=== PATIENT | male | born 1950 | race Caucasian/White ===

== ENCOUNTER 2017-05-20 01:57 | Inpatient (IN) | payer MEDICARE, MEDICAID, SELFPAY ==
[2017-05-20] VITALS (21 sets, daily range): BP systolic 108–140; BP diastolic 38–78; PULSE 72–105; RESP 12–18; TEMP 36.6–37.1; O2SAT 86–98; BMI 38.0; BMI 36.9
--- NOTE | 2017-05-20 02:13 | CT_ITS ---
STUDY: CT ABDOMEN AND PELVIS WITHOUT CONTRAST REASON FOR EXAM: Male, 67 years old. Abdominal pain and nausea RADIATION DOSAGE (If Supplied By Facility): CTDIvol = ( 21.80 ) mGy, DLP = ( 1214.86 ) mGycm TECHNIQUE: Transaxial images were obtained from the dome of the diaphragm to the symphysis pubis without oral contrast, and without intravenous contrast. Sagittal and coronal images were reconstructed. Individualized dose optimization techniques were used for this CT. COMPARISON: None. FINDINGS: Left lower lobe alveolar disease. The visualized portions of the heart are within normal limits. Indeterminate lobulated low density lesion in the hepatic dome measuring 3.9 cm. Cholelithiasis. Normal spleen. Normal pancreas. Normal bilateral adrenal glands. Normal right kidney. Normal left kidney. Normal visualized stomach. Multiple mildly dilated fluid-filled small bowel loops are present on the left measure up to 3.6 cm in diameter. No distinct transition point is seen. Findings could be related to ileus or enteritis. There are multiple colonic diverticula consistent with diverticulosis. The appendix is visualized and appears normal. There is diffuse atherosclerotic calcification of the abdominal aorta, without a demonstrated aneurysm. Normal inferior vena cava. Normal retroperitoneum. Normal urinary bladder. There are prostatic calcifications. Normal abdominal wall. There are diffuse degenerative changes of the visualized lumbar spine. CT/Abdomen/Pelvis without Cont IMPRESSION: CT findings suggest small bowel ileus or enteritis. Left lower lobe pneumonia. Indeterminate lesion in the hepatic dome. Consider follow-up dedicated liver CT or MRI. Electronically Signed: Shun Faye MD at 3:22 EDT Tel , Service support ,
--- NOTE | 2017-05-20 02:13 | RAD_ITS ---
STUDY: X-RAY CHEST REASON FOR EXAM: Male, 67 years old. Pain TECHNIQUE: Single frontal view of the chest. COMPARISON: None. FINDINGS: Right basilar atelectasis. There is no demonstrated pleural abnormality. Prominent cardiac silhouette. Normal mediastinum and leticia. Normal visualized pulmonary arteries. Normal visualized aortic arch and descending thoracic aorta. There are diffuse degenerative changes of the visualized thoracic spine. Normal visualized ribs, clavicles, and shoulders. There is no demonstrated abnormality of the visualized soft tissue structures of the upper abdomen. RAD/Chest 1 View (Portable) IMPRESSION: Right basilar atelectasis. Electronically Signed: Shun Faye MD at 3:14 EDT Tel , Service support ,
[2017-05-20] MEDS: Ondansetron 4 MG/2 ML Vial IV (02:25)
[2017-05-20] MEDS: 0.9% Normal Saline 1,000 ML 125 ML IV ×2 (02:25→12:56)
--- NOTE | 2017-05-20 02:29 | ED.VISSUMM ---
- ER Visit Summary Date of Service: 05/20/17 Chief Complaint: [] Abdominal pain, vomiting History of Present Illness: The patient is a 67 M [] history of MRDD, seizures, schizophrenia from a shelter presenting with complaints of abdominal pain and distention. Staff at the shelter for nausea and vomiting. Staff also reports the patient lives for food and has not eaten for approximately 3 days. History is limited by his history of MRDD. Physical Examination: [] Afebrile, vital signs stable. 67-year-old male in no acute distress. Cardiovascular exam is regular rate and rhythm. Lungs are clear to auscultation. Abdomen is obese, soft, distended. No guarding or rebound tenderness. Test Results: [] CT abdomen/pelvis: Reveals ileus. Labs: CBC normal, BMP reveals a elevated BUN at 54 and a creatinine of 2.49, respectively. LFTs normal. KUB: NG tube in appropriate placement. Emergency Department Course and Treatment: [] Patient evaluated for abdominal pain and distention. Patient given intravenous fluids, nausea medication upon arrival. CT reveals ileus. NG tube was placed after patient received 3 mg intravenously of Versed for procedural sedation. Patient's guardian gave verbal consent over the phone. NG tube was placed which resulted in immediate evacuation of over [address] also reveals left lower lobe infiltrate and because the patient lives in a shelter/penitentiary facility he will be treated as a healthcare associated pneumonia. He received intravenous vancomycin and intravenous Zosyn. He received additional normal saline bolus after BMP identified his renal insufficiency and dehydration. Patient was given 50 mcg of fentanyl for analgesia. Case discussed with on-call surgeon and on-call hospitalist. Patient will be admitted to the medical floor with consult to general surgery for management of the ileus. Treatment Plan: [] Admit to medical floor. NG tube, fluids, n.p.o. Disposition: [] Admit, stable Impression: [] Ileus Left lower lobe infiltrate, being treated as healthcare associated pneumonia Renal insufficiency Dehydration Procedural sedation by ED physician for NG tube placement This note was generated with [employer] dictation software. It may contain incorrect words, spelling, and punctuation that were not noted in review of the chart prior to signing ED Disposition - Plan for ED Patient: Chief Complaint: Abd Pain Referrals: Flo Del Cid Chi, MD [Primary Care Provider] -
[2017-05-20 02:36] LABS: Absolute Lymphocyte Count 1.44 X10^3/ul (0.83-4.51); Absolute Neutrophil Count 4.9 X10^3/uL (2.0-7.7); Basophil# 0.02 X10^3/uL; Basophil% 0.2 % (0-1); Eosinophil# 0.01 X10^3/uL; Eosinophils% 0.1 % (0-5); Hematocrit 44.5 % (40-54); Hemoglobin 14.9 g/dl (13.0-16.5); Lymphocyte # 1.44 X10^3/ul (4.0); Lymphocyte % 17.6 % (19-41); Mean Corp Hgb Conc 33.5 g/gl (32-36); Mean Corpuscular Volume 98.7 fL (80-94); Mean Platelet Vol. 11.9 fl (6.2-12.0); Monocyte# 1.79 X10^3/uL; Monocyte% 21.9 % (0-10); Platelet Count 125 K/mm3 (150-450); RBC Distribution Width CV 13.5 % (11.6-14.6); RBC Distribution Width SD 48.7 fl (35.1-43.9); Red Blood Count 4.51 M/mm3 (4.6-6.2); White Blood Count 8.2 K/mm3 (4.4-11.0)
[2017-05-20 02:38] LABS: Differential Indicated SCAN CRITERIA MET; POSITIVE COUNT NO; POSITIVE DIFFERENTIAL YES; POSITIVE MORPHOLOGY NO
[2017-05-20 02:59] LABS: Lactic Acid 1.1 mmol/L (0.4-2.0)
[2017-05-20 03:04] LABS: Differential Comment SCANNED
[2017-05-20 03:06] LABS: Reactive Lymphocyte 2+
[2017-05-20 03:13] LABS: ALB/GLOB Ratio 0.6 RATIO (0.9-2.4); AST(SGOT) 46 U/L (15-37); Alanine Aminotransfer ALT/SGPT 33 U/L (16-61); Albumin, Serum 2.8 g/dL (3.2-5.0); Alkaline Phosphatase 37 U/L (45-117); Anion Gap 10 (5-15); BUN 54 mg/dL (7-18); BUN/Creat Ratio 21.7 RATIO (10-20); Calcium,Total 8.2 mg/dL (8.5-10.1); Chloride 102 mmol/L (98-107); Creatinine, Serum 2.49 mg/dL (0.70-1.30); EST Glomerular Filtration Rate 28 mL/min (>60); Est Glom Filt Rate - Afr Amer 34 mL/min (>60); Estimated Creatinine Clearance 30.13 ml/min; Globulin 4.5 g/dL (2.2-4.2); Glucose 115 mg/dL (74-106); Lipase 71 U/L (73-393); Potassium 4.7 mmol/L (3.5-5.1); Protein, Total 7.3 g/dL (6.4-8.2); Sodium Level 138 mmol/L (136-145)
--- NOTE | 2017-05-20 03:36 | RAD_ITS ---
STUDY: X-RAY - ABDOMEN/PELVIS REASON FOR EXAM: Male, 67 years old. NG tube placement TECHNIQUE: Single AP view of the abdomen / pelvis. COMPARISON: None. FINDINGS: Enteric tube tip in the body of the stomach. There is an unremarkable bowel gas pattern. There is no demonstrated free abdominal air. The visualized liver, spleen and kidneys are grossly normal in size and morphology. Normal soft tissue structures. There are diffuse degenerative changes of the visualized lumbar spine. RAD/Abdomen Single View (Portable) IMPRESSION: Enteric tube tip in the body of the stomach. Electronically Signed: Shun Faye MD at 5:40 EDT Tel , Service support ,
[2017-05-20] MEDS: Midazolam 2 MG/2 ML Syringe 3 MG IV (05:07)
[2017-05-20] MEDS: 0.9% Normal Saline 1,000 ML 999 ML IV (06:09)
--- NOTE | 2017-05-20 06:21 | HP.PCM_ITS ---
Problem List (1) Ileus Status: Acute (2) HCAP (healthcare-associated pneumonia) Status: Acute (3) ARF (acute renal failure) Status: Acute History of Present Illness Date of Admission: 05/20/17 Chief Complaint: Ileus The patient is a 67 year old male w/ h/o mental retardation and developmental disabilities, seizure, and schizophrenia admitted for ileus. Pt was unable to provide history secondary to sedation and MRDD. History is taken from staff and report. [facility] for [facility] and distention. He had decreased appetite and has not been eating or drinking much water for the last 3 days. He lives for food. He has n/v. Nothing made it better or worse. He was brought to the ED for further evaluation. Past Medical History Allergies No Known Allergies Allergy (Verified 05/20/17 01:58) Home Medications: Ambulatory Orders Medication Instructions Recorded Calcium Polycarbophil [Fiber 625 mg PO DAILY 05/20/17 Laxative] Chlorhexidine Gluconate [Peridex] 15 ml MM BID 05/20/17 Divalproex (ER) [Depakote ER] 500 mg PO TID 05/20/17 Emollient Combination No.92 1 applic TP BID 05/20/17 [Lubriderm Daily Moisture] Ferrous Sulfate [Iron] 325 mg PO BID 05/20/17 Fluticasone Propionate [Flovent 50 mcg IH DAILY 05/20/17 Diskus] Gabapentin [Neurontin] 600 mg PO TIDCM 05/20/17 Haloperidol [Haldol] 5 mg PO DAILY 05/20/17 Loratadine 10 mg PO DAILY 05/20/17 Meloxicam [Mobic] 7.5 mg PO DAILY 05/20/17 Omeprazole 40 mg PO DAILY 05/20/17 Oxcarbazepine [Trileptal] 2 tab PO QHS 05/20/17 Oxcarbazepine [Trileptal] 300 mg PO DAILY 05/20/17 Pravastatin [Pravachol] 40 mg PO QHS 05/20/17 Psyllium [Metamucil] 1 packet PO DAILY 05/20/17 Risperidone [Risperdal] 4 mg PO QHS 05/20/17 Tamsulosin HCl [Flomax] 0.4 mg PO DAILY 05/20/17 Thioridazine HCl 2 tab PO BID 05/20/17 Vitamin B Complex 1 each PO BID 05/20/17 Lives: Roommate Smoking Status: Unknown if ever smoked Alcohol: None Drugs: None Review of Systems Unable to obtain accurate/complete ROS d/t: Unable to obtain secondary to sedation and MRDD VTE Information - Inpt Only VTE Present on Admission: No VTE Mechan Device Prophylaxis: SCD's VTE Pharm Prophylaxis ordered?: Yes Patient Problems: Active and Suspected Problems Ileus (Acute) HCAP (healthcare-associated pneumonia) (Acute) ARF (acute renal failure) (Acute) - Physical Exam General: - - Sedated and NAD HEENT: Atraumatic, PERRLA, EOMI, Normocephalic Neck: Supple, No JVD, Negative Carotid Bruits Lungs: Clear to auscultation, Normal air movement Cardiovascular: Regular rate, No murmurs Abdomen: Soft, Non Tender, Hypoactive Bowel Sounds, Distended Extremities: No edema, Capillary Refill Less than 3 Seconds Skin: No rashes, No breakdown Musculoskeletal: No Tenderness to Palpation of Joints or Extremities Neurological: Cranial nerves II-XII grossly intact Psych/Mental Status: Normal Affect, Appropriate Vital Signs Temp Pulse Resp BP Pulse Ox 98.3 F 86 18 122/65 H 90 05/20/17 01:58 05/20/17 05:32 05/20/17 05:32 05/20/17 05:32 05/20/17 05:05 Oxygen Flow Rate (L/min) [3] 4 Oxygen Flow Rate (L/min) [2] 15 Oxygen Flow Rate (L/min) [1 ( 3 Initial Baseline)] Oxygen Flow Rate (L/min) 3 Oxygen Delivery Method [3] Room Air Oxygen Delivery Method [2] Non-Rebreather Oxygen Delivery Method [1 ( Nasal Cannula Initial Baseline)] Oxygen Delivery Method Nasal Cannula Weight: 120.1 kg Body Mass Index (BMI) 38.0 Intake and Output for Last 24 Hours 05/18/17 05/19/17 05/20/17 23:59 23:59 23:59 Output Total 1000 / 1000 Balance -1000 / -1000 Laboratory Tests Past 24 Hrs 05/20/17 05/20/17 05/20/17 02:26 02:26 02:26 WBC 8.2 RBC 4.51 L Hgb 14.9 Hct 44.5 MCV 98.7 H MCH 33.0 H MCHC 33.5 RDW 13.5 RDW Differential 48.7 H Plt Count 125 L MPV 11.9 Immature Gran % (Auto) 0.200 Neut % (Auto) 60.0 Lymph % (Auto) 17.6 L [place] % (Auto) 21.9 H Eos % (Auto) 0.1 Baso % (Auto) 0.2 Absolute Neuts (auto) 4.9 Absolute Lymphs (auto) 1.44 Total Counted Not Reportable Differential Comment SCANNED Reactive Lymphocytes 2+ Sodium 138 Potassium 4.7 Chloride 102 Carbon Dioxide 26.0 Anion Gap 10 BUN 54 H Creatinine 2.49 H Estim Creat Clear Calc 30.13 Est GFR (MDRD) Af Amer 34 L Est GFR (MDRD) Non-Af 28 L BUN/Creatinine Ratio 21.7 H Glucose 115 H Lactic Acid 1.1 Calcium 8.2 L Total Bilirubin 0.50 AST 46 H ALT 33 Alkaline Phosphatase 37 L Total Protein 7.3 Albumin 2.8 L Globulin 4.5 H Albumin/Globulin Ratio 0.6 L Lipase 71 L Assessment/Plan Active and Suspected Problems Ileus (Acute) HCAP (healthcare-associated pneumonia) (Acute) ARF (acute renal failure) (Acute) 67 year old male w/ h/o mental retardation and developmental disabilities, seizure, and schizophrenia admitted for ileus. 1) Ileus: CT disclosed ileus. NPO. IVF hydration. NGT to suction. General surgery consulted. 2) HCAP: CT disclosed left lower lobe pneumonia. Cultures pending. C/w zosyn and vancomycin. 3) ARF: Most likely azotemia. Baseline Cr 1.1 Cr 2.49 Will hydrate and if no improvement, will consider further workup. UA pending. 4) Chronic issues: Mental retardation and developmental disabilities, seizure, and schizophrenia: Supportive care. Home meds on hold secondary to ileus and NGT to suction. Resume meds when ileus improves. 5) Prophylaxis: SCD / heparin.
--- NOTE | 2017-05-20 08:49 | PCM.CONS.GEN ---
Reason for Consult Date of Consultation: 05/20/17 Reason for Consultation: Ileus History of Present Illness: The patient is a 67 year old M history of MRDD from a nursing home presents due to nausea and vomiting and decreased appetite ?3 days. History obtained per chart as patient is unable to give a adequate history however he does state that he feels better now after having an NG placed. NG initial output was 1500 in the ER. KUB after NG placement and drainage was read as normal bowel pattern. CT abdomen pelvis also showed left lower lobe pneumonia. And labs also showed acute renal failure. Past Medical History Allergies No Known Allergies Allergy (Verified 05/20/17 01:58) Home Medications: Ambulatory Orders Medication Instructions Recorded Calcium Polycarbophil [Fiber 625 mg PO DAILY 05/20/17 Laxative] Chlorhexidine Gluconate [Peridex] 15 ml MM BID 05/20/17 Divalproex (ER) [Depakote ER] 500 mg PO TID 05/20/17 Ferrous Sulfate [Iron] 325 mg PO BID 05/20/17 Fluticasone Propionate [Flovent 50 mcg IH DAILY 05/20/17 Diskus] Gabapentin [Neurontin] 600 mg PO TIDCM 05/20/17 Gly/Dimeth/Ure/Pet,Wh/Cet Alc 1 applic TP BID 05/20/17 [Lubriderm Skin Nourishing Lot] Haloperidol [Haldol] 5 mg PO DAILY 05/20/17 Loratadine 10 mg PO DAILY 05/20/17 Meloxicam [Mobic] 7.5 mg PO DAILY 05/20/17 Omeprazole 40 mg PO DAILY 05/20/17 Oxcarbazepine [Trileptal] 2 tab PO QHS 05/20/17 Oxcarbazepine [Trileptal] 300 mg PO DAILY 05/20/17 Pravastatin [Pravachol] 40 mg PO QHS 05/20/17 Psyllium [Metamucil] 1 packet PO DAILY 05/20/17 Risperidone [Risperdal] 4 mg PO QHS 05/20/17 Tamsulosin HCl [Flomax] 0.4 mg PO DAILY 05/20/17 Thioridazine HCl 2 tab PO BID 05/20/17 Vitamin B Complex 1 each PO BID 05/20/17 Surgical History: - - Unable to obtain no scars/incisions on the abdomen Psychiatric History: Schizophrenia Lives: Roommate - In a nursing home Smoking Status: Unknown if ever smoked Alcohol: None Drugs: None - *Family History Maternal History Items: Unknown Review of Systems Unable to obtain accurate/complete ROS d/t: Due to patient's history of MRDD Patient Problems: Active and Suspected Problems Ileus (Acute) HCAP (healthcare-associated pneumonia) (Acute) ARF (acute renal failure) (Acute) - Physical Exam General: Cooperative, No apparent distress HEENT: Normocephalic, - - NG in left nares Lungs: Normal air movement Abdomen: Soft, Non Tender, Non-Distended, - - No scars/incision was appreciated on abdomen, no guarding no rebound Extremities: No clubbing, No cyanosis, No edema Psych/Mental Status: Appropriate Vital Signs Temp Pulse Resp BP Pulse Ox 98.2 F 76 18 125/57 H 98 05/20/17 07:13 05/20/17 07:13 05/20/17 07:13 05/20/17 07:13 05/20/17 07:13 Oxygen Flow Rate (L/min) 3 Oxygen Delivery Method Room Air Weight: 257 lb 4.471 oz Intake and Output for Last 24 Hours 05/18/17 05/19/17 05/20/17 23:59 23:59 23:59 Output Total 550 / 1550 Balance -550 / -1550 Assessment/Plan Active and Suspected Problems Ileus (Acute) HCAP (healthcare-associated pneumonia) (Acute) ARF (acute renal failure) (Acute) 67-year-old male with history of MRDD from a nursing home with possible ileus, nausea and vomiting, acute renal failure, left lower lobe pneumonia 1. Possible ileus. History obtained per records as patient is unable to give history. Nausea and vomiting and decreased appetite ?[address] was consistent with an ileus or possible enteritis. NG was placed in the ER and got 1500 out initially patient got another 2-300 out in the room. Repeat KUB after initial drainage read as normal bowel pattern. Will check small bowel follow-through with Gastrografin, okay for portable x-rays as long as we able to see the bowel. Continue NG/n.p.o. until small bowel follow-through complete. 2. Acute renal failure patient is on IV fluids per primary. 3. Antibiotics for pneumonia per primary. Claire Anthony M.D. Pager: [phone] [facility] [address], [address] [place] [address] Office: [phone] Code Visit Inpatient E&M: 29501 Init Hosp L1
--- NOTE | 2017-05-20 08:59 | CON.PCM_ITS ---
Reason for Consult Date of Consultation: 05/20/17 Reason for Consultation: Ileus History of Present Illness: The patient is a 67 year old M history of MRDD from a residential presents due to nausea and vomiting and decreased appetite ?3 days. History obtained per chart as patient is unable to give a adequate history however he does state that he feels better now after having an NG placed. NG initial output was 1500 in the ER. KUB after NG placement and drainage was read as normal bowel pattern. CT abdomen pelvis also showed left lower lobe pneumonia. And labs also showed acute renal failure. Past Medical History Allergies No Known Allergies Allergy (Verified 05/20/17 01:58) Home Medications: Ambulatory Orders Medication Instructions Recorded Calcium Polycarbophil [Fiber 625 mg PO DAILY 05/20/17 Laxative] Chlorhexidine Gluconate [Peridex] 15 ml MM BID 05/20/17 Divalproex (ER) [Depakote ER] 500 mg PO TID 05/20/17 Ferrous Sulfate [Iron] 325 mg PO BID 05/20/17 Fluticasone Propionate [Flovent 50 mcg IH DAILY 05/20/17 Diskus] Gabapentin [Neurontin] 600 mg PO TIDCM 05/20/17 Gly/Dimeth/Ure/Pet,Wh/Cet Alc 1 applic TP BID 05/20/17 [Lubriderm Skin Nourishing Lot] Haloperidol [Haldol] 5 mg PO DAILY 05/20/17 Loratadine 10 mg PO DAILY 05/20/17 Meloxicam [Mobic] 7.5 mg PO DAILY 05/20/17 Omeprazole 40 mg PO DAILY 05/20/17 Oxcarbazepine [Trileptal] 2 tab PO QHS 05/20/17 Oxcarbazepine [Trileptal] 300 mg PO DAILY 05/20/17 Pravastatin [Pravachol] 40 mg PO QHS 05/20/17 Psyllium [Metamucil] 1 packet PO DAILY 05/20/17 Risperidone [Risperdal] 4 mg PO QHS 05/20/17 Tamsulosin HCl [Flomax] 0.4 mg PO DAILY 05/20/17 Thioridazine HCl 2 tab PO BID 05/20/17 Vitamin B Complex 1 each PO BID 05/20/17 Surgical History: - - Unable to obtain no scars/incisions on the abdomen Psychiatric History: Schizophrenia Lives: Roommate - In a residential Smoking Status: Unknown if ever smoked Alcohol: None Drugs: None - *Family History Maternal History Items: Unknown Review of Systems Unable to obtain accurate/complete ROS d/t: Due to patient's history of MRDD Patient Problems: Active and Suspected Problems Ileus (Acute) HCAP (healthcare-associated pneumonia) (Acute) ARF (acute renal failure) (Acute) - Physical Exam General: Cooperative, No apparent distress HEENT: Normocephalic, - - NG in left nares Lungs: Normal air movement Abdomen: Soft, Non Tender, Non-Distended, - - No scars/incision was appreciated on abdomen, no guarding no rebound Extremities: No clubbing, No cyanosis, No edema Psych/Mental Status: Appropriate Vital Signs Temp Pulse Resp BP Pulse Ox 98.2 F 76 18 125/57 H 98 05/20/17 07:13 05/20/17 07:13 05/20/17 07:13 05/20/17 07:13 05/20/17 07:13 Oxygen Flow Rate (L/min) 3 Oxygen Delivery Method Room Air Weight: 257 lb 4.471 oz Intake and Output for Last 24 Hours 05/18/17 05/19/17 05/20/17 23:59 23:59 23:59 Output Total 550 / 1550 Balance -550 / -1550 Assessment/Plan Active and Suspected Problems Ileus (Acute) HCAP (healthcare-associated pneumonia) (Acute) ARF (acute renal failure) (Acute) 67-year-old male with history of MRDD from a residential with possible ileus, nausea and vomiting, acute renal failure, left lower lobe pneumonia 1. Possible ileus. History obtained per records as patient is unable to give history. Nausea and vomiting and decreased appetite ?[address] was consistent with an ileus or possible enteritis. NG was placed in the ER and got 1500 out initially patient got another 2-300 out in the room. Repeat KUB after initial drainage read as normal bowel pattern. Will check small bowel follow-through with Gastrografin, okay for portable x-rays as long as we able to see the bowel. Continue NG/n.p.o. until small bowel follow-through complete. 2. Acute renal failure patient is on IV fluids per primary. 3. Antibiotics for pneumonia per primary. Claire Anthony M.D. Pager: [phone] [facility] [address], [address] [place] [address] Office: [phone] Code Visit Inpatient E&M: 79906 Init Hosp L1
--- NOTE | 2017-05-20 10:04 | US_ITS ---
STUDY: RENAL ULTRASOUND - COMPLETE REASON FOR EXAM: Male, 67 years old. Acute renal failure. TECHNIQUE: Ultrasound evaluation of the kidneys was performed with real-time and static honeycutt-scale imaging. COMPARISON: CT scan of the same day which showed no acute renal abnormalities.. FINDINGS: Exam limited by patient's size and patient condition. RIGHT KIDNEY: Normal location of the right kidney, which is normal in size. The right kidney measures 12.5 x 6.0 x 5.4 cm. Possible mild increased echogenicity of the renal cortex. The renal cortex measures 1.5 cm. There is no right renal mass or cyst. There are no right renal calculi. There is no right hydronephrosis. DISTAL RIGHT URETER: There is non-visualization of the distal right ureter. There is no demonstrated right ureterovesical junction calculus. There is a visualized right ureteral jet. LEFT KIDNEY: Normal location of the left kidney, which is normal in size. The left kidney measures 12.1 x 6.7 x 6.6 cm. Possible mild increased echogenicity of the renal cortex. The renal cortex measures 1.4 cm. There is no left renal mass or cyst. There are no left renal calculi. There is no left hydronephrosis. DISTAL LEFT URETER: There is non-visualization of the distal left ureter. There is no demonstrated left ureterovesical junction calculus. There is a visualized left ureteral jet. BLADDER: The distended urinary bladder has a volume of 371 ml. There is a normal wall thickness of the distended urinary bladder. There is no demonstrated mass within the urinary bladder. There are no demonstrated bladder calculi. US/Kidney and Bladder IMPRESSION: No acute abnormalities. No hydronephrosis. Cannot exclude mild diffuse increased echogenicity of the renal cortex which can be seen in medical renal disease. Electronically Signed: Graham Narvaez MD at 15:56 EDT , Service support ,
--- NOTE | 2017-05-20 10:21 | NURSING ---
Primary RN awaRe this nurse called/ let a message for Dr. Del Cid's nurse requesting medial records including past medical history
--- NOTE | 2017-05-20 10:30 | RAD_ITS ---
CLINICAL HISTORY: Male, 67 years old. Nausea and vomiting. PROCEDURE: Small bowel series. TECHNIQUE: (All elements of maximal sterile barrier technique followed, including US elements as applicable) Multiple sequential small bowel follow-through images are obtained. There is prominent gastric contrast content with multiple areas of small bowel dilatation noted. There is faint outline of contrast within the colon with sequential imaging showing no evidence of gastric contents extending through the small bowel on examination. RAD/Small Bowel Series Only IMPRESSION: Prominent gastric focus of contrast without significant contrast movement throughout the enteric system most consistent with underlying small bowel obstruction versus adynamic ileus. Electronically Signed: Shaun Keys DO at 22:56 EDT , Service support ,
--- NOTE | 2017-05-20 12:23 | NURSING ---
jail called at this time- requested information regarding flu vaccine and admission information.
[2017-05-20] MEDS: Budesonide Respules 0.5 MG/2 ML AMPUL.NEB. INHALATION ×2 (13:25→23:15)
[2017-05-20] MEDS: Piperacil/Tazobactam 3.375 GM/50 ML ML IV ×2 (14:09→21:46)
--- NOTE | 2017-05-20 14:32 | CASEMGMT ---
Social Work Note SUSI met with patient to discuss discharge planning. SUSI introduced self and role at [facility]. Pt is from [facility]. Pt's plan is to return to [facility]. SUSI placed call to [facility]. PerKarol at [facility], SUSI will need to fax clinicals to [facility] as [facility] doesn't have a fax. SUSI faxed clinicals to [facility]. Plan: Return to [facility] Octavia SAWYER, JOURNALISM INTERN.
--- NOTE | 2017-05-20 14:47 | PCM.PN.HOSP ---
Patient Problems: Active and Suspected Problems Ileus (Acute) HCAP (healthcare-associated pneumonia) (Acute) ARF (acute renal failure) (Acute) Subjective: Patient was seen and examined. Status post NG tube placement. Says that he feels much improved. Admitted overnight with abdominal distention and findings from CT abdomen pelvis suggestive of small bowel ileus. Denies any fever or chills. Vitals/I&O's: Vital Signs Temp Pulse Resp BP Pulse Ox 98.2 F 72 18 109/66 93 05/20/17 13:01 05/20/17 13:44 05/20/17 13:44 05/20/17 13:01 05/20/17 13:01 Oxygen Flow Rate (L/min) 2 Oxygen Delivery Method Nasal Cannula Weight: 116.7 kg Intake and Output for Last 24 Hours 05/18/17 05/19/17 05/20/17 23:59 23:59 23:59 Intake Total 745 / 745 Output Total 550 / 1550 Balance 195 / -805 General: Alert, Oriented x3, Cooperative, No apparent distress, - - NG tube insitu HEENT: Atraumatic, PERRLA, EOMI, Normocephalic Oral: Moist Mucosa Neck: Supple Lungs: Clear to auscultation, Normal air movement Cardiovascular: Regular rate, Regular Rhythm, Normal S1, Normal S2, No murmurs Abdomen: Bowel Sounds Present, Soft, Non Tender, Distended Extremities: No edema Skin: No rashes Musculoskeletal: No Tenderness to Palpation of Joints or Extremities Lymphatic: No Cervical, Supraclavicular, or Inguinal Adenopathy Neurological: Cranial nerves II-XII grossly intact, Neuro grossly intact Psych/Mental Status: Normal Affect, Appropriate Current Medications Budesonide (Pulmicort Aerosol) 0.5 mg INHALATION Q12H.RT [facility] Last Admin: 05/20/17 13:25 Dose: 0.5 mg Heparin Sodium (Porcine) (Heparin Na) 5,000 unit SC Q8 [facility] Sodium Chloride () 1,000 mls @ 125 mls/hr IV .Q8H [facility] Last Admin: 05/20/17 12:56 Dose: 125 mls/hr Piperacillin Sod/Tazobactam Sod (Zosyn) 3.375 gm in 50 mls @ 12.5 mls/hr IV Q8 [facility] Last Admin: 05/20/17 14:09 Dose: 12.5 mls/hr Valproic Acid 500 mg/ Dextrose 55 mls @ 50 mls/hr IV Q8H [facility] Last Admin: 05/20/17 12:55 Dose: 50 mls/hr Morphine Sulfate () 1 - 2 mg IV Q4H PRN PRN PRN Reason: Moderate Pain (pain scale 4-5) Sodium Chloride () 5 - 30 ml IV UD PRN PRN Reason: SALINE FLUSH Medical Necessity - Tobacco Use Smoking Status: Unknown if ever smoked Assessment/Plan Active and Suspected Problems Ileus (Acute) HCAP (healthcare-associated pneumonia) (Acute) ARF (acute renal failure) (Acute) 67-year-old male with MRDD, seizure disorder, schizophrenia admitted with abdominal distention and CT of the abdomen and pelvis shows small bowel ileus. 1. Abdominal distention secondary small bowel ileus, managed conservatively, general surgery consulted, kept n.p.o., abdominal follow-up/series ordered, on IV fluids, further management and recommendations by general surgery. 2. HCAP, vitals are stable, blood cultures are pending, on zosyn IV, will transition to Levaquin IV/Po from tomorrow. 3. KEHINDE, likely pre-renal, Cr 2.49, continue on IV fluids, repeat BMP in am. 4. Seizure disorder, on depakote 5. MRDD/Schizophrenia 6. DVT prophylaxis with Heparin Code Visit Inpatient E&M: [id number] Subs Hosp L2
[2017-05-20 18:40] LABS: Bedside Glucose 98 mg/dL (70-110)
--- NOTE | 2017-05-20 18:46 | NURSING ---
Pt off unit at this time for small bowel series- for xray.
--- NOTE | 2017-05-20 18:47 | NURSING ---
Dr. Anthony called to unit and states that patient's NG tube should remain clamped and does not need any flushes. She states that if patient becomes nauseated that we may reconnect to LIWS. She states that patient will need to be ambulating 3-4 times each day to stimulate bowels.
--- NOTE | 2017-05-20 19:34 | NURSING ---
NG tube d/c'ed- pt tolerated well. Following removal pt. assisted with washing face and getting a drink of ice water, per his request. Restraints removed at this time and IV wrapped to prevent removal. Attempted to get patient out of bed, adamant that he was not getting up at this time. Provided encouragement to get up so he can get his bowels to work so he can eat. Pt states he will walk later.
[2017-05-20 19:49] LABS: Bacteria 0 SEEN /hpf (None Seen); Mucous, Urine 0 SEEN /hpf (<or=2+); White Blood Cells 0 SEEN /hpf (0-5)
[2017-05-20 19:57] LABS: Color, Urine Yellow (Yellow); Glucose, Dipstick Normal (Normal); Ketone-Dipstick 5 mg/dl (Negative); Leukocyte Esterase-Dipstick Negative /ul (Negative); Nitrite-Dipstick Negative (Negative); Occult Blood-Urine 10 /ul (Negative); Protein-Dipstick 15 mg/dl (Negative); Urine Clarity Sl. Cloudy (Clear); Urine Urobilinogen Normal (Normal)
[2017-05-20 20:12] LABS: Urine Bilirubin Dipstick 1 mg/dL (Negative)
[2017-05-20 20:17] LABS: Red Blood Cells-Urine 0-5 SEEN /hpf (0-5); Squamous Epithelial Cells - UA 0-5 SEEN /hpf (0-5)
[2017-05-20 20:18] LABS: Amorphous Sediment 1+ URATE; Hyaline Cast 0-5 SEEN /lpf (0-5)
--- NOTE | 2017-05-20 21:45 | NURSING ---
Pt's sister, Ginna, is in Rehab. Called to ask about pt and spoke with feeder driver.
[2017-05-21] MEDS: 0.9% Normal Saline 1,000 ML 125 ML IV ×2 (00:40→09:45)
[2017-05-21 01:26] LABS: Bedside Glucose 94 mg/dL (70-110)
[2017-05-21 02:43] VITALS: BP 131/59; PULSE 88; RESP 20; TEMP 37.4; O2SAT 93
[2017-05-21] MEDS: Piperacil/Tazobactam 3.375 GM/50 ML ML IV (06:14)
[2017-05-21 06:30] LABS: Bedside Glucose 101 mg/dL (70-110)
--- NOTE | 2017-05-21 08:19 | PCM.PN.SRG ---
Patient Problems: Active and Suspected Problems Ileus (Acute) HCAP (healthcare-associated pneumonia) (Acute) ARF (acute renal failure) (Acute) Subjective: Patient did have contrast throughout the colon and in the rectum last night. NG was removed started on small amounts of clears, positive liquid bowel movements and flatus. However on the small bowel follow-through patient retained the a good amount of contrast in his stomach. Patient denies nausea/abdominal pain - Physical Exam General: Cooperative, No apparent distress Abdomen: Soft, Non Tender, Distended - Mild, - - No guarding or rebound Vital Signs Temp Pulse Resp BP Pulse Ox 99.3 F H 88 20 H 131/59 H 93 05/21/17 02:43 05/21/17 02:43 05/21/17 02:43 05/21/17 02:43 05/21/17 02:43 Oxygen Flow Rate (L/min) 3 Oxygen Delivery Method Nasal Cannula Weight: 257 lb 4.471 oz Intake and Output for Last 24 Hours 05/19/17 05/20/17 05/21/17 23:59 23:59 23:59 Intake Total 1261 / 1261 2362 / 2362 Output Total 1300 / 2300 1100 / 1100 Balance -39 / -1039 1262 / 1262 Microbiology Past 72 Hours 05/20/17 16:10 Streptococcus pneumoniae Antigen (M - Final Urine Catheter - Catheter 05/20/17 16:10 Legionella Antigen - Final Urine Catheter - Catheter 05/20/17 13:15 Influenza Types A,B Direct FA (DENNY) - Final Mucosa - Nose Laboratory Tests Past 24 Hrs 05/20/17 05/20/17 14:05 16:50 Urine Color Yellow Cancelled Urine Clarity Sl. Cloudy Cancelled Urine pH 5.0 Cancelled Ur Specific [place] 1.020 Cancelled U Specif Grav (Refrac) Cancelled Urine Protein 15 H Cancelled Urine Glucose (UA) Normal Cancelled Urine Ketones 5 H Cancelled Urine Occult Blood 10 H Cancelled Urine Nitrite Negative Cancelled Urine Bilirubin 1 H Cancelled Urine Urobilinogen Normal Cancelled Ur Leukocyte Esterase Negative Cancelled Urine RBC 0-5 SEEN Urine WBC 0 SEEN Ur Squamous Epith Cells 0-5 SEEN Amorphous Sediment 1+ URATE Urine Bacteria 0 SEEN Hyaline Casts 0-5 SEEN Urine Mucus 0 SEEN POC Glucose 05/21/17 05/21/17 05/20/17 06:26 00:56 18:35 POC Glucose 101 94 98 Medical Necessity - Tobacco Use Smoking Status: Unknown if ever smoked Assessment/Plan Active and Suspected Problems Ileus (Acute) HCAP (healthcare-associated pneumonia) (Acute) ARF (acute renal failure) (Acute) 67-year-old male with history of MRDD from a [facility] with possible ileus, nausea and vomiting, acute renal failure, left lower lobe pneumonia 1. Patient did have positive bowel function however on the small bowel follow-through he did retain a good amount of contrast in his stomach. Will recheck KUB this morning to see if that did move through. Patient is currently on clears. If the contrast did move out of his stomach will advance diet. 2. Acute renal failure patient is on IV fluids per primary. 3. Antibiotics for pneumonia per primary. ADDENDUM: KUB did still show pooling of contrast in stomach, but there is also contrast throughout the small and large bowel, will go slow with the diet, encourage ambulation with assist 3-4 times daily. Claire Anthony M.D. Pager: [phone] [facility] [address] [place] [address], [address] [place] [id number] Office: [phone] Code Visit Inpatient E&M: [id number] [facility] Hosp L1
--- NOTE | 2017-05-21 08:22 | PN.SURG_ITS ---
Patient Problems: Active and Suspected Problems Ileus (Acute) HCAP (healthcare-associated pneumonia) (Acute) ARF (acute renal failure) (Acute) Subjective: Patient did have contrast throughout the colon and in the rectum last night. NG was removed started on small amounts of clears, positive liquid bowel movements and flatus. However on the small bowel follow-through patient retained the a good amount of contrast in his stomach. Patient denies nausea/ abdominal pain - Physical Exam General: Cooperative, No apparent distress Abdomen: Soft, Non Tender, Distended - Mild, - - No guarding or rebound Vital Signs Temp Pulse Resp BP Pulse Ox 99.3 F H 88 20 H 131/59 H 93 05/21/17 02:43 05/21/17 02:43 05/21/17 02:43 05/21/17 02:43 05/21/17 02:43 Oxygen Flow Rate (L/min) 3 Oxygen Delivery Method Nasal Cannula Weight: 257 lb 4.471 oz Intake and Output for Last 24 Hours 05/19/17 05/20/17 05/21/17 23:59 23:59 23:59 Intake Total 1261 / 1261 2362 / 2362 Output Total 1300 / 2300 1100 / 1100 Balance -39 / -1039 1262 / 1262 Microbiology Past 72 Hours 05/20/17 16:10 Streptococcus pneumoniae Antigen (M - Final Urine Catheter - Catheter 05/20/17 16:10 Legionella Antigen - Final Urine Catheter - Catheter 05/20/17 13:15 Influenza Types A,B Direct FA (DENNY) - Final Mucosa - Nose Laboratory Tests Past 24 Hrs 05/20/17 05/20/17 14:05 16:50 Urine Color Yellow Cancelled Urine Clarity Sl. Cloudy Cancelled Urine pH 5.0 Cancelled Ur Specific [place] 1.020 Cancelled U Specif Grav (Refrac) Cancelled Urine Protein 15 H Cancelled Urine Glucose (UA) Normal Cancelled Urine Ketones 5 H Cancelled Urine Occult Blood 10 H Cancelled Urine Nitrite Negative Cancelled Urine Bilirubin 1 H Cancelled Urine Urobilinogen Normal Cancelled Ur Leukocyte Esterase Negative Cancelled Urine RBC 0-5 SEEN Urine WBC 0 SEEN Ur Squamous Epith Cells 0-5 SEEN Amorphous Sediment 1+ URATE Urine Bacteria 0 SEEN Hyaline Casts 0-5 SEEN Urine Mucus 0 SEEN POC Glucose 05/21/17 05/21/17 05/20/17 06:26 00:56 18:35 POC Glucose 101 94 98 Medical Necessity - Tobacco Use Smoking Status: Unknown if ever smoked Assessment/Plan Active and Suspected Problems Ileus (Acute) HCAP (healthcare-associated pneumonia) (Acute) ARF (acute renal failure) (Acute) 67-year-old male with history of MRDD from a [facility] with possible ileus, nausea and vomiting, acute renal failure, left lower lobe pneumonia 1. Patient did have positive bowel function however on the small bowel follow- through he did retain a good amount of contrast in his stomach. Will recheck KUB this morning to see if that did move through. Patient is currently on clears. If the contrast did move out of his stomach will advance diet. 2. Acute renal failure patient is on IV fluids per primary. 3. Antibiotics for pneumonia per primary. ADDENDUM: KUB did still show pooling of contrast in stomach, but there is also contrast throughout the small and large bowel, will go slow with the diet, encourage ambulation with assist 3-4 times daily. Claire Anthony M.D. Pager: [phone] [facility] [address] [place] [address], [address] [place] [id number] Office: [phone] Code Visit Inpatient E&M: [id number] [facility] [place] Hosp L1
[2017-05-21] MEDS: 0.9% NaCl Peripheral Flush Adult/Peds IV (09:05)
--- NOTE | 2017-05-21 09:15 | RAD_ITS ---
STUDY: X-RAY - ABDOMEN/PELVIS REASON FOR EXAM: Male, 67 years old. Follow-up small bowel series. TECHNIQUE: Single AP view of the abdomen / pelvis. COMPARISON: 04/19/2017. FINDINGS: Contrast is seen throughout the large bowel which is not distended. Therefore there is no evidence for obstruction. No dilated loops of bowel. The visualized liver, spleen and kidneys are grossly normal in size and morphology. Normal soft tissue structures. Normal visualized osseous structures. RAD/Abdomen Single View IMPRESSION: Contrast is seen throughout the large bowel which is not distended. Therefore there is no evidence for obstruction. Electronically Signed: Graham Narvaez MD at 9:56 EDT , Service support ,
[2017-05-21 09:35] VITALS: BP 130/73; PULSE 85; RESP 16; TEMP 36.7; O2SAT 94
[2017-05-21 09:51] VITALS: O2SAT 93
[2017-05-21 10:41] LABS: Anion Gap 7 (5-15); BUN 39 mg/dL (7-18); BUN/Creat Ratio 29.3 RATIO (10-20); Calcium,Total 8.1 mg/dL (8.5-10.1); Chloride 106 mmol/L (98-107); Creatinine, Serum 1.33 mg/dL (0.70-1.30); EST Glomerular Filtration Rate 57 mL/min (>60); Est Glom Filt Rate - Afr Amer 69 mL/min (>60); Estimated Creatinine Clearance 56.41 ml/min; Glucose 91 mg/dL (74-106); Magnesium 1.9 mg/dL (1.6-2.6); Potassium 3.9 mmol/L (3.5-5.1); Sodium Level 141 mmol/L (136-145)
[2017-05-21 12:00] LABS: Bedside Glucose 104 mg/dL (70-110)
[2017-05-21] MEDS: levoFLOXacin IV 750 MG/150 ML BAG 100 MG IV (13:35)
[2017-05-21] MEDS: Gabapentin 600 MG Tablet PO ×2 (13:36→16:16)
--- NOTE | 2017-05-21 15:01 | PCM.PN.HOSP ---
Patient Problems: Active and Suspected Problems Ileus (Acute) HCAP (healthcare-associated pneumonia) (Acute) ARF (acute renal failure) (Acute) Subjective: Patient was seen and examined. He has had more than 2 bowel movements. On clear liquid diet with gradual advancement of diet. Denies fever, chills, chest pain, SOB. Still on 3L of oxygen. Objective: PHYSICAL EXAM: General: Alert, Oriented x3, Cooperative, No apparent distress, on 3L oxygen HEENT: Atraumatic, PERRLA, EOMI, Normocephalic Oral: Moist Mucosa Neck: Supple Lungs: Clear to auscultation, Normal air movement Cardiovascular: Regular rate, Regular Rhythm, Normal S1, Normal S2, No murmurs Abdomen: Bowel Sounds Present, Soft, Non Tender, Distended Extremities: No edema Skin: No rashes Musculoskeletal: No Tenderness to Palpation of Joints or Extremities Lymphatic: No Cervical, Supraclavicular, or Inguinal Adenopathy Neurological: Cranial nerves II-XII grossly intact, Neuro grossly intact Psych/Mental Status: Normal Affect, Appropriate Vitals/I&O's: Vital Signs Temp Pulse Resp BP Pulse Ox 98.1 F 85 16 130/73 H 93 05/21/17 09:35 05/21/17 09:35 05/21/17 09:35 05/21/17 09:35 05/21/17 09:51 Oxygen Flow Rate (L/min) 3 Oxygen Delivery Method Nasal Cannula Weight: 116.7 kg Intake and Output for Last 24 Hours 05/19/17 05/20/17 05/21/17 23:59 23:59 23:59 Intake Total 1261 / 1261 3495 / 3495 Output Total 1300 / 2300 1100 / 1100 Balance -39 / -1039 2395 / 2395 Microbiology Past 72 Hours 05/20/17 16:10 Urine Catheter - Catheter Streptococcus pneumoniae Antigen (M - Final 05/20/17 16:10 Urine Catheter - Catheter Legionella Antigen - Final 05/20/17 13:15 Mucosa - Nose Influenza Types A,B Direct FA (DENNY) - Final Laboratory Results 05/20/17 14:05: Urine Color Yellow, Urine Clarity Sl. Cloudy, Urine pH 5.0, Ur Specific [place] 1.020, Urine Protein 15 H, Urine Glucose (UA) Normal, Urine Ketones 5 H, Urine Occult Blood 10 H, Urine Nitrite Negative, Urine Bilirubin 1 H, Urine Urobilinogen Normal, Ur Leukocyte Esterase Negative, Urine RBC 0-5 SEEN, Urine WBC 0 SEEN, Ur Squamous Epith Cells 0-5 SEEN, Amorphous Sediment 1+ URATE, Urine Bacteria 0 SEEN, Hyaline Casts 0-5 SEEN, Urine Mucus 0 SEEN 05/20/17 16:50: Urine Color Cancelled, Urine Clarity Cancelled, Urine pH Cancelled, Ur Specific [place] Cancelled, U Specif Grav (Refrac) Cancelled, Urine Protein Cancelled, Urine Glucose (UA) Cancelled, Urine Ketones Cancelled, Urine Occult Blood Cancelled, Urine Nitrite Cancelled, Urine Bilirubin Cancelled, Urine Urobilinogen Cancelled, Ur Leukocyte Esterase Cancelled 05/20/17 18:35: POC Glucose 98 05/21/17 00:56: POC Glucose 94 05/21/17 06:26: POC Glucose 101 05/21/17 10:12: Sodium 141, Potassium 3.9, Chloride 106, Carbon Dioxide 28.0, Anion Gap 7, BUN 39 H, Creatinine 1.33 H, Estim Creat Clear Calc 56.41, Est GFR (MDRD) Af Amer 69, Est GFR (MDRD) Non-Af 57 L, BUN/Creatinine Ratio 29.3 H, Glucose 91, Calcium 8.1 L, Magnesium 1.9 05/21/17 11:47: POC Glucose 104 Current Medications Budesonide (Pulmicort Aerosol) 0.5 mg INHALATION Q12H.RT [facility] Last Admin: 05/21/17 13:10 Dose: Not Given Calcium Polycarbophil (Fibercon) 625 mg PO DAILY [facility] Divalproex Sodium (Depakote) 500 mg PO TID [facility] Ferrous S[facility]) [facility] Gabapentin (Neurontin) 600 mg PO TIDCM [facility] Last Admin: 05/21/17 13:36 Dose: 600 mg Haloperidol ([facility]aldol) [facility] Heparin Sodium (Porcine) (Heparin Na) 5,000 unit SC Q8 [facility] Last Admin: 05/21/17 13:37 Dose: 5,000 units Levofloxacin (Levaquin Iv) 750 mg in 150 mls @ 100 mls/hr IV Q48 [facility] Last Admin: 05/21/17 13:35 Dose: 100 mls/hr Sodium Chloride () 1,000 mls @ 75 mls/hr IV .[id number] [facility] Last Admin: 05/21/17 12:33 Dose: Not Given Morphine Sulfate () 1 - 2 mg IV Q4H PRN PRN PRN Reason: Moderate Pain (pain scale 4-5) Multivitamins (Allbee W/C Caplet, Thera B Comp/C) 1 capsule PO BIDCM [facility] Oxcarbazepine (Trileptal) 600 mg PO QHS [facility] Oxcarbazepine (Trileptal) 300 mg PO DAILY [facility] Pantoprazole Sodium (Protonix) 40 mg PO DAILY [facility] Pravastatin Sodium (Pravachol) 40 mg PO QHS [facility] Psyllium Hydrophilic Mucilloid (Metamucil) 1 packet PO DAILY [facility] Risperidone (Risperdal) 4 mg PO HS [facility] Sodium Chloride () 5 - 30 ml IV UD PRN PRN Reason: SALINE FLUSH Last Admin: 05/21/17 09:05 Dose: 10 ml Tamsulosin HCl (Flomax) 0.4 mg PO DAILY [facility] Thioridazine HCl (Thioridazine Hcl) 200 mg PO BID [facility] Medical Necessity - Tobacco Use Smoking Status: Unknown if ever smoked Assessment/Plan Active and Suspected Problems Ileus (Acute) HCAP (healthcare-associated pneumonia) (Acute) ARF (acute renal failure) (Acute) 67-year-old male with MRDD, seizure disorder, schizophrenia admitted with abdominal distention and CT of the abdomen and pelvis shows small bowel ileus. 1. Abdominal distention secondary small bowel ileus, managed conservatively, resolved, patient has passed 2 bowel movements, general surgery following, on clear liquid diet with gradual advancement in diet. 2. HCAP, left lower lobe pneumonia, seen on abdominal CT, vitals are stable, urine for streptococcal and legionella negative, blood cultures are pending, will continue on IV levaquin today and transition to po tomorrow if his ileus continues to improve. 3. KEHINDE, likely pre-renal, Cr 2.49, continue on IV fluids, repeat BMP in am. 4. Seizure disorder, on depakote 5. MRDD/Schizophrenia, will resume his home meds 6. DVT prophylaxis with Heparin Code Visit Inpatient E&M: [id number] Subs Hosp L2
--- NOTE | 2017-05-21 15:11 | PN_ITS ---
Patient Problems: Active and Suspected Problems Ileus (Acute) HCAP (healthcare-associated pneumonia) (Acute) ARF (acute renal failure) (Acute) Subjective: Patient was seen and examined. He has had more than 2 bowel movements. On clear liquid diet with gradual advancement of diet. Denies fever, chills, chest pain, SOB. Still on 3L of oxygen. Objective: PHYSICAL EXAM: General: Alert, Oriented x3, Cooperative, No apparent distress, on 3L oxygen HEENT: Atraumatic, PERRLA, EOMI, Normocephalic Oral: Moist Mucosa Neck: Supple Lungs: Clear to auscultation, Normal air movement Cardiovascular: Regular rate, Regular Rhythm, Normal S1, Normal S2, No murmurs Abdomen: Bowel Sounds Present, Soft, Non Tender, Distended Extremities: No edema Skin: No rashes Musculoskeletal: No Tenderness to Palpation of Joints or Extremities Lymphatic: No Cervical, Supraclavicular, or Inguinal Adenopathy Neurological: Cranial nerves II-XII grossly intact, Neuro grossly intact Psych/Mental Status: Normal Affect, Appropriate Vitals/I&O's: Vital Signs Temp Pulse Resp BP Pulse Ox 98.1 F 85 16 130/73 H 93 05/21/17 09:35 05/21/17 09:35 05/21/17 09:35 05/21/17 09:35 05/21/17 09:51 Oxygen Flow Rate (L/min) 3 Oxygen Delivery Method Nasal Cannula Weight: 116.7 kg Intake and Output for Last 24 Hours 05/19/17 05/20/17 05/21/17 23:59 23:59 23:59 Intake Total 1261 / 1261 3495 / 3495 Output Total 1300 / 2300 1100 / 1100 Balance -39 / -1039 2395 / 2395 Microbiology Past 72 Hours 05/20/17 16:10 Urine Catheter - Catheter Streptococcus pneumoniae Antigen ( M - Final 05/20/17 16:10 Urine Catheter - Catheter Legionella Antigen - Final 05/20/17 13:15 Mucosa - Nose Influenza Types A,B Direct FA ([facility]) - Final Laboratory Results 05/20/17 14:05: Urine Color Yellow, Urine Clarity Sl. Cloudy, Urine pH 5.0, Ur Specific [place] 1.020, Urine Protein 15 H, Urine Glucose (UA) Normal, Urine Ketones 5 H, Urine Occult Blood 10 H, Urine Nitrite Negative, Urine Bilirubin 1 H, Urine Urobilinogen Normal, Ur Leukocyte Esterase Negative, Urine RBC 0-5 SEEN , Urine WBC 0 SEEN, Ur Squamous Epith Cells 0-5 SEEN, Amorphous Sediment 1+ URATE, Urine Bacteria 0 SEEN, Hyaline Casts 0-5 SEEN, Urine Mucus 0 SEEN 05/20/17 16:50: Urine Color Cancelled, Urine Clarity Cancelled, Urine pH Cancelled, Ur Specific [place] Cancelled, U Specif Grav (Refrac) Cancelled, Urine Protein Cancelled, Urine Glucose (UA) Cancelled, Urine Ketones Cancelled, Urine Occult Blood Cancelled, Urine Nitrite Cancelled, Urine Bilirubin Cancelled , Urine Urobilinogen Cancelled, Ur Leukocyte Esterase Cancelled 05/20/17 18:35: POC Glucose 98 05/21/17 00:56: POC Glucose 94 05/21/17 06:26: POC Glucose 101 05/21/17 10:12: Sodium 141, Potassium 3.9, Chloride 106, Carbon Dioxide 28.0, Anion Gap 7, BUN 39 H, Creatinine 1.33 H, Estim Creat Clear Calc 56.41, Est GFR (MDRD) Af Amer 69, Est GFR (MDRD) Non-Af 57 L, BUN/Creatinine Ratio 29.3 H, Glucose 91, Calcium 8.1 L, Magnesium 1.9 05/21/17 11:47: POC Glucose 104 Current Medications Budesonide (Pulmicort Aerosol) 0.5 mg INHALATION Q12H.RT [facility] Last Admin: 05/21/17 13:10 Dose: Not Given Calcium Polycarbophil (Fibercon) 625 mg PO DAILY [facility] Divalproex Sodium (Depakote) 500 mg PO TID [facility]ous Sulf[facility] Gabapentin (Neurontin) 600 mg PO TIDCM [facility] Last Admin: 05/21/17 13:36 Dose: 600 mg [facility]operidol [facility]ol) [facility] Heparin Sodium (Porcine) (Heparin Na) 5,000 unit SC Q8 [facility] Last Admin: 05/21/17 13:37 Dose: 5,000 units Levofloxacin (Levaquin Iv) 750 mg in 150 mls @ 100 mls/hr IV Q48 [facility] Last Admin: 05/21/17 13:35 Dose: 100 mls/hr Sodium Chloride () 1,000 mls @ 75 mls/hr IV .[id number] [facility] Last Admin: 05/21/17 12:33 Dose: Not Given Morphine Sulfate () 1 - 2 mg IV Q4H PRN PRN PRN Reason: Moderate Pain (pain scale 4-5) Multivitamins (Allbee W/C Caplet, Thera B Comp/C) 1 capsule PO BIDCM [facility] Oxcarbazepine (Trileptal) 600 mg PO QHS [facility] Oxcarbazepine (Trileptal) 300 mg PO DAILY [facility] Pantoprazole Sodium (Protonix) 40 mg PO DAILY [facility] Pravastatin Sodium (Pravachol) 40 mg PO QHS [facility] Psyllium Hydrophilic Mucilloid (Metamucil) 1 packet PO DAILY [facility] Risperidone (Risperdal) 4 mg PO HS [facility] Sodium Chloride () 5 - 30 ml IV UD PRN PRN Reason: SALINE FLUSH Last Admin: 05/21/17 09:05 Dose: 10 ml Tamsulosin HCl (Flomax) 0.4 mg PO DAILY [facility] Thioridazine HCl (Thioridazine Hcl) 200 mg PO BID [facility] Medical Necessity - Tobacco Use Smoking Status: Unknown if ever smoked Assessment/Plan Active and Suspected Problems Ileus (Acute) HCAP (healthcare-associated pneumonia) (Acute) ARF (acute renal failure) (Acute) 67-year-old male with MRDD, seizure disorder, schizophrenia admitted with abdominal distention and CT of the abdomen and pelvis shows small bowel ileus. 1. Abdominal distention secondary small bowel ileus, managed conservatively, resolved, patient has passed 2 bowel movements, general surgery following, on clear liquid diet with gradual advancement in diet. 2. HCAP, left lower lobe pneumonia, seen on abdominal CT, vitals are stable, urine for streptococcal and legionella negative, blood cultures are pending, will continue on IV levaquin today and transition to po tomorrow if his ileus continues to improve. 3. KEHINDE, likely pre-renal, Cr 2.49, continue on IV fluids, repeat BMP in am. 4. Seizure disorder, on depakote 5. MRDD/Schizophrenia, will resume his home meds 6. DVT prophylaxis with Heparin Code Visit Inpatient E&M: [id number] Subs Hosp L2
[2017-05-21 15:35] VITALS: BP 125/61; PULSE 73; RESP 18; TEMP 37; O2SAT 94
[2017-05-21] MEDS: Ferrous Sulfate 325 MG Tablet PO (16:15)
[2017-05-21] MEDS: Vitamin B Comp W-C Capsule 1 CAP PO (16:16)
[2017-05-21] MEDS: Bisacodyl 5 MG Tablet 10 MG PO (16:22)
[2017-05-21] MEDS: Divalproex Sodium 250 MG Tablet 500 MG PO ×2 (16:23→22:06)
[2017-05-21 19:52] VITALS: PULSE 72; RESP 18
[2017-05-21] MEDS: Budesonide Respules 0.5 MG/2 ML AMPUL.NEB. INHALATION (19:52)
[2017-05-21 20:46] VITALS: BP 129/59; PULSE 70; RESP 18; TEMP 37.4; O2SAT 95
[2017-05-21] MEDS: OXcarbazepine 300 MG Tablet 600 MG PO (22:07)
[2017-05-21] MEDS: RisperiDONE 2 MG Tablet 4 MG PO (22:07)
[2017-05-21] MEDS: Pravastatin 40 MG Tablet PO (22:07)
[2017-05-22] VITALS (7 sets, daily range): BP systolic 114–136; BP diastolic 53–75; PULSE 60–71; RESP 16–18; TEMP 36.6–37.4; O2SAT 85–97
[2017-05-22] MEDS: 0.9% Normal Saline 1,000 ML 75 ML IV (00:49)
[2017-05-22 01:06] LABS: Bedside Glucose 94 mg/dL (70-110)
[2017-05-22] MEDS: Divalproex Sodium 250 MG Tablet 500 MG PO ×3 (05:43→22:34)
--- NOTE | 2017-05-22 07:34 | PCM.PN.SRG ---
Patient Problems: Active and Suspected Problems Ileus (Acute) HCAP (healthcare-associated pneumonia) (Acute) ARF (acute renal failure) (Acute) Subjective: Pt tolerating fulls, +BM/flatus - Physical Exam General: Cooperative, No apparent distress Abdomen: Soft, Non Tender, Distended - mild, - - no guarding/rebound Vital Signs Temp Pulse Resp BP Pulse Ox 99.3 F H 70 18 124/53 H 94 05/22/17 02:29 05/22/17 02:29 05/22/17 02:29 05/22/17 02:29 05/22/17 02:29 Oxygen Flow Rate (L/min) 3 Oxygen Delivery Method Nasal Cannula Weight: 257 lb 4.471 oz Intake and Output for Last 24 Hours 05/20/17 05/21/17 05/22/17 23:59 23:59 23:59 Intake Total 1261 / 1261 3983 / 3983 1081 / 1081 Output Total 1300 / 2300 1500 / 1500 825 / 825 Balance -39 / -1039 2483 / 2483 256 / 256 Microbiology Past 72 Hours 05/20/17 16:10 Streptococcus pneumoniae Antigen (M - Final Urine Catheter - Catheter 05/20/17 16:10 Legionella Antigen - Final Urine Catheter - Catheter 05/20/17 13:15 Influenza Types A,B Direct FA (DENNY) - Final Mucosa - Nose Laboratory Tests Past 24 Hrs 05/21/17 10:12 Sodium 141 Potassium 3.9 Chloride 106 Carbon Dioxide 28.0 Anion Gap 7 BUN 39 H Creatinine 1.33 H Estim Creat Clear Calc 56.41 Est GFR (MDRD) Af Amer 69 Est GFR (MDRD) Non-Af 57 L BUN/Creatinine Ratio 29.3 H Glucose 91 Calcium 8.1 L Magnesium 1.9 POC Glucose 05/22/17 05/21/17 00:45 11:47 POC Glucose 94 104 Medical Necessity - Tobacco Use Smoking Status: Unknown if ever smoked Assessment/Plan Active and Suspected Problems Ileus (Acute) HCAP (healthcare-associated pneumonia) (Acute) ARF (acute renal failure) (Acute) 67-year-old male with history of MRDD from a custodial with possible ileus-resolved, nausea and vomiting, acute renal failure, left lower lobe pneumonia 1. Pt continues to have BM/flatus and tolerating fulls, will advance to soft and if tolerates ok to d/c per surgery standpoint. 2. Acute renal failure-improved. 3. Antibiotics for pneumonia per primary. Claire Anthony M.D. Pager: [phone] [facility] [address] [place] [address], [address] [place] [id number] Office: [phone] Code Visit Inpatient E&M: 44461 Subs Hosp L1
--- NOTE | 2017-05-22 07:37 | PN.SURG_ITS ---
Patient Problems: Active and Suspected Problems Ileus (Acute) HCAP (healthcare-associated pneumonia) (Acute) ARF (acute renal failure) (Acute) Subjective: Pt tolerating fulls, +BM/flatus - Physical Exam General: Cooperative, No apparent distress Abdomen: Soft, Non Tender, Distended - mild, - - no guarding/rebound Vital Signs Temp Pulse Resp BP Pulse Ox 99.3 F H 70 18 124/53 H 94 05/22/17 02:29 05/22/17 02:29 05/22/17 02:29 05/22/17 02:29 05/22/17 02:29 Oxygen Flow Rate (L/min) 3 Oxygen Delivery Method Nasal Cannula Weight: 257 lb 4.471 oz Intake and Output for Last 24 Hours 05/20/17 05/21/17 05/22/17 23:59 23:59 23:59 Intake Total 1261 / 1261 3983 / 3983 1081 / 1081 Output Total 1300 / 2300 1500 / 1500 825 / 825 Balance -39 / -1039 2483 / 2483 256 / 256 Microbiology Past 72 Hours 05/20/17 16:10 Streptococcus pneumoniae Antigen (M - Final Urine Catheter - Catheter 05/20/17 16:10 Legionella Antigen - Final Urine Catheter - Catheter 05/20/17 13:15 Influenza Types A,B Direct FA (DENNY) - Final Mucosa - Nose Laboratory Tests Past 24 Hrs 05/21/17 10:12 Sodium 141 Potassium 3.9 Chloride 106 Carbon Dioxide 28.0 Anion Gap 7 BUN 39 H Creatinine 1.33 H Estim Creat Clear Calc 56.41 Est GFR (MDRD) Af Amer 69 Est GFR (MDRD) Non-Af 57 L BUN/Creatinine Ratio 29.3 H Glucose 91 Calcium 8.1 L Magnesium 1.9 POC Glucose 05/22/17 05/21/17 00:45 11:47 POC Glucose 94 104 Medical Necessity - Tobacco Use Smoking Status: Unknown if ever smoked Assessment/Plan Active and Suspected Problems Ileus (Acute) HCAP (healthcare-associated pneumonia) (Acute) ARF (acute renal failure) (Acute) 67-year-old male with history of MRDD from a residential with possible ileus- resolved, nausea and vomiting, acute renal failure, left lower lobe pneumonia 1. Pt continues to have BM/flatus and tolerating fulls, will advance to soft and if tolerates ok to d/c per surgery standpoint. 2. Acute renal failure-improved. 3. Antibiotics for pneumonia per primary. Claire Anthony M.D. Pager: [phone] [facility] [address] [place] [address], [address] [place] [id number] Office: [phone] Code Visit Inpatient E&M: 74353 Subs Hosp L1
[2017-05-22] MEDS: Tamsulosin HCl 0.4 MG Capsule PO (09:28)
[2017-05-22] MEDS: Psyllium 1 PACKET PO (09:28)
[2017-05-22] MEDS: Gabapentin 600 MG Tablet PO ×3 (09:28→17:23)
[2017-05-22] MEDS: Ferrous Sulfate 325 MG Tablet PO ×2 (09:28→17:23)
[2017-05-22] MEDS: Pantoprazole Sodium 40 MG Tablet PO (09:28)
[2017-05-22] MEDS: Haloperidol 5 MG Tablet PO (09:29)
[2017-05-22] MEDS: OXcarbazepine 300 MG Tablet PO (09:29)
[2017-05-22] MEDS: Vitamin B Comp W-C Capsule 1 CAP PO ×2 (09:29→17:23)
--- NOTE | 2017-05-22 11:10 | PCM.DC ---
- Discharge Diagnoses Current Active Problems: Current Active and Chronic Problems Ileus (Acute) HCAP (healthcare-associated pneumonia) (Acute) ARF (acute renal failure) (Acute) Reason(s) for Visit for Discharge Instructions: Abdominal distension You will use the following diet at home:: Regular Your food should be the consistency of: Regular Your liquids should be the consistency of: Regular/Thin Discharge Activity: Return to Normal Activity Allergies/Adverse Reactions: Allergies No Known Allergies Allergy (Verified 05/20/17 01:58) Medications to take at Discharge Calcium Polycarbophil [Fiber Laxative] 625 mg PO DAILY 05/20/17 Chlorhexidine Gluconate [Peridex] 15 ml MM BID 05/20/17 Divalproex (ER) [Depakote ER] 500 mg PO TID 05/20/17 Ferrous Sulfate [Iron] 325 mg PO BID 05/20/17 Fluticasone Propionate [Flovent Diskus] 50 mcg IH DAILY 05/20/17 Gabapentin [Neurontin] 600 mg PO TIDCM 05/20/17 Gly/Dimeth/Ure/Pet,Wh/Cet Alc [Lubriderm Skin Nourishing Lot] 1 applic TP BID 05/20/17 Haloperidol [Haldol] 5 mg PO DAILY 05/20/17 Omeprazole 40 mg PO DAILY 05/20/17 Oxcarbazepine [Trileptal] 2 tab PO QHS 05/20/17 Oxcarbazepine [Trileptal] 300 mg PO DAILY 05/20/17 Pravastatin [Pravachol] 40 mg PO QHS 05/20/17 Psyllium [Metamucil] 1 packet PO DAILY 05/20/17 Risperidone [Risperdal] 4 mg PO QHS 05/20/17 Tamsulosin HCl [Flomax] 0.4 mg PO DAILY 05/20/17 Thioridazine HCl 2 tab PO BID 05/20/17 Vitamin B Complex 1 each PO BID 05/20/17 Amox/Clavulanate Tablet [Augmentin Tablet] 875 mg PO Q12H #14 tab 05/22/17 Budesonide Aerosol [Pulmicort Respules] 0.5 mg INHALATION BID #60 ampul.neb. 05/22/17 The following prescriptions were given: Amox/Clavulanate Tablet [Augmentin Tablet] 875 mg PO Q12H #14 tab Budesonide Aerosol [Pulmicort Respules] 0.5 mg INHALATION BID #60 ampul.neb. Orders to be completed after discharge: Basic Metabolic Profile (BMP) Time Frame: 1 Week, Location: Laboratory Primary Care Physician: Flo Del Cid Chi, MD [Primary Care Provider] - Please follow up with your Primary Care Physician in: within 2 weeks Please Follow Up With: Zahraa Carcamo DO When: in 1-2 weeks Proposed Discharge Date: 05/22/17
--- NOTE | 2017-05-22 11:19 | DCINST_ITS ---
- Discharge Diagnoses Current Active Problems: Current Active and Chronic Problems Ileus (Acute) HCAP (healthcare-associated pneumonia) (Acute) ARF (acute renal failure) (Acute) Reason(s) for Visit for Discharge Instructions: Abdominal distension You will use the following diet at home:: Regular Your food should be the consistency of: Regular Your liquids should be the consistency of: Regular/Thin Discharge Activity: Return to Normal Activity Allergies/Adverse Reactions: Allergies No Known Allergies Allergy (Verified 05/20/17 01:58) Medications to take at Discharge Calcium Polycarbophil [Fiber Laxative] 625 mg PO DAILY 05/20/17 Chlorhexidine Gluconate [Peridex] 15 ml MM BID 05/20/17 Divalproex (ER) [Depakote ER] 500 mg PO TID 05/20/17 Ferrous Sulfate [Iron] 325 mg PO BID 05/20/17 Fluticasone Propionate [Flovent Diskus] 50 mcg IH DAILY 05/20/17 Gabapentin [Neurontin] 600 mg PO TIDCM 05/20/17 Gly/Dimeth/Ure/Pet,Wh/Cet Alc [Lubriderm Skin Nourishing Lot] 1 applic TP BID Haloperidol [Haldol] 5 mg PO DAILY 05/20/17 Omeprazole 40 mg PO DAILY 05/20/17 Oxcarbazepine [Trileptal] 2 tab PO QHS 05/20/17 Oxcarbazepine [Trileptal] 300 mg PO DAILY 05/20/17 Pravastatin [Pravachol] 40 mg PO QHS 05/20/17 Psyllium [Metamucil] 1 packet PO DAILY 05/20/17 Risperidone [Risperdal] 4 mg PO QHS 05/20/17 Tamsulosin HCl [Flomax] 0.4 mg PO DAILY 05/20/17 Thioridazine HCl 2 tab PO BID 05/20/17 Vitamin B Complex 1 each PO BID 05/20/17 Amox/Clavulanate Tablet [Augmentin Tablet] 875 mg PO Q12H #14 tab 05/22/17 Budesonide Aerosol [Pulmicort Respules] 0.5 mg INHALATION BID #60 ampul.neb. 06/05 The following prescriptions were given: Amox/Clavulanate Tablet [Augmentin Tablet] 875 mg PO Q12H #14 tab Budesonide Aerosol [Pulmicort Respules] 0.5 mg INHALATION BID #60 ampul.neb. Orders to be completed after discharge: Basic Metabolic Profile (BMP) Time Frame: 1 Week, Location: Laboratory Primary Care Physician: Flo Del Cid Chi, MD [Primary Care Provider] - Please follow up with your Primary Care Physician in: within 2 weeks Please Follow Up With: Zahraa Carcamo DO When: in 1-2 weeks Proposed Discharge Date: 05/22/17
--- NOTE | 2017-05-22 11:19 | PCM.DC.SUM ---
Discharge Date and Diagnosis - Problem List Patient Problems: Active and Suspected Problems Ileus (Acute) HCAP (healthcare-associated pneumonia) (Acute) ARF (acute renal failure) (Acute) Date of Admission: 05/20/17 Date of Discharge: 05/23/17 - Primary Discharge Diagnosis Active and Suspected Problems Ileus (Acute) HCAP (healthcare-associated pneumonia) (Acute) ARF (acute renal failure) (Acute) - Secondary Discharge Diagnosis Seizure disorder MRDD Schizophrenia Hospital Course and Treatment Imaging Results: Clinical Impression(s) from Imaging Studies Abdomen/Pelvis CT 05/20/17 02:13 IMPRESSION: CT findings suggest small bowel ileus or enteritis. Left lower lobe pneumonia. Indeterminate lesion in the hepatic dome. Consider follow-up dedicated liver CT or MRI. Electronically Signed: Shun Faye MD at 3:22 EDT Tel , Service support , Chest X-Ray 05/20/17 02:13 IMPRESSION: Right basilar atelectasis. Electronically Signed: Shun Faye MD at 3:14 EDT Tel , Service support , KUB X-Ray 05/20/17 03:36 IMPRESSION: Enteric tube tip in the body of the stomach. Electronically Signed: Shun Faye MD at 5:40 EDT Tel , Service support , Renal Ultrasound 05/20/17 10:04 IMPRESSION: No acute abnormalities. No hydronephrosis. Cannot exclude mild diffuse increased echogenicity of the renal cortex which can be seen in medical renal disease. Electronically Signed: Graham Narvaez MD at 15:56 EDT , Service support , Small Bowel X-Ray 05/20/17 10:30 IMPRESSION: Prominent gastric focus of contrast without significant contrast movement throughout the enteric system most consistent with underlying small bowel obstruction versus adynamic ileus. Electronically Signed: Shaun Keys DO at 22:56 EDT , Service support , KUB X-Ray 05/21/17 09:15 IMPRESSION: Contrast is seen throughout the large bowel which is not distended. Therefore there is no evidence for obstruction. Electronically Signed: Graham Narvaez MD at 9:56 EDT , Service support , General surgery Operations: None Procedures: None Summary of Care Provided: 67-year-old male with MRDD, seizure disorder, schizophrenia admitted with abdominal distention and CT of the abdomen and pelvis shows small bowel ileus. 1. Abdominal distension secondary small bowel ileus, managed conservatively, ileus resolved, tolerated advancement in his diet, general surgery was following, will follow-up in the outpatient. 2. HCAP, left lower lobe pneumonia with hypoxia, retirement was not going to accept him on intermittent oxygen, will be going halfway facility urine for streptococcal and legionella negative, blood cultures negative, discharged on po augmentin. 3. KEHINDE, pre-renal, resolved with IV fluids, BMP to be repeated in 3 days. 4. Seizure disorder, on depakote 5. MRDD/Schizophrenia, on home regimen Discharge Diet: No Restrictions Discharge Activity: Return to Normal Activity Home Medications: Medications to take at Discharge Calcium Polycarbophil [Fiber Laxative] 625 mg PO DAILY 05/20/17 Chlorhexidine Gluconate [Peridex] 15 ml MM BID 05/20/17 Divalproex (ER) [Depakote ER] 500 mg PO TID 05/20/17 Ferrous Sulfate [Iron] 325 mg PO BID 05/20/17 Fluticasone Propionate [Flovent Diskus] 50 mcg IH DAILY 05/20/17 Gabapentin [Neurontin] 600 mg PO TIDCM 05/20/17 Gly/Dimeth/Ure/Pet,Wh/Cet Alc [Lubriderm Skin Nourishing Lot] 1 applic TP BID 05/20/17 Haloperidol [Haldol] 5 mg PO DAILY 05/20/17 Omeprazole 40 mg PO DAILY 05/20/17 Oxcarbazepine [Trileptal] 2 tab PO QHS 05/20/17 Oxcarbazepine [Trileptal] 300 mg PO DAILY 05/20/17 Pravastatin [Pravachol] 40 mg PO QHS 05/20/17 Psyllium [Metamucil] 1 packet PO DAILY 05/20/17 Risperidone [Risperdal] 4 mg PO QHS 05/20/17 Tamsulosin HCl [Flomax] 0.4 mg PO DAILY 05/20/17 Thioridazine HCl 2 tab PO BID 05/20/17 Vitamin B Complex 1 each PO BID 05/20/17 Budesonide Aerosol [Pulmicort Respules] 0.5 mg INHALATION BID #60 ampul.neb. 05/22/17 Amox/Clavulanate Tablet [Augmentin Tablet] 875 mg PO BIDCM #10 tablet 05/23/17 Following Prescrptions Were Given to Patient: Amox/Clavulanate Tablet [Augmentin Tablet] 875 mg PO Q12H #14 tab Budesonide Aerosol [Pulmicort Respules] 0.5 mg INHALATION BID #60 ampul.neb. Primary Care Physician: Flo Del Cid Chi, MD [Primary Care Provider] - Please follow up with your Primary Care Physician in: within 2 weeks Please Follow Up With: Zahraa Carcamo DO When: in 1-2 weeks Disposition: Home Minutes spent on discharge:: 25 Patient Condition:: Stable Medical Necessity - Tobacco Use Smoking Status: Unknown if ever smoked Meaningful Use Info Meaningful Use Diagnoses (Choose all that apply): None applicable Code Visit Inpatient E&M: 09911 Disch Hosp
[2017-05-22] MEDS: Acetaminophen 325 MG Tablet 650 MG PO ×2 (11:40→22:34)
--- NOTE | 2017-05-22 11:57 | NURSING ---
random pox 85% on ra. o2 @ 2L applied, pox 91% at rest
[2017-05-22 11:59] LABS: Anion Gap 4 (5-15); BUN 18 mg/dL (7-18); BUN/Creat Ratio 19.1 RATIO (10-20); Calcium,Total 8.5 mg/dL (8.5-10.1); Chloride 105 mmol/L (98-107); Creatinine, Serum 0.94 mg/dL (0.70-1.30); EST Glomerular Filtration Rate 85 mL/min (>60); Est Glom Filt Rate - Afr Amer 103 mL/min (>60); Estimated Creatinine Clearance 79.82 ml/min; Glucose 103 mg/dL (74-106); Sodium Level 140 mmol/L (136-145)
--- NOTE | 2017-05-22 13:16 | CASEMGMT ---
Social Work Note SUSI spoke with Elizabeth at [facility] who is the drilling supervisor of assisted living at [place]. SUSI explained to Elizabeth that pt is ready for discharge but is being discharged with oxygen. Per Elizabeth, the alf is unable to take pt with the oxygen. Elizabeth states that she will take pt unless he is on oxygen. SUSI updated Dr. Watts of this. SUSI called Elizabeth back and asked Elizabeth for guardian's information so this worker can call and ask about SNF placement for Oxygen. Elizabeth informed this worker to call the alf to ask for guardian information. Elizabeth states that she will be calling the pt's comp field case manager and alf to update on pt and to also inform alf that this worker will be calling to get information on guardian. Family Law Legal Assistant will continue to follow. Plan: Possible SNF placement Octavia Sarkar NATURAL GAS PLANT SUPERVISOR, EARLY MORNING BABYSITTER
--- NOTE | 2017-05-22 15:28 | CASEMGMT ---
Social Work Note SUSI called [facility] [place] [facility] and was provided pt's guardian's name and number. Per [place] pt's guardian is Bishnu Ventura and his cell number is [phone]. [employer] Engraver called and a message was left for pt's guardian. A update was provided. SUSI asked Bishnu to call this worker back to options regarding SNF placement for pt. Plan: Possible SNF placement as pt is currently on oxygen and [facility] is unable to take pt back if he is on oxygen. Octavia Sarkar TERRITORY SALES REPRESENTATIVE, TANNING WHEEL FILLER.
--- NOTE | 2017-05-22 16:02 | PCM.PN.HOSP ---
Patient Problems: Active and Suspected Problems Ileus (Acute) HCAP (healthcare-associated pneumonia) (Acute) ARF (acute renal failure) (Acute) Subjective: Patient was seen and examined. He is currently on room air, and told that he is 94%. Patient complains of pain in the sole of the feet. Most of the home medications have been resumed. Admits to not being able to ambulate much because of the pain. Agree to take Tylenol for pain. Denies any fever or chills or nausea or vomiting. Has had 2 bowel movements this morning which have been regular. Objective: PHYSICAL EXAM: General: Alert, Oriented x3, Cooperative, No apparent distress, on 3L oxygen HEENT: Atraumatic, PERRLA, EOMI, Normocephalic Oral: Moist Mucosa Neck: Supple Lungs: Clear to auscultation, Normal air movement Cardiovascular: Regular rate, Regular Rhythm, Normal S1, Normal S2, No murmurs Abdomen: Bowel Sounds Present, Soft, Non Tender, Distended Extremities: No edema Skin: No rashes Musculoskeletal: No Tenderness to Palpation of Joints or Extremities Lymphatic: No Cervical, Supraclavicular, or Inguinal Adenopathy Neurological: Cranial nerves II-XII grossly intact, Neuro grossly intact Psych/Mental Status: Normal Affect, Appropriate Vitals/I&O's: Vital Signs Temp Pulse Resp BP Pulse Ox 97.8 F 60 16 114/67 94 05/22/17 15:15 05/22/17 15:15 05/22/17 15:15 05/22/17 15:15 05/22/17 15:15 Oxygen Flow Rate (L/min) 2 Oxygen Delivery Method Nasal Cannula Weight: 116.7 kg Intake and Output for Last 24 Hours 05/20/17 05/21/17 05/22/17 23:59 23:59 23:59 Intake Total 1261 / 1261 3983 / 3983 1573 / 1573 Output Total 1300 / 2300 1500 / 1500 825 / 825 Balance -39 / -1039 2483 / 2483 748 / 748 Microbiology Past 72 Hours 05/20/17 16:10 Urine Catheter - Catheter Streptococcus pneumoniae Antigen (M - Final 05/20/17 16:10 Urine Catheter - Catheter Legionella Antigen - Final 05/20/17 13:15 Mucosa - Nose Influenza Types A,B Direct FA (DENNY) - Final Laboratory Results 05/22/17 00:45: POC Glucose 94 05/22/17 11:24: Sodium 140, Potassium 4.0, Chloride 105, Carbon Dioxide 31.0, Anion Gap 4 L, BUN 18, Creatinine 0.94, Estim Creat Clear Calc 79.82, Est GFR (MDRD) Af Amer 103, Est GFR (MDRD) Non-Af 85, BUN/Creatinine Ratio 19.1, Glucose 103, Calcium 8.5 Current Medications Acetaminophen (Tylenol) 650 mg PO Q6H PRN PRN PRN Reason: PAIN Budesonide (Pulmicort Aerosol) 0.5 mg INHALATION Q12H.RT [facility] Last Admin: 05/22/17 07:40 Dose: Not Given Calcium Polycarbophil (Fibercon) 625 mg PO DAILY [facility] Last Admin: 05/22/17 09:29 Dose: 625 mg Divalproex Sodium (Depakote) 500 mg PO TID [facility] Last Admin: 05/22/17 15:27 Dose: 500 mg Ferrous Sulfate ([facility]errous Sulfate) [facility] Last Admin: 05/22/17 09:28 Dose: 325 mg Gabapentin (Neurontin) 600 mg PO TIDCM [facility] Last Admin: 05/22/17 11:41 Dose: 600 mg Haloperidol (Haldol) 5 mg [facility] Last Admin: 05/22/17 09:29 Dose: 5 mg Heparin Sodium (Porcine) (Heparin Na) 5,000 unit SC Q8 [facility] Last Admin: 05/22/17 15:27 Dose: 5,000 units Morphine Sulfate () 1 - 2 mg IV Q4H PRN PRN PRN Reason: Moderate Pain (pain scale 4-5) Multivitamins (Allbee W/C Caplet, Thera B Comp/C) 1 capsule PO [facility] Last Admin: 05/22/17 09:29 Dose: 1 capsule Oxcarbazepine (Trileptal) 600 mg PO QHS [facility] Last Admin: 05/21/17 22:07 Dose: 600 mg Oxcarbazepine (Trileptal) 300 mg PO DAILY [facility] Last Admin: 05/22/17 09:29 Dose: 300 mg Pantoprazole Sodium (Protonix) 40 mg PO DAILY [facility] Last Admin: 05/22/17 09:28 Dose: 40 mg Pravastatin Sodium (Pravachol) 40 mg PO QHS [facility] Last Admin: 05/21/17 22:07 Dose: 40 mg Psyllium Hydrophilic Mucilloid (Metamucil) 1 packet PO DAILY [facility] Last Admin: 05/22/17 09:28 Dose: 1 packet Risperidone (Risperdal) 4 mg PO HS [facility] Last Admin: 05/21/17 22:07 Dose: 4 mg Sodium Chloride () 5 - 30 ml IV UD PRN PRN Reason: SALINE FLUSH Last Admin: 05/21/17 09:05 Dose: 10 ml Tamsulosin HCl (Flomax) 0.4 mg PO DAILY [facility] Last Admin: 05/22/17 09:28 Dose: 0.4 mg Thioridazine HCl (Thioridazine Hcl) 200 mg PO BID [facility] Last Admin: 05/22/17 09:28 Dose: 200 mg Medical Necessity - Tobacco Use Smoking Status: Unknown if ever smoked Assessment/Plan Active and Suspected Problems Ileus (Acute) HCAP (healthcare-associated pneumonia) (Acute) ARF (acute renal failure) (Acute) 67-year-old male with MRDD, seizure disorder, schizophrenia admitted with abdominal distention and CT of the abdomen and pelvis shows small bowel ileus. 1. Abdominal distention secondary small bowel ileus, managed conservatively, resolved, patient is tolerating advancement in his diet. 2. HCAP, left lower lobe pneumonia, seen on abdominal CT, vitals are stable, urine for streptococcal and legionella negative, blood cultures are negative, patient will be continued on p.o. Augmentin. 3. Hypoxia related to current HCAP, patient qualified for home oxygen but intermediate will not take patient on oxygen, social media campaign manager and care management is working on possible [facility] therapy with the oxygen 3. KEHINDE, likely pre-renal, improving, labs in am 4. Seizure disorder, on depakote 5. MRDD/Schizophrenia, on home regimen 6. DVT prophylaxis with Heparin Code Visit Inpatient E&M: 89821 Subs Hosp L2
--- NOTE | 2017-05-22 16:07 | PN_ITS ---
Patient Problems: Active and Suspected Problems Ileus (Acute) HCAP (healthcare-associated pneumonia) (Acute) ARF (acute renal failure) (Acute) Subjective: Patient was seen and examined. He is currently on room air, and told that he is 94%. Patient complains of pain in the sole of the feet. Most of the home medications have been resumed. Admits to not being able to ambulate much because of the pain. Agree to take Tylenol for pain. Denies any fever or chills or nausea or vomiting. Has had 2 bowel movements this morning which have been regular. Objective: PHYSICAL EXAM: General: Alert, Oriented x3, Cooperative, No apparent distress, on 3L oxygen HEENT: Atraumatic, PERRLA, EOMI, Normocephalic Oral: Moist Mucosa Neck: Supple Lungs: Clear to auscultation, Normal air movement Cardiovascular: Regular rate, Regular Rhythm, Normal S1, Normal S2, No murmurs Abdomen: Bowel Sounds Present, Soft, Non Tender, Distended Extremities: No edema Skin: No rashes Musculoskeletal: No Tenderness to Palpation of Joints or Extremities Lymphatic: No Cervical, Supraclavicular, or Inguinal Adenopathy Neurological: Cranial nerves II-XII grossly intact, Neuro grossly intact Psych/Mental Status: Normal Affect, Appropriate Vitals/I&O's: Vital Signs Temp Pulse Resp BP Pulse Ox 97.8 F 60 16 114/67 94 05/22/17 15:15 05/22/17 15:15 05/22/17 15:15 05/22/17 15:15 05/22/17 15:15 Oxygen Flow Rate (L/min) 2 Oxygen Delivery Method Nasal Cannula Weight: 116.7 kg Intake and Output for Last 24 Hours 05/20/17 05/21/17 05/22/17 23:59 23:59 23:59 Intake Total 1261 / 1261 3983 / 3983 1573 / 1573 Output Total 1300 / 2300 1500 / 1500 825 / 825 Balance -39 / -1039 2483 / 2483 748 / 748 Microbiology Past 72 Hours 05/20/17 16:10 Urine Catheter - Catheter Streptococcus pneumoniae Antigen ( M - Final 05/20/17 16:10 Urine Catheter - Catheter Legionella Antigen - Final 05/20/17 13:15 Mucosa - Nose Influenza Types A,B Direct FA (DENNY) - Final Laboratory Results 05/22/17 00:45: POC Glucose 94 05/22/17 11:24: Sodium 140, Potassium 4.0, Chloride 105, Carbon Dioxide 31.0, Anion Gap 4 L, BUN 18, Creatinine 0.94, Estim Creat Clear Calc 79.82, Est GFR ( MDRD) Af Amer 103, Est GFR (MDRD) Non-Af 85, BUN/Creatinine Ratio 19.1, Glucose 103, Calcium 8.5 Current Medications Acetaminophen (Tylenol) 650 mg PO Q6H PRN PRN PRN Reason: PAIN Budesonide (Pulmicort Aerosol) 0.5 mg INHALATION Q12H.RT [facility] Last Admin: 05/22/17 07:40 Dose: Not Given Calcium Polycarbophil (Fibercon) 625 mg PO DAILY [facility] Last Admin: 05/22/17 09:29 Dose: 625 mg Divalproex Sodium (Depakote) 500 mg PO TID [facility] Last Admin: 05/22/17 15:27 Dose: 500 mg Ferrous Sulf[facility]) [facility] Admin: 05/22/17 09:28 Dose: 325 mg Gabapentin (Neurontin) 600 mg PO TIDCM [facility] Last Admin: 05/22/17 11:41 Dose: 600 mg Haloperidol (H[facility]ol) [facility] Last Admin: 05/22/17 09:29 Dose: 5 mg Heparin Sodium (Porcine) (Heparin Na) 5,000 unit SC Q8 [facility] Last Admin: 05/22/17 15:27 Dose: 5,000 units Morphine Sulfate () 1 - 2 mg IV Q4H PRN PRN PRN Reason: Moderate Pain (pain scale 4-5) Multivitamins (Allbee W/C Caplet, Thera B Comp/C) [facility] Last Admin: 05/22/17 09:29 Dose: 1 capsule Oxcarbazepine (Trileptal) 600 mg PO QHS [facility] Last Admin: 05/21/17 22:07 Dose: 600 mg Oxcarbazepine (Trileptal) 300 mg PO DAILY [facility] Last Admin: 05/22/17 09:29 Dose: 300 mg Pantoprazole Sodium (Protonix) 40 mg PO DAILY [facility] Last Admin: 05/22/17 09:28 Dose: 40 mg Pravastatin Sodium (Pravachol) 40 mg PO QHS [facility] Last Admin: 05/21/17 22:07 Dose: 40 mg Psyllium Hydrophilic Mucilloid (Metamucil) 1 packet PO DAILY [facility] Last Admin: 05/22/17 09:28 Dose: 1 packet Risperidone (Risperdal) 4 mg PO HS [facility] Last Admin: 05/21/17 22:07 Dose: 4 mg Sodium Chloride () 5 - 30 ml IV UD PRN PRN Reason: SALINE FLUSH Last Admin: 05/21/17 09:05 Dose: 10 ml Tamsulosin HCl (Flomax) 0.4 mg PO DAILY [facility] Last Admin: 05/22/17 09:28 Dose: 0.4 mg Thioridazine HCl (Thioridazine Hcl) 200 mg PO BID [facility] Last Admin: 05/22/17 09:28 Dose: 200 mg Medical Necessity - Tobacco Use Smoking Status: Unknown if ever smoked Assessment/Plan Active and Suspected Problems Ileus (Acute) HCAP (healthcare-associated pneumonia) (Acute) ARF (acute renal failure) (Acute) 67-year-old male with MRDD, seizure disorder, schizophrenia admitted with abdominal distention and CT of the abdomen and pelvis shows small bowel ileus. 1. Abdominal distention secondary small bowel ileus, managed conservatively, resolved, patient is tolerating advancement in his diet. 2. HCAP, left lower lobe pneumonia, seen on abdominal CT, vitals are stable, urine for streptococcal and legionella negative, blood cultures are negative, patient will be continued on p.o. Augmentin. 3. Hypoxia related to current HCAP, patient qualified for home oxygen but assisted will not take patient on oxygen, social research assistant and care management is working on possible care home therapy with the oxygen 3. KEHINDE, likely pre-renal, improving, labs in am 4. Seizure disorder, on depakote 5. MRDD/Schizophrenia, on home regimen 6. DVT prophylaxis with Heparin Code Visit Inpatient E&M: 67277 Subs Hosp L2
--- NOTE | 2017-05-22 16:44 | CASEMGMT ---
Social Work Note SW received call from pt's guardian Bishnu. SW provide update to Bishnu. Per, Bishnu he would like to try [facility] first and then gave this SW permission to call around to facilities in [place] to find someone to accept pt if [facility] is unable to. SW faxed referral to [facility] and called and left a message for Katia regarding referral. SW provided brief background information on pt to Katia. Plan: W pending acceptance from [facility] Octavia Sarkar TAR AND AMMONIA PUMP OPERATOR, SOFTWARE ENGINEER SALES
[2017-05-22] MEDS: Amox/Clavulanate 875 MG Tablet PO (17:23)
[2017-05-22] MEDS: OXcarbazepine 300 MG Tablet 600 MG PO (22:33)
[2017-05-22] MEDS: RisperiDONE 2 MG Tablet 4 MG PO (22:34)
[2017-05-22] MEDS: Pravastatin 40 MG Tablet PO (22:34)
[2017-05-23] VITALS (7 sets, daily range): BP systolic 123–140; BP diastolic 60–76; PULSE 67–79; RESP 16–18; TEMP 36.6–37.1; O2SAT 91–93
[2017-05-23] MEDS: Divalproex Sodium 250 MG Tablet 500 MG PO ×3 (06:58→22:17)
[2017-05-23] MEDS: Amox/Clavulanate 875 MG Tablet PO ×2 (09:38→17:50)
[2017-05-23] MEDS: Vitamin B Comp W-C Capsule 1 CAP PO ×2 (09:38→17:50)
[2017-05-23] MEDS: Ferrous Sulfate 325 MG Tablet PO ×2 (09:38→17:50)
[2017-05-23] MEDS: Haloperidol 5 MG Tablet PO (09:39)
[2017-05-23] MEDS: Gabapentin 600 MG Tablet PO ×3 (09:39→17:50)
[2017-05-23] MEDS: Pantoprazole Sodium 40 MG Tablet PO (09:40)
[2017-05-23] MEDS: Psyllium 1 PACKET PO (09:40)
[2017-05-23] MEDS: Tamsulosin HCl 0.4 MG Capsule PO (09:40)
[2017-05-23] MEDS: OXcarbazepine 300 MG Tablet PO (09:44)
[2017-05-23] MEDS: Acetaminophen 325 MG Tablet 650 MG PO ×2 (09:45→22:20)
--- NOTE | 2017-05-23 16:08 | PCM.TXEXTCAR ---
- Diet 05/22/17 10:20 Diet: Cardiac Diet Food consistency:: Soft Liquid Consistency:: Regular/Thin Is pt able to select menu?: No Diet Comments: take it easy- no gulping - Routine Orders/Code Status O2 Frequency: PRN Keep PO Greater than or Equal to (%): 94 Routine Lab Work: CBC - within 1 week, BMP - within 1 week - Therapies Weight Bearing: Weight bearing as tolerated Extremity Affected:: Bilateral Lower Physical Therapy: Eval and Treat Occupational Therapy: Eval and Treat - Allergies/Procedures Done in Hospital Allergies/Adverse Reactions: Allergies No Known Allergies Allergy (Verified 05/20/17 01:58) Procedures: None - Type of Care/Length of Stay Estimated LOS: Convalescent Care Less Than 30 days Type of Care Needed: Skilled Rehab Potential: Good Prognosis: Good - Additional Orders/Day of Discharge Day of Discharge: 05/23/17 - Dietary and Speech Recommendations Dietitian Recommendations/Changes: Suggest diet change to Cardiac, Soft - Follow Up Care Primary Care Physician: Flo Del Cid Chi, MD [Primary Care Provider] - Please follow up with your Primary Care Physician in: within 2 weeks Please Follow Up With: Claire Anthony MD When: within 2 weeks
--- NOTE | 2017-05-23 17:21 | CASEMGMT ---
Social Work Note SW received transfer to extended care, discharge summary, signed medication list, and scripts for pt. SUSI faxed discharge paperwork to [facility]. extension worker set up transportation through [facility] via cot for 7:00pm. SUSI updated office secretary, AUDELIA Kaplan, Pt's guardian Elizabeth Goetz at [facility] (quality assurance supervisor of [facility] living) and Katia at [facility] of transportation time. SUSI completed HENS. SUSI faxed completed HENS to Katia. Original discharge paperwork in SNF packet and copies on chart. Plan: [facility] for rehabilitation. Octavia Sarkar CASH ON DELIVERY CLERK, TAPER PRINTED CIRCUIT LAYOUT
--- NOTE | 2017-05-23 18:42 | NURSING ---
Attempted to call report to [facility], state that per their director emergency pt is not able to come tonight, cannot come until possibly tomorrow.
[2017-05-23] MEDS: Budesonide Respules 0.5 MG/2 ML AMPUL.NEB. INHALATION (19:07)
[2017-05-23] MEDS: RisperiDONE 2 MG Tablet 4 MG PO (22:17)
[2017-05-23] MEDS: OXcarbazepine 300 MG Tablet 600 MG PO (22:18)
[2017-05-23] MEDS: Pravastatin 40 MG Tablet PO (22:18)
[2017-05-24 02:00] VITALS: BP 126/72; PULSE 68; RESP 16; TEMP 36.6; O2SAT 93
[2017-05-24] MEDS: Divalproex Sodium 250 MG Tablet 500 MG PO ×2 (06:04→14:17)
[2017-05-24 07:07] VITALS: O2SAT 92
[2017-05-24 08:00] VITALS: BP 141/69; PULSE 82; RESP 18; TEMP 36.9; O2SAT 92
[2017-05-24] MEDS: Gabapentin 600 MG Tablet PO ×2 (08:24→14:17)
[2017-05-24] MEDS: Ferrous Sulfate 325 MG Tablet PO (08:24)
[2017-05-24] MEDS: Haloperidol 5 MG Tablet PO (08:24)
[2017-05-24] MEDS: Vitamin B Comp W-C Capsule 1 CAP PO (08:24)
[2017-05-24] MEDS: Amox/Clavulanate 875 MG Tablet PO (08:24)
[2017-05-24] MEDS: Tamsulosin HCl 0.4 MG Capsule PO (08:25)
[2017-05-24] MEDS: Psyllium 1 PACKET PO (08:25)
[2017-05-24] MEDS: Pantoprazole Sodium 40 MG Tablet PO (08:25)
[2017-05-24] MEDS: OXcarbazepine 300 MG Tablet PO (08:26)
--- NOTE | 2017-05-24 08:29 | PN_ITS ---
Patient Problems: Active and Suspected Problems Ileus (Acute) HCAP (healthcare-associated pneumonia) (Acute) ARF (acute renal failure) (Acute) Subjective: Patient was seen and examined. No new complains. Discharge was stalled yesterday because NH was reportedly not ready because of his diagnosis of MRDD which they had to look into before accepting him Objective: PHYSICAL EXAM: General: Alert, Oriented x3, Cooperative, No apparent distress, on 3L oxygen HEENT: Atraumatic, PERRLA, EOMI, Normocephalic Oral: Moist Mucosa Neck: Supple Lungs: Clear to auscultation, Normal air movement Cardiovascular: Regular rate, Regular Rhythm, Normal S1, Normal S2, No murmurs Abdomen: Bowel Sounds Present, Soft, Non Tender, Distended Extremities: No edema Skin: No rashes Musculoskeletal: No Tenderness to Palpation of Joints or Extremities Lymphatic: No Cervical, Supraclavicular, or Inguinal Adenopathy Neurological: Cranial nerves II-XII grossly intact, Neuro grossly intact Psych/Mental Status: Normal Affect, Appropriate Vitals/I&O's: Vital Signs Temp Pulse Resp BP Pulse Ox 97.8 F 68 16 126/72 H 93 05/24/17 02:00 05/24/17 02:00 05/24/17 02:00 05/24/17 02:00 05/24/17 02:00 Oxygen Flow Rate (L/min) 1 Oxygen Delivery Method Nasal Cannula Weight: 116.7 kg Intake and Output for Last 24 Hours 05/22/17 05/23/17 05/24/17 23:59 23:59 23:59 Intake Total 1573 / 1573 916 / 916 600 / 600 Output Total 825 / 825 200 / 200 200 / 200 Balance 748 / 748 716 / 716 400 / 400 Current Medications Acetaminophen (Tylenol) 650 mg PO Q6H PRN PRN PRN Reason: PAIN Last Admin: 05/23/17 22:20 Dose: 650 mg Amoxicillin/Clavulanate Potassium (Augmentin Tablet) 875 mg PO BIDCM [facility] Last Admin: 05/24/17 08:24 Dose: 875 mg Budesonide (Pulmicort Aerosol) 0.5 mg INHALATION Q12H.RT [facility] Last Admin: 05/23/17 19:07 Dose: 0.5 mg Calcium Polycarbophil (Fibercon) 625 mg PO DAILY [facility] Last Admin: 05/24/17 08:25 Dose: 625 mg Divalproex Sodium (Depakote) 500 mg PO TID [facility] Last Admin: 05/24/17 06:04 Dose: 500 mg [facility]ous Sulfate ([facility]ulf[facility]) [facility] Last Admin: 05/24/17 08:24 Dose: 325 mg Gabapentin (Neurontin) 600 mg PO TIDCM [facility] Last Admin: 05/24/17 08:24 Dose: 600 mg Haloperidol (H[facility]ol) [facility] Last Admin: 05/24/17 08:24 Dose: 5 mg Heparin Sodium (Porcine) (Heparin Na) 5,000 unit SC Q8 [facility] Last Admin: 05/24/17 06:04 Dose: 5,000 units Morphine Sulfate () 1 - 2 mg IV Q4H PRN PRN PRN Reason: Moderate Pain (pain scale 4-5) Multivitamins (Allbee W/C Caplet, Thera B Comp/C) [facility] Last Admin: 05/24/17 08:24 Dose: 1 capsule Oxcarbazepine (Trileptal) 600 mg PO QHS [facility] Last Admin: 05/23/17 22:18 Dose: 600 mg Oxcarbazepine (Trileptal) 300 mg PO DAILY [facility] Last Admin: 05/24/17 08:26 Dose: 300 mg Pantoprazole Sodium (Protonix) 40 mg PO DAILY [facility] Last Admin: 05/24/17 08:25 Dose: 40 mg Pravastatin Sodium (Pravachol) 40 mg PO QHS [facility] Last Admin: 05/23/17 22:18 Dose: 40 mg Psyllium Hydrophilic Mucilloid (Metamucil) 1 packet PO DAILY [facility] Last Admin: 05/24/17 08:25 Dose: 1 packet Risperidone (Risperdal) [address] [facility] Last Admin: 05/23/17 22:17 Dose: 4 mg Sodium Chloride () 5 - 30 ml IV UD PRN PRN Reason: SALINE FLUSH Last Admin: 05/21/17 09:05 Dose: 10 ml Tamsulosin HCl (Flomax) 0.4 mg PO DAILY [facility] Last Admin: 05/24/17 08:25 Dose: 0.4 mg Thioridazine HCl (Thioridazine Hcl) 200 mg PO BID [facility] Last Admin: 05/24/17 08:26 Dose: 200 mg Medical Necessity - Tobacco Use Smoking Status: Unknown if ever smoked Assessment/Plan Active and Suspected Problems Ileus (Acute) HCAP (healthcare-associated pneumonia) (Acute) ARF (acute renal failure) (Acute) 67-year-old male with MRDD, seizure disorder, schizophrenia admitted with abdominal distention and CT of the abdomen and pelvis shows small bowel ileus. 1. Abdominal distention secondary small bowel ileus, managed conservatively, resolved, patient is tolerating advancement in his diet. 2. HCAP, left lower lobe pneumonia, seen on abdominal CT, vitals are stable, urine for streptococcal and legionella negative, blood cultures are negative, patient on p.o. Augmentin. 3. Hypoxia related to current HCAP, off oxygen now, on prn oxygen for SPo2>94% , encourage use of incentive spirometer. 3. KEHINDE, likely pre-renal, resolved 4. Seizure disorder, on depakote 5. MRDD/Schizophrenia, on home regimen 6. DVT prophylaxis with Heparin Code Visit Inpatient E&M: 38751 Subs Hosp L2
[2017-05-24 08:45] VITALS: PULSE 82; RESP 18; O2SAT 92
--- NOTE | 2017-05-24 09:50 | CASEMGMT ---
Social Work Note SW placed call to pt's guardian Bishnu stating that pt was unable to go to [facility] last night and we are waiting to hear from [facility] if they can accept pt today. SUSI informed Bishnu that if [facility] can't accept pt, that this worker will begin looking for other placements. Per, previous coversations with Bishnu he gave this worker permission that if [facility] can't accept pt than this worker can call facilties around [place] to see if one will accept pt. Bishnu asked this worker if once pt goes to a care home if he will have to go to the care home and sign paperwork and this SW states that she is unsure but will ask the nursing facility when this worker gets acceptance from facility and will call Bishnu back. Bishnu states understanding of this. SUSI will continue to follow to assist with discharge planning. Plan: [facility] pending HENS approval Octavia Sarkar INVESTOR RELATIONS MANAGER, BULLDOZER/LOADER/COMPACTOR/SCRAPER
[2017-05-24 11:00] VITALS: BP 139/66; PULSE 82; RESP 18; TEMP 36.8; O2SAT 91
--- NOTE | 2017-05-24 12:37 | CASEMGMT ---
Addendum entered by Octavia Sarkar 05/24/17 14:25: SW left a message for [facility] who is the water maintenance supervisor of [facility] and left her a message updating her of this. Original Note: Social Work Note SUSI received call from Katia at [facility] stating that they are able to accept pt. SUSI asked Katia if pt's guardian would need to come to the nursing facility to sign paperwork and Katia states that pt's guardian will have to sign paperwork at the nursing facility. SUSI informed Katia that pt's guardian is Bishnu Caldwell. SUSI faxed discharge paperwork yesterday as pt was scheduled to leave last night. SUSI set up transportation through [facility] for 2:30pm. SUSI informed Charge Nurse Chela, AUDELIA Best, pt's guardian Bishnu and Katia at [facility] of discharge time. SUSI placed call to Bishnu to inform him of transportation time and that Bishnu will need to go to the retirement to sign required paperwork. Bishnu states that he gets off work at 2:45 and he will go to the retirement. SUSI encouraged Bishnu to bring copies of his guardianship paperwork to [facility] in case they need it. Bishnu states that he will bring guardianship paperwork to [facility]. SUSI faxed discharge paperwork last night and HENS has been completed. Original discharge paperwork in SNF file and copies on chart. Plan: [facility] for rehabilitation Octavia Sarkar
--- NOTE | 2017-05-24 14:37 | NURSING ---
REPORT CALLED TO OKSANA AT [facility]
--- NOTE | 2017-05-24 16:08 | CASEMGMT ---
Social Work Note SW received call from Katia at [facility] asking if pt's guardian will be coming to alf to sign paperwork. SUSI called Katia back and left a message stating that this worker spoke with the guardian earlier and the guardian stated that he will be coming to the alf to sign paperwork and to bring guardian paperwork. SUSI provided Katia with guardian's name and contact information. Plan: ZAK Sarkar PROCESS ASSISTANT, EVENT SALES MANAGER
== END 2017-05-24 15:09 | disposition skilled nursing facility (03) | DRG 388 ==
LOC: ED 05:34 → MS3 06:11
PROVIDERS: Surgery; Admitting Provider Internal Medicine; Emergency Provider Emergency Medicine; Family Provider Family Medicine Geriatric Medicine; PCP Family Medicine Geriatric Medicine; Visit Provider Internal Medicine
DX: K56.7 Ileus, unspecified (principal); J18.9 Pneumonia, unspecified organism; N17.9 Acute kidney failure, unspecified; F30.9 Manic episode, unspecified; Y95 Nosocomial condition; F79 Unspecified intellectual disabilities; G40.909 Epilepsy, unspecified, not intractable, without status epilepticus; Z79.899 Other long term (current) drug therapy
CPT/HCPCS: 36415; 71045; 74018; 74176; 74250; 76770; 80048; 80053; 81001; 82962; 83605; 83690; 83735; 85025; 87040; 87449; 87804; 94640; 97162; 97530; 99152; 99285; J7030; A4216; J2405

== ENCOUNTER → 2017-06-26 14:47 | Outpatient (CLI) | payer MEDICARE, MEDICAID, SELFPAY ==
[2017-06-26 17:00] LABS: Absolute Neutrophil Count 1.9 X10^3/uL (2.0-7.7); Basophil# 0.01 X10^3/uL; Basophil% 0.3 % (0-1); Eosinophil# 0.12 X10^3/uL; Eosinophils% 3.1 % (0-5); Hematocrit 36.1 % (40-54); Hemoglobin 11.3 g/dl (13.0-16.5); Lymphocyte % 33.6 % (19-41); Mean Corp Hgb Conc 31.3 g/gl (32-36); Mean Corpuscular Hgb 31.8 pg (27.0-32.0); Mean Corpuscular Volume 101.7 fL (80-94); Monocyte# 0.53 X10^3/uL; Monocyte% 13.7 % (0-10); Neutrophil # 1.91 X10^3/uL (2.7-7.7); Neutrophil % 49.3 % (47-70); Platelet Count 141 K/mm3 (150-450); RBC Distribution Width SD 52.2 fl (35.1-43.9); Red Blood Count 3.55 M/mm3 (4.6-6.2); White Blood Count 3.9 K/mm3 (4.4-11.0)
[2017-06-26 17:02] LABS: POSITIVE COUNT NO; POSITIVE DIFFERENTIAL NO; POSITIVE MORPHOLOGY NO
[2017-06-26 17:14] LABS: Anion Gap 4 (5-15); BUN 20 mg/dL (7-18); Chloride 106 mmol/L (98-107); Creatinine, Serum 1.05 mg/dL (0.70-1.30); EST Glomerular Filtration Rate 75 mL/min (>60); Est Glom Filt Rate - Afr Amer 91 mL/min (>60); Glucose 96 mg/dL (74-106); Potassium 4.2 mmol/L (3.5-5.1); Sodium Level 142 mmol/L (136-145)
== END ==
PROVIDERS: Family Provider Family Medicine Geriatric Medicine; PCP Family Medicine; Visit Provider Family Medicine Geriatric Medicine
DX: D64.9 Anemia, unspecified (principal); N17.0 Acute kidney failure with tubular necrosis
CPT/HCPCS: 36415; 80048; 85025

== ENCOUNTER → 2017-07-04 12:23 | Outpatient (CLI) | payer MEDICARE, BC, MEDICAID, SELFPAY ==
--- NOTE | 2017-07-04 12:29 | RAD_ITS ---
STUDY: X-RAY CHEST REASON FOR EXAM: Male, 67 years old. COPD. TECHNIQUE: PA and lateral views of the chest. COMPARISON: Comparison is made with prior examination dated May 20, 2017. FINDINGS: Elevation of the right hemidiaphragm. Stable mild increased markings at the right lung base suggests some right basilar atelectasis. There is no demonstrated pleural abnormality. There is moderate cardiac enlargement. Normal mediastinum and leticia. Normal visualized pulmonary arteries. There is atherosclerotic tortuosity of the aortic arch and descending thoracic aorta. There are diffuse degenerative changes of the visualized thoracic spine. Normal visualized ribs, clavicles, and shoulders. There is no demonstrated abnormality of the visualized soft tissue structures of the upper abdomen. RAD/Chest PA and Lateral IMPRESSION: Stable elevation of the right hemidiaphragm with the right basilar atelectasis. Electronically Signed: Gerber Nascimento MD at 13:05 EDT Tel [phone], Service support ,
== END ==
PROVIDERS: Family Provider Family Medicine Geriatric Medicine; PCP Family Medicine Geriatric Medicine; Visit Provider Family Medicine Geriatric Medicine
DX: J44.9 Chronic obstructive pulmonary disease, unspecified (principal)
CPT/HCPCS: 71046

== ENCOUNTER → 2017-07-30 07:24 | Outpatient (CLI) | payer MEDICARE, MEDICAID, BC, SELFPAY ==
--- NOTE | 2017-07-30 08:09 | ECHOD_ITS ---
Reason For Study: SOB Procedure This was a 2D Doppler, Color Flow transthoracic echocardiogram. Pt unable to turn to left side. Scanned supine. Would not allow an IV to be started to use Definity. The study was technically difficult. Exam performed in department. Left Ventricle Based upon the 2D echocardiographic images obtained there appears to be grossly normal left ventricular size, wall motion, and systolic function. The estimated ejection fraction is 55 %. Unable to assess diastolic dysfunction. Right Ventricle Based upon the 2D echocardiographic images obtained there appears to be grossly normal right ventricular size and systolic function. Atria Normal left atrium. The right atrium is not well visualized. No doppler evidence for ASD. Mitral Valve There is no mitral annular calcification. Normal mitral valve. Tricuspid Valve Normal tricuspid valve. Trivial tricuspid valve insufficiency. Aortic Valve Trisinus/trileaflet aortic valve. Normal aortic valve. Pulmonic Valve The pulmonic valve is not well visualized. Great Vessels Normal sized aortic root. Pericardium/Pleural No pericardial effusion. MMode/2D Measurements & Calculations LVIDd: 3.3 cm IVSd: 1.3 cm Ao root diam: 3.2 cm LVIDs: 2.2 cm LVPWd: 0.91 cm LA dimension: 2.9 cm FS: 33.6 % Doppler Measurements & Calculations MV E max nirmal: 60.3 cm/sec Lat Peak E' Nirmal: 7.0 cm/sec Med Peak E' Nirmal: 5.8 cm/sec MV A max nirmal: 81.9 cm/sec E/E' lat: 8.6 E/E' med: 10.5 MV E/A: 0.74 Ao V2 max: 152.0 cm/sec LV V1 max: 114.0 cm/sec PA V2 max: 108.6 cm/sec Ao max P.2 mmHg LV V1 max P.2 mmHg Interpretation Summary The study was technically difficult. Based upon the 2D echocardiographic images obtained there appears to be grossly normal left ventricular size, wall motion, and systolic function. The estimated ejection fraction is 55 %. Trivial tricuspid valve insufficiency. Unable to assess diastolic dysfunction. Ordering Physician: Flo Del Cid Referring Physician: Flo Del Cid Chi Performed By: Abbie Aleman RDCS
== END ==
PROVIDERS: Family Provider Family Medicine Geriatric Medicine; PCP Family Medicine Geriatric Medicine; Visit Provider Family Medicine Geriatric Medicine
DX: J44.9 Chronic obstructive pulmonary disease, unspecified (principal)
CPT/HCPCS: 93306

== ENCOUNTER → 2017-10-24 14:29 | Outpatient (CLI) | payer MEDICARE, MEDICAID, BC, SELFPAY | PROVIDERS: Family Provider Family Medicine Geriatric Medicine; PCP Family Medicine Geriatric Medicine; Visit Provider Family Medicine Geriatric Medicine | DX: R07.81 Pleurodynia (principal); M25.561 Pain in right knee | CPT/HCPCS: 71101; 73564 ==

== ENCOUNTER → 2017-12-05 08:22 | Outpatient (CLI) | payer MEDICARE, MEDICAID, SELFPAY ==
[2017-12-05 10:12] LABS: Absolute Lymphocyte Count 1.92 X10^3/ul (0.83-4.51); Basophil# 0.01 X10^3/uL; Basophil% 0.2 % (0-1); Eosinophils% 2.2 % (0-5); Hematocrit 42.5 % (40-54); Lymphocyte # 1.92 X10^3/ul (4.0); Lymphocyte % 41.8 % (19-41); Mean Corp Hgb Conc 32.9 g/gl (32-36); Mean Corpuscular Hgb 32.9 pg (27.0-32.0); Monocyte% 13.1 % (0-10); Neutrophil # 1.95 X10^3/uL (2.7-7.7); Neutrophil % 42.5 % (47-70); Platelet Count 135 K/mm3 (150-450); RBC Distribution Width CV 13.1 % (11.6-14.6); RBC Distribution Width SD 47.3 fl (35.1-43.9); Red Blood Count 4.25 M/mm3 (4.6-6.2); White Blood Count 4.6 K/mm3 (4.4-11.0)
[2017-12-05 10:15] LABS: POSITIVE COUNT NO; POSITIVE DIFFERENTIAL NO; POSITIVE MORPHOLOGY NO
[2017-12-05 10:22] LABS: ALB/GLOB Ratio 0.8 RATIO (0.9-2.4); AST(SGOT) 18 U/L (15-37); Alanine Aminotransfer ALT/SGPT 21 U/L (16-61); Albumin, Serum 3.3 g/dL (3.2-5.0); Alkaline Phosphatase 44 U/L (45-117); Anion Gap 8 (5-15); BUN 18 mg/dL (7-18); BUN/Creat Ratio 14.9 RATIO (10-20); Calcium,Total 9.2 mg/dL (8.5-10.1); Chloride 104 mmol/L (98-107); Creatinine, Serum 1.21 mg/dL (0.70-1.30); EST Glomerular Filtration Rate 64 mL/min (>60); Est Glom Filt Rate - Afr Amer 77 mL/min (>60); Globulin 3.9 g/dL (2.2-4.2); Glucose 94 mg/dL (74-106); Potassium 4.6 mmol/L (3.5-5.1); Prolactin 39.8 ng/mL; Protein, Total 7.2 g/dL (6.4-8.2); Sodium Level 140 mmol/L (136-145)
[2017-12-05 10:23] LABS: Valproic Acid (Depakene) Level 68 ug/mL (50-100)
== END ==
PROVIDERS: Family Provider Family Medicine Geriatric Medicine; PCP Family Medicine Geriatric Medicine; Referring Provider Registered Nurse; Visit Provider Registered Nurse
DX: F25.9 Schizoaffective disorder, unspecified (principal)
CPT/HCPCS: 36415; 80053; 80164; 84146; 85025

== ENCOUNTER → 2018-02-19 10:28 | Outpatient (CLI) | payer MEDICARE, MEDICAID, SELFPAY ==
[2018-02-19 12:51] LABS: Absolute Lymphocyte Count 2.19 X10^3/ul (0.83-4.51); Absolute Neutrophil Count 1.8 X10^3/uL (2.0-7.7); Basophil# 0.02 X10^3/uL; Basophil% 0.4 % (0-1); Eosinophil# 0.11 X10^3/uL; Eosinophils% 2.3 % (0-5); Hematocrit 42.4 % (40-54); Hemoglobin 14.1 g/dl (13.0-16.5); Lymphocyte # 2.19 X10^3/ul (4.0); Lymphocyte % 46.5 % (19-41); Mean Corp Hgb Conc 33.3 g/gl (32-36); Mean Corpuscular Hgb 33.2 pg (27.0-32.0); Mean Corpuscular Volume 99.8 fL (80-94); Mean Platelet Vol. 12.1 fl (6.2-12.0); Monocyte# 0.57 X10^3/uL; Monocyte% 12.1 % (0-10); Neutrophil # 1.81 X10^3/uL (2.7-7.7); Neutrophil % 38.5 % (47-70); POSITIVE COUNT NO; POSITIVE DIFFERENTIAL NO; POSITIVE MORPHOLOGY NO; Platelet Count 135 K/mm3 (150-450); RBC Distribution Width CV 12.7 % (11.6-14.6); RBC Distribution Width SD 45.8 fl (35.1-43.9); Red Blood Count 4.25 M/mm3 (4.6-6.2); White Blood Count 4.7 K/mm3 (4.4-11.0)
[2018-02-19 13:14] LABS: Vitamin D,25 Hydroxy 10.4 ng/mL (29.95-100.01)
[2018-02-19 13:15] LABS: ALB/GLOB Ratio 0.9 RATIO (0.9-2.4); AST(SGOT) 18 U/L (15-37); Alanine Aminotransfer ALT/SGPT 24 U/L (16-61); Albumin, Serum 3.3 g/dL (3.2-5.0); Alkaline Phosphatase 40 U/L (45-117); Anion Gap 9 (5-15); BUN 20 mg/dL (7-18); BUN/Creat Ratio 17.2 RATIO (10-20); Calcium,Total 9.2 mg/dL (8.5-10.1); Chloride 106 mmol/L (98-107); Creatinine, Serum 1.16 mg/dL (0.70-1.30); EST Glomerular Filtration Rate 67 mL/min (>60); Est Glom Filt Rate - Afr Amer 81 mL/min (>60); Globulin 3.6 g/dL (2.2-4.2); Glucose 89 mg/dL (74-106); PSA,Total - Annual Screen 0.55 ng/mL (0.00-4.00); Potassium 4.6 mmol/L (3.5-5.1); Protein, Total 6.9 g/dL (6.4-8.2); Sodium Level 141 mmol/L (136-145); Thyroid Stim Hormone (TSH) 0.91 uIU/mL (0.358-3.74)
== END ==
PROVIDERS: Family Provider Family Medicine Geriatric Medicine; PCP Family Medicine Geriatric Medicine; Visit Provider Family Medicine Geriatric Medicine
DX: E55.9 Vitamin D deficiency, unspecified (principal); R53.83 Other fatigue; Z12.5 Encounter for screening for malignant neoplasm of prostate
CPT/HCPCS: 36415; 80053; 82306; 84153; 84443; 85025; G0103

== ENCOUNTER → 2018-05-06 12:18 | Outpatient (CLI) | payer MEDICARE, MEDICAID, SELFPAY | PROVIDERS: Family Provider Family Medicine Geriatric Medicine; PCP Family Medicine Geriatric Medicine; Referring Provider Family Medicine Geriatric Medicine; Visit Provider Family Medicine Geriatric Medicine | DX: R68.83 Chills (without fever) (principal) | CPT/HCPCS: 87633 ==

== ENCOUNTER → 2018-09-25 08:40 | Outpatient (CLI) | payer MEDICARE, MEDICAID, SELFPAY ==
[2018-09-25 10:04] LABS: Absolute Lymphocyte Count 1.83 X10^3/uL (0.83-4.51); Basophil# 0.02 X10^3/uL; Basophil% 0.4 % (0-1); Eosinophil# 0.08 X10^3/uL; Eosinophils% 1.8 % (0-5); Hematocrit 42.8 % (40-54); Hemoglobin 14.1 g/dL (13.0-16.5); Lymphocyte # 1.83 X10^3/ul (4.0); Lymphocyte % 40.1 % (19-41); Mean Corp Hgb Conc 32.9 g/dL (32-36); Mean Corpuscular Hgb 33.1 pg (27.0-32.0); Mean Corpuscular Volume 100.5 fL (80-94); Mean Platelet Vol. 11.2 fl (6.2-12.0); Monocyte# 0.61 X10^3/uL; Monocyte% 13.4 % (0-10); NRBC Flagged by Analyzer 0 % (0-5); Neutrophil # 2.02 X10^3/uL (2.7-7.7); Neutrophil % 44.3 % (47-70); Platelet Count 147 K/mm3 (150-450); RBC Distribution Width CV 12.4 % (11.6-14.6); RBC Distribution Width SD 46.2 fl (35.1-43.9); Red Blood Count 4.26 M/mm3 (4.6-6.2); White Blood Count 4.6 K/mm3 (4.4-11.0)
[2018-09-25 10:20] LABS: ALB/GLOB Ratio 0.9 RATIO (0.9-2.4); AST(SGOT) 15 U/L (15-37); Alanine Aminotransfer ALT/SGPT 21 U/L (16-61); Albumin, Serum 3.2 g/dL (3.2-5.0); Alkaline Phosphatase 44 U/L (45-117); Anion Gap 8 (5-15); BUN 18 mg/dL (7-18); BUN/Creat Ratio 17.3 RATIO (10-20); Calcium,Total 9.3 mg/dL (8.5-10.1); Chloride 105 mmol/L (98-107); Creatinine, Serum 1.04 mg/dL (0.70-1.30); EST Glomerular Filtration Rate 76 mL/min (>60); Est Glom Filt Rate - Afr Amer 91 mL/min (>60); Globulin 3.7 g/dL (2.2-4.2); Glucose 115 mg/dL (74-106); Potassium 4.2 mmol/L (3.5-5.1); Protein, Total 6.9 g/dL (6.4-8.2); Sodium Level 143 mmol/L (136-145)
[2018-09-25 10:27] LABS: Valproic Acid (Depakene) Level 62 ug/mL (50-100)
== END ==
PROVIDERS: Family Provider Family Medicine Geriatric Medicine; PCP Family Medicine Geriatric Medicine; Referring Provider Registered Nurse; Visit Provider Registered Nurse
DX: F25.9 Schizoaffective disorder, unspecified (principal); Z79.899 Other long term (current) drug therapy
CPT/HCPCS: 36415; 80053; 80164; 85025

== ENCOUNTER → 2018-10-01 14:53 | Outpatient (CLI) | payer MEDICARE, MEDICAID, SELFPAY | PROVIDERS: Family Provider Family Medicine Geriatric Medicine; PCP Family Medicine Geriatric Medicine; Visit Provider Family Medicine Geriatric Medicine | DX: N39.0 Urinary tract infection, site not specified (principal) | CPT/HCPCS: 87086; 87088 ==

== ENCOUNTER → 2018-10-28 14:40 | Outpatient (CLI) | payer MEDICARE, BC, MEDICAID, SELFPAY ==
--- NOTE | 2018-10-28 14:43 | CT_ITS ---
STUDY: CT ABDOMEN AND PELVIS WITHOUT CONTRAST REASON FOR EXAM: Male, 68 years old. Hematuria. RADIATION DOSAGE (If Supplied By Facility): CTDIvol = ( 14.80 ) mGy, DLP = ( 948.90 ) mGycm TECHNIQUE: Transaxial images were obtained from the dome of the diaphragm to the symphysis pubis without oral contrast, and without intravenous contrast. Sagittal and coronal images were reconstructed. Exam is slightly limited by respiratory motion artifacts. Individualized dose optimization techniques were used for this CT. COMPARISON: 05/20/2017. FINDINGS: The visualized lung bases are unremarkable. The visualized portions of the heart are within normal limits. There is a 4 cm lobulated cyst in the high right lobe of the liver which has not increased in size from previous study. Normal gallbladder and extrahepatic biliary system. Normal spleen. Normal pancreas. Normal bilateral adrenal glands. Normal right kidney. Normal left kidney. Normal visualized stomach. Normal small intestine. There are multiple colonic diverticula consistent with diverticulosis. The appendix is visualized on axial images 115-120 and it appears normal.. There is atherosclerotic calcification of the abdominal aorta, without a demonstrated aneurysm. Normal inferior vena cava. Normal retroperitoneum. Grossly normal urinary bladder. Assessment is limited by poor distention.. Normal abdominal wall. There are diffuse degenerative changes of the visualized lumbar spine. CT/Abdomen/Pelvis without Cont IMPRESSION: Somewhat limited exam due to respiratory motion as well as lack of IV contrast. Colonic diverticulosis, without evidence for acute diverticulitis. Atherosclerosis. No evidence for acute pathology. Etiology for hematuria is not evident in this study. No demonstrated urinary calculi or hydronephrosis. Electronically Signed: Sid Valdes MD at 4:34 EDT , Service support ,
== END ==
PROVIDERS: Family Provider Family Medicine Geriatric Medicine; PCP Family Medicine Geriatric Medicine; Referring Provider Urology; Visit Provider Urology
DX: R31.9 Hematuria, unspecified (principal)
CPT/HCPCS: 74176

== ENCOUNTER → 2018-11-07 08:46 | Outpatient (CLI) | payer MEDICARE, MEDICAID, SELFPAY ==
[2018-11-07 10:42] LABS: Absolute Lymphocyte Count 1.75 X10^3/uL (0.83-4.51); Absolute Neutrophil Count 1.6 X10^3/uL (2.0-7.7); Basophil# 0.02 X10^3/uL; Basophil% 0.5 % (0-1); Eosinophil# 0.09 X10^3/uL; Eosinophils% 2.3 % (0-5); Hematocrit 42.3 % (40-54); Hemoglobin 13.4 g/dL (13.0-16.5); Lymphocyte # 1.75 X10^3/ul (4.0); Lymphocyte % 43.8 % (19-41); Mean Corp Hgb Conc 31.7 g/dL (32-36); Mean Corpuscular Hgb 32.1 pg (27.0-32.0); Mean Corpuscular Volume 101.2 fL (80-94); Mean Platelet Vol. 11.3 fl (6.2-12.0); Monocyte# 0.55 X10^3/uL; Monocyte% 13.8 % (0-10); NRBC Flagged by Analyzer 0 % (0-5); Neutrophil # 1.57 X10^3/uL (2.7-7.7); Neutrophil % 39.1 % (47-70); Platelet Count 139 K/mm3 (150-450); RBC Distribution Width CV 12.5 % (11.6-14.6); RBC Distribution Width SD 46.5 fl (35.1-43.9); Red Blood Count 4.18 M/mm3 (4.6-6.2)
[2018-11-07 10:45] LABS: Valproic Acid (Depakene) Level 86 ug/mL (50-100)
[2018-11-07 10:54] LABS: ALB/GLOB Ratio 0.8 RATIO (0.9-2.4); AST(SGOT) 16 U/L (15-37); Alanine Aminotransfer ALT/SGPT 18 U/L (16-61); Albumin, Serum 3.2 g/dL (3.2-5.0); Alkaline Phosphatase 42 U/L (45-117); Anion Gap 4 (5-15); BUN 20 mg/dL (7-18); BUN/Creat Ratio 19.4 RATIO (10-20); Calcium,Total 9.1 mg/dL (8.5-10.1); Chloride 106 mmol/L (98-107); Creatinine, Serum 1.03 mg/dL (0.70-1.30); EST Glomerular Filtration Rate 76 mL/min (>60); Est Glom Filt Rate - Afr Amer 92 mL/min (>60); Globulin 3.9 g/dL (2.2-4.2); Glucose 93 mg/dL (74-106); Potassium 4.3 mmol/L (3.5-5.1); Protein, Total 7.1 g/dL (6.4-8.2); Sodium Level 139 mmol/L (136-145)
== END ==
PROVIDERS: Family Provider Family Medicine Geriatric Medicine; PCP Family Medicine Geriatric Medicine; Referring Provider Registered Nurse; Visit Provider Registered Nurse
DX: F25.9 Schizoaffective disorder, unspecified (principal); Z79.899 Other long term (current) drug therapy
CPT/HCPCS: 36415; 80053; 80164; 85025

== ENCOUNTER 2018-11-24 10:25 | Emergency (ER) | payer MEDICARE, BC, MEDICAID, SELFPAY ==
[2018-11-24 10:26] VITALS: BP 109/61; PULSE 138; RESP 19; TEMP 36.4; O2SAT 96; BMI 38.0
--- NOTE | 2018-11-24 10:38 | CT_ITS ---
STUDY: CT BRAIN WITHOUT CONTRAST REASON FOR EXAM: Male, 68 years old. Altered mental status, RADIATION DOSAGE (If Supplied By Facility): CTDIvol = ( 44.99 ) mGy, DLP = ( 796.11 ) mGycm TECHNIQUE: Transaxial CT imaging of the brain was performed without administration of intravenous contrast material. Individualized dose optimization techniques were used for this CT. COMPARISON: No relevant priors. FINDINGS: Normal soft tissue structures. There is hyperostosis frontalis internus. Normal size ventricles and extra-axial spaces for the patient's age. Normal white matter tracts of the cerebral hemispheres. Normal basal ganglia and thalami. Normal brainstem. Normal cerebellum. There is no intracranial hemorrhage. There are no findings of an acute ischemic infarction. Normal visualized paranasal sinuses. CT/Brain/Head without Contrast IMPRESSION: Normal unenhanced CT scan of the brain. Electronically Signed: Tesfaye Garner MD at 11:46 EDT Tel , Service support ,
--- NOTE | 2018-11-24 10:39 | EKG12_ITS ---
Test Reason : [facility] Blood Pressure : / mmHG Vent. Rate : 133 BPM Atrial Rate : 133 BPM P-R Int : 138 ms QRS Dur : 140 ms QT Int : 338 ms P-R-T Axes : 116 013 -28 degrees QTc Int : 503 ms Atrial Flutter Right bundle branch block Cannot rule out Inferior infarct , age undetermined Abnormal ECG Confirmed by FELISHA FATIMA, MENDY ([id number]), map editor POOJA DENNIS ([id number]) on 11/26/2018 1:49:02 PM Referred By: Confirmed By:MENDY BAEZA MD
--- NOTE | 2018-11-24 10:53 | CM.ED ---
[facility] already involved [facility]. [facility] to [facility]. Medical team aware of plan. Freddie SAWYER, SAMIR
[2018-11-24 11:13] LABS: Absolute Lymphocyte Count 1.79 X10^3/uL (0.83-4.51); Absolute Neutrophil Count 1.8 X10^3/uL (2.0-7.7); Basophil# 0.02 X10^3/uL; Basophil% 0.5 % (0-1); Eosinophil# 0.08 X10^3/uL; Eosinophils% 1.9 % (0-5); Hematocrit 43.4 % (40-54); Hemoglobin 13.9 g/dL (13.0-16.5); Lymphocyte # 1.79 X10^3/ul (4.0); Lymphocyte % 42.1 % (19-41); Mean Corpuscular Volume 103.1 fL (80-94); Mean Platelet Vol. 11.1 fl (6.2-12.0); Monocyte# 0.56 X10^3/uL; Monocyte% 13.2 % (0-10); NRBC Flagged by Analyzer 0 % (0-5); Neutrophil # 1.79 X10^3/uL (2.7-7.7); Neutrophil % 42.1 % (47-70); Platelet Count 123 K/mm3 (150-450); RBC Distribution Width CV 12.9 % (11.6-14.6); RBC Distribution Width SD 49.1 fl (35.1-43.9); Red Blood Count 4.21 M/mm3 (4.6-6.2); White Blood Count 4.3 K/mm3 (4.4-11.0)
--- NOTE | 2018-11-24 11:24 | RAD_ITS ---
STUDY: X-RAY CHEST REASON FOR EXAM: Male, 68 years old. Altered mental status TECHNIQUE: PA and lateral views of the chest. COMPARISON: 07/04/2017 FINDINGS: The lungs are clear and expanded. Elevated right hemidiaphragm which is unchanged. There is moderate cardiac enlargement. Normal mediastinum and leticia. Normal visualized pulmonary arteries. Normal visualized aortic arch and descending thoracic aorta. Normal visualized thoracic spine. Normal visualized ribs, clavicles, and shoulders. There is no demonstrated abnormality of the visualized soft tissue structures of the upper abdomen. RAD/Chest PA and Lateral IMPRESSION: No active disease. Electronically Signed: Tesfaye Garner MD at 11:51 EDT Tel , Service support ,
[2018-11-24 11:34] LABS: Alcohol, Blood (Medical)-Serum < 3.0 mg/dL
[2018-11-24 11:37] LABS: AST(SGOT) 19 U/L (15-37); Alanine Aminotransfer ALT/SGPT 21 U/L (16-61); Albumin, Serum 3.2 g/dL (3.2-5.0); Alkaline Phosphatase 39 U/L (45-117); Anion Gap 7 (5-15); BUN 20 mg/dL (7-18); BUN/Creat Ratio 17.1 RATIO (10-20); Bilirubin, Direct 0.06 mg/dL (0.00-0.30); Chloride 106 mmol/L (98-107); Creatinine, Serum 1.17 mg/dL (0.70-1.30); EST Glomerular Filtration Rate 66 mL/min (>60); Est Glom Filt Rate - Afr Amer 80 mL/min (>60); Estimated Creatinine Clearance 61.27 ml/min; Globulin 3.7 g/dL (2.2-4.2); Glucose 104 mg/dL (74-106); Potassium 4.2 mmol/L (3.5-5.1); Protein, Total 6.9 g/dL (6.4-8.2); Sodium Level 143 mmol/L (136-145); Thyroid Stim Hormone (TSH) 0.96 uIU/mL (0.358-3.74)
[2018-11-24 11:40] LABS: Valproic Acid (Depakene) Level 113 ug/mL (50-100)
[2018-11-24 11:45] LABS: Mucous, Urine 0 SEEN /hpf (<or=2+); Squamous Epithelial Cells - UA 0 SEEN /hpf (0-5); White Blood Cells 0 SEEN /hpf (0-5)
[2018-11-24 11:58] LABS: Color, Urine Yellow (Yellow); Glucose, Dipstick Normal (Normal); Ketone-Dipstick Negative (Negative); Leukocyte Esterase-Dipstick Negative /ul (Negative); Nitrite-Dipstick Negative (Negative); Occult Blood-Urine 50 /ul (Negative); Protein-Dipstick 30 mg/dl (Negative); Specific Gravity, Urine 1.015 (1.002-1.030); Urine Bilirubin Dipstick Negative (Negative); Urine Clarity Sl. Cloudy (Clear); Urine Urobilinogen Normal (Normal)
[2018-11-24 12:07] LABS: Bacteria RARE /hpf (None Seen); Red Blood Cells-Urine 0-5 SEEN /hpf (0-5)
[2018-11-24 12:12] LABS: Amphetamine Urine VISTA NEGATIVE (<1000 ng/mL); Barbiturate Urine VISTA NEGATIVE (< 200 ng/mL); Benzodiazepine Urine VISTA NEGATIVE (< 200 ng/mL); Cocaine Urine VISTA NEGATIVE (< 300 ng/mL); Ecstacy Urine VISTA NEGATIVE (< 500 ng/mL); Methadone Urine VISTA NEGATIVE (< 300 ng/mL); PCP Urine VISTA NEGATIVE (< 25 ng/mL); THC Urine VISTA NEGATIVE (< 50 ng/mL); Vista UDS pH Range 6
[2018-11-24 12:35] VITALS: BP 136/71; PULSE 65; RESP 14; O2SAT 96
--- NOTE | 2018-11-24 13:45 | ED.VISSUMM ---
- ER Visit Summary Date of Service: 11/24/18 Chief Complaint: Abnormal behavior History of Present Illness: The patient is a 68 M presents the emergency department for threatening behavior against a [facility] residents. Patient currently resides at a [facility]. He was last hospitalized in 2012. He follows with the [facility]. Is been reporting over the past month has been coming increasingly hostile towards other residents. Has been intermittent in nature. There is been no suicidal ideation. Patient reported over the weekend to be more aggressive than in the past month. Hitting tables and threatening people with bodily harm. Patient was brought to the emergency department by [facility] staff. Patient is asking to be hospitalized. Physical Examination: Afebrile vital signs are stable Gen: Well-nourished well-developed Head: Normocephalic atraumatic Eyes: Perrl EOMI ENT: TMs clear no rhinorrhea moist mucous membranes Neck: Supple no lymphadenopathy no JVD nontender CVS: Regular rate rhythm no murmurs normal S1-S2 Respiratory: No distress clear to auscultation bilaterally chest nontender Abdomen: Soft nontender nondistended normal bowel sounds no masses Back: Nontender Extremity: Nontender no edema Skin: Normal color no rash Neuro: alert orientated ?3 CN II-XII intact normal strength sensation Psych: Patient is cooperative with staff. He states that he has been telling other residents he is going to harm them. He is unable to tell me why. He denies suicidal thoughts. He tells me that he is not having any command hallucinations. Test Results: EKG showed a sinus rhythm at a rate of 133 CBC chemistries White count 4.3. Tox screen was negative. Depakote level 113. TSH 0.96. Troponin is negative. Urinalysis negative. Chest x-ray and CT brain were also negative for acute. Emergency Department Course and Treatment: Patient's heart rate was fast when he first got here however he was very excited in anticipation of being hospitalized. Once he got calm down his heart rates have been in the 60s in the 70s. Given the above work-up the patient is cleared for crisis and psychiatric evaluation. Crisis is here to help us assist in placement. He has been accepted by Dr. Jin at [facility]. Impression: 1. Acute decompensated schizoaffective disorder This note was generated with Truseraation software. It may contain incorrect words, spelling, and punctuation that were not noted in review of the chart prior to signing ED Disposition - Plan for ED Patient: Referrals: Flo Del Cid Chi, MD [Primary Care Provider] -
[2018-11-24 14:00] VITALS: BP 131/89; PULSE 101; RESP 16; O2SAT 94
[2018-11-24 16:22] VITALS: BP 131/89; PULSE 101; RESP 16; O2SAT 94
== END 2018-11-24 16:25 ==
LOC: ED 10:46
PROVIDERS: Emergency Provider Emergency Medicine; Family Provider Family Medicine Geriatric Medicine; PCP Family Medicine Geriatric Medicine
DX: F25.9 Schizoaffective disorder, unspecified (principal); E66.9 Obesity, unspecified; Z79.899 Other long term (current) drug therapy
CPT/HCPCS: 70450; 71046; 80048; 80076; 80164; 80307; 80320; 81001; 84443; 84484; 85025; 93005; 99283; G0480

== ENCOUNTER 2019-01-10 12:14 | Inpatient (IN) | payer MEDICARE, MEDICAID, SELFPAY ==
[2019-01-10] VITALS (12 sets, daily range): BP systolic 84–111; BP diastolic 51–78; PULSE 60–90; RESP 14–26; TEMP 36.1–36.8; O2SAT 95–100; BMI 35.9; BMI 36.0; BMI 36.1
--- NOTE | 2019-01-10 12:44 | EKG12_ITS ---
Test Reason : WEAKNESS Blood Pressure : / mmHG Vent. Rate : 067 BPM Atrial Rate : 242 BPM P-R Int : 000 ms QRS Dur : 144 ms QT Int : 450 ms P-R-T Axes : 013 000 006 degrees QTc Int : 475 ms Atrial flutter with variable A-V block Right bundle branch block Inferior infarct (cited on or before 24-NOV-2018) Abnormal ECG Confirmed by ED FATIMA, FLEX ([id number]), online editor POOJA DENNIS ([id number]) on 01/13/2019 10:01:43 AM Referred By: Triny Antonio Confirmed By:FLEX WARD MD
--- NOTE | 2019-01-10 12:44 | RAD_ITS ---
STUDY: X-RAY CHEST REASON FOR EXAM: Male, 69 years old. Weakness TECHNIQUE: AP COMPARISON: 11/24/2018 FINDINGS: Lungs are less expanded since the prior study with elevation of the right hemidiaphragm. Relative bronchovascular continuation is likely artifactual due to portable technique and hypoinflation. Persistent right pleural thickening but no sign of pleural effusion. There is mild cardiac enlargement. Normal mediastinum and leticia. Normal visualized pulmonary arteries. Normal visualized aortic arch and descending thoracic aorta. Normal visualized thoracic spine. Normal visualized ribs, clavicles, and shoulders. There is no demonstrated abnormality of the visualized soft tissue structures of the upper abdomen. RAD/Chest 1 View (Portable) IMPRESSION: Hypoinflation. No airspace consolidation or pleural effusion. Stable cardiomegaly. Electronically Signed: Rashawn Akbar MD ([place]) at 13:17 EST , Service support ,
[2019-01-10] MEDS: 0.9% Normal Saline 1,000 ML 999 ML IV ×2 (13:10→14:13)
[2019-01-10 13:14] LABS: Absolute Lymphocyte Count 2.01 X10^3/uL (0.83-4.51); Absolute Neutrophil Count 2.7 X10^3/uL (2.0-7.7); Basophil# 0.02 X10^3/uL; Basophil% 0.4 % (0-1); Eosinophil# 0.15 X10^3/uL; Eosinophils% 2.9 % (0-5); Hematocrit 34.7 % (40-54); Hemoglobin 10.9 g/dL (13.0-16.5); Lymphocyte # 2.01 X10^3/ul (4.0); Lymphocyte % 38.2 % (19-41); Mean Corp Hgb Conc 31.4 g/dL (32-36); Mean Corpuscular Hgb 31.8 pg (27.0-32.0); Mean Corpuscular Volume 101.2 fL (80-94); Monocyte# 0.37 X10^3/uL; NRBC Flagged by Analyzer 0 % (0-5); Neutrophil # 2.68 X10^3/uL (2.7-7.7); Neutrophil % 50.9 % (47-70); Platelet Count 186 K/mm3 (150-450); RBC Distribution Width SD 51.6 fl (35.1-43.9); Red Blood Count 3.43 M/mm3 (4.6-6.2); White Blood Count 5.3 K/mm3 (4.4-11.0)
[2019-01-10 13:24] LABS: International Normalized Ratio 1.4; Partial Thromboplast Time 32.6 Seconds (24.1-36.2)
[2019-01-10 13:25] LABS: Bacteria 0 SEEN /hpf (None Seen); Mucous, Urine 0 SEEN /hpf (<or=2+); Red Blood Cells-Urine 0 SEEN /hpf (0-5); Squamous Epithelial Cells - UA 0 SEEN /hpf (0-5)
[2019-01-10 13:31] LABS: ALB/GLOB Ratio 0.7 RATIO (0.9-2.4); AST(SGOT) 16 U/L (15-37); Alanine Aminotransfer ALT/SGPT 19 U/L (16-61); Albumin, Serum 2.9 g/dL (3.2-5.0); Alkaline Phosphatase 65 U/L (45-117); Anion Gap 8 (5-15); BUN 17 mg/dL (7-18); BUN/Creat Ratio 15.6 RATIO (10-20); Calcium,Total 8.9 mg/dL (8.5-10.1); Chloride 107 mmol/L (98-107); Creatinine, Serum 1.09 mg/dL (0.70-1.30); EST Glomerular Filtration Rate 72 mL/min (>60); Est Glom Filt Rate - Afr Amer 87 mL/min (>60); Estimated Creatinine Clearance 66.97 ml/min; Globulin 3.9 g/dL (2.2-4.2); Glucose 138 mg/dL (74-106); Potassium 4.1 mmol/L (3.5-5.1); Protein, Total 6.8 g/dL (6.4-8.2); Sodium Level 140 mmol/L (136-145)
[2019-01-10 13:37] LABS: Lactic Acid 1.7 mmol/L (0.4-2.0)
[2019-01-10 13:39] LABS: Color, Urine Yellow (Yellow); Glucose, Dipstick Normal (Normal); Ketone-Dipstick Negative (Negative); Leukocyte Esterase-Dipstick 25 /ul (Negative); Nitrite-Dipstick Negative (Negative); Occult Blood-Urine 10 /ul (Negative); Protein-Dipstick 15 mg/dl (Negative); Specific Gravity, Urine 1.015 (1.002-1.030); Urine Bilirubin Dipstick Negative (Negative); Urine Clarity Clear (Clear); Urine Urobilinogen Normal (Normal)
[2019-01-10 13:40] LABS: White Blood Cells 0-5 SEEN /hpf (0-5)
--- NOTE | 2019-01-10 14:53 | ED.DCSUM_ITS ---
- ER Visit Summary Date of Service: 01/10/19 Chief Complaint: Weak, short of breath History of Present Illness: The patient is a 69 M who presents from a senior living for weakness and short of breath. The patient has a history of MRDD, and has no complaints. Per the senior living and his family, the patient was recently admitted for psychiatric medication adjustment. He was also recently diagnosed with atrial fibrillation and started on Eliquis, diltiazem, and metoprolol. He was at [facility] for rehab and then returned to his senior living. He has plans to follow-up with Dr. Stock on January 20. Per nursing, family also remarked that he has laparoscopic surgery in the past at [place] for a blockage in his colon and they removed fatty tissue. Physical Examination: Blood pressure 93/58 and heart rate 85. Otherwise vitals unremarkable. Afebrile. Patient is alert and oriented to person. Skin is slightly pale but otherwise unremarkable. Heart is a regular. Lungs clear. Abdomen soft and nontender. Patient moves all extremities. Cranial nerves grossly intact. Test Results: EKG shows atrial flutter with a ventricular rate of 67. Variable block. Hemoglobin stable at 10.9. CMP unremarkable. Urinalysis unremarkable. Troponin and lactate normal. Cultures pending. Chest x-ray shows cardiomegaly and stable hyperinflation. Emergency Department Course and Treatment: Patient was started on a color television console monitor. EKG as above. He is in A. fib with rate control. His pressures have ranged from the 80s to the 110s systolic. His heart rate ranges from the 50s to 80s. Work-up was all fairly unremarkable. Patient has no objective signs of anything wrong. He is tolerating p.o. I am concerned given that he has underlying MRDD and a senior living. I believe his medications may benefit from adjustment. His heart rate was low for EMS, and his blood pressures have been low for us. I feel that the patient will need further monitoring and med adjustment. I spoke with the hospitalist who will admit for observation. Treatment Plan: As above Disposition: Observation PCU Impression: 1. Debility 2. Bradycardia This note was generated with ZigaViteation software. It may contain incorrect words, spelling, and punctuation that were not noted in review of the chart prior to signing ED Disposition - Plan for ED Patient: Referrals: Flo Del Cid Chi, MD [Primary Care Provider] -
--- NOTE | 2019-01-10 14:56 | HP.PCM_ITS ---
Problem List (1) Bradycardia Status: Acute (2) Seizure disorder Status: Chronic (3) Schizophrenia Status: Chronic Qualifiers: Schizophrenia type: unspecified Qualified Code(s): F20.9 - Schizophrenia, unspecified History of Present Illness Date of Admission: 01/10/19 Chief Complaint: Bradycardia, dyspnea, debility - 1 day The patient is a 69 year old M past medical history of MRDD, seizure disorder, schizophrenia who was admitted from his residential with complaints of dyspnea and reported history of bradycardia. History was taken from emergency room doctor as well as from review of documentation. Patient was reportedly short of breath. The EMS was called. His color was said to be ashen. He was recently discharged from the custodial. He had worked up a flight of stairs and reportedly went down to 1 knee and was short of breath. He was noted to have bradycardia. Vitals as noted by the squad was heart rate of 49, blood pressure 130/60, SPO2 is 96% on room air. Vitals in the ED showed temperature of 97.8F, heart rate 85, blood pressure was 93/58, respiratory rate was 14, SPO2 was 95% on room air. WBC count of 5.3, hemoglobin 10.9, 186, INR 1.4, CMP was unremarkable. Lactic acid was 1.7. Blood and urine cultures were pending. His admitting chest x-ray showed no acute cardiopulmonary process. Patient was upset when he got to the floor and did not want any telemetry. He was persevering on removing them. Past Medical History Past Medical History (Chronic Problems): Chronic Problems Seizure disorder (Chronic) Schizophrenia (Chronic) Allergies No Known Allergies Allergy (Verified 01/10/19 12:19) Home Medications: Ambulatory Orders Medication Instructions Recorded Famotidine [Pepcid] 40 mg PO DAILY 11/24/18 Fluticasone 0.05% [Flonase Nasal 1 spray INHALATION DAILY 11/24/18 [place]] Loratadine [Claritin] 10 mg PO DAILY 11/24/18 Oxcarbazepine 300 mg PO DAILY 11/24/18 Oxcarbazepine 600 mg PO QHS 11/24/18 Oxybutynin Chloride [Oxybutynin 10 mg PO DAILY 11/24/18 Chloride ER] Psyllium Husk/Aspartame [Metamucil 3.4 gm PO DAILY 11/24/18 Fiber Singles Packet] Tamsulosin HCl [Flomax] 0.4 mg PO QHS 11/24/18 Apixaban [Eliquis] 5 mg PO BID 01/10/19 Chlorhexidine Gluconate 1 15 PO DAILY 01/10/19 Cyanocobalamin (Vitamin B-12) 1,000 mcg PO BID 01/10/19 [Vitamin B-12] Diltiazem HCl [Diltiazem ER] 360 mg PO DAILY 01/10/19 Ergocalciferol (Vitamin D2) 50,000 unit PO DAILY 01/10/19 [Vitamin D2] Fluoxetine HCl 20 mg PO DAILY 01/10/19 Metoprolol Tartrate [Lopressor 50 mg PO BID 01/10/19 (Beta Lesley)] Omeprazole [Prilosec] 20 mg PO DAILY 01/10/19 Pravastatin [Pravachol] 40 mg PO QHS 01/10/19 Quetiapine Fumarate [Seroquel] 50 mg PO DAILY 01/10/19 Surgical History: - - Unable to obtain no scars/incisions on the abdomen Psychiatric History: Schizophrenia Lives: - - skilled nursing Smoking Status: Never smoker Tobacco Use: Non-smoker Alcohol: None Drugs: None - *Family History Maternal History Items: Unknown Review of Systems Constitutional: Reports: Weakness, Fatigue. Denies: Anorexia, Chills, Fever, Night Sweats, Malaise, Weight Change Eyes: Denies: Blurred vision, Cataracts, Conjunctivae Inflammation HEENT: Denies: Difficulty Hearing, Difficulty Swallowing, Head Aches, Sinus Congestion, Sinus Drainage Cardiovascular: Denies: Chest Pain, Claudication, Light Headedness, Orthopnea, Palpitations Respiratory: Reports: Shortness of Breath, Shortness of breath upon exertion. Denies: Cough, Shortness of breath at rest, Sputum production, Wheezing Gastrointestinal: Denies: Abdominal Pain, Constipation, Hematemesis, Hematochezia, Nausea, Vomiting Genitourinary: Denies: Dysuria, Frequency, Incontinence Musculoskeletal: Denies: Joint Pain, Joint stiffness, Joint swelling, Joint Tenderness Skin: Denies: Rash, Wounds Neurological: Denies: Numbness, Tingling, Focal weakness Psychiatric: Denies: Anxiety, Depression, Homicidal Ideations, Suicidal Ideations Hematologic/ Lymphatic: Denies: Easy Bruising, Easy Bleeding VTE Information - Inpt Only VTE Present on Admission: No VTE Pharm Prophylaxis ordered?: Yes Patient Problems: Active and Suspected Problems Bradycardia (Acute) - Physical Exam Vitals/I&O's: Vital Signs Temp Pulse Resp BP Pulse Ox 98 F 72 21 H 96/78 96 01/10/19 13:42 01/10/19 14:35 01/10/19 14:13 01/10/19 14:35 01/10/19 14:13 Oxygen Delivery Method Room Air Weight: 113.6 kg Body Mass Index (BMI) 35.9 Intake and Output for Last 24 Hours 01/08/19 01/09/19 01/10/19 23:59 23:59 23:59 Intake Total 1000 / 1000 Balance 1000 / 1000 General: Alert, Oriented x3, Cooperative, No apparent distress, - - obese HEENT: Atraumatic, PERRLA, EOMI, Normocephalic Oral: Moist Mucosa Neck: Supple Lungs: Clear to auscultation, Normal air movement Cardiovascular: Regular rate, Regular Rhythm, Normal S1, Normal S2, No murmurs Abdomen: Bowel Sounds Present, Soft, Non Tender, Non-Distended, No Hepato- splenomegaly Extremities: No edema Skin: No rashes, No breakdown Musculoskeletal: No Tenderness to Palpation of Joints or Extremities Lymphatic: No Cervical, Supraclavicular, or Inguinal Adenopathy Neurological: Cranial nerves II-XII grossly intact, Neuro grossly intact Psych/Mental Status: Normal Affect, Appropriate Laboratory Results 01/10/19 12:35: WBC 5.3, RBC 3.43 L, Hgb 10.9 L, Hct 34.7 L, MCV 101.2 H, MCH 31.8, MCHC 31.4 L, RDW Std Deviation 51.6 H, RDW Coeff of Jenny 14.0, Plt Count 186, MPV 12.0, Immature Gran % (Auto) 0.600, Neut % (Auto) 50.9, Lymph % (Auto) 38.2, [place] % (Auto) 7.0, Eos % (Auto) 2.9, Baso % (Auto) 0.4, Absolute Neuts (auto) 2.7, Absolute Lymphs (auto) 2.01, Nucleated RBC % 0 01/10/19 12:35: PT 17.0 H, INR 1.4, APTT 32.6 01/10/19 12:35: Sodium 140, Potassium 4.1, Chloride 107, Carbon Dioxide 25.0, Anion Gap 8, BUN 17, Creatinine 1.09, Estim Creat Clear Calc 66.97, Est GFR (MDRD) Af Amer 87, Est GFR (MDRD) Non-Af 72, BUN/Creatinine Ratio 15.6, Glucose 138 H, Calcium 8.9, Total Bilirubin 0.30, AST 16, ALT 19, Alkaline Phosphatase 65, Troponin I < 0.015, Total Protein 6.8, Albumin 2.9 L, Globulin 3.9, Albumin/Globulin Ratio 0.7 L 01/10/19 12:35: Lactic Acid 1.7 01/10/19 13:20: Urine Color Yellow, Urine Clarity Clear, Urine pH 6.0, Ur Specific [place] 1.015, Urine Protein 15 H, Urine Glucose (UA) Normal, Urine Ketones Negative, Urine Occult Blood 10 H, Urine Nitrite Negative, Urine Bilirubin Negative, Urine Urobilinogen Normal, Ur Leukocyte Esterase 25 H, Urine RBC 0 SEEN, Urine WBC 0-5 SEEN, Ur Squamous Epith Cells 0 SEEN, Urine Bacteria 0 SEEN, Urine Mucus 0 SEEN Assessment/Plan All Active Problems Ileus (Acute) HCAP (healthcare-associated pneumonia) (Acute) ARF (acute renal failure) (Acute) Bradycardia (Acute) 1. Dyspnea on exertion, unclear etiology, admitting chest x-ray is unremarkable. Patient is not on oxygen. Will check a BNPep, continue to monitor Continue with breathing treatments PRN 2. Relative hypotension, blood pressure was low in the ED, patient is on multiple blood pressure medications Will continue on metoprolol and decrease Cardizem to 180 mg daily with holding parameters Gentle IV fluids x1 L 3. Anemia, microcytic microchromic, Hb is 10.9, down from 11.9 Will check iron stores 4. Seizure disorder, on Trileptal 5. Paroxysmal atrial fibrillation, EKG shows atrial flutter, rate controlled, on Cardizem and metoprolol as well as apixaban Continue same 6. Hyperlipidemia, on statin 7. Schizophrenia/MRDD, on Seroquel 8. DVT PPx- on apixaban Code Visit Inpatient E&M: 61804 Subs Hosp L2
[2019-01-10] MEDS: 0.9% Normal Saline 1,000 ML 100 ML IV (16:43)
[2019-01-10] MEDS: APIXABAN 5 MG TABLET PO (21:55)
[2019-01-10] MEDS: Tamsulosin HCl 0.4 MG Capsule PO (21:55)
[2019-01-10] MEDS: Pravastatin 40 MG Tablet PO (21:55)
[2019-01-10] MEDS: OXcarbazepine 600 MG Tablet PO (21:55)
[2019-01-10 23:06] LABS: Iron 77 ug/dL (65-175); Iron Binding Capacity,Total 203 ug/dL (250-450); PERCENT IRON SATURATION 37.9 % (15.0-55.0)
[2019-01-10 23:19] LABS: BNP,B-Type NATRIURETIC PEPTIDE 192.4 pg/mL (0-100)
[2019-01-11 04:37] VITALS: BP 125/65; PULSE 108; RESP 20; TEMP 37; O2SAT 98
[2019-01-11 04:38] VITALS: PULSE 108
[2019-01-11 06:30] LABS: Absolute Lymphocyte Count 1.82 X10^3/uL (0.83-4.51); Absolute Neutrophil Count 3.2 X10^3/uL (2.0-7.7); Basophil# 0.02 X10^3/uL; Basophil% 0.3 % (0-1); Eosinophils% 1.7 % (0-5); Hematocrit 32.6 % (40-54); Hemoglobin 10.3 g/dL (13.0-16.5); Lymphocyte # 1.82 X10^3/ul (4.0); Lymphocyte % 31.8 % (19-41); Mean Corp Hgb Conc 31.6 g/dL (32-36); Mean Corpuscular Hgb 31.9 pg (27.0-32.0); Mean Corpuscular Volume 100.9 fL (80-94); Mean Platelet Vol. 12.1 fl (6.2-12.0); Monocyte% 10.5 % (0-10); NRBC Flagged by Analyzer 0 % (0-5); Neutrophil # 3.17 X10^3/uL (2.7-7.7); Neutrophil % 55.4 % (47-70); Platelet Count 171 K/mm3 (150-450); RBC Distribution Width CV 14.2 % (11.6-14.6); RBC Distribution Width SD 51.8 fl (35.1-43.9); Red Blood Count 3.23 M/mm3 (4.6-6.2); White Blood Count 5.7 K/mm3 (4.4-11.0)
[2019-01-11 06:58] LABS: ALB/GLOB Ratio 0.8 RATIO (0.9-2.4); AST(SGOT) 13 U/L (15-37); Alanine Aminotransfer ALT/SGPT 17 U/L (16-61); Albumin, Serum 2.7 g/dL (3.2-5.0); Alkaline Phosphatase 61 U/L (45-117); Anion Gap 7 (5-15); BUN 16 mg/dL (7-18); BUN/Creat Ratio 18.5 RATIO (10-20); Calcium,Total 8.7 mg/dL (8.5-10.1); Chloride 111 mmol/L (98-107); Creatinine, Serum 0.86 mg/dL (0.70-1.30); EST Glomerular Filtration Rate 94 mL/min (>60); Est Glom Filt Rate - Afr Amer 113 mL/min (>60); Estimated Creatinine Clearance 84.88 ml/min; Globulin 3.6 g/dL (2.2-4.2); Glucose 114 mg/dL (74-106); Potassium 3.7 mmol/L (3.5-5.1); Protein, Total 6.3 g/dL (6.4-8.2); Sodium Level 142 mmol/L (136-145)
[2019-01-11] MEDS: Pantoprazole Sodium 20 MG Tablet PO (08:39)
[2019-01-11] MEDS: Loratadine 10 MG Tablet PO (08:39)
[2019-01-11] MEDS: Famotidine 20 MG Tablet 40 MG PO (08:39)
[2019-01-11] MEDS: APIXABAN 5 MG TABLET PO ×2 (08:39→22:29)
[2019-01-11] MEDS: Psyllium 1 PACKET PO (08:39)
[2019-01-11] MEDS: dilTIAZem CD 180 MG Capsule PO (08:39)
[2019-01-11] MEDS: OXcarbazepine 300 MG Tablet PO (08:40)
[2019-01-11] MEDS: QUEtiapine 25 MG Tablet 50 MG PO (08:40)
[2019-01-11] MEDS: FLUoxetine 20 MG Capsule PO (08:40)
[2019-01-11 08:45] VITALS: BP 143/70; PULSE 116; RESP 18; TEMP 36.6; O2SAT 96
[2019-01-11] MEDS: Ondansetron 4 MG/2 ML Vial IV (08:46)
[2019-01-11 08:56] VITALS: TEMP 36.8
--- NOTE | 2019-01-11 11:33 | PCM.PN.HOSP ---
Patient Problems: Active and Suspected Problems Bradycardia (Acute) Subjective: Follow-up on dyspnea: Patient was seen and examined. Complains of feeling unwell, had nausea in the morning. He said to not have slept overnight. He was snacking throughout the night. Vitals are stable. Not on oxygen. Objective: Physical exam: General: Alert, Oriented x3, Cooperative, No apparent distress, - - obese HEENT: Atraumatic, PERRLA, EOMI, Normocephalic Oral: Moist Mucosa Neck: Supple Lungs: Clear to auscultation, Normal air movement Cardiovascular: Regular rate, Regular Rhythm, Normal S1, Normal S2, No murmurs Abdomen: Bowel Sounds Present, Soft, Non Tender, Non-Distended, No Hepato-splenomegaly Extremities: No edema Skin: No rashes, No breakdown Musculoskeletal: No Tenderness to Palpation of Joints or Extremities Lymphatic: No Cervical, Supraclavicular, or Inguinal Adenopathy Neurological: Cranial nerves II-XII grossly intact, Neuro grossly intact Psych/Mental Status: Normal Affect, Appropriate Vitals/I&O's: Vital Signs Temp Pulse Resp BP Pulse Ox 98.2 F 116 H 18 143/70 H 96 01/11/19 08:56 01/11/19 08:45 01/11/19 08:45 01/11/19 08:45 01/11/19 08:45 Oxygen Delivery Method Room Air Weight: 114.6 kg Body Mass Index (BMI) 36.1 Intake and Output for Last 24 Hours 01/09/19 01/10/19 01/11/19 23:59 23:59 23:59 Intake Total 3885 / 3370 1949 Balance 2719 / 0 1949 Laboratory Results 01/10/19 12:35: WBC 5.3, RBC 3.43 L, Hgb 10.9 L, Hct 34.7 L, MCV 101.2 H, MCH 31.8, MCHC 31.4 L, RDW Std Deviation 51.6 H, RDW Coeff of Jenny 14.0, Plt Count 186, MPV 12.0, Immature Gran % (Auto) 0.600, Neut % (Auto) 50.9, Lymph % (Auto) 38.2, [place] % (Auto) 7.0, Eos % (Auto) 2.9, Baso % (Auto) 0.4, Absolute Neuts (auto) 2.7, Absolute Lymphs (auto) 2.01, Nucleated RBC % 0 01/10/19 12:35: PT 17.0 H, INR 1.4, APTT 32.6 01/10/19 12:35: Sodium 140, Potassium 4.1, Chloride 107, Carbon Dioxide 25.0, Anion Gap 8, BUN 17, Creatinine 1.09, Estim Creat Clear Calc 66.97, Est GFR (MDRD) Af Amer 87, Est GFR (MDRD) Non-Af 72, BUN/Creatinine Ratio 15.6, Glucose 138 H, Calcium 8.9, Total Bilirubin 0.30, AST 16, ALT 19, Alkaline Phosphatase 65, Troponin I < 0.015, Total Protein 6.8, Albumin 2.9 L, Globulin 3.9, Albumin/Globulin Ratio 0.7 L 01/10/19 12:35: Lactic Acid 1.7 01/10/19 13:09: B-Natriuretic Peptide 192.4 H 01/10/19 13:09: Iron 77, TIBC 203 L, Iron Saturation 37.9 01/10/19 13:20: Urine Color Yellow, Urine Clarity Clear, Urine pH 6.0, Ur Specific [place] 1.015, Urine Protein 15 H, Urine Glucose (UA) Normal, Urine Ketones Negative, Urine Occult Blood 10 H, Urine Nitrite Negative, Urine Bilirubin Negative, Urine Urobilinogen Normal, Ur Leukocyte Esterase 25 H, Urine RBC 0 SEEN, Urine WBC 0-5 SEEN, Ur Squamous Epith Cells 0 SEEN, Urine Bacteria 0 SEEN, Urine Mucus 0 SEEN 01/11/19 05:39: WBC 5.7, RBC 3.23 L, Hgb 10.3 L, Hct 32.6 L, MCV 100.9 H, MCH 31.9, MCHC 31.6 L, RDW Std Deviation 51.8 H, RDW Coeff of Jenny 14.2, Plt Count 171, MPV 12.1 H, Immature Gran % (Auto) 0.300, Neut % (Auto) 55.4, Lymph % (Auto) 31.8, [place] % (Auto) 10.5 H, Eos % (Auto) 1.7, Baso % (Auto) 0.3, Absolute Neuts (auto) 3.2, Absolute Lymphs (auto) 1.82, Nucleated RBC % 0 01/11/19 05:39: Sodium 142, Potassium 3.7, Chloride 111 H, Carbon Dioxide 24.0, Anion Gap 7, BUN 16, Creatinine 0.86, Estim Creat Clear Calc 84.88, Est GFR (MDRD) Af Amer 113, Est GFR (MDRD) Non-Af 94, BUN/Creatinine Ratio 18.5, Glucose 114 H, Calcium 8.7, Total Bilirubin 0.20, AST 13 L, ALT 17, Alkaline Phosphatase 61, Total Protein 6.3 L, Albumin 2.7 L, Globulin 3.6, Albumin/Globulin Ratio 0.8 L Current Medications Acetaminophen (Tylenol) 650 mg PO Q6H PRN PRN PRN Reason: Pain Score 1-3/Temp > 100.7 F Al Hydroxide/Mg Hydroxide (Mylanta Ii) 30 ml PO Q6H PRN PRN PRN Reason: Gastric Burning Albuterol Sulfate (Ventolin Aerosols) 2.5 mg INHALATION Q2H PRN PRN PRN Reason: SOB/Wheezing Apixaban (Eliquis) 5 mg PO BID [facility] Last Admin: 01/11/19 08:39 Dose: 5 mg Documented by: Diltiazem HCl (Cardizem Cd) 180 mg PO DAILY [facility] Last Admin: 01/11/19 08:39 Dose: 180 mg Documented by: Famotidine (Pepcid) 40 mg PO DAILY [facility] Last Admin: 01/11/19 08:39 Dose: 40 mg Documented by: Fluoxetine HCl (Prozac) 20 mg PO DAILY [facility] Last Admin: 01/11/19 08:40 Dose: 20 mg Documented by: Loratadine (Claritin) 10 mg PO DAILY [facility] Last Admin: 01/11/19 08:39 Dose: 10 mg Documented by: Nitroglycerin (Nitrostat) 0.4 mg SUBLINGUAL Q5M PRN PRN Reason: CARDIAC/CHEST PAIN Ondansetron HCl (Zofran) 4 mg IV Q8H PRN PRN PRN Reason: NAUSEA/VOMITING Last Admin: 01/11/19 08:46 Dose: 4 mg Documented by: Oxcarbazepine (Trileptal) 300 mg PO DAILY [facility] Last Admin: 01/11/19 08:40 Dose: 300 mg Documented by: Oxcarbazepine (Trileptal) 600 mg PO QHS [facility] Last Admin: 01/10/19 21:55 Dose: 600 mg Documented by: Pantoprazole Sodium (Protonix) 20 mg PO DAILY [facility] Last Admin: 01/11/19 08:39 Dose: 20 mg Documented by: Pravastatin Sodium (Pravachol) 40 mg PO QHS [facility] Last Admin: 01/10/19 21:55 Dose: 40 mg Documented by: Psyllium Hydrophilic Mucilloid (Metamucil) 1 packet PO DAILYCM [facility] Last Admin: 01/11/19 08:39 Dose: 1 packet Documented by: Quetiapine Fumarate (Seroquel) 50 mg PO DAILY [facility] Last Admin: 01/11/19 08:40 Dose: 50 mg Documented by: Sodium Chloride () 10 - 40 ml IV UD PRN PRN Reason: SALINE FLUSH Tamsulosin HCl (Flomax) 0.4 mg PO QHS [facility] Last Admin: 01/10/19 21:55 Dose: 0.4 mg Documented by: STROKE Vital Signs/Narrative: Vital Signs Temp Pulse Resp BP Pulse Ox 01/11/19 08:56 98.2 F 01/11/19 08:45 97.9 F 116 H 18 143/70 H 96 Medical Necessity - Tobacco Use Smoking Status: Never smoker Tobacco Use: Non-smoker Assessment/Plan All Active Problems Ileus (Acute) HCAP (healthcare-associated pneumonia) (Acute) ARF (acute renal failure) (Acute) Bradycardia (Acute) 1. Dyspnea on exertion, remains off oxygen, Admitting chest x-ray is unremarkable. Bnpep 192.4. Continue with breathing treatments PRN 2. Relative hypotension, improved, on metoprolol and cardizem 3. Anemia, microcytic microchromic, iron profile is not consistent with iron deficiciency Hb is 10.3. 4. Seizure disorder, on Trileptal 5. Paroxysmal atrial fibrillation, EKG shows atrial flutter, rate controlled, on Cardizem and metoprolol as well as apixaban Continue same 6. Hyperlipidemia, on statin 7. Schizophrenia/MRDD, on Seroquel 8. DVT PPx- on apixaban Code Visit Inpatient E&M: 07989 Subs Hosp L2
[2019-01-11 14:45] VITALS: BP 132/80; PULSE 104; RESP 18; TEMP 36.6; O2SAT 94
[2019-01-11 20:45] VITALS: BP 144/74; PULSE 65; RESP 18; TEMP 36.6; O2SAT 95
[2019-01-11] MEDS: Pravastatin 40 MG Tablet PO (22:29)
[2019-01-11] MEDS: Tamsulosin HCl 0.4 MG Capsule PO (22:29)
[2019-01-11] MEDS: OXcarbazepine 600 MG Tablet PO (22:29)
[2019-01-12] VITALS (17 sets, daily range): BP systolic 111–183; BP diastolic 61–93; PULSE 58–149; RESP 14–20; TEMP 36.6–37; O2SAT 91–97
--- NOTE | 2019-01-12 07:14 | CON.PCM_ITS ---
Reason for Consult Date of Consultation: 01/12/19 Reason for Consultation: Evaluation of cardiac rhythm History of Present Illness: The patient is a 69 year old M with a past medical history of atrial fibrillation flutter on anticoagulation as well as on beta-lesley and calcium channel lesley. He was brought to the emergency room because in his residential he was noted to be bradycardic. He does have a history of schizophrenia and has not been able to express himself very well. He was noted to be mildly short of breath but denied any dizziness no syncope or presyncope. He also denies any chest pain and has not complained of any palpitations. In the emergency room he was noted to be in atrial fibrillation flutter with a controlled ventricular response rate he has had no significant pauses and cardiology was called for further evaluation and management. [] Past Medical History Allergies/Adverse Reactions: Allergies No Known Allergies Allergy (Verified 01/10/19 12:19) Home Medications: Ambulatory Orders Medication Instructions Recorded Famotidine [Pepcid] 40 mg PO DAILY 11/24/18 Fluticasone 0.05% [Flonase Nasal 1 spray INHALATION DAILY 11/24/18 [place]] Loratadine [Claritin] 10 mg PO DAILY 11/24/18 Oxcarbazepine 300 mg PO DAILY 11/24/18 Oxcarbazepine 600 mg PO QHS 11/24/18 Oxybutynin Chloride [Oxybutynin 10 mg PO DAILY 11/24/18 Chloride ER] Psyllium Husk/Aspartame [Metamucil 3.4 gm PO DAILY 11/24/18 Fiber Singles Packet] Tamsulosin HCl [Flomax] 0.4 mg PO QHS 11/24/18 Apixaban [Eliquis] 5 mg PO BID 01/10/19 Chlorhexidine Gluconate 1 15 PO DAILY 01/10/19 Cyanocobalamin (Vitamin B-12) 1,000 mcg PO BID 01/10/19 [Vitamin B-12] Diltiazem HCl [Diltiazem ER] 360 mg PO DAILY 01/10/19 Ergocalciferol (Vitamin D2) 50,000 unit PO DAILY 01/10/19 [Vitamin D2] Fluoxetine HCl 20 mg PO DAILY 01/10/19 Metoprolol Tartrate [Lopressor 50 mg PO BID 01/10/19 (Beta Lesley)] Omeprazole [Prilosec] 20 mg PO DAILY 01/10/19 Pravastatin [Pravachol] 40 mg PO QHS 01/10/19 Quetiapine Fumarate [Seroquel] 50 mg PO DAILY 01/10/19 Past Medical History (Chronic Problems): Chronic Problems Seizure disorder (Chronic) Schizophrenia (Chronic) Surgical History: - - Unable to obtain no scars/incisions on the abdomen Psychiatric History: Schizophrenia - *Family History Maternal History Items: Unknown Lives: - - correction Smoking Status: Never smoker Tobacco Use: Non-smoker Alcohol: None Drugs: None Review of Systems - Review of Systems General: Denies: Fever, Night Sweats, Fatigue HEENT: Denies: Vision Change Cardiovascular: Denies: Chest Discomfort, Shortness of Breath, Orthopnea, PND, Peripheral Edema, Palpitations, Lightheadedness, Dizziness, Near Syncope, Syncope Respiratory: Denies: Cough, Sputum Production, Hemoptysis Gastrointestinal: Denies: Hematemesis, Hematochezia, Melena Genitourinary: Denies: Dysuria, Hematuria Muscoloskeletal: Denies: Myalgias Skin: Denies: Rash Neurological: Denies: Dizziness Psychiatric: Denies: Anxiety Endocrine: Denies: Heat Intolerance Hematologic/ Lymphatic: Denies: Lymph Node Enlargement Subjectve: Patient seen and evaluated. Appears to be rather cheerful. Objective: Vital Signs Temp Pulse Resp BP Pulse Ox 98.6 F 80 16 149/77 H 97 01/12/19 02:45 01/12/19 02:45 01/12/19 02:45 01/12/19 02:45 01/12/19 02:45 Oxygen Delivery Method Room Air Weight: 244 lb 7.882 oz Body Mass Index (BMI) 36.1 Intake and Output for Last 24 Hours 01/10/19 01/11/19 01/12/19 23:59 23:59 23:59 Intake Total 2720 / 3370 3585 / 3945 600 / 600 Output Total 475 / 475 Balance 2720 / 3370 3110 / 3470 600 / 600 General: Awake, Alert, Oriented x 3 HEENT: PERRL, EOMI, Sclera Non Icteric Neck: Supple, Good ROM, No Lymph Node Enlargement Lungs: Clear to auscultation Cardiovascular: Irregular Rhythm, Normal S1, Normal S2, No Murmurs, No Rubs, No Gallops Vascular: No Carotid Bruits, Normal Femoral Pulses, Normal Radial Pulses, Normal Dorsalis Pedal Pulse, Normal Posterior Tibial Pulses Abdomen: Bowel Sounds Present, Soft, Non Tender, No HSM, No Organomegaly Extremities: No Cyanosis, No Clubbing, No edema Musculoskeletal: No Erythema Skin: No Rashes Lymphatic: No Lymph Node Enlargement Neurological: No Focal Motor or Sensory Deficit Psych/Mental Status: Appropriate Rhythm: EKG: Atrial flutter with a rate of 67 bpm Assessment/Plan 1. Atrial flutter with variable control rate * Patient presents with relatively asymptomatic atrial flutter with a controlled ventricular response rate. * He was previously on high dose of calcium channel lesley as well as beta- lesley and the above doses have been reduced with the beta-lesley being discontinued. His previous echocardiogram from earlier this year demonstrated ejection fraction which was preserved. * My recommendation at this time will be to keep him on his anticoagulation and also keep him on his diltiazem at the reduced dose of 180 mg/day. His rate can be watched during the day and if no significant abnormalities are noted he can be discharged for outpatient follow-up. * * Thank you for allowing me to participate in the care of your patient. Please don't hesitate to call if any issues arise
[2019-01-12] MEDS: Furosemide 40 MG/4 ML Vial IV (07:48)
[2019-01-12] MEDS: 0.9% Saline Lock 10 ML Syringe IV ×2 (07:51→12:10)
[2019-01-12] MEDS: Psyllium 1 PACKET PO (07:55)
[2019-01-12] MEDS: dilTIAZem CD 180 MG Capsule PO ×2 (07:56→12:10)
[2019-01-12] MEDS: Loratadine 10 MG Tablet PO (07:56)
[2019-01-12] MEDS: Pantoprazole Sodium 20 MG Tablet PO (07:56)
[2019-01-12] MEDS: APIXABAN 5 MG TABLET PO ×2 (07:56→21:18)
[2019-01-12] MEDS: Famotidine 20 MG Tablet 40 MG PO (07:57)
[2019-01-12] MEDS: FLUoxetine 20 MG Capsule PO (07:57)
[2019-01-12] MEDS: QUEtiapine 25 MG Tablet 50 MG PO (07:57)
[2019-01-12] MEDS: OXcarbazepine 300 MG Tablet PO (07:58)
--- NOTE | 2019-01-12 11:10 | CASEMGMT ---
Patient is ready for discharge. SUSI called patient's brother and legal guardian, Bishnu letting him know patient is ready for discharge today. He said he will not be able to pick him up. He had some medical questions, SW offered to have the physician call him and he said he would appreciate this. SUSI spoke with Dr Antonio letting her know patient's guardian would like to talk with her. S[facility]I called the [facility] and spoke with Isis letting her know patient is going to be discharged today. She is not able to transport patient. She also said he cannot have a walker at the jail, he needs to be able to walk without one. Patient's discharge has now been canceled as patient went into afib. SUSI then called patient's brother back letting him know this information and that SUSI gave the physician his name and number. SUSI also called Isis at the jail letting her know the discharge was canceled. Therapy will be walking patient to make sure he is safe walking without a walker. Zoey DAWSON MSW
[2019-01-12] MEDS: Metoprolol Tartrate 5 MG/5 ML Vial IV (12:10)
--- NOTE | 2019-01-12 13:06 | ECHOCS_ITS ---
Reason For Study: AFIB.FLUTTER Procedure This was a 2D Doppler, Color Flow transthoracic echocardiogram. The study was technically difficult. Due to body habitus and patient's inability to cooperate. Exam performed portable in patient room. Left Ventricle Normal LV size. Left ventricular systolic function is normal. The estimated ejection fraction is 65 %. Unable to assess diastolic dysfunction due to arrhythmia. No regional wall motion abnormalities noted. Right Ventricle Normal RV size. Normal systolic function. Atria Normal left atrium. Normal right atrium. Mitral Valve Mitral valve not well visualized. Tricuspid Valve The tricuspid valve is not well visualized. Aortic Valve The aortic valve is not well visualized. Pulmonic Valve The pulmonic valve is not well visualized. Great Vessels Normal aortic root. The pulmonary artery is normal size. Normal inferior vena cava. Pericardium/Pleural No pericardial effusion. Medication Diluted definity 4.0ml given slow IV push to enhance endocardial definition. MMode/2D Measurements & Calculations LVIDd: 5.0 cm IVSd: 1.2 cm Ao root diam: 3.1 cm LVIDs: 3.0 cm LVPWd: 1.2 cm LA dimension: 3.9 cm RVDd: 3.6 cm FS: 39.5 % Doppler Measurements & Calculations MV E max yokasta: 89.2 cm/sec Ao V2 max: 115.4 cm/sec LV V1 max: 95.7 cm/sec Ao max P.3 mmHg LV V1 max P.7 mmHg PA V2 max: 106.4 cm/sec Interpretation Summary Normal LV size. Left ventricular systolic function is normal. The estimated ejection fraction is 65 %. Unable to assess diastolic dysfunction due to arrhythmia. Contrast injection was performed. Ordering Physician: Triny Antonio Referring Physician: Flo Del Cid Performed By: Karol Tony RDCS, RVT
--- NOTE | 2019-01-12 16:40 | PCM.PN.HOSP ---
Patient Problems: Active and Suspected Problems Bradycardia (Acute) Subjective: Follow-up on debility: Patient was seen and examined. His telemetry showed A. fib with RVR; HR 120-130s. He denied chest pain, dizziness but did complain of progressive SOB. He did not require oxygen at rest nor with ambulation. Objective: Physical exam: General: Alert, Oriented x3, Cooperative, No apparent distress, - - obese HEENT: Atraumatic, PERRLA, EOMI, Normocephalic Oral: Moist Mucosa Neck: Supple Lungs: Clear to auscultation, Normal air movement Cardiovascular: Regular rate, Regular Rhythm, Normal S1, Normal S2, No murmurs Abdomen: Bowel Sounds Present, Soft, Non Tender, Non-Distended, No Hepato-splenomegaly Extremities: No edema Skin: No rashes, No breakdown Musculoskeletal: No Tenderness to Palpation of Joints or Extremities Lymphatic: No Cervical, Supraclavicular, or Inguinal Adenopathy Neurological: Cranial nerves II-XII grossly intact, Neuro grossly intact Psych/Mental Status: Normal Affect, Appropriate Vitals/I&O's: Vital Signs Temp Pulse Resp BP Pulse Ox 97.9 F 58 L 14 112/68 93 01/12/19 13:51 01/12/19 13:51 01/12/19 13:51 01/12/19 13:51 01/12/19 13:51 Oxygen Delivery Method Room Air Weight: 110.9 kg Body Mass Index (BMI) 36.1 Intake and Output for Last 24 Hours 01/10/19 01/11/19 01/12/19 23:59 23:59 23:59 Intake Total 2720 / 3370 3585 / 3945 600 / 600 Output Total 475 / 475 Balance 2720 / 3370 3110 / 3470 600 / 600 Microbiology Past 72 Hours 01/10/19 12:35 Blood Culture (Wb) - Anticubital Left Blood Culture - Preliminary No growth in 48 hours. 01/10/19 12:05 Blood Culture (Wb) - Anticubital Right Blood Culture - Preliminary No growth in 48 hours. 01/10/19 13:20 Urine Catheter - Catheter Urine Culture - Final Culture exhibits no growth. Current Medications Acetaminophen (Tylenol) 650 mg PO Q6H PRN PRN PRN Reason: Pain Score 1-3/Temp > 100.7 F Al Hydroxide/Mg Hydroxide (Mylanta Ii) 30 ml PO Q6H PRN PRN PRN Reason: Gastric Burning Albuterol Sulfate (Ventolin Aerosols) 2.5 mg INHALATION Q2H PRN PRN PRN Reason: SOB/Wheezing Apixaban (Eliquis) 5 mg PO BID [facility] Last Admin: 01/12/19 07:56 Dose: 5 mg Documented by: Diltiazem HCl (Cardizem Cd) 360 mg PO DAILY [facility] Famotidine (Pepcid) 40 mg PO DAILY [facility] Last Admin: 01/12/19 07:57 Dose: 40 mg Documented by: Fluoxetine HCl (Prozac) 20 mg PO DAILY [facility] Last Admin: 01/12/19 07:57 Dose: 20 mg Documented by: Loratadine (Claritin) 10 mg PO DAILY [facility] Last Admin: 01/12/19 07:56 Dose: 10 mg Documented by: Nitroglycerin (Nitrostat) 0.4 mg SUBLINGUAL Q5M PRN PRN Reason: CARDIAC/CHEST PAIN Ondansetron HCl (Zofran) 4 mg IV Q8H PRN PRN PRN Reason: NAUSEA/VOMITING Last Admin: 01/11/19 08:46 Dose: 4 mg Documented by: Oxcarbazepine (Trileptal) 300 mg PO DAILY [facility] Last Admin: 01/12/19 07:58 Dose: 300 mg Documented by: Oxcarbazepine (Trileptal) 600 mg PO QHS [facility] Last Admin: 01/11/19 22:29 Dose: 600 mg Documented by: Pantoprazole Sodium (Protonix) 20 mg PO DAILY [facility] Last Admin: 01/12/19 07:56 Dose: 20 mg Documented by: Pravastatin Sodium (Pravachol) 40 mg PO QHS [facility] Last Admin: 01/11/19 22:29 Dose: 40 mg Documented by: Psyllium [facility]philic [facility] Last Admin: 01/12/19 07:55 Dose: 1 packet Documented by: Quetiapine Fumarate (Seroquel) 50 mg PO DAILY [facility] Last Admin: 01/12/19 07:57 Dose: 50 mg Documented by: Sodium Chloride () 10 - 40 ml IV UD PRN PRN Reason: SALINE FLUSH Last Admin: 01/12/19 12:10 Dose: 10 ml Documented by: Tamsulosin HCl (Flomax) 0.4 mg PO QHS [facility] Last Admin: 01/11/19 22:29 Dose: 0.4 mg Documented by: STROKE Vital Signs/Narrative: Vital Signs Temp Pulse Resp BP Pulse Ox 01/12/19 13:51 97.9 F 58 L 14 112/68 93 01/12/19 13:39 112 H 01/12/19 13:06 114 H Medical Necessity - Tobacco Use Smoking Status: Never smoker Tobacco Use: Non-smoker Assessment/Plan All Active Problems Ileus (Acute) HCAP (healthcare-associated pneumonia) (Acute) ARF (acute renal failure) (Acute) Bradycardia (Acute) 1. Dyspnea on exertion, remains off oxygen, Did not qualify for oxygen on ambulation 2. A. fib with RVR, rate in the 130s Status post IV metoprolol x1. Will start patient on p.o. metoprolol 50 mg twice daily and continue on Cardizem 180 mg daily 3. Anemia, microcytic microchromic, iron profile is not consistent with iron deficiciency, stable 4. Seizure disorder, on Trileptal 5. Hyperlipidemia, on statin 6. Schizophrenia/MRDD, on Seroquel 7. DVT PPx- on apixaban Code Visit Inpatient E&M: 59522 Subs Hosp L2
[2019-01-12] MEDS: Metoprolol Tartrate 50 MG Tablet PO ×2 (17:03→21:24)
[2019-01-12] MEDS: Tamsulosin HCl 0.4 MG Capsule PO (21:16)
[2019-01-12] MEDS: Pravastatin 40 MG Tablet PO (21:16)
[2019-01-12] MEDS: OXcarbazepine 600 MG Tablet PO (21:25)
[2019-01-13 03:00] VITALS: BP 104/75; PULSE 101; RESP 20; TEMP 36.6; O2SAT 94
[2019-01-13 03:29] VITALS: PULSE 98
[2019-01-13 05:34] LABS: Absolute Neutrophil Count 3.3 X10^3/uL (2.0-7.7); Basophil# 0.03 X10^3/uL; Basophil% 0.5 % (0-1); Eosinophil# 0.15 X10^3/uL; Eosinophils% 2.3 % (0-5); Hematocrit 37.9 % (40-54); Hemoglobin 12.1 g/dL (13.0-16.5); Lymphocyte % 36.2 % (19-41); Mean Corp Hgb Conc 31.9 g/dL (32-36); Mean Corpuscular Hgb 31.8 pg (27.0-32.0); Mean Corpuscular Volume 99.5 fL (80-94); Mean Platelet Vol. 11.5 fl (6.2-12.0); Monocyte# 0.72 X10^3/uL; Monocyte% 10.9 % (0-10); NRBC Flagged by Analyzer 0 % (0-5); Neutrophil # 3.31 X10^3/uL (2.7-7.7); Neutrophil % 49.8 % (47-70); Platelet Count 211 K/mm3 (150-450); RBC Distribution Width CV 14.2 % (11.6-14.6); RBC Distribution Width SD 51.6 fl (35.1-43.9); Red Blood Count 3.81 M/mm3 (4.6-6.2); White Blood Count 6.6 K/mm3 (4.4-11.0)
[2019-01-13 05:53] LABS: Anion Gap 8 (5-15); BUN 13 mg/dL (7-18); Calcium,Total 9.7 mg/dL (8.5-10.1); Chloride 106 mmol/L (98-107); Creatinine, Serum 1.08 mg/dL (0.70-1.30); EST Glomerular Filtration Rate 72 mL/min (>60); Est Glom Filt Rate - Afr Amer 87 mL/min (>60); Estimated Creatinine Clearance 67.59 ml/min; Glucose 119 mg/dL (74-106); Potassium 3.8 mmol/L (3.5-5.1); Sodium Level 139 mmol/L (136-145)
--- NOTE | 2019-01-13 08:18 | PN.CARD_ITS ---
Subjectve: Patient seen and evaluated. Appears to be cheerful with the staff but got teary-eyed when a suggestion was made for him to go home Objective: Vital Signs Temp Pulse Resp BP Pulse Ox 97.8 F 98 20 H 104/75 94 01/13/19 03:00 01/13/19 03:29 01/13/19 03:00 01/13/19 03:00 01/13/19 03:00 Oxygen Delivery Method Room Air Weight: 237 lb 14.06 oz Body Mass Index (BMI) 36.1 Intake and Output for Last 24 Hours 01/11/19 01/12/19 01/13/19 23:59 23:59 23:59 Intake Total 3585 / 3945 750 / 750 100 / 100 Output Total 475 / 475 875 / 875 Balance 3110 / 3470 -125 / -125 100 / 100 General: Awake, Alert, Oriented x 3 HEENT: PERRL, EOMI, Sclera Non Icteric Neck: Supple, Good ROM, No Lymph Node Enlargement Lungs: Clear to auscultation Cardiovascular: Irregular Rhythm, Normal S1, Normal S2, No Murmurs, No Rubs, No Gallops Vascular: No Carotid Bruits, Normal Femoral Pulses, Normal Radial Pulses, Normal Dorsalis Pedal Pulse, Normal Posterior Tibial Pulses Abdomen: Bowel Sounds Present, Soft, Non Tender, No HSM, No Organomegaly Extremities: No Cyanosis, No Clubbing, No edema Musculoskeletal: No Erythema Skin: No Rashes Lymphatic: No Lymph Node Enlargement Neurological: No Focal Motor or Sensory Deficit Psych/Mental Status: Appropriate 01/13/19 05:07: WBC 6.6, RBC 3.81 L, Hgb 12.1 L, Hct 37.9 L, MCV 99.5 H, MCH 31.8, MCHC 31.9 L, Plt Count 211, MPV 11.5, Immature Gran % (Auto) 0.300, Neut % (Auto) 49.8, Lymph % (Auto) 36.2, Nicholas % (Auto) 10.9 H, Eos % (Auto) 2.3, Baso % (Auto) 0.5, Absolute Neuts (auto) 3.3, Nucleated RBC % 0 01/13/19 05:07: Sodium 139, Potassium 3.8, Chloride 106, Carbon Dioxide 25.0, Anion Gap 8, BUN 13, Creatinine 1.08, Est GFR (MDRD) Af Amer 87, Est GFR (MDRD) Non-Af 72, BUN/Creatinine Ratio 12.0, Glucose 119 H, Calcium 9.7 Rhythm: EKG: ECHO: Stress Test: Cardiac Cath: PCI: CT Surgery: Holter monitor: EPS: PPM: CXR: Chest CT Scan: Medical Necessity - Tobacco Use Smoking Status: Never smoker Tobacco Use: Non-smoker Assessment/Plan 1. Atrial flutter with variable control rate * Patient presents with relatively asymptomatic atrial flutter with a controlled ventricular response rate. * He was previously on high dose of calcium channel kiersten as well as beta- kiersten and the above doses have been reduced . His previous echocardiogram from earlier this year demonstrated ejection fraction which was preserved. * My recommendation at this time will be to keep him on his anticoagulation and also keep him on his diltiazem at the reduced dose of 180 mg/day. His rate can be watched during the day and if no significant abnormalities are noted he can be discharged for outpatient follow-up. * * Thank you for allowing me to participate in the care of your patient. Please don't hesitate to call if any issues arise
[2019-01-13 09:11] VITALS: BP 138/101; PULSE 97; RESP 16; TEMP 37; O2SAT 94
[2019-01-13] MEDS: Loratadine 10 MG Tablet PO (09:14)
[2019-01-13] MEDS: APIXABAN 5 MG TABLET PO (09:14)
[2019-01-13] MEDS: dilTIAZem CD 180 MG Capsule PO (09:14)
[2019-01-13] MEDS: Famotidine 20 MG Tablet 40 MG PO (09:14)
[2019-01-13] MEDS: QUEtiapine 25 MG Tablet 50 MG PO (09:14)
[2019-01-13] MEDS: Pantoprazole Sodium 20 MG Tablet PO (09:14)
[2019-01-13] MEDS: Psyllium 1 PACKET PO (09:15)
[2019-01-13] MEDS: FLUoxetine 20 MG Capsule PO (09:15)
[2019-01-13] MEDS: OXcarbazepine 300 MG Tablet PO (09:16)
[2019-01-13 09:19] VITALS: PULSE 97
[2019-01-13] MEDS: Metoprolol Tartrate 50 MG Tablet PO (09:19)
--- NOTE | 2019-01-13 11:01 | PCM.DC ---
- Discharge Diagnoses Current Active Problems: Current Active and Chronic Problems Bradycardia (Acute) Seizure disorder (Chronic) Schizophrenia (Chronic) Reason(s) for Visit for Discharge Instructions: Shortness of breath You will use the following diet at home:: Cardiac Your food should be the consistency of: Regular Your liquids should be the consistency of: Regular/Thin Discharge Activity: Return to Normal Activity Additional Instructions: Continue to take all your medications as prescribed. Follow-up with your primary care doctor within 1-2 weeks. Follow-up with Dr. Stock as scheduled previously. Allergies/Adverse Reactions: Allergies No Known Allergies Allergy (Verified 01/10/19 12:19) Medications to take at Discharge Fluticasone 0.05% [Flonase Nasal [place]] 1 spray INHALATION DAILY 11/24/18 Loratadine [Claritin] 10 mg PO DAILY 11/24/18 Oxcarbazepine 300 mg PO DAILY 11/24/18 Oxcarbazepine 600 mg PO QHS 11/24/18 Oxybutynin Chloride [Oxybutynin Chloride ER] 10 mg PO DAILY 11/24/18 Psyllium Husk/Aspartame [Metamucil Fiber Singles Packet] 3.4 gm PO DAILY 11/24/18 Tamsulosin HCl [Flomax] 0.4 mg PO QHS 11/24/18 Apixaban [Eliquis] 5 mg PO BID 01/10/19 Chlorhexidine Gluconate 1 15 PO DAILY 01/10/19 Cyanocobalamin (Vitamin B-12) [Vitamin B-12] 1,000 mcg PO BID 01/10/19 Ergocalciferol (Vitamin D2) [Vitamin D2] 50,000 unit PO DAILY 01/10/19 Fluoxetine HCl 20 mg PO DAILY 01/10/19 Metoprolol Tartrate [Lopressor (beta kiersten)] 50 mg PO BID 01/10/19 Omeprazole [Prilosec] 20 mg PO DAILY 01/10/19 Pravastatin [Pravachol] 40 mg PO QHS 01/10/19 Quetiapine Fumarate [Seroquel] 50 mg PO DAILY 01/10/19 Acetaminophen [Tylenol Tablet] 650 mg PO Q6H PRN PRN tab 01/12/19 Diltiazem CD [Cardizem CD] 180 mg PO DAILY #30 cap 01/13/19 The following prescriptions were given: Diltiazem CD [Cardizem CD] 180 mg PO DAILY #30 cap Transmission Status: Pending to [facility] [place] - [id number] Primary Care Physician: Flo Del Cid Chi, MD [Primary Care Provider] - Please follow up with your Primary Care Physician in: within 1-2 weeks after discharge Test Results: Test results from this visit will be discussed in further detail at your follow-up appointment, if applicable. Please Follow Up With: Sulaiman Stock MD When: as scheduled Proposed Discharge Date: 01/13/19
--- NOTE | 2019-01-13 11:05 | DS.PCM_ITS ---
Discharge Date and Diagnosis Date of Admission: 01/10/19 Date of Discharge: 01/13/19 - Primary Discharge Diagnosis Active and Suspected Problems Bradycardia (Acute) A. fib with RVR - Secondary Discharge Diagnosis Chronic Problems Seizure disorder (Chronic) Schizophrenia (Chronic) Hospital Course and Treatment Imaging Results: Clinical Impression(s) from Imaging Studies Chest X-Ray 01/10/19 12:44 IMPRESSION: Hypoinflation. No airspace consolidation or pleural effusion. Stable cardiomegaly. Electronically Signed: Rashawn Akbar MD (Brooks) at 13:17 EST , Service support , Cardiology Operations: None Procedures: 2-D Echocardiogram Summary of Care Provided: The patient is a 69 year old M with past medical history of MRDD, chronic atrial flutter/atrial fibrillation, who follows with cardiology in the outpatient who comes in with subjective complaints of dyspnea. Patient was recently discharged from long term back to the his senior living. He is reportedly said to have gone down his knees whilst going up the staircase. The EMS was called and patient was found to be bradycardic with heart rate in the 40s. On arrival to the emergency department, patient's heart rate was normal, he did not need any oxygen. His admitting blood work was unremarkable. EKG showed atrial flutter with controlled ventricular rate. He was admitted to the telemetry floor for observation. His home metoprolol was held, and patient was managed on a reduced dose of Cardizem 180 mg p.o. daily. Patient refused to have a telemetry on him the whole time. He was not hypoxic. There were no acute issues over the course of his stay. He was walked twice during his hospital stay and did not qualify for oxygen. He had 2D echo done that was negative for valvular lesions or cardiomyopathy. His EF was 65% A day before his discharge, patient went into A. fib with RVR, this was managed with IV metoprolol and an increase in his Cardizem as well as resumption of his home metoprolol. His heart rate was controlled. He was discharged on Cardizem 180 mg daily, metoprolol 50 mg twice daily. Subjective: On the day of discharge, patient was seen and examined. Still said he was feeling good and did not want to be discharged. Could not give a specific symptom. Objectively, vital signs were negative, patient was able to tolerate his meals 3 times a day. No diarrhea, abdominal pain. He also was walked and had no complaints. No increased need for oxygen. Telemetry showed controlled heart rate. Objective: Physical exam: General: Alert, Oriented x3, Cooperative, No apparent distress, - - obese HEENT: Atraumatic, PERRLA, EOMI, Normocephalic Oral: Moist Mucosa Neck: Supple Lungs: Clear to auscultation, Normal air movement Cardiovascular: Regular rate, Regular Rhythm, Normal S1, Normal S2, No murmurs Abdomen: Bowel Sounds Present, Soft, Non Tender, Non-Distended, No Hepato- splenomegaly Extremities: No edema Skin: No rashes, No breakdown Musculoskeletal: No Tenderness to Palpation of Joints or Extremities Lymphatic: No Cervical, Supraclavicular, or Inguinal Adenopathy Neurological: Cranial nerves II-XII grossly intact, Neuro grossly intact Psych/Mental Status: Normal Affect, Appropriate - Physical Exam Vitals/I&O's: Vital Signs Temp Pulse Resp BP Pulse Ox 98.6 F 97 16 138/101 H 94 01/13/19 09:11 01/13/19 09:19 01/13/19 09:11 01/13/19 09:11 01/13/19 09:11 Oxygen Delivery Method Room Air Weight: 107.9 kg Body Mass Index (BMI) 36.1 Intake and Output for Last 24 Hours 01/11/19 01/12/19 01/13/19 23:59 23:59 23:59 Intake Total 3585 / 3945 750 / 750 100 / 100 Output Total 475 / 475 875 / 875 Balance 3110 / 3470 -125 / -125 100 / 100 Microbiology Past 72 Hours 01/10/19 12:35 Blood Culture (Wb) - Anticubital Left Blood Culture - Preliminary No growth in 48 hours. 01/10/19 12:05 Blood Culture (Wb) - Anticubital Right Blood Culture - Preliminary No growth in 48 hours. 01/10/19 13:20 Urine Catheter - Catheter Urine Culture - Final Culture exhibits no growth. Laboratory Results 01/13/19 05:07: WBC 6.6, RBC 3.81 L, Hgb 12.1 L, Hct 37.9 L, MCV 99.5 H, MCH 31.8, MCHC 31.9 L, RDW Std Deviation 51.6 H, RDW Coeff of Jenny 14.2, Plt Count 211, MPV 11.5, Immature Gran % (Auto) 0.300, Neut % (Auto) 49.8, Lymph % (Auto) 36.2, [place] % (Auto) 10.9 H, Eos % (Auto) 2.3, Baso % (Auto) 0.5, Absolute Neuts (auto) 3.3, Absolute Lymphs (auto) 2.40, Nucleated RBC % 0 01/13/19 05:07: Sodium 139, Potassium 3.8, Chloride 106, Carbon Dioxide 25.0, Anion Gap 8, BUN 13, Creatinine 1.08, Estim Creat Clear Calc 67.59, Est GFR (MDRD) Af Amer 87, Est GFR (MDRD) Non-Af 72, BUN/Creatinine Ratio 12.0, Glucose 119 H, Calcium 9.7 Current Medications Acetaminophen (Tylenol) 650 mg PO Q6H PRN PRN PRN Reason: Pain Score 1-3/Temp > 100.7 F Al Hydroxide/Mg Hydroxide (Mylanta Ii) 30 ml PO Q6H PRN PRN PRN Reason: Gastric Burning Albuterol Sulfate (Ventolin Aerosols) 2.5 mg INHALATION Q2H PRN PRN PRN Reason: SOB/Wheezing Apixaban (Eliquis) 5 mg PO BID [facility] Last Admin: 01/13/19 09:14 Dose: 5 mg Documented by: Diltiazem HCl (Cardizem Cd) 180 mg PO DAILY [facility] Last Admin: 01/13/19 09:14 Dose: 180 mg Documented by: Famotidine (Pepcid) 40 mg PO DAILY [facility] Last Admin: 01/13/19 09:14 Dose: 40 mg Documented by: Fluoxetine HCl (Prozac) 20 mg PO DAILY [facility] [place] Last Admin: 01/13/19 09:15 Dose: 20 mg Documented by: Loratadine (Claritin) 10 mg PO DAILY [facility] [place] Last Admin: 01/13/19 09:14 Dose: 10 mg Documented by: Metoprolol Tartrate (Lopressor (Beta Lesley)) 50 mg PO BID [facility] [place] Last Admin: 01/13/19 09:19 Dose: 50 mg Documented by: Nitroglycerin (Nitrostat) 0.4 mg SUBLINGUAL Q5M PRN PRN Reason: CARDIAC/CHEST PAIN Ondansetron HCl (Zofran) 4 mg IV Q8H PRN PRN PRN Reason: NAUSEA/VOMITING Last Admin: 01/11/19 08:46 Dose: 4 mg Documented by: Oxcarbazepine (Trileptal) 300 mg PO DAILY [facility] [place] Last Admin: 01/13/19 09:16 Dose: 300 mg Documented by: Oxcarbazepine (Trileptal) 600 mg PO QHS [facility] [place] Last Admin: 01/12/19 21:25 Dose: 600 mg Documented by: Pantoprazole Sodium (Protonix) 20 mg PO DAILY [facility] Last Admin: 01/13/19 09:14 Dose: 20 mg Documented by: Pravastatin Sodium (Pravachol) 40 mg PO QHS [facility] Last Admin: 01/12/19 21:16 Dose: 40 mg Documented by: Psyllium Hydrophilic [facility] Admin: 01/13/19 09:15 Dose: 1 packet Documented by: Quetiapine Fumarate (Seroquel) 50 mg PO DAILY [facility] Last Admin: 01/13/19 09:14 Dose: 50 mg Documented by: Sodium Chloride () 10 - 40 ml IV UD PRN PRN Reason: SALINE FLUSH Last Admin: 01/12/19 12:10 Dose: 10 ml Documented by: Tamsulosin HCl (Flomax) 0.4 mg PO QHS [facility] Last Admin: 01/12/19 21:16 Dose: 0.4 mg Documented by: Discharge Diet: Low fat/ Low Cholesterol, 2000 mg Sodium Diet Discharge Activity: Return to Normal Activity Home Medications: Medications to take at Discharge Fluticasone 0.05% [Flonase Nasal [place]] 1 spray INHALATION DAILY 11/24/18 Loratadine [Claritin] 10 mg PO DAILY 11/24/18 Oxcarbazepine 300 mg PO DAILY 11/24/18 Oxcarbazepine 600 mg PO QHS 11/24/18 Oxybutynin Chloride [Oxybutynin Chloride ER] 10 mg PO DAILY 11/24/18 Psyllium Husk/Aspartame [Metamucil Fiber Singles Packet] 3.4 gm PO DAILY 11/24/18 Tamsulosin HCl [Flomax] 0.4 mg PO QHS 11/24/18 Apixaban [Eliquis] 5 mg PO BID 01/10/19 Chlorhexidine Gluconate 1 15 PO DAILY 01/10/19 Cyanocobalamin (Vitamin B-12) [Vitamin B-12] 1,000 mcg PO BID 01/10/19 Ergocalciferol (Vitamin D2) [Vitamin D2] 50,000 unit PO DAILY 01/10/19 Fluoxetine HCl 20 mg PO DAILY 01/10/19 Metoprolol Tartrate [Lopressor (beta lesley)] 50 mg PO BID 01/10/19 Omeprazole [Prilosec] 20 mg PO DAILY 01/10/19 Pravastatin [Pravachol] 40 mg PO QHS 01/10/19 Quetiapine Fumarate [Seroquel] 50 mg PO DAILY 01/10/19 Acetaminophen [Tylenol Tablet] 650 mg PO Q6H PRN PRN tab 01/12/19 Diltiazem CD [Cardizem CD] 180 mg PO DAILY #30 cap 01/13/19 Following Prescrptions Were Given to Patient: Diltiazem CD [Cardizem CD] 180 mg PO DAILY #30 cap Transmission Status: Received by [employer] - [facility] - [id number] Primary Care Physician: Flo Del Cid Chi, MD [Primary Care Provider] - Please follow up with your Primary Care Physician in: within 1-2 weeks after discharge Please Follow Up With: Sulaiman Stock MD When: as scheduled Disposition: Home Minutes spent on discharge:: 40 Patient Condition:: Stable Medical Necessity - Tobacco Use Smoking Status: Never smoker Tobacco Use: Non-smoker Meaningful Use Info Meaningful Use Diagnoses (Choose all that apply): None applicable Code Visit Inpatient E&M: 36766 Disch Hosp
--- NOTE | 2019-01-13 11:19 | CASEMGMT ---
Patient is ready for discharge today. SUSI called the residential and spoke with Isis and she said they can come and pick him up. SUSI let her know he does not need a walker. She asked if they could get an return to work note. SUSI notified insulation cupola charger and she will get the note. SUSI spoke with patient letting him know he is going back to the residential today. At first he did not want to go, but after SW spoke with him a little longer he was okay with returning. SUSI let him know the residential will pick him up at 1p. SUSI called patient's guardian, Bishnu and let him know patient is leaving and will be picked up at 1p. Plan: Return to the residential Zoey DAWSON MSW
== END 2019-01-13 13:04 | disposition home or self-care (01) | DRG 310 ==
LOC: ED 13:49 → PCU 15:23
PROVIDERS: Admitting Provider Internal Medicine; Emergency Provider Emergency Medicine; Family Provider Family Medicine Geriatric Medicine; PCP Family Medicine Geriatric Medicine; Referring Provider Internal Medicine; Visit Provider Internal Medicine
DX: R00.1 Bradycardia, unspecified (principal); G40.909 Epilepsy, unspecified, not intractable, without status epilepticus; I48.92 Unspecified atrial flutter; F20.9 Schizophrenia, unspecified; D50.9 Iron deficiency anemia, unspecified; E78.5 Hyperlipidemia, unspecified; I48.91 Unspecified atrial fibrillation; I95.9 Hypotension, unspecified
CPT/HCPCS: 36415; 71045; 80048; 80053; 81001; 83540; 83550; 83605; 83880; 84484; 85025; 85610; 85730; 87040; 87086; 92507; 92610; 93005; 93306; 97162; 97166; 97530; 97535; 97802; 99251; 99285; J7030; P9612; Q9957; A4216; C8929; G0463; J1940; J2405

== ENCOUNTER 2019-01-20 17:20 | Inpatient (IN) | payer MEDICARE, MEDICAID, SELFPAY ==
[2019-01-10 15:56] VITALS: BMI 36.1
[2019-01-20 17:20] VITALS: BP 112/92; PULSE 118; RESP 16; TEMP 36.6; BMI 33.8
--- NOTE | 2019-01-20 17:42 | NURSING ---
MASSIEL, CRISIS, HERE
--- NOTE | 2019-01-20 17:47 | RAD_ITS ---
STUDY: X-RAY CHEST REASON FOR EXAM: Male, 69 years old. Cough TECHNIQUE: Frontal view COMPARISON: January 10, 2019 FINDINGS: Elevated right hemidiaphragm. The lungs are not fully expanded. There is no demonstrated pleural abnormality. Borderline to mild cardiomegaly. Normal mediastinum and leticia. Normal visualized pulmonary arteries. Normal visualized aortic arch and descending thoracic aorta. Degenerative changes of the thoracic spine. Normal visualized ribs, clavicles, and shoulders. There is no demonstrated abnormality of the visualized soft tissue structures of the upper abdomen. RAD/Chest 1 View (Portable) IMPRESSION: Stable borderline to mild cardiomegaly. Stable mildly elevated right hemidiaphragm. Electronically Signed: Kelechi Bryant DO at 18:17 EST Tel [phone], Service support ,
[2019-01-20 18:15] LABS: Absolute Lymphocyte Count 1.77 X10^3/uL (0.83-4.51); Absolute Neutrophil Count 2.6 X10^3/uL (2.0-7.7); Basophil# 0.02 X10^3/uL; Basophil% 0.4 % (0-1); Eosinophil# 0.18 X10^3/uL; Eosinophils% 3.5 % (0-5); Hematocrit 33.1 % (40-54); Hemoglobin 10.5 g/dL (13.0-16.5); Lymphocyte # 1.77 X10^3/ul (4.0); Lymphocyte % 34.1 % (19-41); Mean Corp Hgb Conc 31.7 g/dL (32-36); Mean Corpuscular Hgb 31.5 pg (27.0-32.0); Mean Corpuscular Volume 99.4 fL (80-94); Mean Platelet Vol. 11.2 fl (6.2-12.0); Monocyte# 0.64 X10^3/uL; Monocyte% 12.3 % (0-10); NRBC Flagged by Analyzer 0 % (0-5); Neutrophil # 2.57 X10^3/uL (2.7-7.7); Neutrophil % 49.5 % (47-70); Platelet Count 171 K/mm3 (150-450); RBC Distribution Width CV 14.3 % (11.6-14.6); Red Blood Count 3.33 M/mm3 (4.6-6.2); White Blood Count 5.2 K/mm3 (4.4-11.0)
--- NOTE | 2019-01-20 18:27 | ED.DCSUM_ITS ---
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 Crisis was contacted and had the patient sent to the ER for further evaluation. Patient states that he needs to be in the hospital for a few days. History is very limited secondary to mental retardation. He continues to stay that he needs to stay. When asked if he is sick, he states yes. He does not offer a more information but states that he is sick. When asked yes and no questions on review of systems he states he has had a cough and some trouble breathing lately, and also states he has been having some blood in his stool, but he does not give me any other information on timing, symptoms, etc. - Past Medical History (1) Atrial flutter Status: Chronic (2) BPH (benign prostatic hyperplasia) Status: Chronic (3) GERD (gastroesophageal reflux disease) Status: Chronic (4) Hyperlipidemia Status: Chronic (5) Schizophrenia Status: Chronic (6) Seizure disorder Status: Chronic (7) Vitamin B12 deficiency Status: Chronic (8) Vitamin D deficiency Status: Chronic Past Medical History - Allergies and Home Meds Allergies/Adverse Reactions: Allergies No Known Allergies Allergy (Verified 01/20/19 17:20) Primary Care Physician: Flo Del Cid Chi, MD [Primary Care Provider] - Surgical History: - - Unable to obtain no scars/incisions on the abdomen Lives: - - intermediate Smoking Status: Never smoker - Family History Maternal Family History: Reports: Unknown Review of Systems General: Denies: Chills, Fever, Sweats Eyes: Denies: Visual changes - bilaterally, Diplopia ENT: Denies: Rhinorrhea, Sore throat Cardiovascular: Denies: Chest pain, Palpitations Respiratory: Reports: Dyspnea, Cough. Denies: Dyspnea on exertion Gastrointestinal: Reports: Hematochezia. Denies: Abdominal pain, Nausea, Vomiting, Diarrhea, Melena Genitourinary: Denies: Dysuria, Hematuria, Frequency Musculoskeletal: Denies: Back pain, Extremity Pain Skin: Denies: Rash, Wounds Neurological: Denies: Headache, Weakness, Numbness Physical Exam Vital Signs/Narrative: Vital Signs Temp Pulse Resp BP 01/20/19 17:20 97.8 F 118 H 16 112/92 H Inital Vital Signs reviewed: Yes General: Well nourished, Well developed, Obese, No Acute Distress Head: Normocephalic, Atraumatic Eyes: Perrl, EOMI ENT: Moist mucous membranes, No rhinorrhea Neck: Supple, Nontender Cardiovascular: Regular rate, Regular rhythm, No murmurs Respiratory: No distress, CTA bilaterally, Chest nontender Abdomen: Soft, Nontender, Nondistended, Normal bowel sounds Rectal: Guaiac positive - Slight redness, no pooling or gross bleeding Back: Nontender, Normal Inspection. Negative for: CVA tenderness Extremities: Nontender, No edema. Negative for: Calf Tenderness Skin: Normal color, No rash, No Trauma Neurological: Alert, Oriented x3, Cranial nerves II-XII grossly intact, Normal Strength, Normal Sensation Psychological: Agitated - but mostly redirectable Diagnostic/Tx/Re-eval Impressions Chest X-Ray 01/20/19 17:47 IMPRESSION: Stable borderline to mild cardiomegaly. Stable mildly elevated right hemidiaphragm. Electronically Signed: Kelechi Bryant DO at 18:17 EST Tel [phone], Service support , 01/20/19 17:47 Chest 1 View (Portable) [RAD] Stat 01/20/19 22:00 Stool Stool Occult Blood (DENNY) - Final Occult Blood Positive Laboratory Results 01/20/19 01/20/19 01/20/19 18:00 18:00 18:00 WBC 5.2 RBC 3.33 L Hgb 10.5 L Hct 33.1 L MCV 99.4 H MCH 31.5 MCHC 31.7 L RDW Std Deviation 52.0 H RDW Coeff of Jenny 14.3 Plt Count 171 MPV 11.2 Immature Gran % (Auto) 0.200 Neut % (Auto) 49.5 Lymph % (Auto) 34.1 [place] % (Auto) 12.3 H Eos % (Auto) 3.5 Baso % (Auto) 0.4 Absolute Neuts (auto) 2.6 Absolute Lymphs (auto) 1.77 Nucleated RBC % 0 Sodium 141 Potassium 3.8 Chloride 111 H Carbon Dioxide 23.0 Anion Gap 7 BUN 23 H Creatinine 1.08 Estim Creat Clear Calc 69.72 Est GFR (MDRD) Af Amer 87 Est GFR (MDRD) Non-Af 72 BUN/Creatinine Ratio 21.3 H Glucose 88 Calcium 9.2 Urine Color Urine Clarity Urine pH Ur Specific [place] Urine Protein Urine Glucose (UA) Urine Ketones Urine Occult Blood Urine Nitrite Urine Bilirubin Urine Urobilinogen Ur Leukocyte Esterase Urine RBC Urine WBC Ur Squamous Epith Cells Urine Bacteria Hyaline Casts Urine Mucus Urine Opiates Screen Urine Methadone Screen Ur Barbiturates Screen Ur Phencyclidine Scrn Ur Amphetamines Screen U Methamphetamin-MDMA U Benzodiazepines Scrn Urine Cocaine Screen U Cannabinoids Screen Ur Drug Screen Comment Ethyl Alcohol < 3.0 01/20/19 01/20/19 22:20 22:20 WBC RBC Hgb Hct MCV MCH MCHC RDW Std Deviation RDW Coeff of Jenny Plt Count MPV Immature Gran % (Auto) Neut % (Auto) Lymph % (Auto) [place] % (Auto) Eos % (Auto) Baso % (Auto) Absolute Neuts (auto) Absolute Lymphs (auto) Nucleated RBC % Sodium Potassium Chloride Carbon Dioxide Anion Gap BUN Creatinine Estim Creat Clear Calc Est GFR (MDRD) Af Amer Est GFR (MDRD) Non-Af BUN/Creatinine Ratio Glucose Calcium Urine Color Yellow Urine Clarity Sl. Cloudy Urine pH 5.0 Ur Specific [place] 1.020 Urine Protein 15 H Urine Glucose (UA) Normal Urine Ketones 5 H Urine Occult Blood 10 H Urine Nitrite Negative Urine Bilirubin 1 H Urine Urobilinogen Normal Ur Leukocyte Esterase 25 H Urine RBC 0-5 SEEN Urine WBC 0 SEEN Ur Squamous Epith Cells 0 SEEN Urine Bacteria 0 SEEN Hyaline Casts 0-5 SEEN Urine Mucus 3+ Urine Opiates Screen NEGATIVE Urine Methadone Screen NEGATIVE Ur Barbiturates Screen NEGATIVE Ur Phencyclidine Scrn NEGATIVE Ur Amphetamines Screen NEGATIVE U Methamphetamin-MDMA NEGATIVE U Benzodiazepines Scrn NEGATIVE Urine Cocaine Screen NEGATIVE U Cannabinoids Screen NEGATIVE Ur Drug Screen Comment Ethyl Alcohol - Rhythm Strip Rhythm Strip: A-fib Rate: 110 Ectopy: None - EKG Initial EKG Interpretation: No Acute Injury Pattern, Atrial Fibrillation - Medical Decision Making Patient stated later in the visit that he was having some bleeding from his bowels. On rectal he had some blood present without any active bleeding or pooling, and his hemoglobin is about 2 g lower than his previous reading. He is clinically and hemodynamically stable. He became very agitated despite giving him his usual dose of Seroquel early on in the ED course, and required Ativan and Haldol. He was still very agitated, screaming out at hallucinations that he thought were present in his room, and required an additional dose of Haldol. This helped to settle him down. He may require psychiatric evaluation, however for now he needs to be admitted and stabilized medically. He is on Eliquis. ED Disposition - Plan for ED Patient: Disposition: Acute Care Hospital [facility] Diagnosis: Lower GI bleeding, Psychomotor agitation, Schizophrenia, Anticoagulated, Chronic atrial fibrillation Referrals: Flo Del Cid Chi, MD [Primary Care Provider] -
[2019-01-20 18:28] LABS: Anion Gap 7 (5-15); BUN 23 mg/dL (7-18); BUN/Creat Ratio 21.3 RATIO (10-20); Calcium,Total 9.2 mg/dL (8.5-10.1); Chloride 111 mmol/L (98-107); Creatinine, Serum 1.08 mg/dL (0.70-1.30); EST Glomerular Filtration Rate 72 mL/min (>60); Est Glom Filt Rate - Afr Amer 87 mL/min (>60); Estimated Creatinine Clearance 69.72 ml/min; Glucose 88 mg/dL (74-106); Potassium 3.8 mmol/L (3.5-5.1); Sodium Level 141 mmol/L (136-145)
[2019-01-20 18:47] LABS: Alcohol, Blood (Medical)-Serum < 3.0 mg/dL
--- NOTE | 2019-01-20 19:13 | CM.ED ---
Social Work Patient sent in to ED by crisis. Puneet from Crisis here to evaluate patient. Freddie Negrete FIREFIGHTING EQUIPMENT SPECIALIST, SAMIR
[2019-01-20] MEDS: QUEtiapine 100 MG Tablet PO (19:19)
--- NOTE | 2019-01-20 19:32 | ED.RN ---
PATIENT BECOMES ESCALATED SCREAMING FUCK YOU BITCH, FUCK YOU, SHUT UP BITCH. PROCESS TRAINER MADE AWARE, TO BEDSIDE TO SPEAK WITH PATIENT.
[2019-01-20 20:05] VITALS: RESP 24
--- NOTE | 2019-01-20 20:06 | ED.RN ---
pt in bed yelling fuck you bitch, shut up bitch repeatedly and swinging at nurses when in room. when nurse goes into room, pt will begin to calm down. pt goes from crying to yelling loudly. diversion attempted by turning TV on with no success. Dr. Goodson and health service worker aware. pt refuses to get up at this time to urinate. water, sandwich, and a milk given.
[2019-01-20] MEDS: LORazepam 2 MG/ML Syringe 1 MG IM (20:37)
[2019-01-20] MEDS: Haloperidol Lactate 5 MG/ML Vial IM ×2 (20:37→21:15)
--- NOTE | 2019-01-20 20:59 | ED.RN ---
pt moved up in bed via 3 assist. pt swinging arms and yelling fuck you bitch. Ativan and Haldol given IM. pt cont to yell shut up, bitch, shut up. Dr. Goodson aware. pt can only be calmed with 1:1 in room but is easily agitated.
[2019-01-20 22:26] LABS: Bacteria 0 SEEN /hpf (None Seen); Squamous Epithelial Cells - UA 0 SEEN /hpf (0-5); White Blood Cells 0 SEEN /hpf (0-5)
[2019-01-20 22:27] LABS: Color, Urine Yellow (Yellow); Glucose, Dipstick Normal (Normal); Ketone-Dipstick 5 mg/dl (Negative); Leukocyte Esterase-Dipstick 25 /ul (Negative); Nitrite-Dipstick Negative (Negative); Occult Blood-Urine 10 /ul (Negative); Protein-Dipstick 15 mg/dl (Negative); Urine Clarity Sl. Cloudy (Clear); Urine Urobilinogen Normal (Normal)
[2019-01-20 22:31] LABS: Urine Bilirubin Dipstick 1 mg/dL (Negative)
[2019-01-20 22:40] LABS: Mucous, Urine 3+ /hpf (<or=2+); Red Blood Cells-Urine 0-5 SEEN /hpf (0-5)
[2019-01-20 22:41] LABS: Hyaline Cast 0-5 SEEN /lpf (0-5)
[2019-01-20 22:44] LABS: Amphetamine Urine VISTA NEGATIVE (<1000 ng/mL); Barbiturate Urine VISTA NEGATIVE (< 200 ng/mL); Benzodiazepine Urine VISTA NEGATIVE (< 200 ng/mL); Cocaine Urine VISTA NEGATIVE (< 300 ng/mL); Ecstacy Urine VISTA NEGATIVE (< 500 ng/mL); Methadone Urine VISTA NEGATIVE (< 300 ng/mL); PCP Urine VISTA NEGATIVE (< 25 ng/mL); THC Urine VISTA NEGATIVE (< 50 ng/mL); Vista UDS pH Range 6
[2019-01-20 23:53] VITALS: BP 102/66; PULSE 108; RESP 16; O2SAT 97
--- NOTE | 2019-01-20 23:54 | ED.RN ---
pt resting in bed, calm , cooperative.
[2019-01-21] VITALS (12 sets, daily range): BP systolic 108–134; BP diastolic 60–70; PULSE 80–137; RESP 16–18; TEMP 36.3–36.9; O2SAT 93–98; BMI 33.9; BMI 33.4
--- NOTE | 2019-01-21 00:02 | EKG12_ITS ---
Test Reason : ADMIT Blood Pressure : / mmHG Vent. Rate : 116 BPM Atrial Rate : 122 BPM P-R Int : 126 ms QRS Dur : 140 ms QT Int : 330 ms P-R-T Axes : 107 017 -39 degrees QTc Int : 458 ms Sinus tachycardia Right bundle branch block Cannot rule out Inferior infarct , age undetermined Abnormal ECG Confirmed by RAFFI BARAHONA ([id number]), film editor supervisor EMILY CROWELL ([id number]) on 01/25/2019 9:18:47 AM Referred By: LALA Confirmed By:RAFFI BARAHONA
--- NOTE | 2019-01-21 01:02 | ED.RN ---
Guardian, Bishnu called and notified of pt admission. no questions at this time.
--- NOTE | 2019-01-21 02:26 | HP.PCM_ITS ---
History of Present Illness Date of Admission: 01/21/19 Chief Complaint: Not feeling well The patient is a 69 year old M with a PMH as below who lives in a skilled nursing secondary to schizophrenia apparently he was reacting to hallucinations that he was having. For some reason he has not been getting his Seroquel and there is an unclear reason as to why that is been stopped. He states that he is to be in the hospital because he feels sick but he cannot elaborate. He denies any shortness of breath, chest pain, lightheadedness, or dizziness. He does endorse some bloody stools, and he says that it is bright red when he poops. In the ER vital signs are unremarkable, and his hemoglobin is 10.5, few days ago it was 12 but prior to that had also been in the tens. Rectal exam by the ED physician was positive for blood in the stool sample sent to the lab was also positive for blood. Past Medical History Past Medical History (Chronic Problems): Chronic Problems (Last Updated 01/19/19 @ 16:30 by Raven Hernández) Chronic atrial fibrillation (Chronic) Atrial flutter (Chronic) Vitamin D deficiency (Chronic) Vitamin B12 deficiency (Chronic) Hyperlipidemia (Chronic) GERD (gastroesophageal reflux disease) (Chronic) BPH (benign prostatic hyperplasia) (Chronic) Seizure disorder (Chronic) Schizophrenia (Chronic) Medical History: Medical History (Last Updated 01/19/19 @ 16:30 by Raven Hernández) Ileus (Acute) K56.7 Atrial flutter (Chronic) I48.92 Hyperlipidemia (Chronic) E78.5 GERD (gastroesophageal reflux disease) (Chronic) K21.9 BPH (benign prostatic hyperplasia) (Chronic) N40.0 Tachycardia (Acute) R00.0 Seizure disorder (Chronic) G40.909 Schizophrenia (Chronic) F20.9 Allergies No Known Allergies Allergy (Verified 01/20/19 17:20) Home Medications: Ambulatory Orders Medication Instructions Recorded Apixaban [Eliquis] 5 mg PO BID 01/20/19 Chlorhexidine Gluconate 1 ea PO BID 01/20/19 Cyanocobalamin (Vitamin B-12) 100 mcg PO BID 01/20/19 [Vitamin B-12] Diltiazem HCl [Cardizem Cd] 180 mg PO DAILY 01/20/19 Emollient Combination No.71 2 applic TP DAILY 01/20/19 [Lubriderm Advanced Therapy] Ergocalciferol (Vitamin D2) 1 cap PO QWEEK 01/20/19 Fluoxetine [Prozac] 20 mg PO DAILY 01/20/19 Fluticasone 0.05% [Flonase Nasal 1 spray NASAL BID 01/20/19 [place]] Loratadine 10 mg PO DAILY 01/20/19 Metoprolol Tartrate 50 mg PO BID 01/20/19 Omeprazole [Prilosec] 20 mg PO DAILY 01/20/19 Oxcarbazepine [Trileptal] 2 tab PO QHS 01/20/19 Oxcarbazepine [Trileptal] 300 mg PO DAILY 01/20/19 Oxybutynin Chloride [Oxybutynin 10 mg PO DAILY 01/20/19 Chloride ER] Pravastatin [Pravachol] 40 mg PO QHS 01/20/19 Psyllium [Metamucil] 1 packet PO DAILY 01/20/19 Quetiapine Fumarate [Seroquel] 50 mg PO DAILY 01/20/19 Quetiapine Fumarate [Seroquel] 100 mg PO QHS 01/20/19 Tamsulosin HCl 0.4 mg PO QHS 01/20/19 Surgical History: - - Unable to obtain no scars/incisions on the abdomen Psychiatric History: Schizophrenia Lives: - - assisted Smoking Status: Never smoker - *Family History Maternal History Items: Unknown - Unable to obtain history from the patient Review of Systems Constitutional: Reports: - - States he feels ill. Denies: Chills, Fever, Weight Change HEENT: Denies: Head Aches, Sinus Congestion, Sinus Drainage Cardiovascular: Denies: Chest Pain, Palpitations Respiratory: Denies: Cough, Shortness of Breath, Shortness of breath at rest, Sputum production Gastrointestinal: Reports: Hematochezia. Denies: Abdominal Pain, Dyspepsia, Hematemesis, Nausea, Vomiting Genitourinary: Denies: Dysuria Musculoskeletal: Denies: Joint Pain, Joint Tenderness Skin: Denies: Rash, Wounds Neurological: Denies: Numbness, Tingling, Focal weakness Psychiatric: Denies: Anxiety, Depression Hematologic/ Lymphatic: Denies: Easy Bruising, Easy Bleeding VTE Information - Inpt Only VTE Present on Admission: No Patient Problems: Active and Suspected Problems (Last Updated 01/19/19 @ 16:30 by Raven Hernández) Lower GI bleeding (Acute) Psychomotor agitation (Acute) Anticoagulated (Acute) - Physical Exam Vitals/I&O's: Vital Signs Temp Pulse Resp BP Pulse Ox 98.4 F 91 16 108/70 97 01/21/19 02:06 01/21/19 02:06 01/21/19 02:06 01/21/19 02:06 01/21/19 02:06 Oxygen Delivery Method Room Air Weight: 232 lb 12.93 oz Body Mass Index (BMI) 33.4 General: Alert, Cooperative, No apparent distress HEENT: Atraumatic, PERRLA, EOMI, Normocephalic Oral: Moist Mucosa Neck: Supple, No JVD Lungs: Clear to auscultation, Normal air movement, No rhonchi, No wheeze, No ral es, Diminished Cardiovascular: Regular rate, Regular Rhythm, Normal S1, Normal S2, No murmurs Abdomen: Soft, Non Tender, Non-Distended, No Hepato-splenomegaly Extremities: No edema, Capillary Refill Less than 3 Seconds Skin: No rashes, No breakdown Neurological: Neuro grossly intact, Sensory exam intact to light touch and pain Psych/Mental Status: Flat Affect Microbiology Past 72 Hours 01/20/19 22:00 Stool Stool Occult Blood (DENNY) - Final Occult Blood Positive Laboratory Results 01/20/19 18:00: WBC 5.2, RBC 3.33 L, Hgb 10.5 L, Hct 33.1 L, MCV 99.4 H, MCH 31.5, MCHC 31.7 L, RDW Std Deviation 52.0 H, RDW Coeff of Jenny 14.3, Plt Count 171, MPV 11.2, Immature Gran % (Auto) 0.200, Neut % (Auto) 49.5, Lymph % (Auto) 34.1, [place] % (Auto) 12.3 H, Eos % (Auto) 3.5, Baso % (Auto) 0.4, Absolute Neuts (auto) 2.6, Absolute Lymphs (auto) 1.77, Nucleated RBC % 0 01/20/19 18:00: Sodium 141, Potassium 3.8, Chloride 111 H, Carbon Dioxide 23.0, Anion Gap 7, BUN 23 H, Creatinine 1.08, Estim Creat Clear Calc 69.72, Est GFR (MDRD) Af Amer 87, Est GFR (MDRD) Non-Af 72, BUN/Creatinine Ratio 21.3 H, Glucose 88, Calcium 9.2 01/20/19 18:00: Ethyl Alcohol < 3.0 01/20/19 22:20: Urine Opiates Screen NEGATIVE, Urine Methadone Screen NEGATIVE, Ur Barbiturates Screen NEGATIVE, Ur Phencyclidine Scrn NEGATIVE, Ur Amphetamines Screen NEGATIVE, U Methamphetamin-MDMA NEGATIVE, U Benzodiazepines Scrn NEGATIVE, Urine Cocaine Screen NEGATIVE, U Cannabinoids Screen NEGATIVE, Ur Drug Screen Comment 01/20/19 22:20: Urine Color Yellow, Urine Clarity Sl. Cloudy, Urine pH 5.0, Ur Specific [place] 1.020, Urine Protein 15 H, Urine Glucose (UA) Normal, Urine Ketones 5 H, Urine Occult Blood 10 H, Urine Nitrite Negative, Urine Bilirubin 1 H, Urine Urobilinogen Normal, Ur Leukocyte Esterase 25 H, Urine RBC 0-5 SEEN, Urine WBC 0 SEEN, Ur Squamous Epith Cells 0 SEEN, Urine Bacteria 0 SEEN, Hyaline Casts 0-5 SEEN, Urine Mucus 3+ 01/21/19 01:23: Blood Type A POSITIVE, Antibody Screen NEGATIVE Assessment/Plan All Active Problems (Last Updated 01/19/19 @ 16:30 by Raven Hernández) Lower GI bleeding (Acute) Psychomotor agitation (Acute) Anticoagulated (Acute) Ileus (Acute) Tachycardia (Acute) ARF (acute renal failure) (Resolved) HCAP (healthcare-associated pneumonia) (Resolved) Ileus (Resolved) 1. Lower GI bleed -We will make him n.p.o. and consult general surgery for possible evaluation -He states that this is been going on for some time but it is difficult given his psychiatric history to elucidate how long -We will hold his Eliquis -Place him on SCDs -Once he is evaluated by general surgery he should likely be stable for transfer to inpatient psych unit if deemed necessary by behavioral health -We will repeat a CBC in the morning 2. A flutter/HLD/HTN -He is on Eliquis which we will hold, -will continue with his metoprolol, is on as well as his pravastatin -Blood pressure stable 3. Schizophrenia -We will continue with his Prozac, Trileptal, and Seroquel -Unsure as to why his Seroquel had been discontinued at the skilled nursing DVT: SCDs Code Visit OBSV E&M: 75228 Initial observation care L2
[2019-01-21 06:58] LABS: Absolute Lymphocyte Count 1.65 X10^3/uL (0.83-4.51); Absolute Neutrophil Count 1.4 X10^3/uL (2.0-7.7); Basophil# 0.01 X10^3/uL; Basophil% 0.3 % (0-1); Eosinophils% 5.2 % (0-5); Hematocrit 32.7 % (40-54); Hemoglobin 10.4 g/dL (13.0-16.5); Lymphocyte # 1.65 X10^3/ul (4.0); Lymphocyte % 42.7 % (19-41); Mean Corp Hgb Conc 31.8 g/dL (32-36); Mean Corpuscular Hgb 31.6 pg (27.0-32.0); Mean Corpuscular Volume 99.4 fL (80-94); Mean Platelet Vol. 10.7 fl (6.2-12.0); Monocyte# 0.56 X10^3/uL; Monocyte% 14.5 % (0-10); NRBC Flagged by Analyzer 0 % (0-5); Neutrophil # 1.43 X10^3/uL (2.7-7.7); Platelet Count 161 K/mm3 (150-450); RBC Distribution Width CV 14.5 % (11.6-14.6); RBC Distribution Width SD 52.5 fl (35.1-43.9); Red Blood Count 3.29 M/mm3 (4.6-6.2); White Blood Count 3.9 K/mm3 (4.4-11.0)
[2019-01-21 07:12] LABS: Anion Gap 6 (5-15); BUN 21 mg/dL (7-18); BUN/Creat Ratio 24.5 RATIO (10-20); Chloride 112 mmol/L (98-107); Creatinine, Serum 0.86 mg/dL (0.70-1.30); EST Glomerular Filtration Rate 94 mL/min (>60); Est Glom Filt Rate - Afr Amer 114 mL/min (>60); Estimated Creatinine Clearance 84.88 ml/min; Glucose 95 mg/dL (74-106); Potassium 3.8 mmol/L (3.5-5.1); Sodium Level 143 mmol/L (136-145)
--- NOTE | 2019-01-21 08:20 | PCM.PN.HOSP ---
Patient Problems: Active and Suspected Problems (Last Reviewed 01/21/19 @ 15:29 by Anna Walker PA-C) Lower GI bleeding (Acute) Psychomotor agitation (Acute) Anticoagulated (Acute) Reason for Visit: Lower GI bleed Objective: Patient is from senior living and has schizophrenia. Patient has better rectal bleed. He did not had since morning while in the hospital. site monitor shows sinus tachycardia heart rate 110s to 130. Patient gets annoyed with the cardiac leads and refused. It was taken off Vitals/I&O's: Vital Signs Temp Pulse Resp BP Pulse Ox 97.9 F 122 H 16 130/67 H 93 01/21/19 08:10 01/21/19 08:10 01/21/19 08:10 01/21/19 08:10 01/21/19 08:10 Oxygen Delivery Method Room Air Weight: 232 lb 12.93 oz Body Mass Index (BMI) 33.4 General: Cooperative, No apparent distress, Disoriented, - - Patient has sometimes hallucinations. Mild to moderate cognitive deficit. HEENT: Atraumatic, PERRLA, EOMI, Normocephalic Oral: Dry Mucosa Neck: Supple, No JVD, Negative Carotid Bruits Lungs: Clear to auscultation, No rhonchi, No wheeze, No rales, Diminished - Air entry is diminished in bilateral lung bases Cardiovascular: Regular rate, Normal S1, Normal S2, Murmur - Systolic murmur over left lower sternal border., - - PVCs on youth nutritional monitor Abdomen: Bowel Sounds Present, Soft, Non Tender, Non-Distended Extremities: No clubbing, Edema Skin: No rashes, No breakdown Musculoskeletal: Arthritic Changes Microbiology Past 72 Hours 01/20/19 22:00 Stool Stool Occult Blood (DENNY) - Final Occult Blood Positive Laboratory Results 01/20/19 18:00: WBC 5.2, RBC 3.33 L, Hgb 10.5 L, Hct 33.1 L, MCV 99.4 H, MCH 31.5, MCHC 31.7 L, RDW Std Deviation 52.0 H, RDW Coeff of Jenny 14.3, Plt Count 171, MPV 11.2, Immature Gran % (Auto) 0.200, Neut % (Auto) 49.5, Lymph % (Auto) 34.1, [place] % (Auto) 12.3 H, Eos % (Auto) 3.5, Baso % (Auto) 0.4, Absolute Neuts (auto) 2.6, Absolute Lymphs (auto) 1.77, Nucleated RBC % 0 01/20/19 18:00: Sodium 141, Potassium 3.8, Chloride 111 H, Carbon Dioxide 23.0, Anion Gap 7, BUN 23 H, Creatinine 1.08, Estim Creat Clear Calc 69.72, Est GFR (MDRD) Af Amer 87, Est GFR (MDRD) Non-Af 72, BUN/Creatinine Ratio 21.3 H, Glucose 88, Calcium 9.2 01/20/19 18:00: Ethyl Alcohol < 3.0 01/20/19 22:20: Urine Opiates Screen NEGATIVE, Urine Methadone Screen NEGATIVE, Ur Barbiturates Screen NEGATIVE, Ur Phencyclidine Scrn NEGATIVE, Ur Amphetamines Screen NEGATIVE, U Methamphetamin-MDMA NEGATIVE, U Benzodiazepines Scrn NEGATIVE, Urine Cocaine Screen NEGATIVE, U Cannabinoids Screen NEGATIVE, Ur Drug Screen Comment 01/20/19 22:20: Urine Color Yellow, Urine Clarity Sl. Cloudy, Urine pH 5.0, Ur Specific [place] 1.020, Urine Protein 15 H, Urine Glucose (UA) Normal, Urine Ketones 5 H, Urine Occult Blood 10 H, Urine Nitrite Negative, Urine Bilirubin 1 H, Urine Urobilinogen Normal, Ur Leukocyte Esterase 25 H, Urine RBC 0-5 SEEN, Urine WBC 0 SEEN, Ur Squamous Epith Cells 0 SEEN, Urine Bacteria 0 SEEN, Hyaline Casts 0-5 SEEN, Urine Mucus 3+ 01/21/19 01:23: Blood Type A POSITIVE, Antibody Screen NEGATIVE 01/21/19 06:50: WBC 3.9 L, RBC 3.29 L, Hgb 10.4 L, Hct 32.7 L, MCV 99.4 H, MCH 31.6, MCHC 31.8 L, RDW Std Deviation 52.5 H, RDW Coeff of Jenny 14.5, Plt Count 161, MPV 10.7, Immature Gran % (Auto) 0.300, Neut % (Auto) 37.0 L, Lymph % (Auto) 42.7 H, [place] % (Auto) 14.5 H, Eos % (Auto) 5.2 H, Baso % (Auto) 0.3, Absolute Neuts (auto) 1.4 L, Absolute Lymphs (auto) 1.65, Nucleated RBC % 0 01/21/19 06:50: Sodium 143, Potassium 3.8, Chloride 112 H, Carbon Dioxide 25.0, Anion Gap 6, BUN 21 H, Creatinine 0.86, Estim Creat Clear Calc 84.88, Est GFR (MDRD) Af Amer 114, Est GFR (MDRD) Non-Af 94, BUN/Creatinine Ratio 24.5 H, Glucose 95, Calcium 9.0 Current Medications Chlorhexidine Gluconate (Peridex) 15 ml PO BID [facility] Diltiazem HCl (Cardizem Cd) 180 mg PO DAILY [facility] Fluoxetine HCl (Prozac) 20 mg PO DAILY [facility] Fluticasone Propionate (Flonase Nasal [place]) 1 spray NASAL BID [facility] Loratadine (Claritin) 10 mg PO DAILY [facility] Metoprolol Tartrate (Lopressor (Beta Lesley)) 50 mg PO BID [facility] Oxcarbazepine (Trileptal) 600 mg PO QHS [facility] Oxcarbazepine (Trileptal) 300 mg PO DAILY [facility] Pantoprazole Sodium (Protonix) 20 mg PO DAILY [facility] Pravastatin Sodium (Pravachol) 40 mg PO QHS [facility] Quetiapine Fumarate (Seroquel) 50 mg PO DAILY [facility] Quetiapine Fumarate (Seroquel) 100 mg PO QHS [facility] Sodium Chloride () 10 - 40 ml IV UD PRN PRN Reason: SALINE FLUSH Tamsulosin HCl (Flomax) 0.4 mg PO QHS [facility] STROKE Vital Signs/Narrative: Vital Signs Temp Pulse Resp BP Pulse Ox 01/21/19 08:10 97.9 F 122 H 16 130/67 H 93 01/21/19 07:15 117 H Medical Necessity - Tobacco Use Smoking Status: Never smoker Assessment/Plan All Active Problems (Last Reviewed 01/21/19 @ 15:29 by Anna Walker PA-C) Lower GI bleeding (Acute) Psychomotor agitation (Acute) Anticoagulated (Acute) Ileus (Acute) Tachycardia (Acute) ARF (acute renal failure) (Resolved) HCAP (healthcare-associated pneumonia) (Resolved) Ileus (Resolved) 61-year-old gentleman with history of schizophrenia, intermittent restlessness, disorientation and agitation was admitted with lower GI bleed. Patient also found sinus tachycardia on youth nutritional monitor. 1. Lower GI bleed Patient seen by surgeon. Started on clear liquid. EGD/colonoscopy as an outpatient. Eliquis is on hold. On Protonix. 2. Schizophrenia with behavioral health problems with intermittent restlessness and agitation with cognitive deficit: Continue antipsychotic medications Trileptal, Seroquel and Prozac. -Once he is evaluated by general surgery he should likely be stable for transfer to inpatient psych unit if deemed necessary by behavioral health - tomorrow 2. Sinus Tachycardia with PVCs A flutter, hypertension, dyslipidemia Metoprolol dose increased to 100 mg twice daily. I think sinus tachycardia is mainly secondary to agitation -Eliquis on hold. On pravastatin. He is on Eliquis which we will hold. Blood pressure normotensive. DVT: Bilateral SCDs
--- NOTE | 2019-01-21 10:50 | PCM.CONS.GEN ---
Problem List (1) Lower GI bleeding Status: Acute Reason for Consult Date of Consultation: 01/21/19 Reason for Consultation: Lower GI bleed History of Present Illness: The patient is a 69 year old M who presented with mental status change. Patient is a poor historian. Majority of patient' s history was obtained from previous notes and nursing staff. [facility] jail. He has a history of developmentally delayed and schizophrenia. Patient was apparently note receiving all of his medication. He was having Hallucinations and was brought to the ED via squad. Patient was nodding to yes or no questions and patient stated he was having blood in his stools, however no further information was given. Patient today denies blood in his stool. He has not had a bowel movement since admission. Patient was noted to have positive fecal occult blood test in the ED. His hgb on admission was 10.5 and was 10.4 today. Patient denies abdominal pain. Looking through records, it does not appear the patient has had a previous colonoscopy. Patient is on Eliquis for A fib. Past Medical History Past Medical History (Chronic Problems): Chronic Problems (Last Reviewed 01/21/19 @ 15:29 by Anna Walker PA-C) Chronic atrial fibrillation (Chronic) Atrial flutter (Chronic) Vitamin D deficiency (Chronic) Vitamin B12 deficiency (Chronic) Hyperlipidemia (Chronic) GERD (gastroesophageal reflux disease) (Chronic) BPH (benign prostatic hyperplasia) (Chronic) Seizure disorder (Chronic) Schizophrenia (Chronic) Medical History: Medical History (Last Reviewed 01/21/19 @ 15:29 by Anna Walker PA-C) Ileus (Acute) K56.7 Atrial flutter (Chronic) I48.92 Hyperlipidemia (Chronic) E78.5 GERD (gastroesophageal reflux disease) (Chronic) K21.9 BPH (benign prostatic hyperplasia) (Chronic) N40.0 Tachycardia (Acute) R00.0 Seizure disorder (Chronic) G40.909 Schizophrenia (Chronic) F20.9 Allergies No Known Allergies Allergy (Verified 01/20/19 17:20) Home Medications: Ambulatory Orders Medication Instructions Recorded Apixaban [Eliquis] 5 mg PO BID 01/20/19 Chlorhexidine Gluconate 1 ea PO BID 01/20/19 Cyanocobalamin (Vitamin B-12) 100 mcg PO BID 01/20/19 [Vitamin B-12] Diltiazem HCl [Cardizem Cd] 180 mg PO DAILY 01/20/19 Emollient Combination No.71 2 applic TP DAILY 01/20/19 [Lubriderm Advanced Therapy] Ergocalciferol (Vitamin D2) 1 cap PO QWEEK 01/20/19 Fluoxetine [Prozac] 20 mg PO DAILY 01/20/19 Fluticasone 0.05% [Flonase Nasal 1 spray NASAL BID 01/20/19 [place]] Loratadine 10 mg PO DAILY 01/20/19 Metoprolol Tartrate 50 mg PO BID 01/20/19 Omeprazole [Prilosec] 20 mg PO DAILY 01/20/19 Oxcarbazepine [Trileptal] 2 tab PO QHS 01/20/19 Oxcarbazepine [Trileptal] 300 mg PO DAILY 01/20/19 Oxybutynin Chloride [Oxybutynin 10 mg PO DAILY 01/20/19 Chloride ER] Pravastatin [Pravachol] 40 mg PO QHS 01/20/19 Psyllium [Metamucil] 1 packet PO DAILY 01/20/19 Quetiapine Fumarate [Seroquel] 50 mg PO DAILY 01/20/19 Quetiapine Fumarate [Seroquel] 100 mg PO QHS 01/20/19 Tamsulosin HCl 0.4 mg PO QHS 01/20/19 Surgical History: - - Unable to obtain no scars/incisions on the abdomen Psychiatric History: Schizophrenia Lives: - - [facility] Smoking Status: Never smoker - *Family History Maternal History Items: Unknown - Unable to obtain history from the patient Paternal History Items: Unknown Review of Systems Constitutional: Denies: Chills, Fever, Weight Change HEENT: Denies: Head Aches, Sinus Congestion, Sinus Drainage Cardiovascular: Denies: Chest Pain, Palpitations Respiratory: Denies: Cough, Shortness of breath at rest, Sputum production Gastrointestinal: Denies: Abdominal Pain, Hematochezia, Nausea, Vomiting Genitourinary: Denies: Dysuria Musculoskeletal: Denies: Joint Pain, Joint Tenderness Skin: Denies: Rash, Wounds Neurological: Denies: Numbness, Tingling, Focal weakness Psychiatric: Denies: Anxiety, Depression, Homicidal Ideations, Suicidal Ideations Hematologic/ Lymphatic: Reports: Anemia, Easy Bruising, Easy Bleeding Patient Problems: Active and Suspected Problems (Last Reviewed 01/21/19 @ 15:29 by Anna Walker PA-C) Lower GI bleeding (Acute) Psychomotor agitation (Acute) Anticoagulated (Acute) - Physical Exam Vitals/I&O's: Vital Signs Temp Pulse Resp BP Pulse Ox 97.9 F 122 H 16 130/67 H 93 01/21/19 08:10 01/21/19 08:10 01/21/19 08:10 01/21/19 08:10 01/21/19 08:10 Oxygen Delivery Method Room Air Weight: 232 lb 12.93 oz Body Mass Index (BMI) 33.4 General: Alert, No apparent distress, Non-Cooperative HEENT: Atraumatic, PERRLA, EOMI, Normocephalic Neck: Supple, No JVD, Negative Carotid Bruits Lungs: Clear to auscultation, Normal air movement Cardiovascular: Tachycardic Abdomen: Bowel Sounds Present, Soft, Non Tender, Obese Extremities: No edema, Capillary Refill Less than 3 Seconds Skin: No rashes, No breakdown, - - Rectum- slight erythema noted surrounding the anus. No active bleeding noted. Not cooperative to digital rectal exam. Musculoskeletal: No Tenderness to Palpation of Joints or Extremities Neurological: Neuro grossly intact Psych/Mental Status: Flat Affect, Impulsive Microbiology Past 72 Hours 01/20/19 22:00 Stool Stool Occult Blood (DENNY) - Final Occult Blood Positive Laboratory Results 01/20/19 18:00: WBC 5.2, RBC 3.33 L, Hgb 10.5 L, Hct 33.1 L, MCV 99.4 H, MCH 31.5, MCHC 31.7 L, RDW Std Deviation 52.0 H, RDW Coeff of Jenny 14.3, Plt Count 171, MPV 11.2, Immature Gran % (Auto) 0.200, Neut % (Auto) 49.5, Lymph % (Auto) 34.1, [place] % (Auto) 12.3 H, Eos % (Auto) 3.5, Baso % (Auto) 0.4, Absolute Neuts (auto) 2.6, Absolute Lymphs (auto) 1.77, Nucleated RBC % 0 01/20/19 18:00: Sodium 141, Potassium 3.8, Chloride 111 H, Carbon Dioxide 23.0, Anion Gap 7, BUN 23 H, Creatinine 1.08, Estim Creat Clear Calc 69.72, Est GFR (MDRD) Af Amer 87, Est GFR (MDRD) Non-Af 72, BUN/Creatinine Ratio 21.3 H, Glucose 88, Calcium 9.2 01/20/19 18:00: Ethyl Alcohol < 3.0 01/20/19 22:20: Urine Opiates Screen NEGATIVE, Urine Methadone Screen NEGATIVE, Ur Barbiturates Screen NEGATIVE, Ur Phencyclidine Scrn NEGATIVE, Ur Amphetamines Screen NEGATIVE, U Methamphetamin-MDMA NEGATIVE, U Benzodiazepines Scrn NEGATIVE, Urine Cocaine Screen NEGATIVE, U Cannabinoids Screen NEGATIVE, Ur Drug Screen Comment 01/20/19 22:20: Urine Color Yellow, Urine Clarity Sl. Cloudy, Urine pH 5.0, Ur Specific [place] 1.020, Urine Protein 15 H, Urine Glucose (UA) Normal, Urine Ketones 5 H, Urine Occult Blood 10 H, Urine Nitrite Negative, Urine Bilirubin 1 H, Urine Urobilinogen Normal, Ur Leukocyte Esterase 25 H, Urine RBC 0-5 SEEN, Urine WBC 0 SEEN, Ur Squamous Epith Cells 0 SEEN, Urine Bacteria 0 SEEN, Hyaline Casts 0-5 SEEN, Urine Mucus 3+ 01/21/19 01:23: Blood Type A POSITIVE, Antibody Screen NEGATIVE 01/21/19 06:50: WBC 3.9 L, RBC 3.29 L, Hgb 10.4 L, Hct 32.7 L, MCV 99.4 H, MCH 31.6, MCHC 31.8 L, RDW Std Deviation 52.5 H, RDW Coeff of Jenny 14.5, Plt Count 161, MPV 10.7, Immature Gran % (Auto) 0.300, Neut % (Auto) 37.0 L, Lymph % (Auto) 42.7 H, [place] % (Auto) 14.5 H, Eos % (Auto) 5.2 H, Baso % (Auto) 0.3, Absolute Neuts (auto) 1.4 L, Absolute Lymphs (auto) 1.65, Nucleated RBC % 0 01/21/19 06:50: Sodium 143, Potassium 3.8, Chloride 112 H, Carbon Dioxide 25.0, Anion Gap 6, BUN 21 H, Creatinine 0.86, Estim Creat Clear Calc 84.88, Est GFR (MDRD) Af Amer 114, Est GFR (MDRD) Non-Af 94, BUN/Creatinine Ratio 24.5 H, Glucose 95, Calcium 9.0 Current Medications Chlorhexidine Gluconate (Peridex) 15 ml PO BID [facility] Diltiazem HCl (Cardizem Cd) 180 mg PO DAILY [facility] Fluoxetine HCl (Prozac) 20 mg PO DAILY [facility] Fluticasone Propionate (Flonase Nasal [place]) 1 spray NASAL BID [facility] Loratadine (Claritin) 10 mg PO DAILY [facility] Metoprolol Tartrate (Lopressor (Beta Lesley)) 50 mg PO BID [facility] Oxcarbazepine (Trileptal) 600 mg PO QHS [facility] Oxcarbazepine (Trileptal) 300 mg PO DAILY [facility] Pantoprazole Sodium (Protonix) 20 mg PO DAILY [facility] Pravastatin Sodium (Pravachol) 40 mg PO QHS [facility] Quetiapine Fumarate (Seroquel) 50 mg PO DAILY [facility] Quetiapine Fumarate (Seroquel) 100 mg PO QHS [facility] Sodium Chloride () 10 - 40 ml IV UD PRN PRN Reason: SALINE FLUSH Tamsulosin HCl (Flomax) 0.4 mg PO QHS [facility] Assessment/Plan All Active Problems (Last Reviewed 01/21/19 @ 15:29 by Anna Walker PA-C) Lower GI bleeding (Acute) Psychomotor agitation (Acute) Anticoagulated (Acute) Ileus (Acute) Tachycardia (Acute) ARF (acute renal failure) (Resolved) HCAP (healthcare-associated pneumonia) (Resolved) Ileus (Resolved) I have been consulted in conjunction with Dr. Trivedi. Impression: Heme positive stools. No active bleeding noted. Plan: Patient was discussed with Dr. Trivedi. Would recommended colonoscopy as an outpatient. Patient will return to the office as an outpatient to be scheduled for a colonoscopy. Follow-up with Dr. Trivedi as an outpatient. If patient's status changes, an inpatient scope may be needed. Patient may restart Eliquis as medicine sees fit. Thank you for allowing us to participate in this patient's care. Code Visit Office Visits / Consults: [id number] IP Consult L3
[2019-01-21] MEDS: Pantoprazole Sodium 20 MG Tablet PO (11:30)
[2019-01-21] MEDS: QUEtiapine 25 MG Tablet 50 MG PO (11:30)
[2019-01-21] MEDS: FLUoxetine 20 MG Capsule PO (11:30)
[2019-01-21] MEDS: Loratadine 10 MG Tablet PO (11:30)
[2019-01-21] MEDS: dilTIAZem CD 180 MG Capsule PO (11:30)
[2019-01-21] MEDS: OXcarbazepine 300 MG Tablet PO (11:30)
[2019-01-21] MEDS: Metoprolol Tartrate 50 MG Tablet PO (11:30)
[2019-01-21] MEDS: Fluticasone 0.05% 1 SPRAY NASAL.SRY NASAL ×2 (11:32→21:37)
[2019-01-21] MEDS: Metoprolol Tartrate 25 MG Tablet 50 MG PO (16:59)
[2019-01-21] MEDS: Metoprolol Tartrate 50 MG Tablet 75 MG PO (21:37)
[2019-01-21] MEDS: QUEtiapine 100 MG Tablet PO (21:38)
[2019-01-21] MEDS: Tamsulosin HCl 0.4 MG Capsule PO (21:38)
[2019-01-21] MEDS: Pravastatin 40 MG Tablet PO (21:39)
[2019-01-21] MEDS: OXcarbazepine 600 MG Tablet PO (21:39)
[2019-01-22 03:35] VITALS: BP 106/67; PULSE 102; RESP 18; TEMP 36.2; O2SAT 94
[2019-01-22 05:35] LABS: Absolute Lymphocyte Count 2.35 X10^3/uL (0.83-4.51); Absolute Neutrophil Count 2.1 X10^3/uL (2.0-7.7); Basophil# 0.02 X10^3/uL; Basophil% 0.4 % (0-1); Eosinophil# 0.19 X10^3/uL; Eosinophils% 3.5 % (0-5); Hematocrit 35.8 % (40-54); Hemoglobin 11.5 g/dL (13.0-16.5); Lymphocyte # 2.35 X10^3/ul (4.0); Lymphocyte % 43.6 % (19-41); Mean Corp Hgb Conc 32.1 g/dL (32-36); Mean Corpuscular Hgb 31.6 pg (27.0-32.0); Mean Corpuscular Volume 98.4 fL (80-94); Monocyte# 0.69 X10^3/uL; Monocyte% 12.8 % (0-10); NRBC Flagged by Analyzer 0 % (0-5); Neutrophil # 2.13 X10^3/uL (2.7-7.7); Neutrophil % 39.5 % (47-70); Platelet Count 188 K/mm3 (150-450); RBC Distribution Width CV 14.4 % (11.6-14.6); RBC Distribution Width SD 52.4 fl (35.1-43.9); Red Blood Count 3.64 M/mm3 (4.6-6.2); White Blood Count 5.4 K/mm3 (4.4-11.0)
[2019-01-22 06:02] LABS: Anion Gap 6 (5-15); BUN 19 mg/dL (7-18); BUN/Creat Ratio 20.6 RATIO (10-20); Calcium,Total 9.4 mg/dL (8.5-10.1); Chloride 109 mmol/L (98-107); Creatinine, Serum 0.92 mg/dL (0.70-1.30); EST Glomerular Filtration Rate 87 mL/min (>60); Est Glom Filt Rate - Afr Amer 105 mL/min (>60); Estimated Creatinine Clearance 79.35 ml/min; Glucose 109 mg/dL (74-106); Potassium 3.6 mmol/L (3.5-5.1); Sodium Level 140 mmol/L (136-145)
--- NOTE | 2019-01-22 09:23 | PN.SURG_ITS ---
Patient Problems: Active and Suspected Problems (Last Reviewed 01/21/19 @ 15:29 by Anna Walker PA-C) Lower GI bleeding (Acute) Psychomotor agitation (Acute) Anticoagulated (Acute) Subjective: Patient evaluated. Per nursing staff patient had a bowel movement overnight, brown liquidy. No blood notable since admission. Hgb stable and has actually increased since admission. - Physical Exam Vitals/I&O's: Vital Signs Temp Pulse Resp BP Pulse Ox 97.2 F L 102 H 18 106/67 94 01/22/19 03:35 01/22/19 03:35 01/22/19 03:35 01/22/19 03:35 01/22/19 03:35 Oxygen Delivery Method Room Air Weight: 232 lb 12.93 oz Body Mass Index (BMI) 33.4 Intake and Output for Last 24 Hours 01/20/19 01/21/19 01/22/19 23:59 23:59 23:59 Intake Total 1720 / 1720 50 / 50 Balance 1720 / 1720 50 / 50 Microbiology Past 72 Hours 01/20/19 22:00 Stool Stool Occult Blood (DENNY) - Final Occult Blood Positive Laboratory Results 01/22/19 05:20: WBC 5.4, RBC 3.64 L, Hgb 11.5 L, Hct 35.8 L, MCV 98.4 H, MCH 31.6, MCHC 32.1, RDW Std Deviation 52.4 H, RDW Coeff of Jenny 14.4, Plt Count 188, MPV 11.0, Immature Gran % (Auto) 0.200, Neut % (Auto) 39.5 L, Lymph % (Auto) 43.6 H, [place] % (Auto) 12.8 H, Eos % (Auto) 3.5, Baso % (Auto) 0.4, Absolute Neuts (auto) 2.1, Absolute Lymphs (auto) 2.35, Nucleated RBC % 0 01/22/19 05:20: Sodium 140, Potassium 3.6, Chloride 109 H, Carbon Dioxide 25.0, Anion Gap 6, BUN 19 H, Creatinine 0.92, Estim Creat Clear Calc 79.35, Est GFR (MDRD) Af Amer 105, Est GFR (MDRD) Non-Af 87, BUN/Creatinine Ratio 20.6 H, Glucose 109 H, Calcium 9.4 Current Medications Chlorhexidine Gluconate (Peridex) 15 ml PO BID [facility] Last Admin: 01/21/19 21:42 Dose: Not Given Documented by: Diltiazem HCl (Cardizem Cd) 180 mg PO DAILY [facility] Last Admin: 01/21/19 11:30 Dose: 180 mg Documented by: Fluoxetine HCl (Prozac) 20 mg PO DAILY [facility] Last Admin: 01/21/19 11:30 Dose: 20 mg Documented by: Fluticasone Propionate (Flonase Nasal [place]) 1 spray NASAL BID [facility] Last Admin: 01/21/19 21:37 Dose: 1 spray Documented by: Loratadine (Claritin) 10 mg PO DAILY [facility] Last Admin: 01/21/19 11:30 Dose: 10 mg Documented by: Metoprolol Tartrate (Lopressor (Beta Lesley)) 75 mg PO BID [facility] Last Admin: 01/21/19 21:37 Dose: 75 mg Documented by: Oxcarbazepine (Trileptal) 600 mg PO QHS [facility] Last Admin: 01/21/19 21:39 Dose: 600 mg Documented by: Oxcarbazepine (Trileptal) 300 mg PO DAILY [facility] Last Admin: 01/21/19 11:30 Dose: 300 mg Documented by: Pantoprazole Sodium (Protonix) 20 mg PO DAILY [facility] Last Admin: 01/21/19 11:30 Dose: 20 mg Documented by: Pravastatin Sodium (Pravachol) 40 mg PO QHS [facility] Last Admin: 01/21/19 21:39 Dose: 40 mg Documented by: Quetiapine Fumarate (Seroquel) 50 mg PO DAILY [facility] Last Admin: 01/21/19 11:30 Dose: 50 mg Documented by: Quetiapine Fumarate (Seroquel) 100 mg PO QHS [facility] Last Admin: 01/21/19 21:38 Dose: 100 mg Documented by: Sodium Chloride () 10 - 40 ml IV UD PRN PRN Reason: SALINE FLUSH Tamsulosin HCl (Flomax) 0.4 mg PO QHS [facility] Last Admin: 01/21/19 21:38 Dose: 0.4 mg Documented by: Medical Necessity - Tobacco Use Smoking Status: Never smoker Assessment/Plan All Active Problems (Last Reviewed 01/21/19 @ 15:29 by Anna Walker PA-C) Lower GI bleeding (Acute) Psychomotor agitation (Acute) Anticoagulated (Acute) Ileus (Acute) Tachycardia (Acute) ARF (acute renal failure) (Resolved) HCAP (healthcare-associated pneumonia) (Resolved) Ileus (Resolved) I have been consulted in conjunction with Dr. Trivedi. Impression: Heme positive stools. No active bleeding noted. Hgb stable Recommend outpatient colonoscopy Continue to hold Eliquis We will continue to monitor this patient Code Visit Inpatient E&M: 89984 Subs Hosp L1
[2019-01-22 09:28] VITALS: BP 115/72; PULSE 104; RESP 18; TEMP 36.6; O2SAT 98
[2019-01-22] MEDS: Fluticasone 0.05% 1 SPRAY NASAL.SRY NASAL (09:31)
[2019-01-22 09:32] VITALS: BP 115/72; PULSE 104
[2019-01-22] MEDS: dilTIAZem CD 180 MG Capsule PO (09:32)
[2019-01-22] MEDS: QUEtiapine 25 MG Tablet 50 MG PO (09:32)
[2019-01-22] MEDS: Metoprolol Tartrate 50 MG Tablet 75 MG PO (09:32)
[2019-01-22] MEDS: OXcarbazepine 300 MG Tablet PO (09:33)
[2019-01-22] MEDS: Loratadine 10 MG Tablet PO (09:33)
[2019-01-22] MEDS: FLUoxetine 20 MG Capsule PO (09:33)
[2019-01-22] MEDS: Pantoprazole Sodium 20 MG Tablet PO (09:33)
--- NOTE | 2019-01-22 10:59 | DCINST_ITS ---
- Discharge Diagnoses Current Active Problems: Current Active and Chronic Problems (Last Reviewed 01/21/19 @ 15:29 by Anna Walker PA-C) Lower GI bleeding (Acute) Psychomotor agitation (Acute) Anticoagulated (Acute) Chronic atrial fibrillation (Chronic) Schizophrenia (Chronic) You will use the following diet at home:: Cardiac Your food should be the consistency of: Regular Discharge Activity: May Not Drive Call your doctor if you observe: Fever of 101 or Higher, Numbness or Tingling, Inability to urinate, Inability to have a bowel movement, Shortness of breath, Dizziness, Fainting spells, Swelling in the ankles, Chest pain, Prolonged hiccoughing, Increased palpitations (irregular heartbeat), Calf discomfort, Uncontrolled pain Additional Instructions: Hold Eliquis until he sees Dr. Trivedi for endoscopy Allergies/Adverse Reactions: Allergies No Known Allergies Allergy (Verified 01/20/19 17:20) Medications to take at Discharge Chlorhexidine Gluconate 1 ea PO BID 01/20/19 Cyanocobalamin (Vitamin B-12) [Vitamin B-12] 100 mcg PO BID 01/20/19 Diltiazem HCl [Cardizem Cd] 180 mg PO DAILY 01/20/19 Emollient Combination No.71 [Lubriderm Advanced Therapy] 2 applic TP DAILY 01/20/19 Fluoxetine [Prozac] 20 mg PO DAILY 01/20/19 Fluticasone 0.05% [Flonase Nasal [place]] 1 spray NASAL BID 01/20/19 Loratadine 10 mg PO DAILY 01/20/19 Metoprolol Tartrate 50 mg PO BID 01/20/19 Oxcarbazepine [Trileptal] 2 tab PO QHS 01/20/19 Oxcarbazepine [Trileptal] 300 mg PO DAILY 01/20/19 Oxybutynin Chloride [Oxybutynin Chloride ER] 10 mg PO DAILY 01/20/19 Pravastatin [Pravachol] 40 mg PO QHS 01/20/19 Psyllium [Metamucil] 1 packet PO DAILY 01/20/19 Quetiapine Fumarate [Seroquel] 50 mg PO DAILY 01/20/19 Quetiapine Fumarate [Seroquel] 100 mg PO QHS 01/20/19 Tamsulosin HCl 0.4 mg PO QHS 01/20/19 Apixaban [Eliquis] 5 mg PO BID #0 01/22/19 Ergocalciferol (Vitamin D2) 50,000 unit PO QWEEK #0 01/22/19 Metoprolol Tartrate [Lopressor (beta kiersten)] 100 mg PO BID #60 tab 01/22/19 Omeprazole [Prilosec] 40 mg PO DAILY #60 cap 01/22/19 The following prescriptions were given: Metoprolol Tartrate [Lopressor (beta kiersten)] 100 mg PO BID #60 tab Transmission Status: Pending to [facility] [id number] Omeprazole [Prilosec] 40 mg PO DAILY #60 cap Transmission Status: Pending to [facility] [id number] Primary Care Physician: Flo Del Cid Chi, MD [Primary Care Provider] - Please follow up with your Primary Care Physician in: in 1 week Test Results: Test results from this visit will be discussed in further detail at your follow- up appointment, if applicable. Please Follow Up With: Sulaiman Trivedi MD When: in 1 week
--- NOTE | 2019-01-22 11:33 | CASEMGMT ---
SUSI called the snf and spoke with Isis. SW let her know patient is being discharged today. She said that is fine and they can pick him up. SUSI told her SW will let her know when everything is ready to go. Zoey SAWYER
--- NOTE | 2019-01-22 12:10 | CASEMGMT ---
Addendum entered by Vika Adam 01/22/19 13:58: Pt's guardian called this SW back. SW let him know that pt became agitated when told he was going to be discharged today, and is now being assessed by crisis for possible psych placement. Bishnu states understanding. NEISHA Gutierres Original Note: Pt is discharged today back to the skilled nursing. SW notified the skilled nursing, spoek w/Fiorella ,they were to be here in 20 minutes. SUSI called pt's guardian Bishnu Lyle and let him know pt can return to the skilled nursing today, put him on the phone w/Dr. Webber. However, pt has become agitated and now needs to be seen by crisis. The skilled nursing staff is here and aware, and SUSI Dhillon called crisis to come evaluate the pt. SUSI called pt's guardian Bishnu Alvarenga back and left him a message to call this SW back. SUSI will continue to follow. NEISHA Gutierres
[2019-01-22 12:14] VITALS: BP 130/56; PULSE 110; RESP 18; TEMP 36.6; O2SAT 97
[2019-01-22] MEDS: hydrOXYzine 50 MG/ML Vial IM (12:32)
[2019-01-22 12:43] VITALS: BP 130/56; PULSE 110
[2019-01-22] MEDS: Ziprasidone IM 20 MG/ML VIAL IM (13:05)
--- NOTE | 2019-01-22 14:00 | NURSING ---
Pt became very agitated upon this RN telling the pt he would be going home. Dr. Webber aware and ordered IM Vistaril. Pt continued to become agitated and yelling and swinging arms. BRENDA Stephens then given about 30 minutes after Vistaril with the help of multiple RNs on the floor-David Manriquez Z. Beam
--- NOTE | 2019-01-22 16:34 | PCM.PN.HOSP ---
Patient Problems: Active and Suspected Problems (Last Reviewed 01/21/19 @ 15:29 by Anna Walker PA-C) Lower GI bleeding (Acute) Psychomotor agitation (Acute) Anticoagulated (Acute) Reason for Visit: Rectal bleed. Objective: Patient did not have any fever or chills. Patient heart rate also controlled. Has chronic A. fib. Patient got agitated, restless, and abusing very hard that he is going to be discharged. Mental crisis team was called Vitals/I&O's: Vital Signs Temp Pulse Resp BP Pulse Ox 97.8 F 110 H 18 130/56 H 97 01/22/19 12:14 01/22/19 12:43 01/22/19 12:14 01/22/19 12:43 01/22/19 12:14 Oxygen Delivery Method Room Air Weight: 232 lb 12.93 oz Body Mass Index (BMI) 33.4 Intake and Output for Last 24 Hours 01/20/19 01/21/19 01/22/19 23:59 23:59 23:59 Intake Total 1720 / 1720 250 / 250 Balance 1720 / 1720 250 / 250 General: Confused, Disoriented, - - Aggressive and agitated HEENT: Atraumatic, PERRLA, EOMI, Normocephalic Oral: No Gingival or Mucosal Lesions/ Ulcerations Neck: Supple, No JVD, Negative Carotid Bruits Lungs: Clear to auscultation, No rhonchi, No wheeze, No rales, Diminished Cardiovascular: Normal S1, Normal S2, No murmurs, Irregular Rate Abdomen: Bowel Sounds Present, Soft, Non Tender, Non-Distended Extremities: Edema Musculoskeletal: Arthritic Changes Neurological: - - Detail neuro exam unobtainable as patient is agitated and aggressive Psych/Mental Status: Agitated, Hallucinations, Irrational Behavior, Restless Microbiology Past 72 Hours 01/20/19 22:00 Stool Stool Occult Blood (DENNY) - Final Occult Blood Positive Laboratory Results 01/22/19 05:20: WBC 5.4, RBC 3.64 L, Hgb 11.5 L, Hct 35.8 L, MCV 98.4 H, MCH 31.6, MCHC 32.1, RDW Std Deviation 52.4 H, RDW Coeff of Jenny 14.4, Plt Count 188, MPV 11.0, Immature Gran % (Auto) 0.200, Neut % (Auto) 39.5 L, Lymph % (Auto) 43.6 H, [place] % (Auto) 12.8 H, Eos % (Auto) 3.5, Baso % (Auto) 0.4, Absolute Neuts (auto) 2.1, Absolute Lymphs (auto) 2.35, Nucleated RBC % 0 01/22/19 05:20: Sodium 140, Potassium 3.6, Chloride 109 H, Carbon Dioxide 25.0, Anion Gap 6, BUN 19 H, Creatinine 0.92, Estim Creat Clear Calc 79.35, Est GFR (MDRD) Af Amer 105, Est GFR (MDRD) Non-Af 87, BUN/Creatinine Ratio 20.6 H, Glucose 109 H, Calcium 9.4 Current Medications Chlorhexidine Gluconate (Peridex) 15 ml PO BID [facility] Last Admin: 01/22/19 09:34 Dose: Not Given Documented by: Diltiazem HCl (Cardizem Cd) 180 mg PO DAILY [facility] Last Admin: 01/22/19 09:32 Dose: 180 mg Documented by: Fluoxetine HCl (Prozac) 20 mg PO DAILY [facility] Last Admin: 01/22/19 09:33 Dose: 20 mg Documented by: Fluticasone Propionate (Flonase Nasal [place]) 1 spray NASAL BID [facility] Last Admin: 01/22/19 09:31 Dose: 1 spray Documented by: Hydroxyzine Pamoate (Vistaril Pamoate Capsule) 25 mg PO 4X/DAY PRN PRN PRN Reason: ANXIETY Loratadine (Claritin) 10 mg PO DAILY [facility] Last Admin: 01/22/19 09:33 Dose: 10 mg Documented by: Metoprolol Tartrate (Lopressor (Beta Lesley)) 100 mg PO BID [facility] Oxcarbazepine (Trileptal) 600 mg PO QHS [facility] Last Admin: 01/21/19 21:39 Dose: 600 mg Documented by: Oxcarbazepine (Trileptal) 300 mg PO DAILY [facility] Last Admin: 01/22/19 09:33 Dose: 300 mg Documented by: Pantoprazole Sodium (Protonix) 20 mg PO DAILY [facility] Last Admin: 01/22/19 09:33 Dose: 20 mg Documented by: Pravastatin Sodium (Pravachol) 40 mg PO QHS [facility] Last Admin: 01/21/19 21:39 Dose: 40 mg Documented by: Quetiapine Fumarate (Seroquel) 50 mg PO DAILY [facility] Last Admin: 01/22/19 09:32 Dose: 50 mg Documented by: Quetiapine Fumarate (Seroquel) 100 mg PO QHS [facility] Last Admin: 01/21/19 21:38 Dose: 100 mg Documented by: Sodium Chloride () 10 - 40 ml IV UD PRN PRN Reason: SALINE FLUSH Tamsulosin HCl (Flomax) 0.4 mg PO QHS [facility] Last Admin: 01/21/19 21:38 Dose: 0.4 mg Documented by: Ziprasidone (Geodon Im) 20 mg IM X1 PRN PRN Reason: agitation Last Admin: 01/22/19 13:05 Dose: 20 mg Documented by: STROKE Vital Signs/Narrative: Vital Signs Pulse BP 01/22/19 12:43 110 H 130/56 H Medical Necessity - Tobacco Use Smoking Status: Never smoker Assessment/Plan All Active Problems (Last Reviewed 01/21/19 @ 15:29 by Anna Walker PA-C) Lower GI bleeding (Acute) Psychomotor agitation (Acute) Anticoagulated (Acute) Ileus (Acute) Tachycardia (Acute) ARF (acute renal failure) (Resolved) HCAP (healthcare-associated pneumonia) (Resolved) Ileus (Resolved) 61-year-old gentleman with history of schizophrenia, intermittent restlessness, disorientation and agitation was admitted with lower GI bleed. 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 1. Lower GI bleed Patient seen by surgeon. Started on clear liquid. EGD/colonoscopy as an outpatient. Eliquis is on hold. On Protonix. 01/22: General surgery signed off. Advised outpatient follow-up for EGD colonoscopy. H&H is stable. No further rectal bleed since admission. 2. Schizophrenia with behavioral health problems with intermittent restlessness and agitation with cognitive deficit: Continue antipsychotic medications Trileptal, Seroquel and Prozac. 01/22: Patient is on antipsychotic medications. 3. Psychotic symptoms of hallucinations, delusions and behavior and behavioral change, etiology unclear: Patient was given extra dose of hydroxyzine 50 mg IM. He was still agitated and therefore given Geodon 20 mg IM 1 dose. [facility] mental health was called. [place] slip signed. Patient is probably to be transferred to inpatient psych for further evaluation and management. U tox negative. Ethyl alcohol negative. 2. Sinus Tachycardia with PVCs A flutter, hypertension, dyslipidemia Metoprolol dose increased to 100 mg twice daily. I think sinus tachycardia is mainly secondary to agitation -Eliquis on hold. On pravastatin. He is on Eliquis which we will hold. Blood pressure normotensive. DVT: SCDs Code Visit Inpatient E&M: 57994 Subs Hosp L3
--- NOTE | 2019-01-22 17:00 | DS.PCM_ITS ---
Discharge Date and Diagnosis - Problem List Patient Problems: Active and Suspected Problems (Last Reviewed 01/21/19 @ 15:29 by Anna Walker PA-C) Lower GI bleeding (Acute) Psychomotor agitation (Acute) Anticoagulated (Acute) Date of Admission: 01/21/19 Date of Discharge: 01/22/19 - Primary Discharge Diagnosis Active and Suspected Problems (Last Reviewed 01/21/19 @ 15:29 by Anna Walker PA-C) Lower GI bleeding (Acute) Psychomotor agitation (Acute) Anticoagulated (Acute) - Secondary Discharge Diagnosis Chronic Problems (Last Reviewed 01/21/19 @ 15:29 by Anna Walker PA-C) Chronic atrial fibrillation (Chronic) Atrial flutter (Chronic) Vitamin D deficiency (Chronic) Vitamin B12 deficiency (Chronic) Hyperlipidemia (Chronic) GERD (gastroesophageal reflux disease) (Chronic) BPH (benign prostatic hyperplasia) (Chronic) Seizure disorder (Chronic) Schizophrenia (Chronic) Hospital Course and Treatment Operations: None Summary of Care Provided: The patient is a 69 -year-old gentleman with history of schizophrenia, intermittent restlessness, disorientation and agitation was admitted with lower GI bleed. 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 1. Lower GI bleed Patient seen by surgeon. Started on clear liquid. EGD/colonoscopy as an outpatient. Eliquis is on hold. On Protonix. 01/22: General surgery signed off. Advised outpatient follow-up for EGD colonoscopy. H&H is stable. No further rectal bleed since admission. Follow with Dr. Trivedi in 1 week. Patient is discharged off Eliquis. 2. Schizophrenia with behavioral health problems with intermittent restlessness and agitation with cognitive deficit: Continue antipsychotic medications Trileptal, Seroquel and Prozac. 01/22: Patient is on antipsychotic medications. 3. Psychotic symptoms of hallucinations, delusions and behavior and behavioral change, etiology unclear: Patient was given extra dose of hydroxyzine 50 mg IM. He was still agitated and therefore given Geodon 20 mg IM 1 dose. Crisis mental health was called. [place] slip signed. Patient is probably to be transferred to inpatient psych for further evaluation and management. U tox negative. Ethyl alcohol negative. 2. Sinus Tachycardia with PVCs A flutter, hypertension, dyslipidemia Metoprolol dose increased to 100 mg twice daily. I think sinus tachycardia is mainly secondary to agitation -Eliquis on hold. On pravastatin. Eliquis on hold Blood pressure normotensive. DVT: SCDs Discharge medication reconciliation done. Discharge follow-up instructions completed. Discharge process discussed with the patient and all questions were answered to patient's satisfaction. Patient is being discharged to inpatient psych facility. Transfer papers signed. Ativan 1 mg IV every 6 hourly as needed as needed for severe agitation ordered. Patient had Geodon and hydroxyzine IM during noontime. Discussed with the mental health crisis nurse. Total time spent, exact 35 minutes on discharge meds reconciliation, examination, review of imaging and blood test and discussion with the patient on follow-up instructions. Patient Problems: Active and Suspected Problems (Last Reviewed 01/21/19 @ 15:29 by Anna Walker PA-C) Lower GI bleeding (Acute) Psychomotor agitation (Acute) Anticoagulated (Acute) Subjective: Please see progress note of today. - Physical Exam Vitals/I&O's: Vital Signs Temp Pulse Resp BP Pulse Ox 97.8 F 104 H 18 115/72 98 01/22/19 09:28 01/22/19 09:32 01/22/19 09:28 01/22/19 09:32 01/22/19 09:28 Oxygen Delivery Method Room Air Weight: 232 lb 12.93 oz Body Mass Index (BMI) 33.4 Intake and Output for Last 24 Hours 01/20/19 01/21/19 01/22/19 23:59 23:59 23:59 Intake Total 1720 / 1720 50 / 50 Balance 1720 / 1720 50 / 50 Microbiology Past 72 Hours 01/20/19 22:00 Stool Stool Occult Blood (DENNY) - Final Occult Blood Positive Laboratory Results 01/22/19 05:20: WBC 5.4, RBC 3.64 L, Hgb 11.5 L, Hct 35.8 L, MCV 98.4 H, MCH 31.6, MCHC 32.1, RDW Std Deviation 52.4 H, RDW Coeff of Jenny 14.4, Plt Count 188, MPV 11.0, Immature Gran % (Auto) 0.200, Neut % (Auto) 39.5 L, Lymph % (Auto) 43.6 H, [place] % (Auto) 12.8 H, Eos % (Auto) 3.5, Baso % (Auto) 0.4, Absolute Neuts (auto) 2.1, Absolute Lymphs (auto) 2.35, Nucleated RBC % 0 01/22/19 05:20: Sodium 140, Potassium 3.6, Chloride 109 H, Carbon Dioxide 25.0, Anion Gap 6, BUN 19 H, Creatinine 0.92, Estim Creat Clear Calc 79.35, Est GFR (MDRD) Af Amer 105, Est GFR (MDRD) Non-Af 87, BUN/Creatinine Ratio 20.6 H, Glucose 109 H, Calcium 9.4 Current Medications Chlorhexidine Gluconate (Peridex) 15 ml PO BID [facility] Last Admin: 01/22/19 09:34 Dose: Not Given Documented by: Diltiazem HCl (Cardizem Cd) 180 mg PO DAILY [facility] Last Admin: 01/22/19 09:32 Dose: 180 mg Documented by: Fluoxetine HCl (Prozac) 20 mg PO DAILY [facility] Last Admin: 01/22/19 09:33 Dose: 20 mg Documented by: Fluticasone Propionate (Flonase Nasal [place]) 1 spray NASAL BID [facility] Last Admin: 01/22/19 09:31 Dose: 1 spray Documented by: Hydroxyzine Pamoate (Vistaril Pamoate Capsule) 25 mg PO 4X/DAY PRN PRN PRN Reason: ANXIETY Loratadine (Claritin) 10 mg PO DAILY [facility] Last Admin: 01/22/19 09:33 Dose: 10 mg Documented by: Metoprolol Tartrate (Lopressor (Beta Lesley)) 100 mg PO BID [facility] Oxcarbazepine (Trileptal) 600 mg PO QHS [facility] Last Admin: 01/21/19 21:39 Dose: 600 mg Documented by: Oxcarbazepine (Trileptal) 300 mg PO DAILY [facility] Last Admin: 01/22/19 09:33 Dose: 300 mg Documented by: Pantoprazole Sodium (Protonix) 20 mg PO DAILY [facility] Last Admin: 01/22/19 09:33 Dose: 20 mg Documented by: Pravastatin Sodium (Pravachol) 40 mg PO QHS [facility] Last Admin: 01/21/19 21:39 Dose: 40 mg Documented by: Quetiapine Fumarate (Seroquel) 50 mg PO DAILY [facility] Last Admin: 01/22/19 09:32 Dose: 50 mg Documented by: Quetiapine Fumarate (Seroquel) 100 mg PO QHS [facility] Last Admin: 12/04/19 21:38 Dose: 100 mg Documented by: Sodium Chloride () 10 - 40 ml IV UD PRN PRN Reason: SALINE FLUSH Tamsulosin HCl (Flomax) 0.4 mg PO QHS [facility] Last Admin: 01/21/19 21:38 Dose: 0.4 mg Documented by: Discharge Activity: May Not Drive Call your doctor if you observe: Fever of 101 or Higher, Numbness or Tingling, Inability to urinate, Inability to have a bowel movement, Shortness of breath, Dizziness, Fainting spells, Swelling in the ankles, Chest pain, Prolonged hiccoughing, Increased palpitations (irregular heartbeat), Calf discomfort, Uncontrolled pain Home Medications: Medications to take at Discharge Chlorhexidine Gluconate 1 ea PO BID 01/20/19 Cyanocobalamin (Vitamin B-12) [Vitamin B-12] 100 mcg PO BID 01/20/19 Diltiazem HCl [Cardizem Cd] 180 mg PO DAILY 01/20/19 Emollient Combination No.71 [Lubriderm Advanced Therapy] 2 applic TP DAILY 01/20/19 Fluoxetine [Prozac] 20 mg PO DAILY 01/20/19 Fluticasone 0.05% [Flonase Nasal [place]] 1 spray NASAL BID 01/20/19 Loratadine 10 mg PO DAILY 01/20/19 Metoprolol Tartrate 50 mg PO BID 01/20/19 Oxcarbazepine [Trileptal] 2 tab PO QHS 01/20/19 Oxcarbazepine [Trileptal] 300 mg PO DAILY 01/20/19 Oxybutynin Chloride [Oxybutynin Chloride ER] 10 mg PO DAILY 01/20/19 Pravastatin [Pravachol] 40 mg PO QHS 01/20/19 Psyllium [Metamucil] 1 packet PO DAILY 01/20/19 Quetiapine Fumarate [Seroquel] 50 mg PO DAILY 01/20/19 Quetiapine Fumarate [Seroquel] 100 mg PO QHS 01/20/19 Tamsulosin HCl 0.4 mg PO QHS 01/20/19 Apixaban [Eliquis] 5 mg PO BID #0 01/22/19 Ergocalciferol (Vitamin D2) 50,000 unit PO QWEEK #0 01/22/19 Metoprolol Tartrate [Lopressor (beta lesley)] 100 mg PO BID #60 tab 01/22/19 Omeprazole [Prilosec] 40 mg PO DAILY #60 cap 01/22/19 Following Prescrptions Were Given to Patient: Metoprolol Tartrate [Lopressor (beta lesley)] 100 mg PO BID #60 tab Transmission Status: Received by [place] [id number] Omeprazole [Prilosec] 40 mg PO DAILY #60 cap Transmission Status: Received by [facility] [address] Primary Care Physician: Flo Del Cid Chi, MD [Primary Care Provider] - Please follow up with your Primary Care Physician in: in 1 week Please Follow Up With: Sulaiman Trivedi MD When: in 1 week Medical Necessity - Tobacco Use Smoking Status: Never smoker Meaningful Use Info Meaningful Use Diagnoses (Choose all that apply): None applicable Code Visit Please cancel the charge for progress note of 2018 Inpatient E&M: 77806 Disch Hosp
--- NOTE | 2019-01-22 17:27 | NURSING ---
This RN called and gave report to AUDELIA Ruiz at [facility]
[2019-01-22 18:23] VITALS: BP 115/80; PULSE 101; RESP 18; TEMP 36.6; O2SAT 96
[2019-01-22] MEDS: LORazepam 2 MG/ML Syringe 1 MG IV (18:41)
[2019-01-22] MEDS: 0.9% Saline Lock 10 ML Syringe IV (18:42)
== END 2019-01-22 20:55 | DRG 378 ==
LOC: ED 01-21 00:42 → PCU 01-21 01:11
PROVIDERS: Admitting Provider Family Medicine; Emergency Provider Emergency Medicine; Family Provider Family Medicine Geriatric Medicine; PCP Family Medicine Geriatric Medicine; Visit Provider Internal Medicine
DX: K92.2 Gastrointestinal hemorrhage, unspecified (principal); I48.92 Unspecified atrial flutter; I48.20 Chronic atrial fibrillation, unspecified; R44.3 Hallucinations, unspecified; F20.9 Schizophrenia, unspecified; Z79.01 Long term (current) use of anticoagulants; I10 Essential (primary) hypertension; E78.5 Hyperlipidemia, unspecified; R45.1 Restlessness and agitation; K21.9 Gastro-esophageal reflux disease without esophagitis; E53.8 Deficiency of other specified B group vitamins; E55.9 Vitamin D deficiency, unspecified; N40.0 Benign prostatic hyperplasia without lower urinary tract symptoms; G40.909 Epilepsy, unspecified, not intractable, without status epilepticus
CPT/HCPCS: 36415; 71045; 80048; 80307; 80320; 81001; 82274; 85025; 86850; 86900; 86901; 93005; 97802; 99285; A4216; G0480; J3486

== ENCOUNTER 2019-03-25 09:05 | Outpatient (RCR) | payer MEDICARE, MEDICAID, SELFPAY ==
[2019-01-21 01:59] VITALS: BMI 33.4
[2019-03-25 10:08] LABS: Absolute Lymphocyte Count 1.61 X10^3/uL (0.83-4.51); Absolute Neutrophil Count 2.8 X10^3/uL (2.0-7.7); Basophil# 0.03 X10^3/uL; Basophil% 0.6 % (0-1); Eosinophil# 0.49 X10^3/uL; Eosinophils% 9.1 % (0-5); Hemoglobin 10.6 g/dL (13.0-16.5); Lymphocyte # 1.61 X10^3/ul (4.0); Mean Corp Hgb Conc 30.3 g/dL (32-36); Mean Corpuscular Hgb 29.4 pg (27.0-32.0); Mean Platelet Vol. 10.8 fl (6.2-12.0); Monocyte# 0.41 X10^3/uL; Monocyte% 7.6 % (0-10); NRBC Flagged by Analyzer 0 % (0-5); Neutrophil # 2.78 X10^3/uL (2.7-7.7); Platelet Count 236 K/mm3 (150-450); RBC Distribution Width SD 49.5 fl (35.1-43.9); Red Blood Count 3.61 M/mm3 (4.6-6.2); White Blood Count 5.4 K/mm3 (4.4-11.0)
== END 2019-03-25 18:00 | disposition home or self-care (01) ==
LOC: MTLAB 09:05
PROVIDERS: PCP Family Medicine Geriatric Medicine
DX: Z79.899 Other long term (current) drug therapy (principal)
CPT/HCPCS: 36415; 85025

== ENCOUNTER 2019-03-26 13:02 | Inpatient (IN) | payer MEDICARE, BC, MEDICAID, SELFPAY ==
[2019-01-21 01:59] VITALS: BMI 33.4
[2019-03-26] VITALS (11 sets, daily range): BP systolic 80–119; BP diastolic 41–86; PULSE 77–105; RESP 16–18; TEMP 36.3–36.6; O2SAT 93–98; BMI 35.6; BMI 34.9
--- NOTE | 2019-03-26 13:52 | RAD_ITS ---
STUDY: X-RAY CHEST REASON FOR EXAM: Male, 69 years old. GENERAL ILLNESS. HX OF AFIB AND TACHYCARDIA TECHNIQUE: Single AP portable view of the chest. COMPARISON: Comparison is made with prior examination dated October 21, 2018 and January 10, 2019. FINDINGS: Stable elevation of the right hemidiaphragm The lungs are clear and expanded. There is no demonstrated pleural abnormality. There is moderate cardiac enlargement. Normal mediastinum and leticia. Normal visualized pulmonary arteries. Normal visualized aortic arch and descending thoracic aorta. There are diffuse degenerative changes of the visualized thoracic spine. Normal visualized ribs, clavicles, and shoulders. There is no demonstrated abnormality of the visualized soft tissue structures of the upper abdomen. RAD/Chest 1 View (Portable) IMPRESSION: Cardiomegaly. Electronically Signed: Gerber Nascimento, at 14:40 EST , Service support ,
--- NOTE | 2019-03-26 13:52 | EKG12_ITS ---
Test Reason : Blood Pressure : / mmHG Vent. Rate : 080 BPM Atrial Rate : 080 BPM P-R Int : 212 ms QRS Dur : 138 ms QT Int : 460 ms P-R-T Axes : 079 032 019 degrees QTc Int : 530 ms Atrial fibrillation Right bundle branch block Abnormal ECG Confirmed by CALLY FATIMA, HELENE ([id number]), multimedia editor EMILY CROWELL ([id number]) on 03/30/2019 10:15:48 AM Referred By: MARNIE Confirmed By:DEISI ALAMO MD
[2019-03-26] MEDS: 0.9% Normal Saline 1,000 ML 1000 ML IV (14:10)
[2019-03-26 14:28] LABS: Absolute Lymphocyte Count 1.52 X10^3/uL (0.83-4.51); Absolute Neutrophil Count 3.9 X10^3/uL (2.0-7.7); Basophil# 0.04 X10^3/uL; Basophil% 0.6 % (0-1); Eosinophils% 6.4 % (0-5); Hematocrit 35.1 % (40-54); Hemoglobin 10.6 g/dL (13.0-16.5); Lymphocyte # 1.52 X10^3/ul (4.0); Lymphocyte % 24.3 % (19-41); Mean Corp Hgb Conc 30.2 g/dL (32-36); Mean Corpuscular Hgb 29.6 pg (27.0-32.0); Mean Platelet Vol. 10.6 fl (6.2-12.0); Monocyte# 0.41 X10^3/uL; Monocyte% 6.5 % (0-10); NRBC Flagged by Analyzer 0 % (0-5); Neutrophil # 3.86 X10^3/uL (2.7-7.7); Neutrophil % 61.7 % (47-70); Platelet Count 234 K/mm3 (150-450); RBC Distribution Width SD 50.4 fl (35.1-43.9); Red Blood Count 3.58 M/mm3 (4.6-6.2); White Blood Count 6.3 K/mm3 (4.4-11.0)
[2019-03-26 14:47] LABS: Lactic Acid 1.6 mmol/L (0.4-1.9)
--- NOTE | 2019-03-26 14:48 | ED.RN ---
[facility] ([employer] [phone]. CALL IF PT IS DISCHARGED BACK TO CARE FACILITY. RN AWARE. Ilda EDWARD RN
[2019-03-26 14:49] LABS: Anion Gap 4 (5-15); BUN 24 mg/dL (7-18); BUN/Creat Ratio 21.6 RATIO (10-20); Calcium,Total 9.6 mg/dL (8.5-10.1); Chloride 109 mmol/L (98-107); Creatinine, Serum 1.11 mg/dL (0.70-1.30); EST Glomerular Filtration Rate 70 mL/min (>60); Est Glom Filt Rate - Afr Amer 85 mL/min (>60); Estimated Creatinine Clearance 65.77 ml/min; Glucose 121 mg/dL (74-106); Potassium 4.3 mmol/L (3.5-5.1); Sodium Level 141 mmol/L (136-145)
[2019-03-26 15:13] LABS: Bacteria 0 SEEN /hpf (None Seen); Mucous, Urine 0 SEEN /hpf (<or=2+)
[2019-03-26 15:21] LABS: Color, Urine Yellow (Yellow); Glucose, Dipstick Normal (Normal); Ketone-Dipstick Negative (Negative); Leukocyte Esterase-Dipstick 25 /ul (Negative); Nitrite-Dipstick Negative (Negative); Occult Blood-Urine 10 /ul (Negative); Protein-Dipstick 15 mg/dl (Negative); Urine Bilirubin Dipstick 1 mg/dL (Negative); Urine Clarity Sl. Cloudy (Clear); Urine Urobilinogen 1 mg/dl (Normal)
[2019-03-26] MEDS: 0.9% Normal Saline 1,000 ML 999 ML IV (15:46)
--- NOTE | 2019-03-26 16:10 | ED.DCSUM_ITS ---
History of Present Illness Chief Complaint: General Illness Narrative: Patient presenting secondary to a reported general illness. Patient has a underlying history of schizophrenia and MR, lives in a detention so history is limited. History from EMS and the detention is however that the patient was having generalized illness and some decreased ability to ambulate today. He apparently had moderately low blood pressures. Patient was recently treated for a GI bleed associated with his anticoagulation for his chronic atrial fibrillation. Patient denies to me a full review of systems including illness nausea vomiting diarrhea heme in his stool abdominal pain dysuria numbness or weakness. He simply tells me he just did not feel like walking. Past Medical History - Allergies and Home Meds Allergies/Adverse Reactions: Allergies No Known Allergies Allergy (Verified 03/26/19 13:06) Primary Care Physician: Flo Del Cid Chi, MD [Primary Care Provider] - Past Medical History: - - Lower GI bleed, A. fib, hyperlipidemia, GERD, schizophrenia, developmental delay Surgical History: - - Unable to obtain no scars/incisions on the abdomen Smoking Status: Never smoker - Family History Maternal Family History: Reports: Unknown - Unable to obtain history from the patient Paternal Family History: Reports: Unknown Review of Systems ROS: Unable to Obtain Physical Exam Vital Signs/Narrative: Vital Signs Temp Pulse Resp BP Pulse Ox 03/26/19 16:00 79 16 95/76 03/26/19 15:24 77 18 101/65 97 03/26/19 15:15 78 18 93/65 03/26/19 14:13 86/50 L 03/26/19 13:15 78 16 97/67 97 03/26/19 13:03 97.8 F 105 H 16 106/65 97 Inital Vital Signs reviewed: Yes General: Well nourished, Well developed, No Acute Distress Head: Normocephalic, Atraumatic Eyes: Perrl, EOMI ENT: Moist mucous membranes, No rhinorrhea Neck: Supple, Nontender Cardiovascular: Regular rhythm, Irregular Respiratory: No distress, CTA bilaterally, Chest nontender Abdomen: Soft, Nontender, Nondistended, Normal bowel sounds Back: Nontender, Normal Inspection Extremities: Nontender, No edema Skin: Normal color, No rash Neurological: Alert, Oriented x3, Cranial nerves II-XII grossly intact, Normal Strength, Normal Sensation Psychological: Normal affect, Normal Mood Diagnostic/Tx/Re-eval Chest X-Ray - ED: Read by ED Physician, Read by Radiologist, Cardiomegaly - EKG Initial EKG Interpretation: - - Atrial fibrillation with a ventricular rate of 80, isoelectric ST segments normal T waves. - Medical Decision Making Patient presenting for evaluation secondary to a generalized illness. He was found to have some soft blood pressures in the department he was given a fluid bolus. CBC shows chronic anemia with a hemoglobin of 10. Chemistry unremarkable. Lactic acid found to be negative. Shows the patient's atrial fibrillation urinalysis was found to be negative. I reviewed the patient's echo which did not show significant evidence of significant systolic heart failure. Patient even after fluid resuscitation and food continues to have hypotension most recent blood pressure was 88/57 with a normal lactic and no acidosis or any abnormal lab studies. He does not have any active bleeding. I do not however feel that he is appropriate for discharge at this point. Patient will be admitted under the hospitalist for further observation and treatment. ED Disposition - Plan for ED Patient: Disposition: [facility] Diagnosis: Hypotension, Weakness
[2019-03-26 16:24] LABS: Red Blood Cells-Urine 0-5 SEEN /hpf (0-5); Squamous Epithelial Cells - UA 0-5 SEEN /hpf (0-5); White Blood Cells 0-5 SEEN /hpf (0-5)
--- NOTE | 2019-03-26 16:52 | HP.PCM_ITS ---
<Ming Guardado - Last Filed: 03/26/19 17:02> Problem List (1) Hypotension Status: Acute (2) Chronic atrial fibrillation Status: Chronic (3) Hyperlipidemia Status: Chronic (4) GERD (gastroesophageal reflux disease) Status: Chronic (5) BPH (benign prostatic hyperplasia) Status: Chronic (6) Seizure disorder Status: Chronic (7) Schizophrenia Status: Chronic Qualifiers: Schizophrenia type: unspecified Qualified Code(s): F20.9 - Schizophrenia, unspecified History of Present Illness Date of Admission: 03/26/19 Chief Complaint: hypotension The patient is a 69 year old M with MRDD, schizophrenia, resident of senior care, chronic Afib, recent GI bleed on eliquis, BPH, seizures, GERD, HLD, who presented to the ER from the senior care for low blood pressure. He appears comfortable and has no complaints. He denies LH/dizziness/SOB/CP/pressure/tightness/edema. He is on several blood pressure meds however someone else manages these for him and he is not responsible for taking them himself. In the ER he has asked for food and drink, and has been eating, drinking, and receiving fluids, however his pressures are still low. He denies any issues eating or drinking at the senior care. [] Past Medical History Past Medical History (Chronic Problems): Chronic Problems (Last Reviewed 02/16/19 @ 17:17 by Raven Hernández) Chronic atrial fibrillation (Chronic) Atrial flutter (Chronic) Vitamin D deficiency (Chronic) Vitamin B12 deficiency (Chronic) Hyperlipidemia (Chronic) GERD (gastroesophageal reflux disease) (Chronic) BPH (benign prostatic hyperplasia) (Chronic) Seizure disorder (Chronic) Schizophrenia (Chronic) Medical History: Medical History (Last Reviewed 02/16/19 @ 17:17 by Raven Hernández) Ileus (Acute) K56.7 Atrial flutter (Chronic) I48.92 Hyperlipidemia (Chronic) E78.5 GERD (gastroesophageal reflux disease) (Chronic) K21.9 BPH (benign prostatic hyperplasia) (Chronic) N40.0 Tachycardia (Acute) R00.0 Seizure disorder (Chronic) G40.909 Schizophrenia (Chronic) F20.9 Allergies No Known Allergies Allergy (Verified 03/26/19 13:06) Home Medications: Ambulatory Orders Medication Instructions Recorded Chlorhexidine Gluconate 1 ea PO BID 01/20/19 Cyanocobalamin (Vitamin B-12) 100 mcg PO BID 01/20/19 [Vitamin B-12] Emollient Combination No.71 2 applic TP DAILY 01/20/19 [Lubriderm Advanced Therapy] Fluticasone 0.05% [Flonase Nasal 1 spray NASAL DAILY 01/20/19 [place]] Metoprolol Tartrate 50 mg PO BID 01/20/19 Oxcarbazepine [Trileptal] 600 mg PO BID 01/20/19 Pravastatin [Pravachol] 40 mg PO QHS 01/20/19 Psyllium [Metamucil] 1 packet PO DAILY 01/20/19 Tamsulosin HCl 0.4 mg PO QHS 01/20/19 Apixaban [Eliquis] 5 mg PO BID 03/26/19 Clozapine 50 mg PO BID 03/26/19 Clozapine 300 mg PO QHS 03/26/19 Diltiazem HCl [Diltiazem 24Hr Cd] 120 mg PO DAILY 03/26/19 Docusate Sodium [Colace] 100 mg PO DAILY 03/26/19 Ergocalciferol (Vitamin D2) 50,000 unit PO MO 03/26/19 [Vitamin D2] Fluoxetine HCl 40 mg PO DAILY 03/26/19 Meloxicam 7.5 mg PO DAILY 03/26/19 Oxybutynin Chloride [Oxybutynin 10 mg PO DAILY 03/26/19 Chloride ER] Pantoprazole Sodium [Protonix] 40 mg PO DAILY 03/26/19 Polyethylene Glycol 3350 [Miralax] 17 gm PO DAILY 03/26/19 Sennosides/Docusate Sodium [Senna 1 tab PO DAILY 03/26/19 Plus 8.6-50 mg Tablet] Surgical History: no surgical history Psychiatric History: Schizophrenia Lives: - - senior care Smoking Status: Never smoker Tobacco Use: Non-smoker Alcohol: None Drugs: None - *Family History Maternal History Items: Unknown - Unable to obtain history from the patient Paternal History Items: Unknown Review of Systems Constitutional: Denies: Chills, Fever, Weight Change HEENT: Denies: Head Aches, Sinus Congestion, Sinus Drainage Cardiovascular: Denies: Chest Pain, Palpitations Respiratory: Denies: Cough, Shortness of breath at rest, Sputum production Gastrointestinal: Denies: Abdominal Pain, Nausea, Vomiting Genitourinary: Denies: Dysuria Musculoskeletal: Denies: Joint Pain, Joint Tenderness Skin: Denies: Rash, Wounds Neurological: Denies: Numbness, Tingling, Focal weakness Psychiatric: Denies: Anxiety, Depression, Homicidal Ideations, Suicidal Ideations Hematologic/ Lymphatic: Denies: Easy Bruising, Easy Bleeding VTE Information - Inpt Only VTE Present on Admission: No VTE Mechan Device Prophylaxis: SCD's VTE Pharm Prophylaxis ordered?: No Patient Problems: Active and Suspected Problems (Last Reviewed 02/16/19 @ 17:17 by Raven Hernández) Hypotension (Acute) Weakness (Acute) Hypotension (Acute) - Physical Exam Vitals/I&O's: Vital Signs Temp Pulse Resp BP Pulse Ox 97.8 F 89 18 88/57 L 97 03/26/19 13:03 03/26/19 16:37 03/26/19 16:37 03/26/19 16:37 03/26/19 15:24 Oxygen Delivery Method Room Air Weight: 248 lb 3.848 oz Body Mass Index (BMI) 35.6 Intake and Output for Last 24 Hours 03/24/19 03/25/19 03/26/19 23:59 23:59 23:59 Intake Total 1000 / 1000 Balance 1000 / 1000 General: Alert, Oriented x3, Cooperative HEENT: Atraumatic, PERRLA, EOMI, Normocephalic Neck: Supple, No JVD, Negative Carotid Bruits Lungs: Clear to auscultation, Normal air movement Cardiovascular: No murmurs, Irregular Rate Abdomen: Bowel Sounds Present, Soft, Non Tender Extremities: No edema, Capillary Refill Less than 3 Seconds Skin: No rashes, No breakdown Musculoskeletal: No Tenderness to Palpation of Joints or Extremities Neurological: Cranial nerves II-XII grossly intact Psych/Mental Status: Normal Affect, Appropriate, Alert and oriented to time, place, person, mood and affect Laboratory Results 03/26/19 14:10: WBC 6.3, RBC 3.58 L, Hgb 10.6 L, Hct 35.1 L, MCV 98.0 H, MCH 29.6, MCHC 30.2 L, RDW Std Deviation 50.4 H, RDW Coeff of Jenny 14.0, Plt Count 234, MPV 10.6, Immature Gran % (Auto) 0.500, Neut % (Auto) 61.7, Lymph % (Auto) 24.3, Sanders % (Auto) 6.5, Eos % (Auto) 6.4 H, Baso % (Auto) 0.6, Absolute Neuts (auto) 3.9, Absolute Lymphs (auto) 1.52, Nucleated RBC % 0 03/26/19 14:10: Sodium 141, Potassium 4.3, Chloride 109 H, Carbon Dioxide 28.0, Anion Gap 4 L, BUN 24 H, Creatinine 1.11, Estim Creat Clear Calc 65.77, Est GFR (MDRD) Af Amer 85, Est GFR (MDRD) Non-Af 70, BUN/Creatinine Ratio 21.6 H, Glucose 121 H, Calcium 9.6, Troponin I < 0.015 03/26/19 14:10: Lactic Acid 1.6 03/26/19 15:05: Urine Color Yellow, Urine Clarity Sl. Cloudy, Urine pH 6.0, Ur Specific [place] 1.020, Urine Protein 15 H, Urine Glucose (UA) Normal, Urine Ketones Negative, Urine Occult Blood 10 H, Urine Nitrite Negative, Urine Bilirubin 1 H, Urine Urobilinogen 1 H, Ur Leukocyte Esterase 25 H, Urine RBC 0-5 SEEN, Urine WBC 0-5 SEEN, Ur Squamous Epith Cells 0-5 SEEN, Urine Bacteria 0 SEEN, Urine Mucus 0 SEEN Assessment/Plan All Active Problems (Last Reviewed 02/16/19 @ 17:17 by Raven Hernández) Lower GI bleeding (Acute) Psychomotor agitation (Acute) Anticoagulated (Acute) Hypotension (Acute) Weakness (Acute) Hypotension (Acute) Ileus (Acute) Tachycardia (Acute) ARF (acute renal failure) (Resolved) HCAP (healthcare-associated pneumonia) (Resolved) Ileus (Resolved) 1. Hypotension - hold antihypertensives. continue maintenance fluids. he denies symptoms. BUN is mildly elevated. possibly some dehydration. He does not look volume overloaded. Check orthos. EKG with 1st degree av block and RBBB. Afib on monitor. UA neg. CXR cardiomegaly. 2. Afib - rate controlled. off eliquis due to recent GI bleed. Hgb stable at 10. Hold cardizem and metoprolol, plan to resume at lower doses. If he develops rebound tachycardia he may need digoxin. 3. Hx Seizure disorder, schizophrenia, MRDD- continue trileptal, clozapine, fluoxetine 4. HLD - statin 5. BPH - flomax. check orthos. 6. Chronic anemia, Recent GI bleed - off eliquis. continue protonix. He was supposed to have outpatient endoscopy. I dont see a record of this being done. Hgb stable. DVT ppx: SCDs DC planning: Return to senior care when stable This patient was seen by Ming Guardado PA-C under the supervision of Dr. Fam. <Marcus Fam - Last Filed: 03/26/19 18:55> History of Present Illness The patient is a 69 year old M [] Past Medical History Medical History: Medical History (Last Reviewed 02/16/19 @ 17:17 by Raven Hernández) Ileus (Acute) K56.7 Atrial flutter (Chronic) I48.92 Hyperlipidemia (Chronic) E78.5 GERD (gastroesophageal reflux disease) (Chronic) K21.9 BPH (benign prostatic hyperplasia) (Chronic) N40.0 Tachycardia (Acute) R00.0 Seizure disorder (Chronic) G40.909 Schizophrenia (Chronic) F20.9 Allergies No Known Allergies Allergy (Verified 03/26/19 13:06) - Physical Exam Vitals/I&O's: Vital Signs Temp Pulse Resp BP Pulse Ox 97.4 F L 92 18 119/86 H 98 03/26/19 17:26 03/26/19 17:26 03/26/19 17:26 03/26/19 17:26 03/26/19 17:26 Oxygen Delivery Method Room Air Weight: 243 lb 9.773 oz Body Mass Index (BMI) 34.9 Intake and Output for Last 24 Hours 03/24/19 03/25/19 03/26/19 23:59 23:59 23:59 Intake Total 1999 / 1999 Output Total 400 / 400 Balance 1600 / 1600 Laboratory Results 03/26/19 14:10: WBC 6.3, RBC 3.58 L, Hgb 10.6 L, Hct 35.1 L, MCV 98.0 H, MCH 29.6, MCHC 30.2 L, RDW Std Deviation 50.4 H, RDW Coeff of Jenny 14.0, Plt Count 234, MPV 10.6, Immature Gran % (Auto) 0.500, Neut % (Auto) 61.7, Lymph % (Auto) 24.3, Sanders % (Auto) 6.5, Eos % (Auto) 6.4 H, Baso % (Auto) 0.6, Absolute Neuts (auto) 3.9, Absolute Lymphs (auto) 1.52, Nucleated RBC % 0 03/26/19 14:10: Sodium 141, Potassium 4.3, Chloride 109 H, Carbon Dioxide 28.0, Anion Gap 4 L, BUN 24 H, Creatinine 1.11, Estim Creat Clear Calc 65.77, Est GFR (MDRD) Af Amer 85, Est GFR (MDRD) Non-Af 70, BUN/Creatinine Ratio 21.6 H, Glucose 121 H, Calcium 9.6, Troponin I < 0.015 03/26/19 14:10: Lactic Acid 1.6 03/26/19 15:05: Urine Color Yellow, Urine Clarity Sl. Cloudy, Urine pH 6.0, Ur Specific [place] 1.020, Urine Protein 15 H, Urine Glucose (UA) Normal, Urine Ketones Negative, Urine Occult Blood 10 H, Urine Nitrite Negative, Urine Bilirubin 1 H, Urine Urobilinogen 1 H, Ur Leukocyte Esterase 25 H, Urine RBC 0-5 SEEN, Urine WBC 0-5 SEEN, Ur Squamous Epith Cells 0-5 SEEN, Urine Bacteria 0 SEEN, Urine Mucus 0 SEEN Current Medications Apixaban (Eliquis) 5 mg PO BID [facility] Chlorhexidine Gluconate (Peridex) ml PO BID [facility] Clozapine (Clozaril) 300 mg PO QHS [facility] Docusate Sodium (Colace) 100 mg PO DAILY [facility] Ergocalciferol (Vitamin D) 50,000 unit PO MO [facility] Fluticasone Propionate (Flonase Nasal [place]) 1 spray NASAL DAILY [facility] Glucagon () 1 mg IM .X1 PRN PRN Reason: Hypoglycemia Sodium Chloride () 1,000 mls @ 100 mls/hr IV .Q10H [facility] Last Admin: 03/26/19 17:51 Dose: 100 mls/hr Documented by: Dextrose (Dextrose 10%-Water) 250 mls @ 999 mls/hr IV .Q16M PRN; Protocol PRN Reason: HYPOGLYCEMIA Meloxicam (Mobic) 7.5 mg PO DAILY [facility] Non-Formulary Medication (Clozapine) 50 mg PO BID [facility] Non-Formulary Medication (Fluoxetine Hcl) 40 mg PO DAILY [facility] Non-Formulary Medication (Oxybutynin Chloride [Oxybutynin Chloride Er]) 10 mg PO DAILY [facility] Non-Formulary Medication (Tamsulosin Hcl) 0.4 mg PO QHS [facility] Ondansetron HCl (Zofran) 4 mg IV Q8H PRN PRN PRN Reason: NAUSEA/VOMITING Oxcarbazepine (Trileptal) 600 mg PO BID [facility] Pantoprazole Sodium (Protonix) 40 mg PO DAILY [facility] Polyethylene Glycol (Miralax) 17 gm PO DAILY [facility] Pravastatin Sodium (Pravachol) 40 mg PO QHS [facility] Psyllium Hydrophilic Mucilloid (Metamucil) 1 packet PO DAILY [facility] Sodium Chloride () 10 - 40 ml IV UD PRN PRN Reason: SALINE FLUSH Code Visit Addendum: Dr. Fam I personally examined the patient and reviewed the chart. I agree with the above. 69-year-old male with history of schizophrenia seizure disorder who lives in a senior care presents with malaise and what was found to be low blood pressures there. He was in the 80s systolic without any other complaints. He seems to be doing well, he is not the most verbal in terms of getting a history other than stating that he is hungry and would like something to eat or drink. We will continue with IV fluids to support his blood pressure and hold his blood pressure medications, he can continue his other medications though. His chest x-ray was negative and a UA was unremarkable. His hemoglobin is at baseline and his kidney function is not abnormal. OBSV E&M: [id number] Initial observation care L2
--- NOTE | 2019-03-26 17:30 | NURSING ---
[facility] Home called for Health History and Admit questions. Spoke with Isis to obtain history.
[2019-03-26] MEDS: 0.9% Normal Saline 1,000 ML 100 ML IV (17:51)
[2019-03-26] MEDS: Pravastatin 40 MG Tablet PO (22:10)
[2019-03-26] MEDS: Tamsulosin HCl 0.4 MG Capsule PO (22:10)
[2019-03-26] MEDS: OXcarbazepine 300 MG Tablet 600 MG PO (22:10)
[2019-03-26] MEDS: Chlorhexidine 480 ML 15 ML PO (22:15)
[2019-03-27] VITALS (8 sets, daily range): BP systolic 116–140; BP diastolic 70–91; PULSE 51–98; RESP 16–20; TEMP 36.6–36.8; O2SAT 92–97
[2019-03-27] MEDS: 0.9% Normal Saline 1,000 ML 100 ML IV ×3 (02:50→23:14)
--- NOTE | 2019-03-27 05:43 | NURSING ---
Attempted orthostatic BP. Obtained laying & sitting bp's. Stood pt at the side of the bed with a walker and assistance of another nurse. Pt kept sitting down and stated that he can't stand. Unable to obtain a standing BP.
[2019-03-27 06:26] LABS: Absolute Lymphocyte Count 1.68 X10^3/uL (0.83-4.51); Absolute Neutrophil Count 3.4 X10^3/uL (2.0-7.7); Basophil# 0.02 X10^3/uL; Basophil% 0.3 % (0-1); Eosinophils% 6.6 % (0-5); Hematocrit 34.9 % (40-54); Hemoglobin 10.6 g/dL (13.0-16.5); Lymphocyte # 1.68 X10^3/ul (4.0); Lymphocyte % 27.8 % (19-41); Mean Corp Hgb Conc 30.4 g/dL (32-36); Mean Corpuscular Hgb 29.9 pg (27.0-32.0); Mean Corpuscular Volume 98.6 fL (80-94); Mean Platelet Vol. 10.7 fl (6.2-12.0); Monocyte% 8.3 % (0-10); NRBC Flagged by Analyzer 0 % (0-5); Neutrophil % 56.2 % (47-70); Platelet Count 230 K/mm3 (150-450); RBC Distribution Width CV 14.1 % (11.6-14.6); RBC Distribution Width SD 51.3 fl (35.1-43.9); Red Blood Count 3.54 M/mm3 (4.6-6.2); White Blood Count 6.1 K/mm3 (4.4-11.0)
[2019-03-27 06:47] LABS: Anion Gap 4 (5-15); BUN 19 mg/dL (7-18); BUN/Creat Ratio 19.9 RATIO (10-20); Calcium,Total 9.2 mg/dL (8.5-10.1); Chloride 112 mmol/L (98-107); Creatinine, Serum 0.95 mg/dL (0.70-1.30); EST Glomerular Filtration Rate 83 mL/min (>60); Est Glom Filt Rate - Afr Amer 101 mL/min (>60); Estimated Creatinine Clearance 76.84 ml/min; Glucose 94 mg/dL (74-106); Potassium 4.2 mmol/L (3.5-5.1); Sodium Level 142 mmol/L (136-145)
[2019-03-27] MEDS: Docusate Sodium 100 MG Capsule PO (09:19)
[2019-03-27] MEDS: Tolterodine Tartrate 2 MG CAP.SA PO (09:20)
[2019-03-27] MEDS: Pantoprazole Sodium 40 MG Tablet PO (09:20)
[2019-03-27] MEDS: FLUoxetine 20 MG Capsule 40 MG PO (09:20)
[2019-03-27] MEDS: Fluticasone 0.05% 1 SPRAY NASAL.SRY NASAL (09:21)
[2019-03-27] MEDS: Polyethylene Glycol 3350 17 GM PACKET PO (09:22)
[2019-03-27] MEDS: Psyllium 1 PACKET PO (09:22)
[2019-03-27] MEDS: OXcarbazepine 300 MG Tablet 600 MG PO ×2 (09:23→23:08)
[2019-03-27] MEDS: Meloxicam 7.5 MG Tablet PO (09:23)
[2019-03-27] MEDS: Metoprolol Tartrate 25 MG Tablet PO ×2 (09:25→23:07)
[2019-03-27] MEDS: Ondansetron 4 MG/2 ML Vial IV (09:25)
[2019-03-27] MEDS: Chlorhexidine 480 ML 15 ML PO ×2 (09:26→23:12)
--- NOTE | 2019-03-27 09:34 | PCM.PN.HOSP ---
Patient Problems: Active and Suspected Problems (Last Reviewed 02/16/19 @ 17:17 by Raven Hernández) Hypotension (Acute) Weakness (Acute) Hypotension (Acute) Reason for Visit: Follow-up on hypotension Subjective: Patient was seen and examined. He complains of severe nausea. He has not had a bowel movement in days. He denies any chest pain or dizziness. BP appears improved. Objective: Physical exam: Vitals/I&O's: Vital Signs Temp Pulse Resp BP Pulse Ox 98.3 F 71 16 116/76 95 03/27/19 07:43 03/27/19 09:25 03/27/19 07:43 03/27/19 07:43 03/27/19 07:43 Oxygen Delivery Method Room Air Weight: 110.5 kg Body Mass Index (BMI) 34.9 Orthostatic Vital Signs Start: 03/27/19 05:41 Freq: q24h Status: Active Protocol: Activity Type Activity Date Activity User E-Sign Co-Sign Detail Recorded Client Recorded Date Recorded By Document 03/27/19 05:41 MM [id number] 03/27/19 05:42 MM 03/27/19 05:41 Orthostatic Vitals Sitting -Blood Pressure (90/60-120/80 mm Hg) 117/83 H -Extremity Use Right Arm -Pulse Rate (60-100 beats/min) 55 L Lying -Blood Pressure (90/60-120/80 mm Hg) 116/70 -Extremity Use Right Arm -Pulse Rate (60-100 beats/min) 79 Intake and Output for Last 24 Hours 03/25/19 03/26/19 03/27/19 23:59 23:59 23:59 Intake Total 2300 / 2300 1098.33 / 1098.33 Output Total 600 / 600 400 / 400 Balance 1700 / 1700 698.33 / 698.33 General: Alert, Cooperative, No apparent distress HEENT: Atraumatic, PERRLA, EOMI, Normocephalic Oral: Moist Mucosa Neck: Supple, No JVD, Negative Carotid Bruits Lungs: Clear to auscultation, Normal air movement Cardiovascular: Regular rate, Regular Rhythm, Normal S1, Normal S2, No murmurs Abdomen: Bowel Sounds Present, Soft, Non Tender, Hypoactive Bowel Sounds, Distended Extremities: No edema Skin: No rashes, No breakdown Musculoskeletal: No Tenderness to Palpation of Joints or Extremities Lymphatic: No Cervical, Supraclavicular, or Inguinal Adenopathy Neurological: Cranial nerves II-XII grossly intact, Neuro grossly intact Psych/Mental Status: Normal Affect, Appropriate Laboratory Results 03/26/19 14:10: WBC 6.3, RBC 3.58 L, Hgb 10.6 L, Hct 35.1 L, MCV 98.0 H, MCH 29.6, MCHC 30.2 L, RDW Std Deviation 50.4 H, RDW Coeff of Jenny 14.0, Plt Count 234, MPV 10.6, Immature Gran % (Auto) 0.500, Neut % (Auto) 61.7, Lymph % (Auto) 24.3, [place] % (Auto) 6.5, Eos % (Auto) 6.4 H, Baso % (Auto) 0.6, Absolute Neuts (auto) 3.9, Absolute Lymphs (auto) 1.52, Nucleated RBC % 0 03/26/19 14:10: Sodium 141, Potassium 4.3, Chloride 109 H, Carbon Dioxide 28.0, Anion Gap 4 L, BUN 24 H, Creatinine 1.11, Estim Creat Clear Calc 65.77, Est GFR (MDRD) Af Amer 85, Est GFR (MDRD) Non-Af 70, BUN/Creatinine Ratio 21.6 H, Glucose 121 H, Calcium 9.6, Troponin I < 0.015 03/26/19 14:10: Lactic Acid 1.6 03/26/19 15:05: Urine Color Yellow, Urine Clarity Sl. Cloudy, Urine pH 6.0, Ur Specific [place] 1.020, Urine Protein 15 H, Urine Glucose (UA) Normal, Urine Ketones Negative, Urine Occult Blood 10 H, Urine Nitrite Negative, Urine Bilirubin 1 H, Urine Urobilinogen 1 H, Ur Leukocyte Esterase 25 H, Urine RBC 0-5 SEEN, Urine WBC 0-5 SEEN, Ur Squamous Epith Cells 0-5 SEEN, Urine Bacteria 0 SEEN, Urine Mucus 0 SEEN 03/27/19 05:45: WBC 6.1, RBC 3.54 L, Hgb 10.6 L, Hct 34.9 L, MCV 98.6 H, MCH 29.9, MCHC 30.4 L, RDW Std Deviation 51.3 H, RDW Coeff of Jenny 14.1, Plt Count 230, MPV 10.7, Immature Gran % (Auto) 0.800, Neut % (Auto) 56.2, Lymph % (Auto) 27.8, [place] % (Auto) 8.3, Eos % (Auto) 6.6 H, Baso % (Auto) 0.3, Absolute Neuts (auto) 3.4, Absolute Lymphs (auto) 1.68, Nucleated RBC % 0 03/27/19 05:45: Sodium 142, Potassium 4.2, Chloride 112 H, Carbon Dioxide 26.0, Anion Gap 4 L, BUN 19 H, Creatinine 0.95, Estim Creat Clear Calc 76.84, Est GFR (MDRD) Af Amer 101, Est GFR (MDRD) Non-Af 83, BUN/Creatinine Ratio 19.9, Glucose 94, Calcium 9.2 Current Medications Chlorhexidine Gluconate (Peridex) 15 ml PO BID [facility] Last Admin: 03/27/19 09:26 Dose: 15 ml Documented by: Clozapine (Clozaril) 50 mg PO BID [facility] Last Admin: 03/27/19 09:21 Dose: 50 mg Documented by: Clozapine (Clozaril) 300 mg PO QHS [facility] Last Admin: 03/26/19 22:10 Dose: 300 mg Documented by: Docusate Sodium (Colace) 100 mg PO DAILY [facility] Last Admin: 03/27/19 09:19 Dose: 100 mg Documented by: Ergocalciferol (Vitamin D) 50,000 unit PO MO [facility] Fluoxetine HCl (Prozac) 40 mg PO DAILY [facility] Last Admin: 03/27/19 09:20 Dose: 40 mg Documented by: Fluticasone Propionate (Flonase Nasal [place]) 1 spray NASAL DAILY [facility] Last Admin: 03/27/19 09:21 Dose: 1 spray Documented by: Glucagon () 1 mg IM .X1 PRN PRN Reason: Hypoglycemia Sodium Chloride () 1,000 mls @ 100 mls/hr IV .Q10H [facility] Last Admin: 03/27/19 02:50 Dose: 100 mls/hr Documented by: Dextrose (Dextrose 10%-Water) 250 mls @ 999 mls/hr IV .Q16M PRN; Protocol PRN Reason: HYPOGLYCEMIA Meloxicam (Mobic) 7.5 mg PO DAILY [facility] Last Admin: 03/27/19 09:23 Dose: 7.5 mg Documented by: Metoprolol Tartrate (Lopressor (Beta Lesley)) 25 mg PO BID [facility] Last Admin: 03/27/19 09:25 Dose: 25 mg Documented by: Ondansetron HCl (Zofran) 4 mg IV Q8H PRN PRN PRN Reason: NAUSEA/VOMITING Last Admin: 03/27/19 09:25 Dose: 4 mg Documented by: Oxcarbazepine (Trileptal) 600 mg PO BID [facility] Last Admin: 03/27/19 09:23 Dose: 600 mg Documented by: Pantoprazole Sodium (Protonix) 40 mg PO DAILY [facility] Last Admin: 03/27/19 09:20 Dose: 40 mg Documented by: Polyethylene Glycol (Miralax) 17 gm PO DAILY [facility] Last Admin: 03/27/19 09:22 Dose: 17 gm Documented by: Pravastatin Sodium (Pravachol) 40 mg PO QHS [facility] Last Admin: 03/26/19 22:10 Dose: 40 mg Documented by: Psyllium Hydrophilic Mucilloid (Metamucil) 1 packet PO DAILY [facility] Last Admin: 03/27/19 09:22 Dose: 1 packet Documented by: Sodium Chloride () 10 - 40 ml IV UD PRN PRN Reason: SALINE FLUSH Tamsulosin HCl (Flomax) 0.4 mg PO QHS [facility] Last Admin: 03/26/19 22:10 Dose: 0.4 mg Documented by: Tolterodine Tartrate (Detrol La) 2 mg PO DAILY [facility] Last Admin: 03/27/19 09:20 Dose: 2 mg Documented by: STROKE Vital Signs/Narrative: Vital Signs Temp Pulse Pulse Pulse Resp BP BP 03/27/19 09:25 71 03/27/19 07:43 98.3 F 71 16 116/76 03/27/19 05:41 79 55 L 116/70 BP Pulse Ox 03/27/19 09:25 03/27/19 07:43 95 03/27/19 05:41 117/83 H Medical Necessity - Tobacco Use Smoking Status: Never smoker Tobacco Use: Cigarettes Assessment/Plan All Active Problems (Last Reviewed 02/16/19 @ 17:17 by Raven Hernández) Lower GI bleeding (Acute) Psychomotor agitation (Acute) Anticoagulated (Acute) Hypotension (Acute) Weakness (Acute) Hypotension (Acute) Ileus (Acute) Tachycardia (Acute) ARF (acute renal failure) (Resolved) HCAP (healthcare-associated pneumonia) (Resolved) Ileus (Resolved) 69 y/o with PMHx of schizoaffective disorder who was admitted with hypotension and found to have abdominal distension today. 1. Acute small bowel obstruction, seen on KUB and CT of abd/pelvis General surgery consulted Will attempt NG tube insertion, keep NPO, IVF 2. Hypotension, resolved, on IVF 3. Recent h/o A fib, on metoprolol and cardizem Cardizem held on account of hypotension Resumed on Metoprolol 25mg po bid 4. Schizoaffective disorder, on Clozapine, prozac 5. KEHINDE of CKD stage 3, likely secondary to dehydration, resolving Trend lab in am 6. DVT PPx- Heparin SC Code Visit Inpatient E&M: 05162 Subs Hosp L2
--- NOTE | 2019-03-27 09:53 | CASEMGMT ---
Social Work Note SUSI received call from Elizabeth Marin (residential energy auditor) through [facility] for [facility]. Elizabeth states that due to pt's need for continued medical care, pt being in and out of the hospital, and pt needed to do steps at [facility] and at this time pt not being able to do steps, pt is unable to return the [facility]. Elizabeth states pt also has had a lot of falls recently. SUSI asked Elizabeth that if this worker has PT/OT work with pt on steps while at [facility] if pt can return and Elizabeth states no due to the fact that pt will refuse steps at [facility] and again pt's need for continued medical care. Elizabeth states RN at [facility] thinks pt is anemic. SUSI reviewed notes, and pt was at [facility] 01/22 and was placed at [facility]. SUSI asked Elizabeth if pt has had any more psych admissions and Elizabeth states pt has and she will get information and give this worker a call back. Elizabeth states pt's guardian is aware that pt is not able to return to detention at this time. Elizabeth states they [facility] has also been looking in to a detention without any steps for pt as well. SUSI placed a call to pt's guardian Bishnu Lyle. Bishnu states he was made aware that pt is unable to return to [facility] at this time and is agreeable for pt to go to SNF. Bishnu states his first choice is [facility] and second choice is [facility]. SUSI asked Bishnu for a third choice, and Bishnu states he is not sure what his third choice would be. SUSI encouraged Bishnu to review additional SNF in [facility] for third choice in the event his first two choices are not able to accept pt. Bishnu states he will do so. SUSI spoke with physician and updated physician that detention is not able to accept pt back so this worker will need to find SNF for pt and pt will likely trip the screen so pt will be at [facility] through the weekend. Octavia Sarkar DIRECTOR OF ASSESSMENT, BUSINESS MANAGEMENT INTERN
--- NOTE | 2019-03-27 10:08 | RAD_ITS ---
STUDY: X-RAY - ABDOMEN/PELVIS REASON FOR EXAM: Male, 69 years old. Abdominal distension TECHNIQUE: 6 views including 3 decubitus views COMPARISON: No recent studies, the most recent study from 2018 FINDINGS: There is extensive distention of the stomach with both food and air. Additionally, on the decubitus films there are borderline distended air-fluid levels in both small and large bowel suggestive of an obstructive process. No demonstrated free air. No suspicious thumbprinting or thickening of bowel loops noted. RAD/Abd Decub and/or Erect(Portabl IMPRESSION: Obstruction Electronically Signed: Anthony Uriostegui MD at 10:53 EST , Service support ,
[2019-03-27] MEDS: Senna/Docusate Sodium 1 Tablet PO (10:44)
--- NOTE | 2019-03-27 11:19 | CT_ITS ---
STUDY: CT ABDOMEN AND PELVIS WITH CONTRAST REASON FOR EXAM: Male, 69 years old. Abdominal pain and distention RADIATION DOSAGE (If Supplied By Facility): CTDIvol = ( 16.08 ) mGy, DLP = ( 1212.31 ) mGycm TECHNIQUE: Transaxial images were obtained from the dome of the diaphragm to the symphysis pubis without oral contrast. IV 100ML ISOVUE 370 was administered. Sagittal and coronal images were reconstructed. Individualized dose optimization techniques were used for this CT. COMPARISON: 10/28/2018 FINDINGS: There are chronic interstitial fibrotic changes of the lung bases. Calcified coronary vessels. Stable 4 cm cyst in the right lobe of the liver. Normal gallbladder and extrahepatic biliary system. Normal spleen. Normal pancreas. Normal bilateral adrenal glands. Normal right kidney. Normal left kidney. Stomach is abnormally distended containing both fluid and food There are dilated loops of the small intestine with a non-distended colon consistent with a small bowel obstruction. There are multiple colonic diverticula consistent with diverticulosis. There is non-visualization of the appendix. Normal abdominal aorta. Normal inferior vena cava. Normal retroperitoneum. Normal urinary bladder. There are prostatic calcifications. Normal abdominal wall. There are diffuse degenerative changes of the visualized lumbar spine, and pelvis. CT/Abdomen/Pelvis W IV Cont ONLY IMPRESSION: Small bowel obstruction, transition point not clearly identified but is likely in the distal ileum. The stomach is also abnormally distended with both fluid and food. Sigmoid diverticulosis Stable 4 cm lobulated right hepatic cyst Calcified coronary vessels No suspicious solid organ abnormality Electronically Signed: Anthony Uriostegui MD at 12:09 EST , Service support ,
--- NOTE | 2019-03-27 11:20 | CASEMGMT ---
Social Work Note SW received call from pt's legal guardian Bishnu. Bishnu states he would like to change his choices for SNF in the event pt is not able to return to shelter and has to be at SNF assisted. Bishnu states his choices for SNF are 1. [facility] 2. [facility] 3. [facility] 4. [facility] [place]. SUSI informed Bishnu that this worker will get referrals sent out. SUSI received call from AUDELIA Jama at [facility] who works with pt [facility]. Evita states pt has been in and out of the hospital since November 24. Evita states on November 24 pt was sent to [facility] ED for rectal bleeding and while pt was at [facility] became combative and wad sent to [facility] in [place] for psych placement. Pt states that from 11/24/18-11/27/18 pt was at [facility] and then was discharged back to [facility]. On 01/08/2019 pt was sent to [facility]. Evita states that on 01/22/19 pt was sent back to [facility] and then on 01/22/19 pt was discharged back to [facility] where pt was at until March 23, 2019 when pt was discharged back to [facility]. Evita states then on 04/05/2019 pt was supposed to see his PCP Dr. Del Cid but felt too weak to get out of bed so pt was brought to [facility]. Evita states to have staff call her if RN has any questions. SW to fax referral to [facility] first once PT/OT evaluations are completed. Plan: SNF pending acceptance. Octavia Sarkar BUSINESS INTELLIGENCE ADMINISTRATOR, LUMPIA WRAPPER MAKER
--- NOTE | 2019-03-27 11:22 | NURSING ---
pt refusing ng. nursing explained that it will help him feel better and that dr really wants it. pt refused
--- NOTE | 2019-03-27 11:50 | CASEMGMT ---
Addendum entered by Octavia Sarkar 03/27/19 15:09: SW received message from Katia at [facility] stating they would like to review pt's information on Saturday to see how pt does over the weekend and determine what they would skill pt on. Pt not medically cleared for discharge today. Plan: SW will speak with [facility] Saturday to determine if they are able to accept pt. Addendum entered by Octavia Sarkar 03/27/19 14:46: SW placed a call to Katia at [facility] and left message regarding referral, asking if they have reviewed referral yet. SW waiting for call back. Addendum entered by Octavia Sarkar 03/27/19 13:05: PT/OT evaluations are completed. SW faxed referral to [facility]. SW placed a call to Katia at [facility] and left message regarding referral. Plan: SNF pending acceptance Original Note: Social Work Note SW spoke with PT and asked to evaluate pt next. PT states they will do so. SW to fax SNF referrals once PT/OT evaluations are complete. Octavia Sarkar SUPERVISOR NET MAKING, RULING MACHINE SET UP OPERATOR
--- NOTE | 2019-03-27 15:30 | NURSING ---
Dr Andrews notified, attempted x3 to insert NG tube, without success, met an obstruction, pt was cooperative. Nurse suggested using the spray and he replied, I will let you know.
--- NOTE | 2019-03-27 16:25 | PCM.CONS.GEN ---
Problem List (1) SBO (small bowel obstruction) Status: Acute Reason for Consult Date of Consultation: 03/27/19 History of Present Illness: The patient is a 69 year old M here from his home with nausea and abdominal pain. The patient had a ileus 1 year ago which resolved spontaneously. The patient was in [facility] in [place] in November and had laparoscopy for small bowel obstruction. Past Medical History Past Medical History (Chronic Problems): Chronic Problems (Last Reviewed 02/16/19 @ 17:17 by Raven Hernández) Chronic atrial fibrillation (Chronic) Atrial flutter (Chronic) Vitamin D deficiency (Chronic) Vitamin B12 deficiency (Chronic) Hyperlipidemia (Chronic) GERD (gastroesophageal reflux disease) (Chronic) BPH (benign prostatic hyperplasia) (Chronic) Seizure disorder (Chronic) Schizophrenia (Chronic) Medical History: Medical History (Last Reviewed 02/16/19 @ 17:17 by Raven Hernández) Ileus (Acute) K56.7 Atrial flutter (Chronic) I48.92 Hyperlipidemia (Chronic) E78.5 GERD (gastroesophageal reflux disease) (Chronic) K21.9 BPH (benign prostatic hyperplasia) (Chronic) N40.0 Tachycardia (Acute) R00.0 Seizure disorder (Chronic) G40.909 Schizophrenia (Chronic) F20.9 Allergies No Known Allergies Allergy (Verified 03/26/19 13:06) Home Medications: Ambulatory Orders Medication Instructions Recorded Chlorhexidine Gluconate 1 ea PO BID 01/20/19 Cyanocobalamin (Vitamin B-12) 100 mcg PO BID 01/20/19 [Vitamin B-12] Emollient Combination No.71 2 applic TP DAILY [facility]/20/19 [facility] Fluticasone 0.05% [Flonase Nasal 1 spray NASAL DAILY 01/20/19 [place]une[place]] Metoprolol Tartrate 50 mg PO BID 01/20/19 Oxcarbazepine [Trileptal] 600 mg PO BID 01/20/19 Pravastatin [Pravachol] 40 mg PO QHS 01/20/19 Psyllium [Metamucil] 1 packet PO DAILY 01/20/19 Tamsulosin HCl 0.4 mg PO QHS 01/20/19 Apixaban [Eliquis] 5 mg PO BID 03/26/19 Clozapine 50 mg PO BID 03/26/19 Clozapine 300 mg PO QHS 03/26/19 Diltiazem HCl [Diltiazem 24Hr Cd] 120 mg PO DAILY 03/26/19 Docusate Sodium [Colace] 100 mg PO DAILY 03/26/19 Ergocalciferol (Vitamin D2) 50,000 unit PO MO 03/26/19 [Vitamin D2] Fluoxetine HCl 40 mg PO DAILY 03/26/19 Meloxicam 7.5 mg PO DAILY 03/26/19 Oxybutynin Chloride [Oxybutynin 10 mg PO DAILY 03/26/19 Chloride ER] Pantoprazole Sodium [Protonix] 40 mg PO DAILY 03/26/19 Polyethylene Glycol 3350 [Miralax] 17 gm PO DAILY 03/26/19 Sennosides/Docusate Sodium [Senna 1 tab PO DAILY 03/26/19 Plus 8.6-50 mg Tablet] Surgical History: no surgical history Psychiatric History: Schizophrenia Lives: - - halfway Smoking Status: Never smoker Tobacco Use: Cigarettes Alcohol: None Drugs: None - *Family History Maternal History Items: Unknown - Unable to obtain history from the patient Paternal History Items: Unknown Review of Systems Constitutional: Denies: Fever HEENT: Denies: Difficulty Swallowing Respiratory: Denies: Cough, Shortness of Breath Gastrointestinal: Reports: Nausea Patient Problems: Active and Suspected Problems (Last Reviewed 02/16/19 @ 17:17 by Raven Hernández) Hypotension (Acute) Weakness (Acute) Hypotension (Acute) SBO (small bowel obstruction) (Acute) - Physical Exam Vitals/I&O's: Vital Signs Temp Pulse Resp BP Pulse Ox 98.3 F 60 16 137/79 H 96 03/27/19 11:35 03/27/19 11:35 03/27/19 11:35 03/27/19 11:35 03/27/19 11:35 Oxygen Delivery Method Room Air Weight: 243 lb 9.773 oz Body Mass Index (BMI) 34.9 Orthostatic Vital Signs Start: 03/27/19 05:41 Freq: q24h Status: Active Protocol: Activity Type Activity Date Activity User E-Sign Co-Sign Detail Recorded Client Recorded Date Recorded By Document 03/27/19 05:41 MM [id number] 03/27/19 05:42 MM 03/27/19 05:41 Orthostatic Vitals Sitting -Blood Pressure (90/60-120/80) 117/83 H -Extremity Use Right Arm -Pulse Rate (60-100) 55 L Lying -Blood Pressure (90/60-120/80) 116/70 -Extremity Use Right Arm -Pulse Rate (60-100) 79 Intake and Output for Last 24 Hours 03/25/19 03/26/19 03/27/19 23:59 23:59 23:59 Intake Total 2300 / 2300 2009. / 2009.00 Output Total 600 / 600 550 / 550 Balance 1700 / 1700 1460.00 / 1460.00 General: Alert, Cooperative, No apparent distress Neck: No JVD Cardiovascular: Regular rate, Regular Rhythm Abdomen: Distended, Tender Extremities: No clubbing Musculoskeletal: No Muscle Wasting Neurological: Cranial nerves II-XII grossly intact Psych/Mental Status: Normal Affect Laboratory Results 03/27/19 05:45: WBC 6.1, RBC 3.54 L, Hgb 10.6 L, Hct 34.9 L, MCV 98.6 H, MCH 29.9, MCHC 30.4 L, RDW Std Deviation 51.3 H, RDW Coeff of Jenny 14.1, Plt Count 230, MPV 10.7, Immature Gran % (Auto) 0.800, Neut % (Auto) 56.2, Lymph % (Auto) 27.8, [place] % (Auto) 8.3, Eos % (Auto) 6.6 H, Baso % (Auto) 0.3, Absolute Neuts (auto) 3.4, Absolute Lymphs (auto) 1.68, Nucleated RBC % 0 03/27/19 05:45: Sodium 142, Potassium 4.2, Chloride 112 H, Carbon Dioxide 26.0, Anion Gap 4 L, BUN 19 H, Creatinine 0.95, Estim Creat Clear Calc 76.84, Est GFR (MDRD) Af Amer 101, Est GFR (MDRD) Non-Af 83, BUN/Creatinine Ratio 19.9, Glucose 94, Calcium 9.2 Clinical Impression(s) from Imaging Studies Chest X-Ray 03/26/19 13:52 IMPRESSION: Cardiomegaly. Electronically Signed: Gerber Nascimento, at 14:40 EST , Service support , Abdomen X-Ray 03/27/19 10:08 IMPRESSION: Obstruction Electronically Signed: Anthony Uriostegui MD at 10:53 EST , Service support , Abdomen/Pelvis CT 03/27/19 11:19 IMPRESSION: Small bowel obstruction, transition point not clearly identified but is likely in the distal ileum. The stomach is also abnormally distended with both fluid and food. Sigmoid diverticulosis Stable 4 cm lobulated right hepatic cyst Calcified coronary vessels No suspicious solid organ abnormality Electronically Signed: Anthony Uriostegui MD at 12:09 EST , Service support , Current Medications Chlorhexidine Gluconate (Peridex) 15 ml PO BID [facility] Last Admin: 03/27/19 09:26 Dose: 15 ml Documented by: Clozapine (Clozaril) 50 mg PO BID [facility] Last Admin: 03/27/19 09:21 Dose: 50 mg Documented by: Clozapine (Clozaril) 300 mg PO QHS [facility] Last Admin: 03/26/19 22:10 Dose: 300 mg Documented by: Fluoxetine HCl (Prozac) 40 mg PO DAILY [facility] Last Admin: 03/27/19 09:20 Dose: 40 mg Documented by: Fluticasone Propionate (Flonase Nasal Cuney) 1 spray NASAL DAILY [facility] Last Admin: 03/27/19 09:21 Dose: 1 spray Documented by: Glucagon () 1 mg IM .X1 PRN PRN Reason: Hypoglycemia Heparin Sodium (Porcine) (Heparin Na) 5,000 unit SC Q8 [facility] Sodium Chloride () 1,000 mls @ 100 mls/hr IV .Q10H [facility] Last Admin: 03/27/19 13:13 Dose: 100 mls/hr Documented by: Dextrose (Dextrose 10%-Water) 250 mls @ 999 mls/hr IV .Q16M PRN; Protocol PRN Reason: HYPOGLYCEMIA Metoprolol Tartrate (Lopressor (Beta Lesley)) 25 mg PO BID [facility] Last Admin: 03/27/19 09:25 Dose: 25 mg Documented by: Ondansetron HCl (Zofran) 4 mg IV Q8H PRN PRN PRN Reason: NAUSEA/VOMITING Last Admin: 03/27/19 09:25 Dose: 4 mg Documented by: Oxcarbazepine (Trileptal) 600 mg PO BID [facility] Last Admin: 03/27/19 09:23 Dose: 600 mg Documented by: Pantoprazole Sodium (Protonix) 40 mg PO DAILY [facility] Last Admin: 03/27/19 09:20 Dose: 40 mg Documented by: Polyethylene Glycol (Miralax) 17 gm PO DAILY [facility] Last Admin: 03/27/19 09:22 Dose: 17 gm Documented by: Pravastatin Sodium (Pravachol) 40 mg PO QHS [facility] Last Admin: 03/26/19 22:10 Dose: 40 mg Documented by: Psyllium Hydrophilic Mucilloid (Metamucil) 1 packet PO DAILY [facility] Last Admin: 03/27/19 09:22 Dose: 1 packet Documented by: Senna/Docusate Sodium (Senokot-S, Eboni-Colace) 1 tablet PO DAILY [facility] Last Admin: 03/27/19 10:44 Dose: 1 tablet Documented by: Sodium Chloride () 10 - 40 ml IV UD PRN PRN Reason: SALINE FLUSH Tamsulosin HCl (Flomax) 0.4 mg PO QHS [facility] Last Admin: 03/26/19 22:10 Dose: 0.4 mg Documented by: Tolterodine Tartrate (Detrol La) 2 mg PO DAILY [facility] Last Admin: 03/27/19 09:20 Dose: 2 mg Documented by: Assessment/Plan All Active Problems (Last Reviewed 02/16/19 @ 17:17 by Raven Hernández) Lower GI bleeding (Acute) Psychomotor agitation (Acute) Anticoagulated (Acute) Hypotension (Acute) Weakness (Acute) Hypotension (Acute) SBO (small bowel obstruction) (Acute) Ileus (Acute) Tachycardia (Acute) ARF (acute renal failure) (Resolved) HCAP (healthcare-associated pneumonia) (Resolved) Ileus (Resolved) 69-year-old male with small bowel obstruction 1. The patient had nausea and a KUB that showed a distended stomach. I ordered a CT scan with IV contrast. The patient has a very distended stomach and proximal small bowel suggesting small bowel obstruction. On physical exam the patient now reports that he feels better and he has a lot of distention but he says is not very tender. I did have the nurses attempted NGT but they were unable to place this. At this time continue conservative management as his white count is normal and he does not have any guarding or peritoneal signs. 2. KUB in the morning Paolo Winters MD Pager: [facility] [address] [place] [address], [address] [place] [address] Office:
[2019-03-27] MEDS: Pravastatin 40 MG Tablet PO (23:07)
[2019-03-27] MEDS: Tamsulosin HCl 0.4 MG Capsule PO (23:10)
[2019-03-27] MEDS: Heparin Injection (Vial) 5,000 UNIT/ML VIAL 5000 UNIT SC (23:16)
[2019-03-28] VITALS (7 sets, daily range): BP systolic 106–147; BP diastolic 55–87; PULSE 99–103; RESP 18–20; TEMP 36.7–37.3; O2SAT 93–95
[2019-03-28] MEDS: 0.9% Saline Lock 10 ML Syringe IV (05:40)
--- NOTE | 2019-03-28 06:00 | RAD_ITS ---
STUDY: X-RAY - ABDOMEN/PELVIS REASON FOR EXAM: Male, 69 years old. SOB -- MALAISE TECHNIQUE: Single AP view of the abdomen / pelvis. COMPARISON: 03/27/2019 FINDINGS: Normal visualized lung bases. Mild gaseous distention of small bowel but the dilated loops of small bowel evident on yesterday''s abdomen x-ray are not seen on the current exam. Fecal residue and air within the colon noted. There is no demonstrated free abdominal air. The visualized liver, spleen and kidneys are grossly normal in size and morphology. Normal soft tissue structures. Normal visualized osseous structures. RAD/Abdomen Single View (Portable) IMPRESSION: Resolving bowel obstruction. Electronically Signed: Rashawn Akbar MD ([place]) at 14:17 EST , Service support ,
[2019-03-28] MEDS: Heparin Injection (Vial) 5,000 UNIT/ML VIAL 5000 UNIT SC ×3 (06:43→20:53)
[2019-03-28 06:46] LABS: Absolute Lymphocyte Count 1.43 X10^3/uL (0.83-4.51); Absolute Neutrophil Count 5.6 X10^3/uL (2.0-7.7); Basophil# 0.02 X10^3/uL; Basophil% 0.3 % (0-1); Eosinophil# 0.23 X10^3/uL; Eosinophils% 2.9 % (0-5); Hematocrit 33.4 % (40-54); Hemoglobin 10.3 g/dL (13.0-16.5); Lymphocyte # 1.43 X10^3/ul (4.0); Lymphocyte % 17.9 % (19-41); Mean Corp Hgb Conc 30.8 g/dL (32-36); Mean Corpuscular Hgb 30.1 pg (27.0-32.0); Mean Corpuscular Volume 97.7 fL (80-94); Mean Platelet Vol. 10.4 fl (6.2-12.0); Monocyte# 0.63 X10^3/uL; Monocyte% 7.9 % (0-10); NRBC Flagged by Analyzer 0 % (0-5); Neutrophil # 5.64 X10^3/uL (2.7-7.7); Neutrophil % 70.6 % (47-70); Platelet Count 215 K/mm3 (150-450); RBC Distribution Width CV 14.8 % (11.6-14.6); RBC Distribution Width SD 52.7 fl (35.1-43.9); Red Blood Count 3.42 M/mm3 (4.6-6.2)
[2019-03-28 07:14] LABS: ALB/GLOB Ratio 0.7 RATIO (0.9-2.4); AST(SGOT) 16 U/L (15-37); Alanine Aminotransfer ALT/SGPT 18 U/L (16-61); Albumin, Serum 2.6 g/dL (3.2-5.0); Alkaline Phosphatase 64 U/L (45-117); Anion Gap 4 (5-15); BUN 21 mg/dL (7-18); BUN/Creat Ratio 22.2 RATIO (10-20); Calcium,Total 8.6 mg/dL (8.5-10.1); Chloride 112 mmol/L (98-107); Creatinine, Serum 0.95 mg/dL (0.70-1.30); EST Glomerular Filtration Rate 84 mL/min (>60); Est Glom Filt Rate - Afr Amer 102 mL/min (>60); Estimated Creatinine Clearance 76.84 ml/min; Globulin 3.8 g/dL (2.2-4.2); Glucose 104 mg/dL (74-106); Potassium 4.1 mmol/L (3.5-5.1); Protein, Total 6.4 g/dL (6.4-8.2); Sodium Level 144 mmol/L (136-145)
--- NOTE | 2019-03-28 07:57 | PCM.PN.SRG ---
Patient Problems: Active and Suspected Problems (Last Reviewed 02/16/19 @ 17:17 by Raven Hernández) Hypotension (Acute) Weakness (Acute) Hypotension (Acute) SBO (small bowel obstruction) (Acute) Subjective: Patient had a large amount of emesis overnight. He is complaining of no abdominal pain right now. - Physical Exam Vitals/I&O's: Vital Signs Temp Pulse Resp BP Pulse Ox 99.1 F 101 H 18 128/55 H 95 03/28/19 05:44 03/28/19 03:09 03/28/19 03:09 03/28/19 03:09 03/28/19 05:44 Oxygen Delivery Method Room Air Weight: 243 lb 9.773 oz Body Mass Index (BMI) 34.9 Orthostatic Vital Signs Start: 03/27/19 05:41 Freq: PRN Status: Active Protocol: Activity Type Activity Date Activity User E-Sign Co-Sign Detail Recorded Client Recorded Date Recorded By Document 03/27/19 05:41 MM [id number] 03/27/19 05:42 MM 03/27/19 05:41 Orthostatic Vitals Sitting -Blood Pressure (90/60-120/80) 117/83 H -Extremity Use Right Arm -Pulse Rate (60-100) 55 L Lying -Blood Pressure (90/60-120/80) 116/70 -Extremity Use Right Arm -Pulse Rate (60-100) 79 Intake and Output for Last 24 Hours 03/26/19 03/27/19 03/28/19 23:59 23:59 23:59 Intake Total 2300 / 2300 3060.00 / 3060.00 646.67 / 646.67 Output Total 600 / 600 750 / 750 200 / 200 Balance 1700 / 1700 2310.00 / 2310.00 446.67 / 446.67 General: Alert, Cooperative Neck: No JVD Lungs: Normal air movement Abdomen: Soft, Non Tender Laboratory Results 03/28/19 06:25: WBC 8.0, RBC 3.42 L, Hgb 10.3 L, Hct 33.4 L, MCV 97.7 H, MCH 30.1, MCHC 30.8 L, RDW Std Deviation 52.7 H, RDW Coeff of Jenny 14.8 H, Plt Count 215, MPV 10.4, Immature Gran % (Auto) 0.400, Neut % (Auto) 70.6 H, Lymph % (Auto) 17.9 L, [place] % (Auto) 7.9, Eos % (Auto) 2.9, Baso % (Auto) 0.3, Absolute Neuts (auto) 5.6, Absolute Lymphs (auto) 1.43, Nucleated RBC % 0 03/28/19 06:25: Sodium 144, Potassium 4.1, Chloride 112 H, Carbon Dioxide 28.0, Anion Gap 4 L, BUN 21 H, Creatinine 0.95, Estim Creat Clear Calc 76.84, Est GFR (MDRD) Af Amer 102, Est GFR (MDRD) Non-Af 84, BUN/Creatinine Ratio 22.2 H, Glucose 104, Calcium 8.6, Total Bilirubin 0.20, AST 16, ALT 18, Alkaline Phosphatase 64, Total Protein 6.4, Albumin 2.6 L, Globulin 3.8, Albumin/Globulin Ratio 0.7 L Current Medications Bisacodyl (Dulcolax) 10 mg RECTAL X1 ONE Stop: 03/28/19 07:55 Chlorhexidine Gluconate (Peridex) 15 ml PO BID [facility] Last Admin: 03/28/19 07:47 Dose: Not Given Documented by: Clozapine (Clozaril) 50 mg PO BID [facility] Last Admin: 03/27/19 23:06 Dose: 50 mg Documented by: Clozapine (Clozaril) 300 mg PO QHS [facility] Last Admin: 03/27/19 23:06 Dose: 300 mg Documented by: Fluoxetine HCl (Prozac) 40 mg PO DAILY [facility] Last Admin: 03/27/19 09:20 Dose: 40 mg Documented by: Fluticasone Propionate (Flonase Nasal Leroy) 1 spray NASAL DAILY [facility] Last Admin: 03/27/19 09:21 Dose: 1 spray Documented by: Glucagon () 1 mg IM .X1 PRN PRN Reason: Hypoglycemia Heparin Sodium (Porcine) (Heparin Na) 5,000 unit SC Q8 [facility] Last Admin: 03/28/19 06:43 Dose: 5,000 unit Documented by: Sodium Chloride () 1,000 mls @ 100 mls/hr IV .Q10H [facility] Last Infusion: 03/28/19 06:24 Dose: 100 mls/hr Documented by: Dextrose (Dextrose 10%-Water) 250 mls @ 999 mls/hr IV .Q16M PRN; Protocol PRN Reason: HYPOGLYCEMIA Metoprolol Tartrate (Lopressor (Beta Lesley)) 25 mg PO BID [facility] Last Admin: 03/27/19 23:07 Dose: 25 mg Documented by: Ondansetron HCl (Zofran) 4 mg IV Q8H PRN PRN PRN Reason: NAUSEA/VOMITING Last Admin: 03/27/19 09:25 Dose: 4 mg Documented by: Oxcarbazepine (Trileptal) 600 mg PO BID [facility] Last Admin: 03/27/19 23:08 Dose: 600 mg Documented by: Pantoprazole Sodium (Protonix) 40 mg PO DAILY [facility] Last Admin: 03/27/19 09:20 Dose: 40 mg Documented by: Polyethylene Glycol (Miralax) 17 gm PO DAILY [facility] Last Admin: 03/28/19 07:47 Dose: Not Given Documented by: Pravastatin Sodium (Pravachol) 40 mg PO QHS [facility] Last Admin: 03/27/19 23:07 Dose: 40 mg Documented by: Psyllium Hydrophilic Mucilloid (Metamucil) 1 packet PO DAILY [facility] Last Admin: 03/28/19 07:47 Dose: Not Given Documented by: Senna/Docusate Sodium (Senokot-S, Eboni-Colace) 1 tablet PO DAILY [facility] Last Admin: 03/27/19 10:44 Dose: 1 tablet Documented by: Sodium Chloride () 10 - 40 ml IV UD PRN PRN Reason: SALINE FLUSH Last Admin: 03/28/19 05:40 Dose: 10 ml Documented by: Tamsulosin HCl (Flomax) 0.4 mg PO QHS [facility] Last Admin: 03/27/19 23:10 Dose: 0.4 mg Documented by: Tolterodine Tartrate (Detrol La) 2 mg PO DAILY [facility] Last Admin: 03/27/19 09:20 Dose: 2 mg Documented by: Medical Necessity - Tobacco Use Smoking Status: Never smoker Tobacco Use: Cigarettes Assessment/Plan All Active Problems (Last Reviewed 02/16/19 @ 17:17 by Raven Hernández) Lower GI bleeding (Acute) Psychomotor agitation (Acute) Anticoagulated (Acute) Hypotension (Acute) Weakness (Acute) Hypotension (Acute) SBO (small bowel obstruction) (Acute) Ileus (Acute) Tachycardia (Acute) ARF (acute renal failure) (Resolved) HCAP (healthcare-associated pneumonia) (Resolved) Ileus (Resolved) 69-year-old male with small bowel obstruction 1. The patient had a large amount of emesis yesterday. His KUB this morning does not show any obvious small bowel dilated loops and there is a copious amount of gas in his colon. I will order the patient a Dulcolax suppository today and give the patient Gastrografin to drink. I will follow this up with a 1 hour in 4-hour KUB. If this shows things getting the colon he starts having bowel movements he will be advanced to a clear liquid diet. His stomach is still moderately distended on the KUB from today. Paolo Winters MD Pager: [facility] [address] [place] [address], [address] [place] [address] Office:
[2019-03-28] MEDS: Tolterodine Tartrate 2 MG CAP.SA PO (08:31)
[2019-03-28] MEDS: FLUoxetine 20 MG Capsule 40 MG PO (08:31)
[2019-03-28] MEDS: Senna/Docusate Sodium 1 Tablet PO (08:31)
[2019-03-28] MEDS: Metoprolol Tartrate 25 MG Tablet PO ×2 (08:31→20:59)
[2019-03-28] MEDS: Pantoprazole Sodium 40 MG Tablet PO (08:31)
[2019-03-28] MEDS: OXcarbazepine 300 MG Tablet 600 MG PO ×2 (08:31→20:54)
[2019-03-28] MEDS: Fluticasone 0.05% 1 SPRAY NASAL.SRY NASAL (08:32)
[2019-03-28] MEDS: Bisacodyl 10 MG Suppository RECTAL (08:32)
[2019-03-28] MEDS: 0.9% Normal Saline 1,000 ML 100 ML IV (09:03)
--- NOTE | 2019-03-28 12:06 | PN_ITS ---
Patient Problems: Active and Suspected Problems (Last Reviewed 02/16/19 @ 17:17 by Raven Hernández) Hypotension (Acute) Weakness (Acute) Hypotension (Acute) SBO (small bowel obstruction) (Acute) Reason for Visit: Follow-up on SBO Subjective: Patient was seen and examined. He denied any abdominal pain. Had a large emesis last night. No acute events overnight. Objective: Physical exam: General: Alert, Cooperative, No apparent distress, obese HEENT: Atraumatic, PERRLA, EOMI, Normocephalic Oral: Moist Mucosa Neck: Supple, No JVD, Negative Carotid Bruits Lungs: Clear to auscultation, Normal air movement Cardiovascular: Regular rate, Regular Rhythm, Normal S1, Normal S2, No murmurs Abdomen: Bowel Sounds Present, Soft, Non Tender, Hypoactive Bowel Sounds, Distended, less distended than yesterday. Extremities: No edema Skin: No rashes, No breakdown Musculoskeletal: No Tenderness to Palpation of Joints or Extremities Lymphatic: No Cervical, Supraclavicular, or Inguinal Adenopathy Neurological: Cranial nerves II-XII grossly intact, Neuro grossly intact Psych/Mental Status: Normal Affect, Appropriate Vitals/I&O's: Vital Signs Temp Pulse Resp BP Pulse Ox 98.7 F 103 H 20 H 118/73 93 03/28/19 08:52 03/28/19 08:52 03/28/19 08:52 03/28/19 08:52 03/28/19 08:52 Oxygen Delivery Method Room Air Weight: 110.5 kg Body Mass Index (BMI) 34.9 Orthostatic Vital Signs Start: 03/27/19 05:41 Freq: PRN Status: Active Protocol: Activity Type Activity Date Activity User E-Sign Co-Sign Detail Recorded Client Recorded Date Recorded By Document 03/27/19 05:41 MM [id number] 03/27/19 05:42 MM 03/27/19 05:41 Orthostatic Vitals Sitting -Blood Pressure (90/60-120/80) 117/83 H -Extremity Use Right Arm -Pulse Rate (60-100) 55 L Lying -Blood Pressure (90/60-120/80) 116/70 -Extremity Use Right Arm -Pulse Rate (60-100) 79 Intake and Output for Last 24 Hours 03/26/19 03/27/19 03/28/19 23:59 23:59 23:59 Intake Total 2300 / 2300 3060.00 / 3060.00 936.67 / 936.67 Output Total 600 / 600 750 / 750 400 / 400 Balance 1700 / 1700 2310.00 / 2310.00 536.67 / 536.67 Laboratory Results 03/28/19 06:25: WBC 8.0, RBC 3.42 L, Hgb 10.3 L, Hct 33.4 L, MCV 97.7 H, MCH 30.1, MCHC 30.8 L, RDW Std Deviation 52.7 H, RDW Coeff of Jenny 14.8 H, Plt Count 215, MPV 10.4, Immature Gran % (Auto) 0.400, Neut % (Auto) 70.6 H, Lymph % (Auto) 17.9 L, [place] % (Auto) 7.9, Eos % (Auto) 2.9, Baso % (Auto) 0.3, Absolute Neuts (auto) 5.6, Absolute Lymphs (auto) 1.43, Nucleated RBC % 0 03/28/19 06:25: Sodium 144, Potassium 4.1, Chloride 112 H, Carbon Dioxide 28.0, Anion Gap 4 L, BUN 21 H, Creatinine 0.95, Estim Creat Clear Calc 76.84, Est GFR (MDRD) Af Amer 102, Est GFR (MDRD) Non-Af 84, BUN/Creatinine Ratio 22.2 H, Glucose 104, Calcium 8.6, Total Bilirubin 0.20, AST 16, ALT 18, Alkaline Phosphatase 64, Total Protein 6.4, Albumin 2.6 L, Globulin 3.8, Albumin/Globulin Ratio 0.7 L Current Medications Chlorhexidine Gluconate (Peridex) 15 ml PO BID [facility] Last Admin: 03/28/19 07:47 Dose: Not Given Documented by: Clozapine (Clozaril) 50 mg PO BID [facility] Last Admin: 03/28/19 08:32 Dose: 50 mg Documented by: Clozapine (Clozaril) 300 mg PO QHS [facility] Last Admin: 03/27/19 23:06 Dose: 300 mg Documented by: Fluoxetine HCl (Prozac) 40 mg PO DAILY [facility] Last Admin: 03/28/19 08:31 Dose: 40 mg Documented by: Fluticasone Propionate (Flonase Nasal Gerber) 1 spray NASAL DAILY [facility] Last Admin: 03/28/19 08:32 Dose: 1 spray Documented by: Glucagon () 1 mg IM .X1 PRN PRN Reason: Hypoglycemia Heparin Sodium (Porcine) (Heparin Na) 5,000 unit SC Q8 [facility] Last Admin: 03/28/19 06:43 Dose: 5,000 unit Documented by: Sodium Chloride () 1,000 mls @ 100 mls/hr IV .Q10H [facility] Last Admin: 03/28/19 09:03 Dose: 100 mls/hr Documented by: Dextrose (Dextrose 10%-Water) 250 mls @ 999 mls/hr IV .Q16M PRN; Protocol PRN Reason: HYPOGLYCEMIA Metoprolol Tartrate (Lopressor (Beta Lesley)) 25 mg PO BID [facility] Last Admin: 03/28/19 08:31 Dose: 25 mg Documented by: Ondansetron HCl (Zofran) 4 mg IV Q8H PRN PRN PRN Reason: NAUSEA/VOMITING Last Admin: 03/27/19 09:25 Dose: 4 mg Documented by: Oxcarbazepine (Trileptal) 600 mg PO BID [facility] Last Admin: 03/28/19 08:31 Dose: 600 mg Documented by: Pantoprazole Sodium (Protonix) 40 mg PO DAILY [facility] Last Admin: 03/28/19 08:31 Dose: 40 mg Documented by: Polyethylene Glycol (Miralax) 17 gm PO DAILY [facility] Last Admin: 03/28/19 07:47 Dose: Not Given Documented by: Pravastatin Sodium (Pravachol) 40 mg PO QHS [facility] Last Admin: 03/27/19 23:07 Dose: 40 mg Documented by: Psyllium Hydrophilic Mucilloid (Metamucil) 1 packet PO DAILY [facility] Last Admin: 03/28/19 07:47 Dose: Not Given Documented by: Senna/Docusate Sodium (Senokot-S, Eboni-Colace) 1 tablet PO DAILY [facility] Last Admin: 03/28/19 08:31 Dose: 1 tablet Documented by: Sodium Chloride () 10 - 40 ml IV UD PRN PRN Reason: SALINE FLUSH Last Admin: 03/28/19 05:40 Dose: 10 ml Documented by: Tamsulosin HCl (Flomax) 0.4 mg PO QHS [facility] Last Admin: 03/27/19 23:10 Dose: 0.4 mg Documented by: Tolterodine Tartrate (Detrol La) 2 mg PO DAILY [facility] Last Admin: 03/28/19 08:31 Dose: 2 mg Documented by: STROKE Vital Signs/Narrative: Vital Signs Temp Pulse Resp BP Pulse Ox 03/28/19 08:52 98.7 F 103 H 20 H 118/73 93 03/28/19 08:31 103 H Medical Necessity - Tobacco Use Smoking Status: Never smoker Tobacco Use: Cigarettes Assessment/Plan All Active Problems (Last Reviewed 02/16/19 @ 17:17 by Raven Hernández) Lower GI bleeding (Acute) Psychomotor agitation (Acute) Anticoagulated (Acute) Hypotension (Acute) Weakness (Acute) Hypotension (Acute) SBO (small bowel obstruction) (Acute) Ileus (Acute) Tachycardia (Acute) ARF (acute renal failure) (Resolved) HCAP (healthcare-associated pneumonia) (Resolved) Ileus (Resolved) 69 y/o with PMHx of schizoaffective disorder who was admitted with hypotension and found to have abdominal distension today. 1. Acute small bowel obstruction, seen on KUB and CT of abd/pelvis Multiple NG tube insertion attempts failed. Patient had a large emesis yesterday. Repeat KUB this morning shows improvement in distention Still kept n.p.o., general surgery following, recommends Gastrografin and repeat KUB We will follow-up on surgical recommendation 2. Hypotension, resolved, on IVF 3. Recent h/o A fib, on metoprolol and cardizem Cardizem held on account of hypotension Resumed on Metoprolol 25mg po bid 4. Schizoaffective disorder, on Clozapine, prozac 5. KEHINDE of CKD stage 3, likely secondary to dehydration, resolved, Will continue on IV fluids whilst kept n.p.o. 6. DVT PPx- Heparin SC Code Visit Inpatient E&M: 75430 Subs Hosp L2
[2019-03-28] MEDS: 0.9% Normal Saline 1,000 ML 125 ML IV (18:08)
[2019-03-28] MEDS: Chlorhexidine 480 ML 15 ML PO (20:53)
[2019-03-28] MEDS: Pravastatin 40 MG Tablet PO (21:00)
[2019-03-28] MEDS: Tamsulosin HCl 0.4 MG Capsule PO (21:00)
[2019-03-29] MEDS: 0.9% Normal Saline 1,000 ML 125 ML IV ×3 (02:00→17:44)
[2019-03-29] MEDS: Heparin Injection (Vial) 5,000 UNIT/ML VIAL 5000 UNIT SC ×3 (05:28→21:50)
[2019-03-29 05:35] VITALS: BP 128/80; PULSE 93; RESP 18; TEMP 36.4; O2SAT 93
--- NOTE | 2019-03-29 08:26 | PCM.PN.SRG ---
Patient Problems: Active and Suspected Problems (Last Reviewed 02/16/19 @ 17:17 by Raven Hernández) Hypotension (Acute) Weakness (Acute) Hypotension (Acute) SBO (small bowel obstruction) (Acute) Subjective: Patient had large bowel movement after Dulcolax suppository yesterday. He had no nausea or vomiting overnight. He describes no abdominal pain today and feels well. - Physical Exam Vitals/I&O's: Vital Signs Temp Pulse Resp BP Pulse Ox 97.6 F L 93 18 128/80 H 93 03/29/19 05:35 03/29/19 05:35 03/29/19 05:35 03/29/19 05:35 03/29/19 05:35 Oxygen Delivery Method Room Air Weight: 243 lb 9.773 oz Body Mass Index (BMI) 34.9 Orthostatic Vital Signs Start: 03/27/19 05:41 Freq: PRN Status: Active Protocol: Activity Type Activity Date Activity User E-Sign Co-Sign Detail Recorded Client Recorded Date Recorded By Document 03/27/19 05:41 MM [id number] 03/27/19 05:42 MM 03/27/19 05:41 Orthostatic Vitals Sitting -Blood Pressure (90/60-120/80) 117/83 H -Extremity Use Right Arm -Pulse Rate (60-100) 55 L Lying -Blood Pressure (90/60-120/80) 116/70 -Extremity Use Right Arm -Pulse Rate (60-100) 79 Intake and Output for Last 24 Hours 03/27/19 03/28/19 03/29/19 23:59 23:59 23:59 Intake Total 3060.00 / 3060.00 1936.67 / 1936.67 952.08 / 952.08 Output Total 750 / 750 800 / 800 820 / 820 Balance 2310.00 / 2310.00 1136.67 / 1136.67 132.08 / 132.08 General: Alert, Cooperative Lungs: Normal air movement Cardiovascular: Regular rate, Regular Rhythm Abdomen: Soft, Non Tender, Obese Current Medications Chlorhexidine Gluconate (Peridex) 15 ml PO BID [facility] Last Admin: 03/28/19 20:53 Dose: 15 ml Documented by: Clozapine (Clozaril) 50 mg PO BID [facility] Last Admin: 03/28/19 20:55 Dose: 50 mg Documented by: Clozapine (Clozaril) 300 mg PO QHS [facility] Last Admin: 03/28/19 20:54 Dose: 300 mg Documented by: Fluoxetine HCl (Prozac) 40 mg PO DAILY [facility] Last Admin: 03/28/19 08:31 Dose: 40 mg Documented by: Fluticasone Propionate (Flonase Nasal [place]) 1 spray NASAL DAILY [facility] Last Admin: 03/28/19 08:32 Dose: 1 spray Documented by: Glucagon () 1 mg IM .X1 PRN PRN Reason: Hypoglycemia Heparin Sodium (Porcine) (Heparin Na) 5,000 unit SC Q8 [facility] Last Admin: 03/29/19 05:28 Dose: 5,000 unit Documented by: Sodium Chloride () 1,000 mls @ 125 mls/hr IV .Q8H [facility] Last Admin: 03/29/19 02:00 Dose: 125 mls/hr Documented by: Dextrose (Dextrose 10%-Water) 250 mls @ 999 mls/hr IV .Q16M PRN; Protocol PRN Reason: HYPOGLYCEMIA Metoprolol Tartrate (Lopressor (Beta Lesley)) 25 mg PO BID [facility] Last Admin: 03/28/19 20:59 Dose: 25 mg Documented by: Ondansetron HCl (Zofran) 4 mg IV Q8H PRN PRN PRN Reason: NAUSEA/VOMITING Last Admin: 03/27/19 09:25 Dose: 4 mg Documented by: Oxcarbazepine (Trileptal) 600 mg PO BID [facility] Last Admin: 03/28/19 20:54 Dose: 600 mg Documented by: Pantoprazole Sodium (Protonix) 40 mg PO DAILY [facility] Last Admin: 03/28/19 08:31 Dose: 40 mg Documented by: Polyethylene Glycol (Miralax) 17 gm PO DAILY [facility] Last Admin: 03/28/19 07:47 Dose: Not Given Documented by: Pravastatin Sodium (Pravachol) 40 mg PO QHS [facility] Last Admin: 03/28/19 21:00 Dose: 40 mg Documented by: Psyllium Hydrophilic Mucilloid (Metamucil) 1 packet PO DAILY [facility] Last Admin: 03/28/19 07:47 Dose: Not Given Documented by: Senna/Docusate Sodium (Senokot-S, Eboni-Colace) 1 tablet PO DAILY [facility] Last Admin: 03/28/19 08:31 Dose: 1 tablet Documented by: Sodium Chloride () 10 - 40 ml IV UD PRN PRN Reason: SALINE FLUSH Last Admin: 03/28/19 05:40 Dose: 10 ml Documented by: Tamsulosin HCl (Flomax) 0.4 mg PO QHS [facility] Last Admin: 03/28/19 21:00 Dose: 0.4 mg Documented by: Tolterodine Tartrate (Detrol La) 2 mg PO DAILY [facility] Last Admin: 03/28/19 08:31 Dose: 2 mg Documented by: Medical Necessity - Tobacco Use Smoking Status: Never smoker Tobacco Use: Cigarettes Assessment/Plan All Active Problems (Last Reviewed 02/16/19 @ 17:17 by Raven Hernández) Lower GI bleeding (Acute) Psychomotor agitation (Acute) Anticoagulated (Acute) Hypotension (Acute) Weakness (Acute) Hypotension (Acute) SBO (small bowel obstruction) (Acute) Ileus (Acute) Tachycardia (Acute) ARF (acute renal failure) (Resolved) HCAP (healthcare-associated pneumonia) (Resolved) Ileus (Resolved) 69-year-old male with small bowel obstruction 1. The patient reports he is having no abdominal pain or nausea or vomiting. He had a large bowel movement after Dulcolax suppository. His x-ray yesterday morning showed resolution of the small bowel dilation. I will start him on a clear liquid diet and repeat KUB tomorrow morning to see if this causes any dilution of the stomach or small bowel. Patient refused small bowel follow-through with Gastrografin yesterday. Paolo Winters MD Pager: [facility] [address] [place] [address] [address] [place] [address] Office:
[2019-03-29] MEDS: Fluticasone 0.05% 1 SPRAY NASAL.SRY NASAL (08:30)
[2019-03-29] MEDS: FLUoxetine 20 MG Capsule 40 MG PO (08:31)
[2019-03-29] MEDS: Pantoprazole Sodium 40 MG Tablet PO (08:31)
[2019-03-29 08:32] VITALS: PULSE 109
[2019-03-29] MEDS: Polyethylene Glycol 3350 17 GM PACKET PO (08:32)
[2019-03-29] MEDS: Psyllium 1 PACKET PO (08:32)
[2019-03-29] MEDS: Metoprolol Tartrate 25 MG Tablet PO ×2 (08:32→21:50)
[2019-03-29] MEDS: OXcarbazepine 300 MG Tablet 600 MG PO ×2 (08:34→21:50)
[2019-03-29] MEDS: Tolterodine Tartrate 2 MG CAP.SA PO (08:34)
[2019-03-29] MEDS: Chlorhexidine 480 ML 15 ML PO ×2 (08:35→21:50)
[2019-03-29] MEDS: Senna/Docusate Sodium 1 Tablet PO (08:35)
--- NOTE | 2019-03-29 08:43 | PCM.PN.HOSP ---
Patient Problems: Active and Suspected Problems (Last Reviewed 02/16/19 @ 17:17 by Raven Hernández) Hypotension (Acute) Weakness (Acute) Hypotension (Acute) SBO (small bowel obstruction) (Acute) Subjective: Feels better, denies any significant abdominal pain. Had a bowel movement yesterday but denies any flatus Vitals/I&O's: Vital Signs Temp Pulse Resp BP Pulse Ox 97.6 F L 109 H 18 128/80 H 93 03/29/19 05:35 03/29/19 08:32 03/29/19 05:35 03/29/19 05:35 03/29/19 05:35 Oxygen Delivery Method Room Air Weight: 243 lb 9.773 oz Body Mass Index (BMI) 34.9 Orthostatic Vital Signs Start: 03/27/19 05:41 Freq: PRN Status: Active Protocol: Activity Type Activity Date Activity User E-Sign Co-Sign Detail Recorded Client Recorded Date Recorded By Document 03/27/19 05:41 MM [id number] 03/27/19 05:42 MM 03/27/19 05:41 Orthostatic Vitals Sitting -Blood Pressure (90/60-120/80) 117/83 H -Extremity Use Right Arm -Pulse Rate (60-100) 55 L Lying -Blood Pressure (90/60-120/80) 116/70 -Extremity Use Right Arm -Pulse Rate (60-100) 79 Intake and Output for Last 24 Hours 03/27/19 03/28/19 03/29/19 23:59 23:59 23:59 Intake Total 3060.00 / 3060.00 1936.67 / 1936.67 952.08 / 952.08 Output Total 750 / 750 800 / 800 820 / 820 Balance 2310.00 / 2310.00 1136.67 / 1136.67 132.08 / 132.08 General: Alert, Cooperative, No apparent distress HEENT: Atraumatic, PERRLA, EOMI, Normocephalic Oral: Moist Mucosa Neck: Supple, No JVD Lungs: Clear to auscultation, Normal air movement, No rhonchi, No wheeze, No rales, Diminished Cardiovascular: Regular rate, Regular Rhythm, Normal S1, Normal S2, No murmurs Abdomen: Soft, Non Tender, Non-Distended, No Hepato-splenomegaly Extremities: No edema, Capillary Refill Less than 3 Seconds Skin: No rashes, No breakdown Neurological: Neuro grossly intact, Sensory exam intact to light touch and pain Psych/Mental Status: Normal Affect, Appropriate Current Medications Bisacodyl (Dulcolax) 10 mg RECTAL X1 ONE Stop: 03/29/19 08:27 Chlorhexidine Gluconate (Peridex) 15 ml PO BID [facility] Last Admin: 03/29/19 08:35 Dose: 15 ml Documented by: Clozapine (Clozaril) 50 mg PO BID [facility] Last Admin: 03/29/19 08:31 Dose: 50 mg Documented by: Clozapine (Clozaril) 300 mg PO QHS [facility] Last Admin: 03/28/19 20:54 Dose: 300 mg Documented by: Fluoxetine HCl (Prozac) 40 mg PO DAILY [facility] Last Admin: 03/29/19 08:31 Dose: 40 mg Documented by: Fluticasone Propionate (Flonase Nasal [place]) 1 spray NASAL DAILY [facility] Last Admin: 03/29/19 08:30 Dose: 1 spray Documented by: Glucagon () 1 mg IM .X1 PRN PRN Reason: Hypoglycemia Heparin Sodium (Porcine) (Heparin Na) 5,000 unit SC Q8 [facility] Last Admin: 03/29/19 05:28 Dose: 5,000 unit Documented by: Sodium Chloride () 1,000 mls @ 125 mls/hr IV .Q8H [facility] Last Admin: 03/29/19 02:00 Dose: 125 mls/hr Documented by: Dextrose (Dextrose 10%-Water) 250 mls @ 999 mls/hr IV .Q16M PRN; Protocol PRN Reason: HYPOGLYCEMIA Metoprolol Tartrate (Lopressor (Beta Lesley)) 25 mg PO BID [facility] Last Admin: 03/29/19 08:32 Dose: 25 mg Documented by: Ondansetron HCl (Zofran) 4 mg IV Q8H PRN PRN PRN Reason: NAUSEA/VOMITING Last Admin: 03/27/19 09:25 Dose: 4 mg Documented by: Oxcarbazepine (Trileptal) 600 mg PO BID [facility] Last Admin: 03/29/19 08:34 Dose: 600 mg Documented by: Pantoprazole Sodium (Protonix) 40 mg PO DAILY [facility] Last Admin: 03/29/19 08:31 Dose: 40 mg Documented by: Polyethylene Glycol (Miralax) 17 gm PO DAILY [facility] Last Admin: 03/29/19 08:32 Dose: 17 gm Documented by: Pravastatin Sodium (Pravachol) 40 mg PO QHS [facility] Last Admin: 03/28/19 21:00 Dose: 40 mg Documented by: Psyllium Hydrophilic Mucilloid (Metamucil) 1 packet PO DAILY [facility] Last Admin: 03/29/19 08:32 Dose: 1 packet Documented by: Senna/Docusate Sodium (Senokot-S, Eboni-Colace) 1 tablet PO DAILY [facility] Last Admin: 03/29/19 08:35 Dose: 1 tablet Documented by: Sodium Chloride () 10 - 40 ml IV UD PRN PRN Reason: SALINE FLUSH Last Admin: 03/28/19 05:40 Dose: 10 ml Documented by: Tamsulosin HCl (Flomax) 0.4 mg PO QHS [facility] Last Admin: 03/28/19 21:00 Dose: 0.4 mg Documented by: Tolterodine Tartrate (Detrol La) 2 mg PO DAILY [facility] Last Admin: 03/29/19 08:34 Dose: 2 mg Documented by: STROKE Vital Signs/Narrative: Vital Signs Temp Pulse Resp BP Pulse Ox 03/29/19 08:32 109 H 03/29/19 05:35 97.6 F L 93 18 128/80 H 93 Medical Necessity - Tobacco Use Smoking Status: Never smoker Tobacco Use: Cigarettes Assessment/Plan All Active Problems (Last Reviewed 02/16/19 @ 17:17 by Raven Hernández) Lower GI bleeding (Acute) Psychomotor agitation (Acute) Anticoagulated (Acute) Hypotension (Acute) Weakness (Acute) Hypotension (Acute) SBO (small bowel obstruction) (Acute) Ileus (Acute) Tachycardia (Acute) ARF (acute renal failure) (Resolved) HCAP (healthcare-associated pneumonia) (Resolved) Ileus (Resolved) 1. Small bowel obstruction -Appreciate surgical input -Can probably start clears today and see how he does on repeat KUB, he did not tolerate a Gastrografin KUB yesterday. -We will continue to monitor and if necessary can make him n.p.o. again 2. Hypotension resolved 3. A. fib/HTN/HLD -His Cardizem was held initially for his hypotension -Continue with metoprolol -His Eliquis has been held for possible surgical intervention however if he starts taking p.o. can resume -Continue with heparin for now -Continue with pravastatin 4. Schizoaffective disorder -He lives in a snf and has been relatively stable -Continue with his clozapine, Prozac, and Trileptal 5. BPH -Stable -Continue with Flomax 6. GERD -Stable -Continue with PPI DVT: Heparin Code Visit Inpatient E&M: 76998 Subs Hosp L2
[2019-03-29 09:35] VITALS: BP 123/71; PULSE 109; RESP 20; TEMP 36.5; O2SAT 96
[2019-03-29] MEDS: Bisacodyl 10 MG Suppository RECTAL (09:45)
[2019-03-29 15:45] VITALS: BP 121/85; PULSE 95; RESP 20; TEMP 36.6; O2SAT 94
[2019-03-29 20:25] VITALS: BP 116/75; PULSE 96; RESP 18; TEMP 36.6; O2SAT 97
[2019-03-29 21:50] VITALS: PULSE 104
[2019-03-29] MEDS: Pravastatin 40 MG Tablet PO (21:50)
[2019-03-29] MEDS: Tamsulosin HCl 0.4 MG Capsule PO (21:50)
[2019-03-30] MEDS: 0.9% Normal Saline 1,000 ML 125 ML IV ×3 (02:00→18:45)
[2019-03-30] MEDS: Heparin Injection (Vial) 5,000 UNIT/ML VIAL 5000 UNIT SC ×3 (05:11→22:11)
[2019-03-30 05:18] VITALS: BP 135/98; PULSE 102; RESP 18; TEMP 36.6; O2SAT 97
--- NOTE | 2019-03-30 05:55 | RAD_ITS ---
STUDY: X-RAY - ABDOMEN/PELVIS REASON FOR EXAM: Male, 69 years old. SBO TECHNIQUE: Single AP view of the abdomen / pelvis. COMPARISON: Comparison is made with prior examination dated March 28, 2019. FINDINGS: Normal visualized lung bases. Nonspecific bowel gas pattern. No evidence of bowel obstruction. The visualized liver, spleen and kidneys are grossly normal in size and morphology. Normal soft tissue structures. Normal visualized osseous structures. RAD/Abdomen Single View (Portable) IMPRESSION: Nonspecific bowel gas pattern. Electronically Signed: Gerber Nascimento, at 13:59 EST , Service support ,
[2019-03-30 07:54] VITALS: BP 111/81; PULSE 108; RESP 18; TEMP 36.7; O2SAT 93
--- NOTE | 2019-03-30 09:00 | PN.SURG_ITS ---
Patient Problems: Active and Suspected Problems (Last Reviewed 02/16/19 @ 17:17 by Raven Hernández) Hypotension (Acute) Weakness (Acute) Hypotension (Acute) SBO (small bowel obstruction) (Acute) Subjective: Patient reports no issues overnight and tolerated clear liquids. He is not having any nausea or vomiting. - Physical Exam Vitals/I&O's: Vital Signs Temp Pulse Resp BP Pulse Ox 98.1 F 108 H 18 111/81 H 93 03/30/19 07:54 03/30/19 07:54 03/30/19 07:54 03/30/19 07:54 03/30/19 07:54 Oxygen Delivery Method Room Air Weight: 243 lb 9.773 oz Body Mass Index (BMI) 34.9 Orthostatic Vital Signs Start: 03/27/19 05:41 Freq: PRN Status: Active Protocol: Activity Type Activity Date Activity User E-Sign Co-Sign Detail Recorded Client Recorded Date Recorded By Document 03/27/19 05:41 MM [id number] 03/27/19 05:42 MM 03/27/19 05:41 Orthostatic Vitals Sitting -Blood Pressure (90/60-120/80) 117/83 H -Extremity Use Right Arm -Pulse Rate (60-100) 55 L Lying -Blood Pressure (90/60-120/80) 116/70 -Extremity Use Right Arm -Pulse Rate (60-100) 79 Intake and Output for Last 24 Hours 03/28/19 03/29/19 03/30/19 23:59 23:59 23:59 Intake Total 1936.67 / 1936.67 3869.17 / 3869.17 889.58 / 889.58 Output Total 800 / 800 1395 / 1395 700 / 700 Balance 1136.67 / 1136.67 2474.17 / 2474.17 189.58 / 189.58 General: Alert, Cooperative Lungs: Normal air movement, No rhonchi Abdomen: Soft, Non Tender, Non-Distended Current Medications Chlorhexidine Gluconate (Peridex) 15 ml PO BID [facility] Last Admin: 03/29/19 21:50 Dose: 15 ml Documented by: Clozapine (Clozaril) 50 mg PO BID [facility] Last Admin: 03/29/19 21:50 Dose: 50 mg Documented by: Clozapine (Clozaril) 300 mg PO QHS [facility] Last Admin: 03/29/19 21:50 Dose: 300 mg Documented by: Fluoxetine HCl (Prozac) 40 mg PO DAILY [facility] Last Admin: 03/29/19 08:31 Dose: 40 mg Documented by: Fluticasone Propionate (Flonase Nasal [place]) 1 spray NASAL DAILY [facility] Last Admin: 03/29/19 08:30 Dose: 1 spray Documented by: Glucagon () 1 mg IM .X1 PRN PRN Reason: Hypoglycemia Heparin Sodium (Porcine) (Heparin Na) 5,000 unit SC Q8 [facility] Last Admin: 03/30/19 05:11 Dose: 5,000 unit Documented by: Sodium Chloride () 1,000 mls @ 125 mls/hr IV .Q8H [facility] Last Admin: 03/30/19 02:00 Dose: 125 mls/hr Documented by: Dextrose (Dextrose 10%-Water) 250 mls @ 999 mls/hr IV .Q16M PRN; Protocol PRN Reason: HYPOGLYCEMIA Metoprolol Tartrate (Lopressor (Beta Lesley)) 25 mg PO BID [facility] Last Admin: 03/29/19 21:50 Dose: 25 mg Documented by: Ondansetron HCl (Zofran) 4 mg IV Q8H PRN PRN PRN Reason: NAUSEA/VOMITING Last Admin: 03/27/19 09:25 Dose: 4 mg Documented by: Oxcarbazepine (Trileptal) 600 mg PO BID [facility] Last Admin: 03/29/19 21:50 Dose: 600 mg Documented by: Pantoprazole Sodium (Protonix) 40 mg PO DAILY [facility] Last Admin: 03/29/19 08:31 Dose: 40 mg Documented by: Polyethylene Glycol (Miralax) 17 gm PO DAILY [facility] Last Admin: 03/29/19 08:32 Dose: 17 gm Documented by: Pravastatin Sodium (Pravachol) 40 mg PO QHS [facility] Last Admin: 03/29/19 21:50 Dose: 40 mg Documented by: Psyllium Hydrophilic Mucilloid (Metamucil) 1 packet PO DAILY [facility] Last Admin: 03/29/19 08:32 Dose: 1 packet Documented by: Senna/Docusate Sodium (Senokot-S, Eboni-Colace) 1 tablet PO DAILY [facility] Last Admin: 03/29/19 08:35 Dose: 1 tablet Documented by: Sodium Chloride () 10 - 40 ml IV UD PRN PRN Reason: SALINE FLUSH Last Admin: 03/28/19 05:40 Dose: 10 ml Documented by: Tamsulosin HCl (Flomax) 0.4 mg PO QHS [facility] Last Admin: 03/29/19 21:50 Dose: 0.4 mg Documented by: Tolterodine Tartrate (Detrol La) 2 mg PO DAILY [facility] Last Admin: 03/29/19 08:34 Dose: 2 mg Documented by: Medical Necessity - Tobacco Use Smoking Status: Never smoker Tobacco Use: Cigarettes Assessment/Plan All Active Problems (Last Reviewed 02/16/19 @ 17:17 by Raven Hernández) Lower GI bleeding (Acute) Psychomotor agitation (Acute) Anticoagulated (Acute) Hypotension (Acute) Weakness (Acute) Hypotension (Acute) SBO (small bowel obstruction) (Acute) Ileus (Acute) Tachycardia (Acute) ARF (acute renal failure) (Resolved) HCAP (healthcare-associated pneumonia) (Resolved) Ileus (Resolved) 69-year-old male small bowel direction 1. Patient tolerated clear liquids yesterday. KUB today does not show any dilated loops of small bowel. He had a large bowel movement yesterday. I will try a trial of regular diet to see how he does as he is not having any nausea or abdominal pain. Paolo Winters MD Pager: [facility] [address] [place] [address], [address] [place] [phone] Office:
--- NOTE | 2019-03-30 09:30 | CASEMGMT ---
Addendum entered by Octavia Sarkar 03/30/19 11:43: SUSI received call from Katia at [facility]. 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 Per previous conversation with pt's guardian Maged, Maged's second choice for SNF is [facility]. SUSI placed a call to Camille at [facility] and provided referral. Camille states she will review referral but will need to do an onsite for pt. SUSI faxed referral to SNF. Plan: SNF pending acceptance Original Note: Social Work Note SUSI faxed updated clinicals to [facility]. SUSI wrote on fax coversheet that pt's skilled need will be therapy at SNF as per PT/OT pt was min assist of 2 today. Plan: SNF pending acceptance Octavia Sarkar RECRUITMENT ADVERTISING MANAGER, SOFTWARE ASSET MANAGEMENT ANALYST
--- NOTE | 2019-03-30 09:43 | PCM.PN.HOSP ---
Patient Problems: Active and Suspected Problems (Last Reviewed 02/16/19 @ 17:17 by Raven Hernández) Hypotension (Acute) Weakness (Acute) Hypotension (Acute) SBO (small bowel obstruction) (Acute) Subjective: Doing well no issues overnight. He has had multiple bowel movements yesterday. Denies any abdominal pain. Denies any nausea or vomiting. Vitals/I&O's: Vital Signs Temp Pulse Resp BP Pulse Ox 98.1 F 108 H 18 111/81 H 93 03/30/19 07:54 03/30/19 07:54 03/30/19 07:54 03/30/19 07:54 03/30/19 07:54 Oxygen Delivery Method Room Air Weight: 243 lb 9.773 oz Body Mass Index (BMI) 34.9 Orthostatic Vital Signs Start: 03/27/19 05:41 Freq: PRN Status: Active Protocol: Activity Type Activity Date Activity User E-Sign Co-Sign Detail Recorded Client Recorded Date Recorded By Document 03/27/19 05:41 MM [id number] 03/27/19 05:42 MM 03/27/19 05:41 Orthostatic Vitals Sitting -Blood Pressure (90/60-120/80) 117/83 H -Extremity Use Right Arm -Pulse Rate (60-100) 55 L Lying -Blood Pressure (90/60-120/80) 116/70 -Extremity Use Right Arm -Pulse Rate (60-100) 79 Intake and Output for Last 24 Hours 03/28/19 03/29/19 03/30/19 23:59 23:59 23:59 Intake Total 1936.67 / 1936.67 3869.17 / 3869.17 889.58 / 889.58 Output Total 800 / 800 1395 / 1395 700 / 700 Balance 1136.67 / 1136.67 2474.17 / 2474.17 189.58 / 189.58 General: Alert, Cooperative, No apparent distress HEENT: Atraumatic, PERRLA, EOMI, Normocephalic Oral: Moist Mucosa Neck: Supple, No JVD Lungs: Clear to auscultation, Normal air movement, No rhonchi, No wheeze, No rales, Diminished Cardiovascular: Regular rate, Regular Rhythm, Normal S1, Normal S2, No murmurs Abdomen: Soft, Non Tender, Non-Distended, No Hepato-splenomegaly Extremities: No edema, Capillary Refill Less than 3 Seconds Skin: No rashes, No breakdown Neurological: Neuro grossly intact, Sensory exam intact to light touch and pain Psych/Mental Status: Normal Affect, Appropriate Current Medications Chlorhexidine Gluconate (Peridex) 15 ml PO BID [facility] Last Admin: 03/29/19 21:50 Dose: 15 ml Documented by: Clozapine (Clozaril) 50 mg PO BID [facility] Last Admin: 03/29/19 21:50 Dose: 50 mg Documented by: Clozapine (Clozaril) 300 mg PO QHS [facility] Last Admin: 03/29/19 21:50 Dose: 300 mg Documented by: Fluoxetine HCl (Prozac) 40 mg PO DAILY [facility] Last Admin: 03/29/19 08:31 Dose: 40 mg Documented by: Fluticasone Propionate (Flonase Nasal [place]) 1 spray NASAL DAILY [facility] Last Admin: 03/29/19 08:30 Dose: 1 spray Documented by: Glucagon () 1 mg IM .X1 PRN PRN Reason: Hypoglycemia Heparin Sodium (Porcine) (Heparin Na) 5,000 unit SC Q8 [facility] Last Admin: 03/30/19 05:11 Dose: 5,000 unit Documented by: Sodium Chloride () 1,000 mls @ 125 mls/hr IV .Q8H [facility] Last Admin: 03/30/19 02:00 Dose: 125 mls/hr Documented by: Dextrose (Dextrose 10%-Water) 250 mls @ 999 mls/hr IV .Q16M PRN; Protocol PRN Reason: HYPOGLYCEMIA Metoprolol Tartrate (Lopressor (Beta Lesley)) 25 mg PO BID [facility] Last Admin: 03/29/19 21:50 Dose: 25 mg Documented by: Ondansetron HCl (Zofran) 4 mg IV Q8H PRN PRN PRN Reason: NAUSEA/VOMITING Last Admin: 03/27/19 09:25 Dose: 4 mg Documented by: Oxcarbazepine (Trileptal) 600 mg PO BID [facility] Last Admin: 03/29/19 21:50 Dose: 600 mg Documented by: Pantoprazole Sodium (Protonix) 40 mg PO DAILY [facility] Last Admin: 03/29/19 08:31 Dose: 40 mg Documented by: Polyethylene Glycol (Miralax) 17 gm PO DAILY [facility] Last Admin: 03/29/19 08:32 Dose: 17 gm Documented by: Pravastatin Sodium (Pravachol) 40 mg PO QHS [facility] Last Admin: 03/29/19 21:50 Dose: 40 mg Documented by: Psyllium Hydrophilic Mucilloid (Metamucil) 1 packet PO DAILY [facility] Last Admin: 03/29/19 08:32 Dose: 1 packet Documented by: Senna/Docusate Sodium (Senokot-S, Eboni-Colace) 1 tablet PO DAILY [facility] Last Admin: 03/29/19 08:35 Dose: 1 tablet Documented by: Sodium Chloride () 10 - 40 ml IV UD PRN PRN Reason: SALINE FLUSH Last Admin: 03/28/19 05:40 Dose: 10 ml Documented by: Tamsulosin HCl (Flomax) 0.4 mg PO QHS [facility] Last Admin: 03/29/19 21:50 Dose: 0.4 mg Documented by: Tolterodine Tartrate (Detrol La) 2 mg PO DAILY [facility] Last Admin: 03/29/19 08:34 Dose: 2 mg Documented by: STROKE Vital Signs/Narrative: Vital Signs Temp Pulse Resp BP Pulse Ox 03/30/19 07:54 98.1 F 108 H 18 111/81 H 93 Medical Necessity - Tobacco Use Smoking Status: Never smoker Tobacco Use: Cigarettes Assessment/Plan All Active Problems (Last Reviewed 02/16/19 @ 17:17 by Raven Hernández) Lower GI bleeding (Acute) Psychomotor agitation (Acute) Anticoagulated (Acute) Hypotension (Acute) Weakness (Acute) Hypotension (Acute) SBO (small bowel obstruction) (Acute) Ileus (Acute) Tachycardia (Acute) ARF (acute renal failure) (Resolved) HCAP (healthcare-associated pneumonia) (Resolved) Ileus (Resolved) 1. Small bowel obstruction -Appreciate surgical input -Advance to a regular diet and see how he tolerates -We will continue to monitor and if necessary can make him n.p.o. again 2. Hypotension resolved 3. A. fib/HTN/HLD -His Cardizem was held initially for his hypotension -Continue with metoprolol -His Eliquis has been held for possible surgical intervention however if he starts taking p.o. can resume -Continue with heparin for now -Continue with pravastatin 4. Schizoaffective disorder -He lives in a halfway and has been relatively stable -Continue with his clozapine, Prozac, and Trileptal 5. BPH -Stable -Continue with Flomax 6. GERD -Stable -Continue with PPI Dispo: He is not to go back to the halfway, and will attempt to find him placement in a alf facility which may be challenging given his mental health history. DVT: Heparin Code Visit Inpatient E&M: 25481 Subs Hosp L2
[2019-03-30] MEDS: Tolterodine Tartrate 2 MG CAP.SA PO (10:42)
[2019-03-30] MEDS: Pantoprazole Sodium 40 MG Tablet PO (10:42)
[2019-03-30] MEDS: Senna/Docusate Sodium 1 Tablet PO (10:43)
[2019-03-30] MEDS: Fluticasone 0.05% 1 SPRAY NASAL.SRY NASAL (10:43)
[2019-03-30] MEDS: Polyethylene Glycol 3350 17 GM PACKET PO (10:43)
[2019-03-30 10:44] VITALS: PULSE 110
[2019-03-30] MEDS: Metoprolol Tartrate 25 MG Tablet PO ×2 (10:44→22:11)
[2019-03-30] MEDS: FLUoxetine 20 MG Capsule 40 MG PO (10:44)
[2019-03-30] MEDS: OXcarbazepine 300 MG Tablet 600 MG PO ×2 (10:44→22:11)
[2019-03-30] MEDS: Chlorhexidine 480 ML 15 ML PO ×2 (10:45→22:10)
[2019-03-30] MEDS: Psyllium 1 PACKET PO (10:45)
[2019-03-30 14:25] VITALS: BP 114/79; PULSE 105; RESP 18; TEMP 36.8; O2SAT 95
--- NOTE | 2019-03-30 14:50 | CASEMGMT ---
Social Work Note Switchboard And Control Room Operator from [facility] present at [facility] and states pt should be fine to admit to [facility]. SW updated accounts payable representative that pt is having diet advanced today so likely discharge tomorrow. SUSI placed a call to pt's guardian Maged and updated him that [facility] is not able to accept pt so this worker made referral to [facility] and they are able to accept pt. Maged states understanding. Plan: [facility] tomorrow if medically cleared Octavia Sarkar COMPRESSOR OPERATOR PORTABLE, ELECTRIC LOCOMOTIVE FIRER/FIREMAN
--- NOTE | 2019-03-30 14:57 | CHAPLAIN ---
Type of Pastoral Visit _x__ Initial Visit ___ Follow-up Visit ___ On-call Visit ___ General Patient Visit ___ Spiritual Assessment ___ Family Conference ___ Bereavement ___ Rapid Response ___ Code Blue ___ Other (describe below) Pastoral Care Referral From _x__ Patient ___ Family ___ Nurse ___ Physician ___ Lan Administrator ___ Outbound Call Center Representative ___ Other (describe below) Sacrament/Intervention _x__ Active listening ___ Anointing ___ Jewish ___ Bereavement ___ Communion ___ Nova exploration ___ ___ Life review _x__ Prayer ___ Reconciliation ___ Sacrament of Sick ___ Supportive presence ___ Wedding ___ Other (describe below) Pastoral Comments patient has limited intellectual understanding apparently; pt repeats question about his return to [facility]
[2019-03-30 22:11] VITALS: BP 143/90; PULSE 111; RESP 18; TEMP 36.6; O2SAT 94
[2019-03-30] MEDS: Pravastatin 40 MG Tablet PO (22:11)
[2019-03-30] MEDS: Tamsulosin HCl 0.4 MG Capsule PO (22:11)
[2019-03-31 02:26] VITALS: BP 139/92; PULSE 98; RESP 18; TEMP 36.6; O2SAT 94
[2019-03-31] MEDS: 0.9% Normal Saline 1,000 ML 125 ML IV (02:28)
[2019-03-31] MEDS: Heparin Injection (Vial) 5,000 UNIT/ML VIAL 5000 UNIT SC (05:48)
[2019-03-31 05:56] LABS: Absolute Neutrophil Count 3.5 X10^3/uL (2.0-7.7); Basophil# 0.01 X10^3/uL; Basophil% 0.2 % (0-1); Eosinophil# 0.32 X10^3/uL; Eosinophils% 6.1 % (0-5); Hematocrit 32.7 % (40-54); Lymphocyte % 18.9 % (19-41); Mean Corp Hgb Conc 30.6 g/dL (32-36); Mean Corpuscular Hgb 29.8 pg (27.0-32.0); Mean Corpuscular Volume 97.3 fL (80-94); Mean Platelet Vol. 11.4 fl (6.2-12.0); Monocyte# 0.42 X10^3/uL; NRBC Flagged by Analyzer 0 % (0-5); Neutrophil % 66.2 % (47-70); Platelet Count 162 K/mm3 (150-450); RBC Distribution Width CV 13.9 % (11.6-14.6); RBC Distribution Width SD 49.6 fl (35.1-43.9); Red Blood Count 3.36 M/mm3 (4.6-6.2); White Blood Count 5.3 K/mm3 (4.4-11.0)
[2019-03-31 06:20] LABS: Anion Gap 5 (5-15); BUN 7 mg/dL (7-18); BUN/Creat Ratio 8.7 RATIO (10-20); Calcium,Total 8.7 mg/dL (8.5-10.1); Chloride 111 mmol/L (98-107); EST Glomerular Filtration Rate 101 mL/min (>60); Est Glom Filt Rate - Afr Amer 123 mL/min (>60); Estimated Creatinine Clearance 91.25 ml/min; Glucose 114 mg/dL (74-106); Potassium 3.5 mmol/L (3.5-5.1); Sodium Level 141 mmol/L (136-145)
--- NOTE | 2019-03-31 07:33 | PCM.PN.SRG ---
Patient Problems: Active and Suspected Problems (Last Reviewed 02/16/19 @ 17:17 by Raven Hernández) Hypotension (Acute) Weakness (Acute) Hypotension (Acute) SBO (small bowel obstruction) (Acute) Subjective: Patient has no complaints overnight and did tolerate regular diet yesterday. - Physical Exam Vitals/I&O's: Vital Signs Temp Pulse Resp BP Pulse Ox 97.8 F 98 18 139/92 H 94 03/31/19 02:26 03/31/19 02:26 03/31/19 02:26 03/31/19 02:26 03/31/19 02:26 Oxygen Delivery Method Room Air Weight: 243 lb 9.773 oz Body Mass Index (BMI) 34.9 Orthostatic Vital Signs Start: 03/27/19 05:41 Freq: Status: Active Protocol: Activity Type Activity Date Activity User E-Sign Co-Sign Detail Recorded Client Recorded Date Recorded By Document 03/27/19 05:41 MM [id number] 03/27/19 05:42 MM 03/27/19 05:41 Orthostatic Vitals Sitting -Blood Pressure (90/60-120/80 mm Hg) 117/83 H -Extremity Use Right Arm -Pulse Rate (60-100 beats/min) 55 L Lying -Blood Pressure (90/60-120/80 mm Hg) 116/70 -Extremity Use Right Arm -Pulse Rate (60-100 beats/min) 79 Intake and Output for Last 24 Hours 03/29/19 03/30/19 03/31/19 23:59 23:59 23:59 Intake Total 3869.17 / 3869.17 4564.58 / 5004.58 58 / 2003.58 Output Total 1395 / 1395 1600 / 1825 225 / 225 Balance 2474.17 / 2474.17 2964.58 / 3179.58 1779.58 / 1779.58 General: Alert, Cooperative Abdomen: Soft, Non-Distended Laboratory Results 03/31/19 05:34: WBC 5.3, RBC 3.36 L, Hgb 10.0 L, Hct 32.7 L, MCV 97.3 H, MCH 29.8, MCHC 30.6 L, RDW Std Deviation 49.6 H, RDW Coeff of Jenny 13.9, Plt Count 162, MPV 11.4, Immature Gran % (Auto) 0.600, Neut % (Auto) 66.2, Lymph % (Auto) 18.9 L, Dougherty % (Auto) 8.0, Eos % (Auto) 6.1 H, Baso % (Auto) 0.2, Absolute Neuts (auto) 3.5, Absolute Lymphs (auto) 1.00, Nucleated RBC % 0 03/31/19 05:34: Sodium 141, Potassium 3.5, Chloride 111 H, Carbon Dioxide 25.0, Anion Gap 5, BUN 7, Creatinine 0.80, Estim Creat Clear Calc 91.25, Est GFR (MDRD) Af Amer 123, Est GFR (MDRD) Non-Af 101, BUN/Creatinine Ratio 8.7 L, Glucose 114 H, Calcium 8.7 Current Medications Chlorhexidine Gluconate (Peridex) 15 ml PO BID [facility] Last Admin: 03/30/19 22:10 Dose: 15 ml Documented by: Clozapine (Clozaril) 50 mg PO BID [facility] Last Admin: 03/30/19 22:11 Dose: 50 mg Documented by: Clozapine (Clozaril) 300 mg PO QHS [facility] Last Admin: 03/30/19 22:12 Dose: 300 mg Documented by: Fluoxetine HCl (Prozac) 40 mg PO DAILY [facility] Last Admin: 03/30/19 10:44 Dose: 40 mg Documented by: Fluticasone Propionate (Flonase Nasal [place]) 1 spray NASAL DAILY [facility] Last Admin: 03/30/19 10:43 Dose: 1 spray Documented by: Glucagon () 1 mg IM .X1 PRN PRN Reason: Hypoglycemia Heparin Sodium (Porcine) (Heparin Na) 5,000 unit SC Q8 [facility] Last Admin: 03/31/19 05:48 Dose: 5,000 unit Documented by: Dextrose (Dextrose 10%-Water) 250 mls @ 999 mls/hr IV .Q16M PRN; Protocol PRN Reason: HYPOGLYCEMIA Metoprolol Tartrate (Lopressor (Beta Lesley)) 25 mg PO BID [facility] Last Admin: 03/30/19 22:11 Dose: 25 mg Documented by: Ondansetron HCl (Zofran) 4 mg IV Q8H PRN PRN PRN Reason: NAUSEA/VOMITING Last Admin: 03/27/19 09:25 Dose: 4 mg Documented by: Oxcarbazepine (Trileptal) 600 mg PO BID [facility] Last Admin: 03/30/19 22:11 Dose: 600 mg Documented by: Pantoprazole Sodium (Protonix) 40 mg PO DAILY [facility] Last Admin: 03/30/19 10:42 Dose: 40 mg Documented by: Polyethylene Glycol (Miralax) 17 gm PO DAILY [facility] Last Admin: 03/30/19 10:43 Dose: 17 gm Documented by: Pravastatin Sodium (Pravachol) 40 mg PO QHS [facility] Last Admin: 03/30/19 22:11 Dose: 40 mg Documented by: Psyllium Hydrophilic Mucilloid (Metamucil) 1 packet PO DAILY [facility] Last Admin: 03/30/19 10:45 Dose: 1 packet Documented by: Senna/Docusate Sodium (Senokot-S, Eboni-Colace) 1 tablet PO DAILY [facility] Last Admin: 03/30/19 10:43 Dose: 1 tablet Documented by: Sodium Chloride () 10 - 40 ml IV UD PRN PRN Reason: SALINE FLUSH Last Admin: 03/28/19 05:40 Dose: 10 ml Documented by: Tamsulosin HCl (Flomax) 0.4 mg PO QHS [facility] Last Admin: 03/30/19 22:11 Dose: 0.4 mg Documented by: Tolterodine Tartrate (Detrol La) 2 mg PO DAILY [facility] Last Admin: 03/30/19 10:42 Dose: 2 mg Documented by: Medical Necessity - Tobacco Use Smoking Status: Never smoker Tobacco Use: Cigarettes Assessment/Plan All Active Problems (Last Reviewed 02/16/19 @ 17:17 by Raven Hernández) Lower GI bleeding (Acute) Psychomotor agitation (Acute) Anticoagulated (Acute) Hypotension (Acute) Weakness (Acute) Hypotension (Acute) SBO (small bowel obstruction) (Acute) Ileus (Acute) Tachycardia (Acute) ARF (acute renal failure) (Resolved) HCAP (healthcare-associated pneumonia) (Resolved) Ileus (Resolved) 69-year-old male with small bowel obstruction 1. Small bowel striction seems to is resolved. Repeat x-ray yesterday morning showed nonspecific bowel pattern after the patient was on clears for 24 hours. He tolerated regular diet yesterday. Continue oral bowel regimen. Okay for regular diet and discharged when placement is available. Paolo Winters MD Pager: [facility] [address] [place] [address], [address] [place] [address] Office:
[2019-03-31 08:00] VITALS: BP 147/90; PULSE 112; RESP 18; TEMP 36.9; O2SAT 95
[2019-03-31] MEDS: OXcarbazepine 300 MG Tablet 600 MG PO (08:04)
[2019-03-31 08:05] VITALS: PULSE 112
[2019-03-31] MEDS: Senna/Docusate Sodium 1 Tablet PO (08:05)
[2019-03-31] MEDS: Metoprolol Tartrate 25 MG Tablet PO (08:05)
[2019-03-31] MEDS: Tolterodine Tartrate 2 MG CAP.SA PO (08:05)
[2019-03-31] MEDS: FLUoxetine 20 MG Capsule 40 MG PO (08:05)
[2019-03-31] MEDS: Chlorhexidine 480 ML 15 ML PO (08:06)
[2019-03-31] MEDS: Pantoprazole Sodium 40 MG Tablet PO (08:06)
[2019-03-31] MEDS: Psyllium 1 PACKET PO (08:06)
[2019-03-31] MEDS: Polyethylene Glycol 3350 17 GM PACKET PO (08:06)
[2019-03-31] MEDS: Fluticasone 0.05% 1 SPRAY NASAL.SRY NASAL (08:07)
--- NOTE | 2019-03-31 08:41 | PCM.TXEXTCAR ---
- Diet 03/30/19 09:00 Diet: Regular Diet Is pt able to select menu?: No Diet Comments: ok for cola as well - Wound(s) left side of abd Wound Type: scattered abrasions L ballesteros Wound Type: Abrasion - Therapies Physical Therapy: Eval and Treat Occupational Therapy: Eval and Treat - Allergies/Procedures Done in Hospital Allergies/Adverse Reactions: Allergies No Known Allergies Allergy (Verified 03/26/19 13:06) - Type of Care/Length of Stay Estimated LOS: Convalescent Care Less Than 30 days Type of Care Needed: Skilled Rehab Potential: Good Prognosis: Good - Additional Orders/Day of Discharge Day of Discharge: 03/31/19 - Dietary and Speech Recommendations Dietitian Recommendations/Changes: Recommend advance diet as tolerated to regular. - Follow Up Care Primary Care Physician: Flo Del Cid Chi, MD [Primary Care Provider] - Please follow up with your Primary Care Physician in: 3-5 days
--- NOTE | 2019-03-31 09:02 | CASEMGMT ---
Addendum entered by Octavia Sarkar 03/31/19 09:30: SUSI received call from Camille at [facility] stating she is able to accept pt today. Camille request that transportation be arranged after 2:30pm today as she needs to get pt's private room set up. [facility], signed medication list and any scripts. Original in SNF folder and copy on pt's chart. SUSI completed convalescent 7000 in [facility]. Original in SNF folder and copy on pt's chart. SUSI placed a call to [facility] and arranged transportation via cot for 2:30pm. Transportation form completed and placed on SNF folder and copy on pt's chart. SUSI updated RN and Hallie at [facility] of transportation time. SUSI placed a call to pt's legal guardian Bishnu and updated him that pt is being discharged today and transportation time and that he will need to go to [facility] at some point to complete documents. Bishnu states understanding. Plan: [facility] skilled today with [facility] transporting via cot at 2:30pm Octavia SAWYER, INDUSTRIAL ELECTRICAL TECHNICIAN Original Note: Social Work Note Pt is discharging today. SUSI placed a call to Camille at [facility] and left message confirming if [facility] is able to accept pt today. SUSI waiting for call back. Plan: Likely [facility] today Octavia SAWYER, INDUSTRIAL ELECTRICAL TECHNICIAN
--- NOTE | 2019-03-31 10:50 | PCM.DC.SUM ---
Discharge Date and Diagnosis - Problem List Patient Problems: Active and Suspected Problems (Last Reviewed 02/16/19 @ 17:17 by Raven Hernández) Hypotension (Acute) Weakness (Acute) Hypotension (Acute) SBO (small bowel obstruction) (Acute) Date of Admission: 03/26/19 Date of Discharge: 03/31/19 - Primary Discharge Diagnosis Active and Suspected Problems (Last Reviewed 02/16/19 @ 17:17 by Raven Hernández) Hypotension (Acute) Weakness (Acute) Hypotension (Acute) SBO (small bowel obstruction) (Acute) - Secondary Discharge Diagnosis Chronic Problems (Last Reviewed 02/16/19 @ 17:17 by Raven Hernández) Chronic atrial fibrillation (Chronic) Atrial flutter (Chronic) Vitamin D deficiency (Chronic) Vitamin B12 deficiency (Chronic) Hyperlipidemia (Chronic) GERD (gastroesophageal reflux disease) (Chronic) BPH (benign prostatic hyperplasia) (Chronic) Seizure disorder (Chronic) Schizophrenia (Chronic) Hospital Course and Treatment Imaging Results: CXR: IMPRESSION: Cardiomegaly. CT Abd/Pelvis: IMPRESSION: Small bowel obstruction, transition point not clearly identified but is likely in the distal ileum. The stomach is also abnormally distended with both fluid and food. Sigmoid diverticulosis Stable 4 cm lobulated right hepatic cyst Calcified coronary vessels No suspicious solid organ abnormality Consults: General Surgery Operations: None Procedures: None Summary of Care Provided: Per HPI: The patient is a 69 year old M with MRDD, schizophrenia, resident of nursing home, chronic Afib, recent GI bleed on eliquis, BPH, seizures, GERD, HLD, who presented to the ER from the nursing home for low blood pressure. He appears comfortable and has no complaints. He denies LH/dizziness/SOB/CP/pressure/tightness/edema. He is on several blood pressure meds however someone else manages these for him and he is not responsible for taking them himself. In the ER he has asked for food and drink, and has been eating, drinking, and receiving fluids, however his pressures are still low. He denies any issues eating or drinking at the nursing home. Hospital Course: 1. Small bowel obstruction/[id number]-old male with MRDD and schizophrenia presents from the nursing home to the hospital with small bowel suction. Hypotensive and there was concern that he was in the pelvis. Also consult wanting a diet therefore he was advanced to clear liquid diet which he did tolerate and then he was transitioned to a regular diet. He was tolerating a regular diet without any nausea or vomiting and his abdominal pain had resolved. He was also having bowel movements as well as passing gas and therefore he was cleared for discharge. Unfortunately is unable to go back to his nursing home and will be transferred to a residential facility. His hypotension did resolve with fluids and stopping his blood pressure medications. It is felt that his hypotension was secondary to his small bowel obstruction. 2. A. fib/HTN/HLD-initially because he presented with hypertension his blood pressure medications were held. His Cardizem was held completely and his metoprolol was restarted at half the dose at 25 mg p.o. twice daily. His blood pressure was fairly well controlled therefore he was discharged on his Cardizem as well as the half dose of metoprolol. He will need outpatient follow-up. He can continue with his statin. 3. His other medical diagnoses were evaluated and his home medications were continued where appropriate Patient Problems: Active and Suspected Problems (Last Reviewed 02/16/19 @ 17:17 by Raven Hernández) Hypotension (Acute) Weakness (Acute) Hypotension (Acute) SBO (small bowel obstruction) (Acute) - Physical Exam Vitals/I&O's: Vital Signs Temp Pulse Resp BP Pulse Ox 97.8 F 112 H 18 139/92 H 94 03/31/19 02:26 03/31/19 08:05 03/31/19 02:26 03/31/19 02:26 03/31/19 02:26 Oxygen Delivery Method Room Air Weight: 243 lb 9.773 oz Body Mass Index (BMI) 34.9 Orthostatic Vital Signs Start: 03/27/19 05:41 Freq: Status: Active Protocol: Activity Type Activity Date Activity User E-Sign Co-Sign Detail Recorded Client Recorded Date Recorded By Document 03/27/19 05:41 MM [id number] 03/27/19 05:42 MM 03/27/19 05:41 Orthostatic Vitals Sitting -Blood Pressure (90/60-120/80) 117/83 H -Extremity Use Right Arm -Pulse Rate (60-100) 55 L Lying -Blood Pressure (90/60-120/80) 116/70 -Extremity Use Right Arm -Pulse Rate (60-100) 79 Intake and Output for Last 24 Hours 02/09/20 02/10/20 02/11/20 23:59 23:59 23:59 Intake Total 3869.17 / 3869.17 4564.58 / 5004.58 2003.58 / 58 Output Total 1395 / 1395 1600 / 1825 225 / 225 Balance 2474.17 / 2474.17 2964.58 / 3179.58 1779.58 / 1779.58 General: Alert, Cooperative, No apparent distress HEENT: Atraumatic, PERRLA, EOMI, Normocephalic Oral: Moist Mucosa Neck: Supple, No JVD Lungs: Clear to auscultation, Normal air movement, No rhonchi, No wheeze, No rales, Diminished Cardiovascular: Regular rate, Regular Rhythm, Normal S1, Normal S2, No murmurs Abdomen: Soft, Non Tender, Non-Distended, No Hepato-splenomegaly Extremities: No edema, Capillary Refill Less than 3 Seconds Skin: No rashes, No breakdown Neurological: Neuro grossly intact, Sensory exam intact to light touch and pain Psych/Mental Status: Normal Affect, Appropriate Laboratory Results 03/31/19 05:34: WBC 5.3, RBC 3.36 L, Hgb 10.0 L, Hct 32.7 L, MCV 97.3 H, MCH 29.8, MCHC 30.6 L, RDW Std Deviation 49.6 H, RDW Coeff of Jenny 13.9, Plt Count 162, MPV 11.4, Immature Gran % (Auto) 0.600, Neut % (Auto) 66.2, Lymph % (Auto) 18.9 L, Stearns % (Auto) 8.0, Eos % (Auto) 6.1 H, Baso % (Auto) 0.2, Absolute Neuts (auto) 3.5, Absolute Lymphs (auto) 1.00, Nucleated RBC % 0 03/31/19 05:34: Sodium 141, Potassium 3.5, Chloride 111 H, Carbon Dioxide 25.0, Anion Gap 5, BUN 7, Creatinine 0.80, Estim Creat Clear Calc 91.25, Est GFR (MDRD) Af Amer 123, Est GFR (MDRD) Non-Af 101, BUN/Creatinine Ratio 8.7 L, Glucose 114 H, Calcium 8.7 Current Medications Chlorhexidine Gluconate (Peridex) 15 ml PO BID [facility] Last Admin: 03/31/19 08:06 Dose: 15 ml Documented by: Clozapine (Clozaril) 50 mg PO BID [facility] Last Admin: 03/31/19 08:04 Dose: 50 mg Documented by: Clozapine (Clozaril) 300 mg PO QHS [facility] Last Admin: 03/30/19 22:12 Dose: 300 mg Documented by: Fluoxetine HCl (Prozac) 40 mg PO DAILY [facility] Last Admin: 03/31/19 08:05 Dose: 40 mg Documented by: Fluticasone Propionate (Flonase Nasal [place]) 1 spray NASAL DAILY [facility] Last Admin: 03/31/19 08:07 Dose: 1 spray Documented by: Glucagon () 1 mg IM .X1 PRN PRN Reason: Hypoglycemia Heparin Sodium (Porcine) (Heparin Na) 5,000 unit SC Q8 [facility] Last Admin: 03/31/19 05:48 Dose: 5,000 unit Documented by: Dextrose (Dextrose 10%-Water) 250 mls @ 999 mls/hr IV .Q16M PRN; Protocol PRN Reason: HYPOGLYCEMIA Metoprolol Tartrate (Lopressor (Beta Lesley)) 25 mg PO BID [facility] Last Admin: 03/31/19 08:05 Dose: 25 mg Documented by: Ondansetron HCl (Zofran) 4 mg IV Q8H PRN PRN PRN Reason: NAUSEA/VOMITING Last Admin: 03/27/19 09:25 Dose: 4 mg Documented by: Oxcarbazepine (Trileptal) 600 mg PO BID [facility] Last Admin: 03/31/19 08:04 Dose: 600 mg Documented by: Pantoprazole Sodium (Protonix) 40 mg PO DAILY [facility] Last Admin: 03/31/19 08:06 Dose: 40 mg Documented by: Polyethylene Glycol (Miralax) 17 gm PO DAILY [facility] Last Admin: 03/31/19 08:06 Dose: 17 gm Documented by: Pravastatin Sodium (Pravachol) 40 mg PO QHS [facility] Last Admin: 03/30/19 22:11 Dose: 40 mg Documented by: Psyllium Hydrophilic Mucilloid (Metamucil) 1 packet PO DAILY [facility] Last Admin: 03/31/19 08:06 Dose: 1 packet Documented by: Senna/Docusate Sodium (Senokot-S, Eboni-Colace) 1 tablet PO DAILY [facility] Last Admin: 03/31/19 08:05 Dose: 1 tablet Documented by: Sodium Chloride () 10 - 40 ml IV UD PRN PRN Reason: SALINE FLUSH Last Admin: 03/28/19 05:40 Dose: 10 ml Documented by: Tamsulosin HCl (Flomax) 0.4 mg PO QHS [facility] Last Admin: 03/30/19 22:11 Dose: 0.4 mg Documented by: Tolterodine Tartrate (Detrol La) 2 mg PO DAILY [facility] Last Admin: 03/31/19 08:05 Dose: 2 mg Documented by: Home Medications: Medications to take at Discharge Chlorhexidine Gluconate 1 ea PO BID 01/20/19 Cyanocobalamin (Vitamin B-12) [Vitamin B-12] 100 mcg PO BID 01/20/19 Emollient Combination No.71 [Lubriderm Advanced Therapy] 2 applic TP DAILY 01/20/19 Fluticasone 0.05% [Flonase Nasal [place]] 1 spray NASAL DAILY 01/20/19 Oxcarbazepine [Trileptal] 600 mg PO BID 01/20/19 Pravastatin [Pravachol] 40 mg PO QHS 01/20/19 Psyllium [Metamucil] 1 packet PO DAILY 01/20/19 Tamsulosin HCl 0.4 mg PO QHS 01/20/19 Apixaban [Eliquis] 5 mg PO BID 03/26/19 Clozapine 50 mg PO BID 03/26/19 Clozapine 300 mg PO QHS 03/26/19 Diltiazem HCl [Diltiazem 24Hr Cd] 120 mg PO DAILY 03/26/19 Docusate Sodium [Colace] 100 mg PO DAILY 03/26/19 Ergocalciferol (Vitamin D2) [Vitamin D2] 50,000 unit PO MO 03/26/19 Fluoxetine HCl 40 mg PO DAILY 03/26/19 Meloxicam 7.5 mg PO DAILY 03/26/19 Oxybutynin Chloride [Oxybutynin Chloride ER] 10 mg PO DAILY 03/26/19 Pantoprazole Sodium [Protonix] 40 mg PO DAILY 03/26/19 Polyethylene Glycol 3350 [Miralax] 17 gm PO DAILY 03/26/19 Sennosides/Docusate Sodium [Senna Plus 8.6-50 mg Tablet] 1 tab PO DAILY 03/26/19 Metoprolol Tartrate 25 mg PO BID #0 03/31/19 Primary Care Physician: Flo Del Cid Chi, MD [Primary Care Provider] - Please follow up with your Primary Care Physician in: 3-5 days Disposition: Care Home facility Minutes spent on discharge:: 35 Patient Condition:: Stable Medical Necessity - Tobacco Use Smoking Status: Never smoker Tobacco Use: Cigarettes Meaningful Use Info Meaningful Use Diagnoses (Choose all that apply): None applicable Code Visit Inpatient E&M: 56656 Disch Hosp
[2019-03-31 12:45] VITALS: BP 153/94; PULSE 99; RESP 18; TEMP 36.7; O2SAT 94
--- NOTE | 2019-03-31 13:01 | NURSING ---
report called to AUDELIA Purcell at [facility] for patient discharge.
== END 2019-03-31 14:45 | disposition skilled nursing facility (03) | DRG 389 ==
LOC: ED 16:46 → MS3 17:15
PROVIDERS: Admitting Provider Family Medicine; Emergency Provider Emergency Medicine; PCP Family Medicine Geriatric Medicine; Visit Provider Internal Medicine
DX: K56.609 Unspecified intestinal obstruction, unspecified as to partial versus complete obstruction (principal); I48.20 Chronic atrial fibrillation, unspecified; N17.9 Acute kidney failure, unspecified; I95.9 Hypotension, unspecified; I12.9 Hypertensive chronic kidney disease with stage 1 through stage 4 chronic kidney disease, or unspecified chronic kidney disease; N18.3 Chronic kidney disease, stage 3 (moderate); D53.9 Nutritional anemia, unspecified; E86.0 Dehydration; E55.9 Vitamin D deficiency, unspecified; E53.9 Vitamin B deficiency, unspecified; E78.5 Hyperlipidemia, unspecified; I44.0 Atrioventricular block, first degree; I45.10 Unspecified right bundle-branch block; N40.0 Benign prostatic hyperplasia without lower urinary tract symptoms; K21.9 Gastro-esophageal reflux disease without esophagitis; G40.909 Epilepsy, unspecified, not intractable, without status epilepticus; F25.9 Schizoaffective disorder, unspecified; F79 Unspecified intellectual disabilities; Z79.01 Long term (current) use of anticoagulants; Z79.899 Other long term (current) drug therapy
CPT/HCPCS: 36415; 71045; 74018; 74019; 74177; 80048; 80053; 81001; 83605; 84484; 85025; 93005; 97110; 97162; 97166; 97530; 97535; 99285; J7030; Q9967; A4216; J2405